=== PATIENT | female | born 1950 | race Caucasian/White ===

== ENCOUNTER → 2016-11-19 | Outpatient (CLI) | payer OTHER ==
[~2016-11-19] MED LIST: CIPR-255 PO; CYCL10TA6 PO; GABA-113 PO; GADAVIST IV PRN
--- NOTE | 2016-11-19 11:19 | DIAGNOSTIC IMAGING REPORT ---
Brain MRI WITH AND WITHOUT CONTRAST HISTORY: WORSENING MEMORY LOSS, POST CONCUSSION SYNDROME TECHNIQUE: Multiplanar multisequence MRI of the brain was performed both before and after the intravenous administration of contrast. COMPARISON STUDY: None. FINDINGS: There is no mass, hematoma, midline shift, or acute infarct. The paranasal sinuses are clear. The mastoid air cells are clear. The ventricles and sulci are within normal limits. A few scattered foci of T2 hyperintensity seen within the periventricular and subcortical white matter are nonspecific but suggestive of mild microvascular ischemic changes. The major vascular flow voids at the skull base are well-maintained. IMPRESSION: No acute intracranial abnormality. A few scattered foci of T2 hyperintensity seen within the periventricular and subcortical white matter are nonspecific but favor microvascular ischemic change. Electronically signed by: Sha Martinez M.D. 11/19/2016 11:18 AM Dictated Date/Time: 11/19/2016 11:10 AM
== END | disposition home or self-care (01) ==
LOC: C.OPENMRI 09:45
PROVIDERS: ATTEND Psychiatry & Neurology Neurology
DX: R41.3 Other amnesia (principal); F07.81 Postconcussional syndrome

== ENCOUNTER 2020-11-14 11:53 | Inpatient (IN) ==
[~2020-11-14 11:53] MED LIST changes: -CIPR-255 PO; -CYCL10TA6 PO; +ETOMIDATE 2 MG/ML 20 ML VIAL IV ONE; -GABA-113 PO; -GADAVIST IV PRN; +MIDAZOLAM HCL 5 MG/ML VIAL IV ONE; +fentaNYL citrate 100 MCG/2 ML VIAL IV ONE
[2020-11-14] MEDS ORDERED: dexAMETHasone**PF** 10 MG/ML VIAL IV ONE (12:24)
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
[2020-11-14 13:09] LABS: Basophils # (auto) 0.01 K/uL (0-0.2); Basophils % (auto) 0.1 %; Hemoglobin 13.7 g/dL (12.0-16.0); Immature Granulocytes # (auto) 0.03 K/uL (0.00-0.02); Immature Granulocytes % (auto) 0.3 %; Lymphocytes # (auto) 0.64 K/uL (1.2-3.4); Lymphocytes % (auto) 6.6 %; Mean Corpuscular Hgb Conc 35.1 g/dL (32-36); Mean Corpuscular Volume 88.2 fL (80-100); Mean Platelet Volume 10.3 fL (7.4-10.4); Monocytes # (auto) 0.26 K/uL (0.11-0.59); Monocytes % (auto) 2.7 %; Neutrophils # (auto) 8.69 K/uL (1.4-6.5); Neutrophils % (auto) 90.3 %; Platelet Count 264 K/uL (130-400); RDW Coefficient of Variation 13.1 % (11.5-14.5); RDW Standard Deviation 42.7 fL (36.4-46.3); Red Blood Count 4.42 M/uL (4.2-5.4); White Blood Count 9.63 K/uL (4.8-10.8)
[2020-11-14 13:20] LABS: Partial Thromboplastin Time 27.5 Seconds (21.0-31.0)
--- NOTE | 2020-11-14 13:20 | XRay Report ---
XR chest 1V portable HISTORY: Atypical Chest Pain COMPARISON: Chest 07/18/2018. FINDINGS: No pneumothorax. No pleural fusions. The cardiac silhouette is borderline enlarged. Retroca rdiac density favors a small to moderate hiatus hernia. Bilateral peripheral mid to lower lung zone a irspace opacities are new from the prior study. This could be due to overlapping soft tissue but favo rs viral pneumonitis. IMPRESSION: There are new bilateral peripheral mid to lower lung zone airspace opacities. This could be due to ov erlapping soft tissues but favors a viral pneumonitis. Follow-up chest x-ray recommended to ensure re solution. ACT 112: Negative or not required by law. Electronically signed by: Sha Martinez M.D. 11/14/2020 1:19 PM
[2020-11-14 13:40] LABS: Alanine Aminotransferase 92 U/L (12-78); Albumin Level 2.7 gm/dl (3.4-5.0); Aspartate Aminotransferase 151 U/L (15-37); BUN Creatinine Ratio 13.7 (10-20); Blood Urea Nitrogen 7 mg/dl (7-18); Calcium 8.8 mg/dl (8.5-10.1); Carbon Dioxide 23 mmol/L (21-32); Chloride 94 mmol/L (98-107); Creatinine Clr Calc Pharmacy 90.5 ml/min; Est GFR (African American) 113.1 ml/min; Est GFR (Non-African American) 97.6 ml/min; Glucose 101 mg/dl (70-99); Lipase 146 U/L (73-393); Potassium 3.8 mmol/L (3.5-5.1); Sodium 129 mmol/L (136-145)
[2020-11-14 13:45] LABS: Albumin Globulin Ratio 0.6 (0.9-2); Alkaline Phosphatase 85 U/L (45-117); Bilirubin,Total 0.7 mg/dl (0.2-1); Globulin 4.7 gm/dl (2.5-4.0); Total Protein 7.4 gm/dl (6.4-8.2); Troponin I < 0.015 ng/ml (0-0.045)
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
[2020-11-14] MEDS ORDERED: ALUMINUM/MAGNESIUM SUSP 30 ML UDC PO PRN (14:52)
[2020-11-14] MEDS ORDERED: IBUPROFEN 200 MG TAB PO PRN (14:52)
[2020-11-14] MEDS ORDERED: POLYETHYLENE (MIRALAX) 17 GM PACK PO PRN (14:52)
[2020-11-14] MEDS ORDERED: ONDANSETRON INJ 2 MG/ML 2 ML VIAL IV PRN (14:52)
[2020-11-14] MEDS ORDERED: MAGNESIUM HYDROXIDE SUSP 30 ML UDC PO PRN (14:52)
[2020-11-14] MEDS: ALBUTEROL HFA 8 GM INHALER INH SCH ×2 (15:49→19:45)
[2020-11-14] MEDS ORDERED: ETOMIDATE 2 MG/ML 20 ML VIAL IV ONE (15:54)
[2020-11-14] MEDS ORDERED: SUCCINYLCHOLINE CHLORIDE 20 MG/ML 10 ML VIAL IV ONE (15:54)
[2020-11-14] MEDS ORDERED: MIDAZOLAM HCL 5 MG/ML VIAL IV ONE (15:54)
[2020-11-14] MEDS ORDERED: OPTIRAY 350 500ml IV ONE (16:02)
--- NOTE | 2020-11-14 16:29 | CT Scan Report ---
CT ANGIOGRAM OF THE CHEST CLINICAL HISTORY: Dyspnea. Covid. COMPARISON STUDY: Chest x-ray dated 11/14/2020. TECHNIQUE: Following the IV administration of 115 cc of Optiray 350, CT angiogram of the chest was pe rformed from the upper abdomen to the thoracic inlet utilizing the pulmonary embolus protocol. Images are reviewed in the axial, sagittal, and coronal planes. 3-D MIPS images are created and assessed. I V contrast was administered without complication. A dose lowering technique was utilized adhering to the principles of ALARA. CT DOSE: 401.65 mGycm FINDINGS: Thyroid: Imaged portions of the thyroid gland are normal in size and attenuation. Thoracic aorta: There is mild atherosclerotic calcification of the thoracic aorta, which is normal in caliber and demonstrates standard 3-vessel arch anatomy. No dissection is seen. Pulmonary vasculature: The pulmonary trunk is normal in caliber. There are no filling defects identif ied in main, lobar, or segmental pulmonary branches to suggest pulmonary embolus. Heart: The heart is normal in size and without pericardial effusion. Lungs and pleural spaces: Extensive multifocal groundglass consolidation is seen throughout both lung s. No pleural effusion is identified. The trachea and central airways are clear. Mediastinum: Prominent prevascular nodes measure up to 9 mm in short axis. Tammie: Clear. Axillae: There is no axillary lymphadenopathy. Upper abdomen: There is a moderate hiatal hernia. The liver appears steatotic. Skeletal structures: The skeletal structures are osteopenic. Mild degenerative change is noted in the shoulders and thoracic spine. No lytic or blastic lesion is seen. IMPRESSION: 1. There is no evidence of pulmonary embolus in the main, lobar, or segmental pulmonary arteries. 2. Multifocal groundglass consolidation is seen throughout both lungs and consistent with the reporte d history of a viral pneumonia. Radiographic follow-up to resolution is recommended. 3. Moderate hiatal hernia. 4. Hepatic steatosis. ACT 112: Negative or not required by law. Electronically signed by: Vu Chin M.D. 11/14/2020 4:28 PM
--- NOTE | 2020-11-14 17:55 | Electrocardiogram Report ---
Test Reason : Blood Pressure : / mmHG Vent. Rate : 109 BPM Atrial Rate : 109 BPM P-R Int : 156 ms QRS Dur : 084 ms QT Int : 346 ms P-R-T Axes : 037 -16 049 degrees QTc Int : 465 ms Sinus tachycardia Otherwise normal ECG When compared with ECG of 18-JUL-2018 12:05, Vent. rate has increased BY 42 BPM Confirmed by Brendan Israel ([id number]) on 11/14/2020 5:54:59 PM Referred By: REFERRED SELF Confirmed By:Alejandro Israel
[2020-11-14] MEDS: ENOXAPARIN INJ 40 MG/0.4 ML SYR SQ SCH (21:34)
[2020-11-14 23:06] LABS: Appearance Urine Clear (Clear); Bacteria Urine Automated Negative (Negative); Bilirubin Urine Negative (Negative); Blood Urine Trace (Negative); Cast Urine Automated 0 /lpf (0-5); Color Urine Yellow; Epithelial Cell Urine Auto >30 /lpf (0-5); Glucose Urine UA Negative (Negative); Ketones Urine 1+ (Negative); Leukocyte Esterase Urine Negative (Negative); Nitrite Urine Negative (Negative); Protein Urine 1+ (Negative); RBC Urine Automated 0-4 /hpf (0-4); Specific Gravity Urine > 1.045 (1.000-1.030); Urobilinogen Urine Negative (Negative); pH Urine 6.5 (4.5-7.5)
[2020-11-15] MEDS ORDERED: dexAMETHasone 6 MG in SYRINGE 0 ML IV SCH ×2 (01:05→09:00)
[2020-11-15] MEDS ORDERED: ALBUTEROL HFA 8 GM INHALER INH ONE (01:05)
[2020-11-15] MEDS ORDERED: MAGNESIUM SULFATE / D5W 1 GM/100 ML BAG IV ONE (01:06)
[2020-11-15] MEDS ORDERED: POTASSIUM CHLORIDE CRTAB 20 MEQ TABCR PO STA (01:07)
[2020-11-15] MEDS ORDERED: DOXYCYCLINE HYCLATE 100 MG in DEXTROSE 5% 100 ML IV STA (01:42)
--- NOTE | 2020-11-15 01:43 | Communication Note ---
Date of Service: November 15, 2020 Made aware by RN of increasing O2 requirement. O2 sats 80s at 8 L. Patient not in distress but anxious as per RN. Chest x-ray as per my interpretation bilateral airspace opacities AP Worsening hypoxemic respiratory failure secondary to severe COVID-19 pneumonia Secondary bacterial infection given junky yellow sputum as per admission H&P Supplemental O2 Check ABG Doxycycline for secondary bacterial infection Continue TRACIE Mathews RTC Pulmonary consult if without improvement in a.m. Will relay to AM provider.
[2020-11-15 01:44] LABS: Magnesium 2.2 mg/dl (1.8-2.4)
[2020-11-15 01:48] LABS: Allen Test POS (Pos); Base Excess ABG 1.2 mEq/L (-9-1.8); HCO3 ABG 25 mmol/L (19-24); Oxygen Saturation ABG 93.1 % (90-95); PCO2 ABG 35 mmHg (35-46); PO2 ABG 60 mmHg (80-95); pH ABG 7.46 (7.35-7.45)
[2020-11-15 06:39] LABS: Basophils # (auto) 0.01 K/uL (0-0.2); Basophils % (auto) 0.1 %; Hematocrit (blood only) 40.6 % (37-47); Hemoglobin 13.8 g/dL (12.0-16.0); Immature Granulocytes # (auto) 0.04 K/uL (0.00-0.02); Immature Granulocytes % (auto) 0.5 %; Lymphocytes # (auto) 0.73 K/uL (1.2-3.4); Lymphocytes % (auto) 9.3 %; Mean Corpuscular Hemoglobin 30.7 pg (25-34); Mean Corpuscular Volume 90.2 fL (80-100); Mean Platelet Volume 10.1 fL (7.4-10.4); Monocytes # (auto) 0.31 K/uL (0.11-0.59); Neutrophils # (auto) 6.73 K/uL (1.4-6.5); Neutrophils % (auto) 86.1 %; Platelet Count 335 K/uL (130-400); RDW Coefficient of Variation 13.4 % (11.5-14.5); RDW Standard Deviation 44.4 fL (36.4-46.3); White Blood Count 7.82 K/uL (4.8-10.8)
--- NOTE | 2020-11-15 07:09 | XRay Report ---
XR chest 1V portable CLINICAL HISTORY: low o2 COMPARISON STUDY: Chest radiograph and chest CT November 14, 2020. FINDINGS: Lung volumes are normal. There is no pneumothorax or pleural effusion. Bilateral airspace o pacities persist although have improved since chest radiograph and chest CT of November 14, 2020. Cardiom ediastinal silhouette is stable. A hiatal hernia is again noted. IMPRESSION: Persistent, but improved, bilateral airspace opacities consistent with an infectious pro cess. ACT 112: Negative or not required by law. Electronically signed by: Gokul Olson M.D. 11/15/2020 7:08 AM
[2020-11-15] MEDS: ALBUTEROL HFA 8 GM INHALER INH SCH ×4 (07:19→20:12)
[2020-11-15 07:31] LABS: Albumin Globulin Ratio 0.5 (0.9-2); Albumin Level 2.5 gm/dl (3.4-5.0); BUN Creatinine Ratio 20.5 (10-20); Bilirubin,Total 0.6 mg/dl (0.2-1); Calcium 9.3 mg/dl (8.5-10.1); Creatinine Clr Calc Pharmacy 57.2 ml/min; Est GFR (African American) 81.6 ml/min; Est GFR (Non-African American) 70.4 ml/min; Globulin 4.8 gm/dl (2.5-4.0); Magnesium 2.8 mg/dl (1.8-2.4); Potassium 4.5 mmol/L (3.5-5.1); Total Protein 7.3 gm/dl (6.4-8.2)
[2020-11-15] MEDS: ENOXAPARIN INJ 40 MG/0.4 ML SYR SQ SCH ×2 (08:36→20:49)
[2020-11-15] MEDS ORDERED: FUROSEMIDE 40 MG in SYRINGE 0 ML IV ONE (11:12)
[2020-11-15] MEDS ORDERED: FUROSEMIDE 40 MG/4 ML VIAL IV ONE (11:12)
--- NOTE | 2020-11-15 12:04 | Hospitalist Progress Note ---
Date of Service November 15, 2020 Assessment & Plan (1) Pneumonia due to COVID-19 virus: Currently patient is on the high flow nasal cannula. Reports shortness of breath is improved. Remains afebrile. Hemodynamically doing okay. CRP of 14. Pro Den of only 0.13. CTA chest is negative for any pulmonary embolism. Continue with Decadron. Continue with doxycycline 100 mg twice daily. Does not meet criteria for remdesivir since his symptoms started roughly around 10/30 test was +16/7. alternate tylenol/ibuprofen for fever, limit tylenol to 2g albuterol MDI QID, incentive spirometry, flutter valve lovenox 40mg SQ q12h Given worsening oxygen requirement, consulted pulmonary medicine. (2) Hyponatremia: Sodium 129 on admission, this morning at 132. Likely secondary to p.o. intake. Renal function is normal. Will continue to monitor daily BMP. (3) Fatty liver: Elevated Transaminases -improved ast 151, alt 92. AST is down to 97 and ALT 275. previous LFT in [facility] had been normal she has been taking APAP for fever reduction last US of liver 09/2019 diffuse increased heterogeneous liver and fatty filtration. (4) DVT prophylaxis: Lovenox SQ Q12h Dipso: PCU FULL CODE PCP: Dr. An Christian Admission and Anticipated Discharge Date Admission Date: November 14, 2020 Subjective Currently patient is sitting on the recliner. She is on high flow nasal cannula, reports that shortness of breath is improved. Does have nonproductive cough. Denies any fever chills or diaphoresis. Denies any chest pain. Appetite has been okay. Review of Systems Review of Systems: All systems reviewed & are unremarkable except as noted in HPI & below Physical Exam Physical Exam: General: A&Ox3 HENT: NCAT, MMM, EOMI Eyes: PERRLA Neck: Supple, normal range of motion CVS: normal rate and rhythm Resp: b/l crackles apprecaited Abdomen: Soft, ND/NT Extremities: No c/c/e Neuro: face symmetric,no focal deficit Skin: warm and dry, no rashes/lesions/errythema MSK: normal ROM, no joint swelling/erythema Results & Data Results & Data ([facility]) Vital Signs (Past 12 Hours) Vital Signs Temp Pulse Pulse Pulse Resp BP Pulse Ox 11/15/20 11:23 36.9 C 98 H 23 103/61 91 11/15/20 10:32 93 H 21 93 11/15/20 08:28 36.9 C 89 24 119/73 91 11/15/20 07:57 68 11/15/20 07:20 75 20 98 11/15/20 03:59 37.0 C 68 18 117/67 96 11/15/20 01:44 74 20 92 11/15/20 01:28 84 11/15/20 01:14 93 11/15/20 01:00 87 L 11/15/20 00:11 93
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
[2020-11-15 14:45] LABS: C Reactive Protein 11.8 mg/dl (0-0.29); Ferritin 1701.2 ng/ml (8-388)
[2020-11-15] MEDS ORDERED: dexAMETHasone 20 MG in SYRINGE 0 ML IV SCH (15:00)
[2020-11-15] MEDS ORDERED: dexAMETHasone 20 MG in DEXTROSE 5% 25 ML IV ONE (15:00)
[2020-11-15 17:50] LABS: NT Pro B Type Natriuretic Pept 164 pg/ml (0-900); Troponin I < 0.015 ng/ml (0-0.045)
--- NOTE | 2020-11-15 20:34 | Ultrasound Report ---
US venous doppler LE LT CLINICAL HISTORY: edema LEFT LOWER EXTREMITY PAIN COMPARISON STUDY: No previous studies for comparison. FINDINGS: Real-time and color flow Doppler imaging were performed. Flow was seen within the femoral, popliteal and calf veins with no intraluminal thrombus demonstrated. The saphenous vein is patent. IMPRESSION: No evidence of left lower extremity DVT. ACT 112: Negative or not required by law. Electronically signed by: Lenard Bolaños M.D. 11/15/2020 8:33 PM
[2020-11-15] MEDS: FAMOTIDINE 20 MG in SYRINGE 3 ML IV SCH (20:50)
[2020-11-15] MEDS ORDERED: DOXYCYCLINE HYCLATE 100 MG CAP PO SCH (21:00)
[2020-11-15] MEDS ORDERED: FAMOTIDINE 20 MG TAB PO SCH (21:00)
[2020-11-16 05:04] LABS: Hematocrit (blood only) 39.8 % (37-47); Hemoglobin 13.3 g/dL (12.0-16.0); Mean Corpuscular Hemoglobin 30.4 pg (25-34); Mean Corpuscular Hgb Conc 33.4 g/dL (32-36); Mean Corpuscular Volume 90.9 fL (80-100); Platelet Count 460 K/uL (130-400); RDW Coefficient of Variation 13.4 % (11.5-14.5); RDW Standard Deviation 44.5 fL (36.4-46.3); Red Blood Count 4.38 M/uL (4.2-5.4); White Blood Count 16.08 K/uL (4.8-10.8)
[2020-11-16 05:22] LABS: Calcium 9.1 mg/dl (8.5-10.1); Creatinine Clr Calc Pharmacy 54.6 ml/min; Est GFR (African American) 77.2 ml/min; Est GFR (Non-African American) 66.6 ml/min; Magnesium 2.7 mg/dl (1.8-2.4); Phosphorus 3.7 mg/dl (2.5-4.9); Potassium 4.2 mmol/L (3.5-5.1)
[2020-11-16 05:28] LABS: Basophils # (auto) 0.03 K/uL (0-0.2); Basophils % (auto) 0.2 %; Immature Granulocytes # (auto) 0.07 K/uL (0.00-0.02); Immature Granulocytes % (auto) 0.4 %; Lymphocytes # (auto) 1.17 K/uL (1.2-3.4); Lymphocytes % (auto) 7.3 %; Monocytes # (auto) 0.66 K/uL (0.11-0.59); Monocytes % (auto) 4.1 %; Neutrophils # (auto) 14.15 K/uL (1.4-6.5); RBC Morphology Unremarkable
[2020-11-16] MEDS: ALBUTEROL HFA 8 GM INHALER INH SCH ×4 (07:59→20:10)
--- NOTE | 2020-11-16 08:57 | XRay Report ---
XR chest 1V portable CLINICAL HISTORY: resp failure COMPARISON STUDY: November 15, 2020 FINDINGS: No pneumothorax. No pleural effusion. Interval prominence of reticular opacities within bilateral mid to lower lungs, most worsening on the left when compared to recent prior study. Cardiomediastinal silhouette is within normal limits in size. No significant pulmonary vascular congestion.. Osseous structures: unremarkable IMPRESSION: 1. Interval prominence of reticular opacities within bilateral mid to lower lung regions, mostly on the left which might represent pulmonary edema or infectious/inflammatory etiology. ACT 112: Negative or not required by law. The above report was generated using voice recognition software. It may contain grammatical, syntax o r spelling errors. Electronically signed by: Nadia Kirk DO 11/16/2020 8:55 AM
[2020-11-16] MEDS: ENOXAPARIN INJ 40 MG/0.4 ML SYR SQ SCH ×2 (09:47→21:06)
[2020-11-16] MEDS: FAMOTIDINE 20 MG in SYRINGE 3 ML IV SCH ×2 (09:48→21:07)
[2020-11-16] MEDS ORDERED: PHARMACY GLYCEMIC MGMT CONSULT PRN (10:34)
[2020-11-16] MEDS ORDERED: DEXTROSE 50% 50 ML SYRINGE IV PRN (10:45)
[2020-11-16] MEDS ORDERED: CARBOHYDRATES FOR HYPOGLYCEMIA PO PRN (10:45)
[2020-11-16] MEDS ORDERED: GLUCAGON FOR INJ 1 MG VIAL IM PRN (10:45)
[2020-11-16] MEDS ORDERED: INSULIN HUMAN NPH SC ONE (10:45)
[2020-11-16] MEDS ORDERED: GLUCOSE 40% GEL 15 GM TUBE PO PRN (10:45)
[2020-11-16] MEDS ORDERED: INSULIN ASPART 100 UNITS/ML 3 ML PEN SC ONE (10:45)
[2020-11-16] MEDS ORDERED: GLUCOSE 10 TABS/TUBE PO PRN (10:45)
--- NOTE | 2020-11-16 10:45 | Hospitalist Progress Note ---
Date of Service November 16, 2020 Assessment & Plan (1) Pneumonia due to COVID-19 virus: Currently patient is on the high flow nasal cannula. Reports shortness of breath is improved. CRP of 14. Pro Den of only 0.13. CTA chest is negative for any pulmonary embolism. Continue with Decadron 20 mg daily. Continue with doxycycline 100 mg twice daily. Does not meet criteria for remdesivir since his symptoms started roughly around 10/30 test was +16/7. alternate tylenol/ibuprofen for fever, limit tylenol to 2g albuterol MDI QID, incentive spirometry, flutter valve. lovenox 40mg SQ q12h Appreciate pulmonary medicine input. (2) Hyponatremia: Sodium 129 on admission, this morning at 131. Likely secondary to p.o. intake. Renal function is normal. Will continue to monitor daily BMP. (3) Fatty liver: Elevated Transaminases -improved ast 151, alt 92. AST is down to 97 and ALT 275 she has been taking APAP for fever reduction last US of liver 09/2019 diffuse increased heterogeneous liver and fatty filtrati on. (4) DVT prophylaxis: Lovenox SQ Q12h Dipso: PCU FULL CODE PCP: Dr. An Christian Admission and Anticipated Discharge Date Admission Date: November 14, 2020 Subjective Patient remains on high flow nasal cannula. Reports her shortness of breath is better today, does have intermittent productive cough. Remains afebrile. Denies any chest pain, palpitations, abdominal pain, diarrhea or dysuria. Reports appetite is better. Review of Systems Review of Systems: All systems reviewed & are unremarkable except as noted in HPI & below Physical Exam Physical Exam: General: A&Ox3 HENT: NCAT, MMM, EOMI Eyes: PERRLA Neck: Supple, normal range of motion CVS: normal rate and rhythm Resp: b/l crackles apprecaited Abdomen: Soft, ND/NT Extremities: No c/c/e Neuro: face symmetric,no focal deficit Skin: warm and dry, no rashes/lesions/errythema MSK: normal ROM, no joint swelling/erythema Results & Data Results & Data ([facility]) Vital Signs (Past 12 Hours) Vital Signs Temp Pulse Pulse Resp BP Pulse Ox 11/16/20 08:15 93 H 20 97 11/16/20 08:14 93 H 20 98 11/16/20 08:00 87 14 95 11/16/20 07:45 88 18 89 L 11/16/20 07:30 73 29 H 93 11/16/20 07:21 84 19 112/55 L 97 11/16/20 07:15 74 27 H 94 11/16/20 07:00 83 20 93 11/16/20 06:30 88 19 90 11/16/20 06:22 82 23 103/60 91 11/16/20 06:00 73 25 H 94 11/16/20 05:30 77 26 H 93 11/16/20 05:21 76 31 H 106/57 L 93 11/16/20 05:00 74 25 H 93 11/16/20 04:30 86 31 H 94 11/16/20 04:21 90 16 115/79 97 11/16/20 04:00 36.9 C 73 28 H 93 11/16/20 03:30 73 28 H 94 11/16/20 03:21 86 22 116/66 95 11/16/20 03:00 77 27 H 94 11/16/20 02:30 75 32 H 95 11/16/20 02:21 87 20 112/61 92 11/16/20 02:00 88 12 96 11/16/20 01:30 87 22 95 11/16/20 01:21 88 25 H 96/54 L 93 11/16/20 01:00 80 27 H 96 11/16/20 00:30 76 25 H 94 11/16/20 00:21 78 24 108/53 L 95 11/16/20 00:00 82 22 95 11/15/20 23:45 88 20 94 11/15/20 23:44 36.8 C 81 11/15/20 23:30 92 H 18 90 11/15/20 23:21 96 H 16 112/64 87 L 11/15/20 23:00 101 H 20 94
--- NOTE | 2020-11-16 11:47 | Pharmacy Report ---
Pharmacy Glycemic Short Note 2 - Date of Service November 16, 2020 - Glycemic Short BSG Results (Last 24 hours): 11/15/20 11/16/20 23:34 04:44 Glucose 152 H POC Glucose 169 H OUTPATIENT ANTIDIABETIC REGIMEN: * N/A * a1C = ? ASSESSMENT: * 70 yo female admitted to ICU for resp failure secondary to COVID19 viral pneumonia * DEXA-ARDS IV dexamethasone initiated yesterday, BSGs have been trending higher. Last 2 fasting BSGs > 140 and there are plans to advance diet today * Will initiate Novolog regimen using weight and "severe" stress. Will also give a low dose of NPH this AM to help offset the climb in BSGs following meals today. Given uncertainty with PO intake, and lack of A1c result, will keep NPH dose low for now. PLAN FOR INPATIENT GLYCEMIC CONTROL: * check A1c * Basal insulin * NPH 10 units SQ with each dose of Dexamethasone IV * Bolus insulin * NovoLog per scale ACHS or Q6hrs while NPO * Goal Range: Low 110 mg/dL - High 140 mg/dL * Correction Factor: 25 mg/dL/unit * Nutritional / Prandial insulin per carb ratio of 1 unit per 8 grams CHO consumed PLAN FOR DISCHARGE: * to be determined (awaiting A1c results)
[2020-11-16] MEDS: dexAMETHasone 20 MG in DEXTROSE 5% 25 ML IV SCH (11:49)
--- NOTE | 2020-11-16 11:49 | Pulmonology Progress Note ---
Date of Service November 16, 2020 Assessment & Plan (1) Pneumonia due to COVID-19 virus: 70-year-old female with a past medical history of hyperlipidemia and fatty liver disease who presented to the hospital due to COVID-19 illness and acute hypoxemic respiratory failure. Acute hypoxemic respiratory failure: She was started on the DEXA ARDS protocol of 20 mg Decadron for 5 days followed by 10 mg for 5 days. This was initiated on 11/15/2020. CRP is downtrending. We will repeat CRP level tomorrow. Hypoxia is mildly improved from yesterday. Encouraged self proning and getting out of the bed to a chair. I do not suspect bacterial infection at this time. Hypoxia largely secondary to COVID-19 pneumonia. Continue to wean oxygen to maintain saturations of 92 to 94%. Incentive spirometer and flutter valve have been ordered. We will hold off on tocilizumab therapy as we have increased her Decadron dose to 20 mg daily. As noted previously, her CRP is trending downward. Lactic acidosis: Likely secondary to underlying tissue hypoxemia and increased work of breathing. This is improved. We will advance the patient's diet today as tolerated. Continue to monitor glucose closely. Appreciate ICU pharmacist input and management of glucose. Continue famotidine twice daily for stress ulcer prophylaxis. Continue Lovenox for DVT prophylaxis. Remain in the ICU today. (2) Acute hypoxemic respiratory failure: (3) Lactic acidosis: Admission and Anticipated Discharge Date Admission Date: November 14, 2020 Subjective Patient seen and examined this morning. She feels overall slightly better than she did yesterday. She denies any chest pain. She still has shortness of breath with moving around in bed. Appetite has been very poor. She denies any abdominal pain. No fevers overnight. Voiding well. Review of Systems Review of Systems: All systems reviewed & are unremarkable except as noted in HPI & below Physical Exam Constitutional: + lethargic Eyes: PERRL, conjunctivae normal, anicteric sclerae ENMT: external ear and nose normal, oropharynx normal Respiratory: + tachypneic Auscultation: + crackles Cardiovascular: RRR, no murmur, no edema Gastrointestinal (Abdomen): normal bowel sounds, soft, nontender, no hepatosplenomegaly Neurologic: PERRL, EOMI, accommodation nl, no face palsy, no dysarthria Psychiatric: A+Ox3, euthymic affect Results & Data Results & Data ([facility]) Vital Signs (Past 12 Hours) Vital Signs Temp Pulse Pulse Resp BP Pulse Ox 11/16/20 11:28 91 H 20 95 11/16/20 11:24 90 20 95 11/16/20 08:15 93 H 20 97 11/16/20 08:14 93 H 20 98 11/16/20 08:00 87 14 95 11/16/20 07:45 88 18 89 L 11/16/20 07:30 73 29 H 93 11/16/20 07:21 84 19 112/55 L 97 11/16/20 07:15 74 27 H 94 11/16/20 07:00 83 20 93 11/16/20 06:30 88 19 90 11/16/20 06:22 82 23 103/60 91 11/16/20 06:00 73 25 H 94 11/16/20 05:30 77 26 H 93 11/16/20 05:21 76 31 H 106/57 L 93 11/16/20 05:00 74 25 H 93 11/16/20 04:30 86 31 H 94 11/16/20 04:21 90 16 115/79 97 11/16/20 04:00 98.4 F 73 28 H 93 11/16/20 03:30 73 28 H 94 11/16/20 03:21 86 22 116/66 95 11/16/20 03:00 77 27 H 94 11/16/20 02:30 75 32 H 95 11/16/20 02:21 87 20 112/61 92 11/16/20 02:00 88 12 96 11/16/20 01:30 87 22 95 11/16/20 01:21 88 25 H 96/54 L 93 11/16/20 01:00 80 27 H 96 11/16/20 00:30 76 25 H 94 11/16/20 00:21 78 24 108/53 L 95 11/16/20 00:00 82 22 95 11/15/20 23:45 88 20 94 11/15/20 23:44 98.2 F 81 vital signs, labs and imaging personally reviewed PG Care Time/CCT Total # of Minutes Spent Total Time Spent with Patient: Total time spent is greater than 50% in coordination of care (as documented) at patient's floor/unit and/or counseling patient: Coding Level of Care Code 40017 Subseq Hosp Care Lvl 3 Diagnoses Pneumonia due to COVID-19 virus U07.1; J12.82 Acute hypoxemic respiratory failure J96.01 Lactic acidosis E87.2
[2020-11-16] MEDS: INSULIN ASPART 100 UNITS/ML 3 ML PEN SC SCH ×3 (11:54→21:07)
[2020-11-16 12:01] LABS: Estimated Average Glucose 123 mg/dl; Hemoglobin A1C 5.9 % (4.5-5.6)
--- NOTE | 2020-11-16 16:51 | Electrocardiogram Report ---
Test Reason : Blood Pressure : / mmHG Vent. Rate : 094 BPM Atrial Rate : 094 BPM P-R Int : 158 ms QRS Dur : 084 ms QT Int : 372 ms P-R-T Axes : 044 -10 059 degrees QTc Int : 465 ms Normal sinus rhythm Confirmed by Brendan Israel ([id number]) on 11/16/2020 4:51:01 PM Referred By: REFERRED SELF Confirmed By:Alejandro Israel
[2020-11-17 05:33] LABS: C Reactive Protein 1.9 mg/dl (0-0.29); Calcium 8.4 mg/dl (8.5-10.1); Creatinine Clr Calc Pharmacy 74.7 ml/min; Est GFR (African American) 106.3 ml/min; Est GFR (Non-African American) 91.7 ml/min; Magnesium 2.7 mg/dl (1.8-2.4); Phosphorus 3.5 mg/dl (2.5-4.9); Potassium 4.3 mmol/L (3.5-5.1)
[2020-11-17 06:48] LABS: Hematocrit (blood only) 38.4 % (37-47); Hemoglobin 13.1 g/dL (12.0-16.0); Mean Corpuscular Hemoglobin 30.5 pg (25-34); Mean Corpuscular Volume 89.5 fL (80-100); Mean Platelet Volume 9.6 fL (7.4-10.4); Platelet Count 521 K/uL (130-400); RDW Coefficient of Variation 13.2 % (11.5-14.5); RDW Standard Deviation 43.4 fL (36.4-46.3); Red Blood Count 4.29 M/uL (4.2-5.4); White Blood Count 13.99 K/uL (4.8-10.8)
[2020-11-17 06:51] LABS: Mean Corpuscular Hgb Conc 34.1 g/dL (32-36)
[2020-11-17 07:10] LABS: Basophils # (auto) 0.02 K/uL (0-0.2); Basophils % (auto) 0.1 %; Immature Granulocytes # (auto) 0.12 K/uL (0.00-0.02); Immature Granulocytes % (auto) 0.9 %; Lymphocytes # (auto) 1.61 K/uL (1.2-3.4); Lymphocytes % (auto) 11.5 %; Monocytes # (auto) 1.06 K/uL (0.11-0.59); Monocytes % (auto) 7.6 %; Neutrophils # (auto) 11.18 K/uL (1.4-6.5); Neutrophils % (auto) 79.9 %
[2020-11-17] MEDS: ALBUTEROL HFA 8 GM INHALER INH SCH ×4 (07:30→19:26)
[2020-11-17] MEDS: ENOXAPARIN INJ 40 MG/0.4 ML SYR SQ SCH ×2 (07:39→20:55)
[2020-11-17] MEDS: FAMOTIDINE 20 MG in SYRINGE 3 ML IV SCH ×2 (07:42→20:55)
[2020-11-17] MEDS: dexAMETHasone 20 MG in DEXTROSE 5% 25 ML IV SCH (07:43)
[2020-11-17] MEDS: INSULIN ASPART 100 UNITS/ML 3 ML PEN SC SCH ×4 (08:07→20:56)
[2020-11-17] MEDS ORDERED: INSULIN HUMAN NPH SC SCH (09:00)
[2020-11-17] MEDS ORDERED: FUROSEMIDE 40 MG in SYRINGE 0 ML IV ONE (09:30)
--- NOTE | 2020-11-17 10:12 | Pulmonology Progress Note ---
Date of Service November 17, 2020 Assessment & Plan (1) Pneumonia due to COVID-19 virus: 70-year-old female with a past medical history of hyperlipidemia and fatty liver disease who presented to the hospital due to COVID-19 illness and acute hypoxemic respiratory failure. Acute hypoxemic respiratory failure: She was started on the DEXA ARDS protocol of 20 mg Decadron for 5 days followed by 10 mg for 5 days. This was initiated on 11/15/2020. Encouraged self proning and getting out of the bed to a chair. I do not suspect bacterial infection at this time. Hypoxia largely secondary to COVID-19 pneumonia. Continue to wean oxygen to maintain saturations of 92 to 94%. Incentive spirometer and flutter valve have been ordered. We will hold off on tocilizumab therapy as we have increased her Decadron dose to 20 mg daily. We will give 20 mg of IV Lasix today to try and keep her on the milk drier side. Lactic acidosis: Likely secondary to underlying tissue hypoxemia and increased work of breathing. Resolved. Tolerating diet. Continue to monitor glucose closely. Appreciate ICU pharmacist input and management of glucose. Continue famotidine twice daily for stress ulcer prophylaxis. Continue Lovenox for DVT prophylaxis. Remain in the ICU today. (2) Acute hypoxemic respiratory failure: (3) Lactic acidosis: Admission and Anticipated Discharge Date Admission Date: November 14, 2020 Subjective Patient seen and examined this morning. She is alert and oriented. She denies any chest pain. She is tolerating diet well. No fevers overnight. Still requiring large amounts of supplemental oxygen. Currently on 70% FiO2 and 40 L. She denies any shortness of breath while resting in bed. Review of Systems Review of Systems: All systems reviewed & are unremarkable except as noted in HPI & below Physical Exam Constitutional: well developed, well nourished and + ill appearing Eyes: PERRL, conjunctivae normal, anicteric sclerae ENMT: external ear and nose normal, oropharynx normal Respiratory: normal respiratory effort Auscultation: + diminished lung sounds Cardiovascular: RRR, no murmur, no edema Gastrointestinal (Abdomen): normal bowel sounds, soft, nontender, no hepatosplenomegaly Neurologic: PERRL, EOMI, accommodation nl, no face palsy, no dysarthria Psychiatric: A+Ox3, euthymic affect Results & Data Results & Data ([facility]) Vital Signs (Past 12 Hours) Vital Signs Temp Pulse Pulse Resp BP Pulse Ox 11/17/20 07:28 72 20 91 11/17/20 06:30 73 28 H 95 11/17/20 06:21 80 26 H 123/67 96 11/17/20 06:00 74 27 H 95 11/17/20 05:30 70 25 H 95 11/17/20 05:21 74 24 144/73 H 97 11/17/20 05:00 70 29 H 93 11/17/20 04:30 74 26 H 92 11/17/20 04:21 72 20 122/64 93 11/17/20 04:00 97.9 F 82 20 96 11/17/20 03:55 86 18 94 11/17/20 03:30 82 20 94 11/17/20 03:21 79 21 136/78 93 11/17/20 03:00 82 17 98 11/17/20 02:30 85 21 94 11/17/20 02:21 73 27 H 108/61 91 11/17/20 02:00 73 31 H 95 11/17/20 01:30 90 18 93 11/17/20 01:21 92 H 13 143/83 H 91 11/17/20 01:00 92 H 13 91 11/17/20 00:30 99 H 21 87 L 11/17/20 00:21 93 H 20 134/88 91 11/17/20 00:00 99 H 25 H 90 11/16/20 23:36 96 H 11/16/20 23:30 93 H 19 89 L 11/16/20 23:21 98 H 20 123/78 86 L 11/16/20 23:00 93 H 18 93 11/16/20 22:52 97 H 18 89 L 11/16/20 22:30 95 H 24 95 11/16/20 22:22 90 19 94 11/16/20 22:21 96 H 25 H 133/75 94 vital signs, labs and imaging reviewed PG Care Time/CCT Total # of Minutes Spent Total Time Spent with Patient: Total time spent is greater than 50% in coordination of care (as documented) at patient's floor/unit and/or counseling patient: Coding Level of Care Code 73366 Subseq Hosp Care Lvl 3 Diagnoses Pneumonia due to COVID-19 virus U07.1; J12.82 Acute hypoxemic respiratory failure J96.01 Lactic acidosis E87.2
--- NOTE | 2020-11-17 11:11 | Hospitalist Progress Note ---
Date of Service November 17, 2020 Assessment & Plan (1) Pneumonia due to COVID-19 virus: Currently patient is on the high flow nasal cannula. She reports she is feeling better today. Redness of breath/cough is improved. CRP of 14. Pro Den of only 0.13 on admission. CTA chest is negative for any pulmonary embolism. Continue with Decadron 20 mg daily. Continue with doxycycline 100 mg twice daily. Does not meet criteria for remdesivir since his symptoms started roughly around 10/30 test was +16/7. alternate tylenol/ibuprofen for fever, limit tylenol to 2g albuterol MDI QID, incentive spirometry, flutter valve. lovenox 40mg SQ q12h Patient to be remain in ICU today. Did receive IV Lasix 20 mg dose today. Ortega catheter in place, to be removed later today. Her sister is admitted here as well, both visited [place] together. (2) Hyponatremia: Sodium 129 on admission, this morning at 130. Likely secondary to p.o. intake. Renal function is normal. Will continue to monitor daily BMP. (3) Fatty liver: Elevated Transaminases -improved ast 151, alt 92. AST is down to 97 and ALT 275 she has been taking APAP for fever reduction last US of liver 09/2019 diffuse increased heterogeneous liver and fatty fi ltration. (4) DVT prophylaxis: Lovenox SQ Q12h Dipso: PCU FULL CODE PCP: Dr. An Christian Admission and Anticipated Discharge Date Admission Date: November 14, 2020 Subjective Reports feeling better today. Remains on high flow nasal cannula. Reports s hortness of breath is improved as well as the cough. Requesting to have the Ortega catheter removed. Hemodynamically doing fine. Review of Systems Review of Systems: All systems reviewed & are unremarkable except as noted in HPI & below Physical Exam Physical Exam: General: A&Ox3 HENT: NCAT, MMM, EOMI Eyes: PERRLA Neck: Supple, normal range of motion CVS: normal rate and rhythm Resp: b/l crackles apprecaited Abdomen: Soft, ND/NT Extremities: No c/c/e Neuro: face symmetric,no focal deficit Skin: warm and dry, no rashes/lesions/errythema MSK: normal ROM, no joint swelling/erythema Ortega catheter in place. Results & Data Results & Data ([facility]) Vital Signs (Past 12 Hours) Vital Signs Temp Pulse Pulse Resp BP Pulse Ox 11/17/20 07:28 72 20 91 11/17/20 06:30 73 28 H 95 11/17/20 06:21 80 26 H 123/67 96 11/17/20 06:00 74 27 H 95 11/17/20 05:30 70 25 H 95 11/17/20 05:21 74 24 144/73 H 97 11/17/20 05:00 70 29 H 93 11/17/20 04:30 74 26 H 92 11/17/20 04:21 72 20 122/64 93 11/17/20 04:00 36.6 C 82 20 96 11/17/20 03:55 86 18 94 11/17/20 03:30 82 20 94 11/17/20 03:21 79 21 136/78 93 11/17/20 03:00 82 17 98 11/17/20 02:30 85 21 94 11/17/20 02:21 73 27 H 108/61 91 11/17/20 02:00 73 31 H 95 11/17/20 01:30 90 18 93 11/17/20 01:21 92 H 13 143/83 H 91 11/17/20 01:00 92 H 13 91 11/17/20 00:30 99 H 21 87 L 11/17/20 00:21 93 H 20 134/88 91 11/17/20 00:00 99 H 25 H 90 11/16/20 23:36 96 H 11/16/20 23:30 93 H 19 89 L 11/16/20 23:21 98 H 20 123/78 86 L
--- NOTE | 2020-11-17 12:32 | Pharmacy Report ---
Pharmacy Glycemic Short Note 2 - Date of Service November 17, 2020 - Glycemic Short BSG Results (Last 24 hours): 11/16/20 11/16/20 11/17/20 17:07 20:26 04:56 Glucose 123 H POC Glucose 152 H 189 H 11/17/20 11/17/20 07:47 10:59 Glucose POC Glucose 109 H 95 OUTPATIENT ANTIDIABETIC REGIMEN: * N/A * a1C = 5.9% on 11/16/20 indicating "pre-diabetes" ASSESSMENT: 11/17 * Pt has received 15 units of insulin over the past 24hrs * 10 units of NPH for steroid induced hyperglycemia secondary to dexamethasone 20mg IV daily * 5 units of bolus with NovoLog * BSGs [phone] mg/dl * BSGs slightly below goal range for inpatient targets. Will decrease NPH and loosen CF/CR to maintain BSGs 110-140 11/16 * 70 yo female admitted to ICU for resp failure secondary to COVID19 viral pneumonia * DEXA-ARDS IV dexamethasone initiated yesterday, BSGs have been trending higher. Last 2 fasting BSGs > 140 and there are plans to advance diet today * Will initiate Novolog regimen using weight and "severe" stress. Will also give a low dose of NPH this AM to help offset the climb in BSGs following meals today. Given uncertainty with PO intake, and lack of A1c result, will keep NPH dose low for now. PLAN FOR INPATIENT GLYCEMIC CONTROL: * Basal insulin * decrease NPH 8 units SQ with each dose of Dexamethasone IV * Bolus insulin: loosen parameters * NovoLog per scale ACHS or Q6hrs while NPO * Goal Range: Low 110 mg/dL - High 140 mg/dL * Correction Factor: 30 mg/dL/unit * Nutritional / Prandial insulin per carb ratio of 1 unit per 9 grams CHO consumed PLAN FOR DISCHARGE: * HbA1c of 5.7-6.4% indicates "pre-diabetes" --> ADA recommendation is to institute diabetes and atherosclerosis prevention * Support Patient Self-Management * Healthy Lifestyle (diet, exercise, and smoking cessation) * Disease self-management (SMBG) * Prevention of complications (BP, Lipid goals, Immunizations) * Consider outpatient Diabetes Self-Management Education & Support
[2020-11-18 05:05] LABS: Basophils # (auto) 0.02 K/uL (0-0.2); Basophils % (auto) 0.1 %; Hematocrit (blood only) 39.1 % (37-47); Hemoglobin 13.3 g/dL (12.0-16.0); Immature Granulocytes # (auto) 0.22 K/uL (0.00-0.02); Immature Granulocytes % (auto) 1.5 %; Lymphocytes # (auto) 1.73 K/uL (1.2-3.4); Lymphocytes % (auto) 12.1 %; Mean Corpuscular Hemoglobin 29.9 pg (25-34); Mean Corpuscular Volume 87.9 fL (80-100); Mean Platelet Volume 9.8 fL (7.4-10.4); Monocytes # (auto) 1.32 K/uL (0.11-0.59); Monocytes % (auto) 9.2 %; Neutrophils # (auto) 11.02 K/uL (1.4-6.5); Neutrophils % (auto) 77.1 %; Platelet Count 570 K/uL (130-400); RDW Coefficient of Variation 12.9 % (11.5-14.5); RDW Standard Deviation 41.6 fL (36.4-46.3); Red Blood Count 4.45 M/uL (4.2-5.4); White Blood Count 14.31 K/uL (4.8-10.8)
[2020-11-18 05:28] LABS: BUN Creatinine Ratio 24.7 (10-20); Calcium 8.6 mg/dl (8.5-10.1); Creatinine Clr Calc Pharmacy 63.7 ml/min; Est GFR (African American) 94.9 ml/min; Est GFR (Non-African American) 81.9 ml/min; Magnesium 2.8 mg/dl (1.8-2.4); Potassium 3.8 mmol/L (3.5-5.1)
[2020-11-18 05:36] LABS: Phosphorus 2.9 mg/dl (2.5-4.9)
[2020-11-18] MEDS: POTASSIUM CHLORIDE / WTR 10 MEQ/100 ML PLCT IV SCH ×2 (06:21→13:09)
[2020-11-18] MEDS: ALBUTEROL HFA 8 GM INHALER INH SCH ×4 (07:41→20:37)
[2020-11-18] MEDS: FAMOTIDINE 20 MG in SYRINGE 3 ML IV SCH ×2 (08:23→20:39)
[2020-11-18] MEDS: ENOXAPARIN INJ 40 MG/0.4 ML SYR SQ SCH ×2 (08:23→20:39)
[2020-11-18] MEDS: INSULIN ASPART 100 UNITS/ML 3 ML PEN SC SCH ×4 (08:24→20:40)
[2020-11-18] MEDS: dexAMETHasone 20 MG in DEXTROSE 5% 25 ML IV SCH (08:24)
[2020-11-18] MEDS ORDERED: INSULIN HUMAN NPH SC SCH (09:00)
--- NOTE | 2020-11-18 09:52 | XRay Report ---
XR chest 1V portable HISTORY: Respiratory failure. COMPARISON: Chest 11/16/2020. FINDINGS: Patchy groundglass densities within the right upper lobe and lung bases have slightly progr essed. The heart is normal in size. No pneumothorax. No pleural effusions. No evidence for pulmonary edema. IMPRESSION: Slight progression of the patchy bilateral airspace opacities consistent with a viral pneumonia. ACT 112: Negative or not required by law. Electronically signed by: Sha Martinez M.D. 11/18/2020 9:51 AM
[2020-11-18] MEDS ORDERED: ACETAMINOPHEN 325 MG TAB PO STA (11:53)
--- NOTE | 2020-11-18 11:55 | Critical Care Progress Note ---
Date of Service November 18, 2020 Assessment & Plan (1) Pneumonia due to COVID-19 virus: 70-year-old female with a past medical history of hyperlipidemia and fatty liver disease who presented to the hospital due to COVID-19 illness and acute hypoxemic respiratory failure. Acute hypoxemic respiratory failure: She was started on the DEXA ARDS protocol of 20 mg Decadron for 5 days followed by 10 mg for 5 days. This was initiated on 11/15/2020. Encouraged self proning and getting out of the bed to a chair. I do not suspect bacterial infection at this time. Hypoxia largely secondary to COVID-19 pneumonia. Continue to wean oxygen to maintain saturations of 92 to 94%. Incentive spirometer and flutter valve have been ordered. Chest x-ray today with evidence of worsening infiltrates likely viral pneumonia. We will hold off on tocilizumab therapy as we have increased her Decadron dose to 20 mg daily. Continue Pepcid while on high-dose steroid therapy. CRP levels have downtrended to 1.9 mg/dL on 11/17/2020. She is -3 L since hospital admission. No further diuretics today. Neck pain: Likely from coughing. Tessalon Perles ordered. Tylenol given. Warm compress as needed. Chest x-ray not suggestive of pneumothorax or pneumomediastinum. Lactic acidosis: Likely secondary to underlying tissue hypoxemia and increased work of breathing. Resolved. Tolerating diet. Continue to monitor glucose closely. Appreciate ICU pharmacist input and management of glucose. Continue famotidine twice daily for stress ulcer prophylaxis. Continue Lovenox for DVT prophylaxis. Remain in the ICU today. (2) Acute hypoxemic respiratory failure: (3) Lactic acidosis: Admission and Anticipated Discharge Date Admission Date: November 14, 2020 Subjective Patient seen and examined this morning. She was complaining of pain in her neck due to coughing. She continues to be short of breath at rest. She is requiring 80% FiO2 and 40 L of oxygen to maintain saturations in the low 90s. She denies any chest pain at present. No fevers or chills. No night sweats. Review of Systems Review of Systems: All systems reviewed & are unremarkable except as noted in HPI & below Physical Exam Constitutional: well developed, well nourished and + ill appearing Eyes: PERRL, conjunctivae normal, anicteric sclerae ENMT: external ear and nose normal, oropharynx normal Neck: No crepitus appreciated over the neck region Respiratory: normal respiratory effort Auscultation: + diminished lung sounds Cardiovascular: RRR, no murmur, no edema Gastrointestinal (Abdomen): normal bowel sounds, soft, nontender, no hepatosplenomegaly Neurologic: PERRL, EOMI, accommodation nl, no face palsy, no dysarthria Psychiatric: A+Ox3, euthymic affect Results & Data Results & Data ([facility]) Vital Signs (Past 12 Hours) Vital Signs Temp Pulse Pulse Resp BP Pulse Ox 11/18/20 11:00 90 20 92 11/18/20 07:40 88 20 93 11/18/20 06:30 89 17 92 11/18/20 06:21 83 12 141/73 H 89 L 11/18/20 06:00 84 16 91 11/18/20 05:30 88 18 88 L 11/18/20 05:21 90 14 134/75 86 L 11/18/20 05:00 72 25 H 89 L 11/18/20 04:30 74 23 91 11/18/20 04:21 88 13 144/81 H 88 L 11/18/20 04:20 86 18 92 11/18/20 04:15 97.9 F 11/18/20 04:00 88 19 91 11/18/20 03:30 93 H 15 89 L 11/18/20 03:21 92 H 17 126/74 91 11/18/20 03:00 91 H 24 92 11/18/20 02:30 88 24 91 11/18/20 02:21 90 20 147/85 H 90 11/18/20 02:00 82 17 89 L 11/18/20 01:30 86 18 87 L 11/18/20 01:20 88 21 150/90 H 87 L 11/18/20 01:00 104 H 27 H 94 11/18/20 00:30 82 25 H 92 11/18/20 00:21 78 13 131/66 94 11/18/20 00:04 90 11/18/20 00:00 98.2 F 74 24 96 Vital signs, labs and imaging reviewed Coding Level of Care Code 95913 Subseq Hosp Care Lvl 3 Diagnoses Pneumonia due to COVID-19 virus U07.1; J12.82 Acute hypoxemic respiratory failure J96.01 Lactic acidosis E87.2
--- NOTE | 2020-11-18 14:20 | Hospitalist Progress Note ---
Date of Service November 18, 2020 Assessment & Plan (1) Pneumonia due to COVID-19 virus: Acute respiratory failure with hypoxia COVID-19 pneumonia- multifocal -CTA:There is no evidence of pulmonary embolus in the main, lobar, or segmental pulmonary arteries. Multifocal groundglass consolidation is seen throughout both lungs and consistent with the reported history of a viral pneumonia. Radiographic follow-up to resolution is recommended. Moderate hiatal hernia. Hepatic steatosis. -Continue IV Solu-Medrol, bronchodilators Encourage self proning Continue supplemental oxygen Appreciate mortarman input Diuretics as needed Antitussives On Lovenox for DVT prophylaxis Prediabetes HbA1c 5.9 Continue insulin therapy as needed for hyperglycemia Monitor BGs . (2) Hyponatremia: Sodium levels:131 Monitor BMP (3) Fatty liver: Elevated Transaminases last US of liver 09/2019 diffuse increased heterogeneous liver and fatty filtration. Avoid hepatotoxic agents as able next (4) DVT prophylaxis: Lovenox SQ Code Status FULL CODE Admission and Anticipated Discharge Date Admission Date: November 14, 2020 Subjective Patient is seen and examined at bedside States having shortness of breath associated with cough Also states having some right-sided chest discomfort secondary to cough Currently on high flow oxygen Denies nausea, vomiting, dizziness, abdominal pain, diarrhea Offers no other complaints Review of Systems Review of Systems: All systems reviewed & are unremarkable except as noted in HPI & below Physical Exam Physical Exam: Physical Exam: Vitals signs as noted above General Appearance:Moderately built and nourished, no apparent distress Head: normocephalic, Atraumatic Eyes: normal inspection, EOMI Neck: supple, Trachea midline Respiratory/Chest: Decreased breath sounds, scattered basal crackles, No accessory muscle use Cardiovascular: S1, S2, No murmur Abdomen/GI:Soft, Non tender, Bowel sounds present Extremities/Musculoskeletal:normal inspection, no edema Neurologic/Psych:AAOX3, grossly no focal neurological deficits Skin: normal color, warm Results & Data Results & Data ([facility]) Vital Signs (Past 12 Hours) Vital Signs Temp Pulse Pulse Resp BP Pulse Ox 11/18/20 13:52 92 H 20 92 11/18/20 11:00 90 20 92 11/18/20 07:40 88 20 93 11/18/20 06:30 89 17 92 11/18/20 06:21 83 12 141/73 H 89 L 11/18/20 06:00 84 16 91 06/20/21 05:30 88 18 88 L 11/18/20 05:21 90 14 134/75 86 L 11/18/20 05:00 72 25 H 89 L 11/18/20 04:30 74 23 91 11/18/20 04:21 88 13 144/81 H 88 L 11/18/20 04:20 86 18 92 11/18/20 04:15 36.6 C 11/18/20 04:00 88 19 91 11/18/20 03:30 93 H 15 89 L 11/18/20 03:21 92 H 17 126/74 91 11/18/20 03:00 91 H 24 92 11/18/20 02:30 88 24 91 11/18/20 02:21 90 20 147/85 H 90 Laboratory Results Short CBC 11/18/20 Range/Units 04:19 WBC 14.31 H (4.8-10.8) K/uL Hgb 13.3 (12.0-16.0) g/dL Hct 39.1 (37-47) % Plt Count 570 H (130-400) K/uL BMP 11/18/20 04:19 Sodium 131 L Potassium 3.8 Chloride 93 L Carbon Dioxide 29 BUN 19 H Creatinine 0.75 Glucose 121 H Calcium 8.6
[2020-11-18] MEDS: BENZONATATE 100 MG CAPSULE PO SCH ×2 (14:38→20:39)
--- NOTE | 2020-11-19 00:22 | Critical Care Progress Note ---
Date of Service November 19, 2020 Assessment & Plan (1) Pneumonia due to COVID-19 virus: 70-year-old female with a past medical history of hyperlipidemia and fatty liver disease who presented to the hospital due to COVID-19 illness and acute hypoxemic respiratory failure. Acute hypoxemic respiratory failure: She was started on the DEXA ARDS protocol of 20 mg Decadron for 5 days followed by 10 mg for 5 days. This was initiated on 11/15/2020. Encouraged self proning and getting out of the bed to a chair. Hypoxia largely secondary to COVID-19 pneumonia. Continue to wean oxygen to maintain saturations of 92 to 94%. Incentive spirometer and flutter valve have been ordered. Chest x-ray today with evidence of pneumomediastinum. Continue Pepcid while on high-dose steroid therapy. Neck pain: Likely from pneumomediastinum. Tessalon Perles ordered. Tylenol given. Warm compress as needed.. Lactic acidosis: Likely secondary to underlying tissue hypoxemia and increased work of breathing. Resolved. Tolerating diet. Continue to monitor glucose closely. Appreciate ICU pharmacist input and management of glucose. Continue famotidine twice daily for stress ulcer prophylaxis. Continue Lovenox for DVT prophylaxis. Remain in the ICU, patient's status is tenuous I am concerned that she is still going to continue to decompensate. (2) Acute hypoxemic respiratory failure: (3) Lactic acidosis: Admission and Anticipated Discharge Date Admission Date: November 14, 2020 Supervising Physician Co-Signing Physician Notes I have personally spent 45 minutes of critical care time in the direct management of this patient. This is a life/limb threatening event. This includes time spent evaluating patient, direct bedside care, chart review, placing orders, interpretation of diagnostic studies, discussion with consultants, patient, and/or family members regarding treatment decisions, as well as other required patient management activities. This time is exclusive of all separately billable procedures, and teaching time and separate from and in addition to any other critical care service time. Subjective Shortness of breath with coughing and any sort of physical activity. On 100% Vapotherm, discussed projections and need for intubation should she worsen she does not desire comfort measures. Would also be agreeable with tracheostomy if no improvement in 2 weeks while on ventilator. Review of Systems Review of Systems: As per the HPI Physical Exam Physical Exam: General: Alert. nontoxic. Skin: Warm, dry, Head: Atraumatic Ears, nose, mouth and throat: airway patent Cardiovascular: Normal peripheral perfusion Respiratory: no respiratory distress Gastrointestinal: Non distended Musculoskeletal: No deformity Results & Data Results & Data ([facility]) Vital Signs (Past 12 Hours) Vital Signs Temp Pulse Pulse Resp BP BP Pulse Ox 11/18/20 23:54 94 H 18 92 11/18/20 21:13 95 H 21 128/73 94 11/18/20 21:07 93 H 17 131/67 92 11/18/20 21:03 102 H 18 137/67 89 L 11/18/20 21:00 98 H 14 88 L 11/18/20 20:58 101 H 18 151/101 H 87 L 11/18/20 20:52 102 H 19 116/78 85 L 11/18/20 20:47 103 H 21 121/97 85 L 11/18/20 20:40 101 H 18 89 L 11/18/20 20:32 97 H 17 139/74 87 L 11/18/20 20:30 99 H 14 86 L 11/18/20 20:27 97 H 21 143/81 H 90 11/18/20 20:22 89 15 149/86 H 88 L 11/18/20 20:18 92 H 20 148/90 H 90 11/18/20 20:12 95 H 18 134/82 90 11/18/20 20:07 90 19 136/81 89 L 11/18/20 20:02 92 H 19 148/91 H 91 11/18/20 20:00 36.8 C 91 H 16 89 L 11/18/20 19:57 91 H 14 155/92 H 89 L 11/18/20 19:52 93 H 14 147/90 H 88 L 11/18/20 19:48 90 15 132/75 83 L 11/18/20 19:42 93 H 22 145/85 H 89 L 11/18/20 19:37 90 15 137/85 87 L 11/18/20 19:32 90 16 148/86 H 86 L 11/18/20 19:30 90 14 87 L 11/18/20 19:27 90 17 149/78 H 85 L 11/18/20 19:23 90 17 152/79 H 85 L 11/18/20 19:17 92 H 16 125/81 89 L 11/18/20 19:12 73 28 H 142/80 H 89 L 11/18/20 19:07 79 23 141/87 H 87 L 11/18/20 19:02 89 16 143/93 H 86 L 11/18/20 19:00 96 H 15 81 L 11/18/20 18:57 93 H 14 153/86 H 86 L 11/18/20 18:52 94 H 22 137/87 86 L 11/18/20 18:47 95 H 19 134/94 88 L 11/18/20 18:45 88 19 86 L 11/18/20 18:00 37 C 88 22 140/76 93 11/18/20 17:00 88 12 126/64 91 11/18/20 16:00 37 C 98 H 16 138/77 81 L 11/18/20 15:00 90 17 89 L 11/18/20 14:00 88 14 135/70 93 11/18/20 13:52 92 H 20 92 11/18/20 13:00 92 H 17 94 Pulse Ox 11/18/20 23:54 11/18/20 21:13 11/18/20 21:07 11/18/20 21:03 11/18/20 21:00 11/18/20 20:58 11/18/20 20:52 11/18/20 20:47 11/18/20 20:40 11/18/20 20:32 11/18/20 20:30 11/18/20 20:27 11/18/20 20:22 11/18/20 20:18 11/18/20 20:12 11/18/20 20:07 11/18/20 20:02 11/18/20 20:00 11/18/20 19:57 11/18/20 19:52 11/18/20 19:48 11/18/20 19:42 11/18/20 19:37 11/18/20 19:32 11/18/20 19:30 11/18/20 19:27 11/18/20 19:23 11/18/20 19:17 11/18/20 19:12 11/18/20 19:07 11/18/20 19:02 11/18/20 19:00 11/18/20 18:57 11/18/20 18:52 11/18/20 18:47 11/18/20 18:45 11/18/20 18:00 11/18/20 17:00 11/18/20 16:00 94 11/18/20 15:00 11/18/20 14:00 11/18/20 13:52 11/18/20 13:00 Laboratory Results 11/19/20 11/19/20 11/19/20 Range/Units 08:46 04:22 04:22 WBC 16.28 H (4.8-10.8) K/uL RBC 4.69 (4.2-5.4) M/uL Hgb 14.3 (12.0-16.0) g/dL Hct 41.1 (37-47) % MCV 87.6 (80-100) fL MCH 30.5 (25-34) pg MCHC 34.8 (32-36) g/dL RDW Std Deviation 41.2 (36.4-46.3) fL RDW Coeff of Claudia 12.9 (11.5-14.5) % Plt Count 590 H (130-400) K/uL MPV 9.4 (7.4-10.4) fL Immature Gran % (Auto) 2.1 % Neut % (Auto) 80.4 % Lymph % (Auto) 11.7 % Mercer % (Auto) 5.7 % Eos % (Auto) 0.0 % Baso % (Auto) 0.1 % Neut # (Auto) 13.10 H (1.4-6.5) K/uL Lymph # (Auto) 1.90 (1.2-3.4) K/uL Mercer # (Auto) 0.92 H (0.11-0.59) K/uL Eos # (Auto) 0.00 (0-0.5) K/uL Baso # (Auto) 0.01 (0-0.2) K/uL Immature Gran # (Auto) 0.35 H (0.00-0.02) K/uL Sodium 131 L (136-145) mmol/L Potassium 4.2 (3.5-5.1) mmol/L Chloride 94 L (98-107) mmol/L Carbon Dioxide 32 (21-32) mmol/L Anion Gap 5.0 (3-11) BUN 16 (7-18) mg/dl Creatinine 0.63 (0.6-1.2) mg/dl Est Cr Clr Drug Dosing 76.5 ml/min Est GFR ( Amer) 106.8 ml/min Est GFR (Non-Af Amer) 92.2 ml/min BUN/Creatinine Ratio 25.3 H (10-20) Glucose 82 (70-99) mg/dl POC Glucose 84 (70-99) mg/dl Calcium 8.7 (8.5-10.1) mg/dl 11/18/20 11/18/20 11/18/20 Range/Units 20:18 17:03 12:23 WBC (4.8-10.8) K/uL RBC (4.2-5.4) M/uL Hgb (12.0-16.0) g/dL Hct (37-47) % MCV (80-100) fL MCH (25-34) pg MCHC (32-36) g/dL RDW Std Deviation (36.4-46.3) fL RDW Coeff of Claudia (11.5-14.5) % Plt Count (130-400) K/uL MPV (7.4-10.4) fL Immature Gran % (Auto) % Neut % (Auto) % Lymph % (Auto) % Mercer % (Auto) % Eos % (Auto) % Baso % (Auto) % Neut # (Auto) (1.4-6.5) K/uL Lymph # (Auto) (1.2-3.4) K/uL Mercer # (Auto) (0.11-0.59) K/uL Eos # (Auto) (0-0.5) K/uL Baso # (Auto) (0-0.2) K/uL Immature Gran # (Auto) (0.00-0.02) K/uL Sodium (136-145) mmol/L Potassium (3.5-5.1) mmol/L Chloride (98-107) mmol/L Carbon Dioxide (21-32) mmol/L Anion Gap (3-11) BUN (7-18) mg/dl Creatinine (0.6-1.2) mg/dl Est Cr Clr Drug Dosing ml/min Est GFR ( Amer) ml/min Est GFR (Non-Af Amer) ml/min BUN/Creatinine Ratio (10-20) Glucose (70-99) mg/dl POC Glucose 124 H 114 H 102 H (70-99) mg/dl Calcium (8.5-10.1) mg/dl Coding Level of Care Code Critical Care 1st 30-74 mins Diagnoses Pneumonia due to COVID-19 virus U07.1; J12.82 Acute hypoxemic respiratory failure J96.01 Lactic acidosis E87.2
[2020-11-19 04:49] LABS: Basophils # (auto) 0.01 K/uL (0-0.2); Basophils % (auto) 0.1 %; Hematocrit (blood only) 41.1 % (37-47); Hemoglobin 14.3 g/dL (12.0-16.0); Immature Granulocytes # (auto) 0.35 K/uL (0.00-0.02); Immature Granulocytes % (auto) 2.1 %; Lymphocytes % (auto) 11.7 %; Mean Corpuscular Hemoglobin 30.5 pg (25-34); Mean Corpuscular Hgb Conc 34.8 g/dL (32-36); Mean Corpuscular Volume 87.6 fL (80-100); Mean Platelet Volume 9.4 fL (7.4-10.4); Monocytes # (auto) 0.92 K/uL (0.11-0.59); Monocytes % (auto) 5.7 %; Neutrophils % (auto) 80.4 %; Platelet Count 590 K/uL (130-400); RDW Coefficient of Variation 12.9 % (11.5-14.5); RDW Standard Deviation 41.2 fL (36.4-46.3); Red Blood Count 4.69 M/uL (4.2-5.4); White Blood Count 16.28 K/uL (4.8-10.8)
[2020-11-19 05:06] LABS: BUN Creatinine Ratio 25.3 (10-20); Calcium 8.7 mg/dl (8.5-10.1); Creatinine Clr Calc Pharmacy 76.5 ml/min; Est GFR (African American) 106.8 ml/min; Est GFR (Non-African American) 92.2 ml/min; Potassium 4.2 mmol/L (3.5-5.1)
[2020-11-19] MEDS: ALBUTEROL HFA 8 GM INHALER INH SCH (08:17)
[2020-11-19] MEDS: ENOXAPARIN INJ 40 MG/0.4 ML SYR SQ SCH ×2 (08:36→20:55)
[2020-11-19] MEDS: BENZONATATE 100 MG CAPSULE PO SCH ×3 (08:36→20:53)
--- NOTE | 2020-11-19 08:51 | XRay Report ---
XR chest 1V portable CLINICAL HISTORY: Respiratory failure COMPARISON STUDY: 11/18/2020 FINDINGS: The cardiac and mediastinal contours remain stable. There is progressive pneumomediastinum with subcutaneous emphysema identified within the neck. There is slight progression in the bilateral pulmonary airspace opacities consistent with a multifocal pneumonia there are no large pleural effusi ons. There is an equivocal trace left apical pneumothorax.[ IMPRESSION: 1. Slight progression in the bilateral pulmonary airspace opacities 2. Significant progression in the pneumomediastinum and subcutaneous emphysema 3. Equivocal trace left apical pneumothorax ACT 112: Negative or not required by law. Electronically signed by: Lenard Bolaños M.D. 11/19/2020 8:49 AM
[2020-11-19] MEDS: FAMOTIDINE 20 MG in SYRINGE 3 ML IV SCH ×2 (08:59→20:55)
[2020-11-19] MEDS: dexAMETHasone 20 MG in DEXTROSE 5% 25 ML IV SCH (08:59)
[2020-11-19] MEDS ORDERED: INSULIN HUMAN NPH SC SCH ×2 (09:00)
[2020-11-19] MEDS: INSULIN ASPART 100 UNITS/ML 3 ML PEN SC SCH ×4 (09:00→20:54)
[2020-11-19] MEDS ORDERED: ALBUTEROL HFA 8 GM INHALER INH PRN (10:16)
[2020-11-19] MEDS: cefTRIAXone SODIUM 2,000 MG in DEXTROSE 5% 50 ML IV SCH (11:43)
--- NOTE | 2020-11-19 12:58 | Pharmacy Report ---
Pharmacy Glycemic Short Note 2 - Date of Service November 19, 2020 - Glycemic Short BSG Results (Last 24 hours): 11/18/20 11/18/20 11/19/20 17:03 20:18 04:22 Glucose 82 POC Glucose 114 H 124 H 11/19/20 11/19/20 08:46 11:50 Glucose POC Glucose 84 107 H OUTPATIENT ANTIDIABETIC REGIMEN: * N/A * a1C = 5.9% on 11/16/20 indicating "pre-diabetes" ASSESSMENT: 11/19 * BSG's have ranged 82-124 mg/dL over the last 24 hours. Lowest BSG was AM fasting this AM * Will decrease NPH x1 this AM - will only give a small dose * Steroids tapering starting tomorrow. Patient may not require NPH at that time - will hold off on ordering for now * No change to Novolog needed at this time. May require loosening tomorrow with steroid decrease 11/17 * Pt has received 15 units of insulin over the past 24hrs * 10 units of NPH for steroid induced hyperglycemia secondary to dexamethasone 20mg IV daily * 5 units of bolus with NovoLog * BSGs [phone] mg/dl * BSGs slightly below goal range for inpatient targets. Will decrease NPH and loosen CF/CR to maintain BSGs 110-140 11/16 * 70 yo female admitted to ICU for resp failure secondary to COVID19 viral pneumonia * DEXA-ARDS IV dexamethasone initiated yesterday, BSGs have been trending higher. Last 2 fasting BSGs > 140 and there are plans to advance diet today * Will initiate Novolog regimen using weight and "severe" stress. Will also give a low dose of NPH this AM to help offset the climb in BSGs following meals today. Given uncertainty with PO intake, and lack of A1c result, will keep NPH dose low for now. PLAN FOR INPATIENT GLYCEMIC CONTROL: * Basal insulin * decrease NPH 4 units SQ with dose of Dexamethasone IV x1 this AM * Bolus insulin * NovoLog per scale ACHS or Q6hrs while NPO * Goal Range: Low 110 mg/dL - High 140 mg/dL * Correction Factor: 30 mg/dL/unit * Nutritional / Prandial insulin per carb ratio of 1 unit per 9 grams CHO consumed PLAN FOR DISCHARGE: * HbA1c of 5.7-6.4% indicates "pre-diabetes" --> ADA recommendation is to institute diabetes and atherosclerosis prevention * Support Patient Self-Management * Healthy Lifestyle (diet, exercise, and smoking cessation) * Disease self-management (SMBG) * Prevention of complications (BP, Lipid goals, Immunizations) * Consider outpatient Diabetes Self-Management Education & Support
--- NOTE | 2020-11-19 14:38 | Hospitalist Progress Note ---
Date of Service November 19, 2020 Assessment & Plan (1) Pneumonia due to COVID-19 virus: Acute respiratory failure with hypoxia COVID-19 pneumonia- multifocal Pneumomediastinum -CTA:There is no evidence of pulmonary embolus in the main, lobar, or segmental pulmonary arteries. Multifocal groundglass consolidation is seen throughout both lungs and consistent with the reported history of a viral pneumonia. Radiographic follow-up to resolution is recommended. Moderate hiatal hernia. Hepatic steatosis. 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 Started on Rocephin empirically Currently on high flow oxygen--100 %FiO2 States feeling claustrophobic to BiPAP use Low threshold to Intubate Prediabetes HbA1c 5.9 Continue insulin therapy as needed for hyperglycemia Monitor BGs . (2) Hyponatremia: Sodium levels:131 Monitor BMP (3) Fatty liver: Elevated Transaminases last US of liver 09/2019 diffuse increased heterogeneous liver and fatty filtration. Avoid hepatotoxic agents as able next (4) DVT prophylaxis: Lovenox SQ Code Status FULL CODE Admission and Anticipated Discharge Date Admission Date: November 14, 2020 Subjective Patient is seen and examined at bedside States being less cough and dyspneic today Continues to be on High Flow oxygen CXR today showed slight progression of bilateral opacities, and pneumomediastinum and subcutaneous emphysema Denies neck pain today Also denies chest pain, dizziness, nausea, abd pain Offers no other complaints Review of Systems Review of Systems: All systems reviewed & are unremarkable except as noted in HPI & below Physical Exam Physical Exam: Physical Exam: Vitals signs as noted above General Appearance:Moderately built and nourished, no apparent distress Head: normocephalic, Atraumatic Eyes: normal inspection, EOMI Neck: supple, Trachea midline Respiratory/Chest: Decreased breath sounds, B/L crackles Cardiovascular: S1, S2, No murmur Abdomen/GI:Soft, Non tender, Bowel sounds present Extremities/Musculoskeletal:normal inspection, no edema Neurologic/Psych:AAOX3, grossly no focal neurological deficits Skin: normal color, warm Results & Data Results & Data ([facility]) Vital Signs (Past 12 Hours) Vital Signs Temp Pulse Pulse Resp BP Pulse Ox 11/19/20 12:18 98 H 18 123/75 93 11/19/20 12:00 37 C 104 H 16 87 L 11/19/20 11:52 99 H 30 H 93 11/19/20 11:19 112 H 21 149/83 H 94 11/19/20 11:00 106 H 19 88 L 11/19/20 10:18 101 H 18 127/77 91 11/19/20 10:00 108 H 18 88 L 11/19/20 09:18 105 H 25 H 131/81 91 11/19/20 09:00 103 H 30 H 90 11/19/20 08:30 113 H 20 88 L 11/19/20 08:17 111 H 110 H 19 128/70 90 11/19/20 08:00 37 C 99 H 17 90 11/19/20 07:30 87 20 92 11/19/20 07:18 102 H 18 114/64 90 11/19/20 07:00 93 H 17 91 11/19/20 06:30 92 H 17 91 11/19/20 06:17 97 H 23 116/66 88 L 11/19/20 06:00 83 25 H 92 11/19/20 05:30 104 H 19 90 11/19/20 05:18 107 H 21 107/49 L 89 L 11/19/20 05:00 101 H 19 93 11/19/20 04:30 99 H 19 95 11/19/20 04:18 98 H 17 142/80 H 95 11/19/20 04:00 36.5 C 99 H 17 94 11/19/20 03:30 99 H 15 95 11/19/20 03:18 101 H 17 158/93 H 95 11/19/20 03:00 101 H 18 94 11/19/20 02:51 96 H 18 91 Laboratory Results Short CBC 11/19/20 Range/Units 04:22 WBC 16.28 H (4.8-10.8) K/uL Hgb 14.3 (12.0-16.0) g/dL Hct 41.1 (37-47) % Plt Count 590 H (130-400) K/uL BMP 11/19/20 04:22 Sodium 131 L Potassium 4.2 Chloride 94 L Carbon Dioxide 32 BUN 16 Creatinine 0.63 Glucose 82 Calcium 8.7
[2020-11-20] MEDS ORDERED: LORazepam 2 MG/4 ML VIAL ONE (04:07)
[2020-11-20] MEDS ORDERED: LORazepam 1 MG/2 ML VIAL IV STA (04:57)
[2020-11-20 05:17] LABS: Basophils # (auto) 0.01 K/uL (0-0.2); Basophils % (auto) 0.1 %; Eosinophils # (auto) 0.02 K/uL (0-0.5); Eosinophils % (auto) 0.1 %; Hematocrit (blood only) 40.3 % (37-47); Hemoglobin 13.7 g/dL (12.0-16.0); Immature Granulocytes # (auto) 0.28 K/uL (0.00-0.02); Immature Granulocytes % (auto) 1.7 %; Lymphocytes # (auto) 1.38 K/uL (1.2-3.4); Lymphocytes % (auto) 8.5 %; Mean Corpuscular Hemoglobin 30.3 pg (25-34); Mean Corpuscular Volume 89.2 fL (80-100); Mean Platelet Volume 9.7 fL (7.4-10.4); Monocytes # (auto) 0.58 K/uL (0.11-0.59); Monocytes % (auto) 3.6 %; Neutrophils # (auto) 13.93 K/uL (1.4-6.5); Platelet Count 616 K/uL (130-400); RDW Coefficient of Variation 12.9 % (11.5-14.5); RDW Standard Deviation 41.9 fL (36.4-46.3); Red Blood Count 4.52 M/uL (4.2-5.4)
[2020-11-20] MEDS ORDERED: RAPID SEQUENCE INDUCTION BAG ONE (05:44)
[2020-11-20 05:46] LABS: BUN Creatinine Ratio 26.8 (10-20); Creatinine Clr Calc Pharmacy 83.2 ml/min; Est GFR (African American) 109.8 ml/min; Est GFR (Non-African American) 94.7 ml/min; Magnesium 2.5 mg/dl (1.8-2.4); Potassium 4.1 mmol/L (3.5-5.1)
[2020-11-20] MEDS ORDERED: PROPOFOL IV EMULSION 10 MG/ML 100 ML VIAL IV ONE (06:09)
[2020-11-20] MEDS ORDERED: ROCURONIUM BROMIDE 10 MG/ML 5 ML VIAL IV ONE (06:31)
--- NOTE | 2020-11-20 06:43 | Emergency Department Note ---
ED Visit Note INTUBATION NOTE Endotracheal Intubation Indication respiratory failure. The patient was on BiPAP initially then 100% oxygen via BVM prior to the procedure. Suction, airway equipment, RSI drugs, respiratory equipment, and appropriate personnel were prepared prior to the initiation of the procedure. A time out was taken. Induction was performed with etomidate and succinylcholine. After observing the clinical benefit of the medications, the airway was easily visualized utilizing a glide scope. A 7.5 size ETT tube was placed atraumatically using standard technique. The cuff inflated without signs of malfunction. There were bilateral breath sounds, positive colormetric change, no gastric sounds, a good capnography waveform, and post procedure pulse oximetry was 95%. Post intubation sedation was administered by ICU staff. .
[2020-11-20] MEDS: propofoL 1,000 MG/100 ML VIAL IV SCH ×2 (07:15→17:58)
--- NOTE | 2020-11-20 07:23 | XRay Report ---
XR chest 1V portable CLINICAL HISTORY: Respiratory failure COMPARISON STUDY: 11/19/2020 FINDINGS: There is an endotracheal tube positioned 6 mm above the gabino. The cardiac and mediastinal contours remain stable. There is evidence for pneumomediastinum. There is subcutaneous air present w ithin the neck. A trace left apical pneumothorax cannot be excluded. There are bilateral pulmonary ai rspace opacities. There is mild blunting of the right lateral costophrenic angle.[ IMPRESSION: 1. Interval placement of an endotracheal tube 6 mm above the gabino 2. Bilateral pulmonary airspace opacities right greater than left 3. Pneumomediastinum and subcutaneous emphysema 4. Equivocal trace left apical pneumothorax ACT 112: Negative or not required by law. Electronically signed by: Lenard Bolaños M.D. 11/20/2020 7:22 AM
--- NOTE | 2020-11-20 07:45 | Procedure Note ---
Procedure Note Date of Service November 20, 2020 Note ARTERIAL LINE PROCEDURE NOTE: Procedure: Arterial Line Placement Attending: Dr. Thierry Sheridan Provider: KATHY Ellis Indication: Continuous hemodynamic monitoring, frequent ABGs Anesthesia: None Line placed emergently following intubation for severe ARDS and worsening hypoxia in the setting of COVID-19 pneumonia A time-out was completed verifying correct patient, procedure, site, positioning, and implant(s) or special equipment if applicable. Allens test was performed to ensure adequate perfusion. Patients left wrist was prepped and draped in the usual sterile fashion. Ultrasound guidance was used to aid needle placement. A 20g Arrow arterial line was introduced into the left radial artery. Catheter was threaded, and the needle was removed with appropriate blood return. Good waveform was observed. The patient tolerated the procedure well. Confirmation of placement with ultrasound. Blood Loss: Minimal Complications: None Procedural Ultrasound Guidance: Procedure Date: 11/20/2020 Indication: Arterial line insertion Attending: Dr. Thierry Sheridan Provider: KATHY Ellis Artery Identified: YES Line confirmed in Artery with ultrasound: Yes Complications: NONE Patient tolerated procedure: WELL Coding CPT Codes Tubes, Drains, and Vasc Access - Tubes, Drains, and Vasc Access: [id number] Place Catheter In Artery ([id number]) Tubes, Drains, and Vasc Access - Tubes, Drains, and Vasc Access: [id number] Ultrasound Guidance For Vascular ([id number]) [facility] [place] Procedure Codes (Charges) Tubes, Drains, and Vasc Access Procedure 1: Tubes, Drains, and Vasc Access: [id number] Place Catheter In Artery Procedure 2: Tubes, Drains, and Vasc Access: [id number] Ultrasound Guidance For Vascular
--- NOTE | 2020-11-20 07:45 | Procedure Note ---
Procedure Note Date of Service November 20, 2020 Note INTERNAL JUGULAR CENTRAL LINE PROCEDURE NOTE: Procedure: Internal Jugular Central Line Placement Attending: Dr. Thierry Sheridan Provider: KATHY Ellis Indication: Central Drug Administration, Poor Venous Access Anesthesia: None Line placed emergently following intubation for severe ARDS with worsening hypoxia in the setting of COVID-19 pneumonia A time-out was completed verifying correct patient, procedure, site, positioning, and implants(s) or special equipment if applicable. Patients left neck was cleansed and draped in the typical sterile fashion using Chloraprep. The Internal Jugular Vein and Carotid Artery were identified using ultrasound. The Internal Jugular vein was cannulated under direct ultrasound guidance using an introducer needle on a syringe. Good venous blood return was maintained prior to removal of syringe from introducer needle. Using Seldinger Technique, a guide wire was advanced through the introducer needle without resistance. The introducer needle was removed and ultrasound images were obtained of the guide wire within the Internal Jugular Vein and saved to the patients medical record. A small incision was made in penetrating fashion at the guide wire insertion site utilizing an 11 blade scalpel. The dilator was advanced to the vessel without resistance. The dilator was exchanged for the triple lumen catheter which was advanced into the vessel without resistance. The guide wire was removed intact from the catheter without issue. Claves were placed on each catheter tip with confirmation of good blood flow from each lumen. Each port was easily flushed with sterile saline. The catheter was placed at 18 cm and sutured in place. BioPatch was applied to the catheter and a sterile Tegaderm dressing was applied over the catheter with careful attention to sterility. Patient tolerated procedure well. No immediate complications were met. Post procedure x-ray was completed, placement was appropriate and no pneumothorax was noted. Images obtained are saved for permanent record Procedural Ultrasound Guidance: Procedure Date: 11/21/2020 Indication: Central venous catheter insertion Attending: Dr. Thierry Sheridan Provider: KATHY Ellis Artery AND Vein visualized: Yes Compressible Vein: Yes Guidewire or Short Catheter seen in vein prior to dilation: Yes Line confirmed in Vein with ultrasound: Yes Images obtained are saved for permanent record. Coding CPT Codes Tubes, Drains, and Vasc Access - Tubes, Drains, and Vasc Access: [id number] Place catheter in vein superior or inferior vena cava ([id number]) Tubes, Drains, and Vasc Access - Tubes, Drains, and Vasc Access: [id number] Ultrasound Guidance For Vascular ([id number]) [facility] Procedure Codes (Charges) Tubes, Drains, and Vasc Access Procedure 3: Tubes, Drains, and Vasc Access: [id number] Place catheter in vein superior or inferior vena cava Procedure 4: Tubes, Drains, and Vasc Access: [id number] Ultrasound Guidance For Vascular
[2020-11-20] MEDS ORDERED: STAT IV Infusion **Titration per Protocol STA (07:49)
[2020-11-20] MEDS ORDERED: CISATRACURIUM BESYLATE IV SOLN 2 MG/ML 10 ML VIAL IV STA (07:49)
[2020-11-20] MEDS: CISATRACURIUM BESYLATE 40 MG in 0.9 % SODIUM CHLORIDE 80 ML IV SCH ×4 (08:15→19:26)
--- NOTE | 2020-11-20 08:24 | XRay Report ---
XR chest 1V portable CLINICAL HISTORY: Central line insertion COMPARISON STUDY: 11/20/2020 FINDINGS: The cardiac and mediastinal contours remain stable. There is a persistent pneumomediastinum with subcutaneous gas. There are bilateral pulmonary airspace opacities right greater than left. The endotracheal tube is 27 mm above the gabino. There is an enteric tube which passes into the stomach. There is been interval placement of a left internal jugular central venous catheter. The tip project s over the superior cava. No definite pneumothorax is visualized.[ IMPRESSION: 1. Endotracheal tube 27 mm above the gabino 2. Enteric tube positioned within the stomach 3. Left internal jugular central venous catheter with its tip projected over the superior vena cava. No definite pneumothorax 4. Pneumomediastinum and subcutaneous gas within the neck 5. Bilateral pulmonary airspace opacities right greater than left ACT 112: Negative or not required by law. Electronically signed by: Lenard Bolaños M.D. 11/20/2020 8:23 AM
[2020-11-20 08:42] LABS: iSTAT Art Bld Gas pCO2 Correct 45 mmHg (35-46); iSTAT Art Bld Gas pH Corrected 7.414 (7.35-7.45); iSTAT Arterial Blood Gas HCO3 29 meg/L (19-24); iSTAT Arterial Blood Gas pCO2 45 mmHg (35-46); iSTAT Arterial Blood Gas pH 7.42 (7.35-7.45); iSTAT Arterial Blood Gas pO2 70 mmHg (80-95); iSTAT Arterial Blood Gas pO2 C 71; iSTAT Carbon Dioxide 30 mmol/L (24-31); iSTAT FiO2 100 %; iSTAT Hematocrit 40 % (37-47); iSTAT Hemoglobin 13.6 g/dl (12.0-16.0); iSTAT Potassium 3.9 mmol/L (3.3-5.0); iSTAT Site Art Line; iSTAT Sodium 129 mmol/L (135-144)
[2020-11-20] MEDS ORDERED: INSULIN HUMAN NPH SC SCH (09:00)
[2020-11-20] MEDS: fentaNYL DRIP 1,250 MCG/250 ML BAG IV SCH ×2 (09:16→23:07)
--- NOTE | 2020-11-20 09:43 | Critical Care Progress Note ---
Date of Service November 20, 2020 Assessment & Plan (1) Pneumonia due to COVID-19 virus: Reason Critically Ill: Acute hypoxic respiratory failure secondary to COVID-19 pneumonia PLAN: Neuro: Sedation analgesia neuromuscular blockade -Cis atracurium x24 to 48 hours -Bis monitoring fentanyl and propofol Resp: Acute hypoxic respiratory failure COVID-19 pneumonia -DEXA arts protocol initiated on 11/15/2020 -Timeline out of remdesivir indication -Outside window for Tocilizumab -High FiO2 low PEEP secondary to known pneumomediastinum -Pronation therapy Pneumomediastinum CV: Occasional premature ventricular contractions Fluids/Renal: Hyponatremia: Mild -500 mL bolus normal saline ID: Ceftriaxone broadening to cefepime for 10 days duration total therapy -Suspect viral etiology in origin: COVID-19 COVID-19 pneumonia -Supportive care GI/Nutrition: Start trickle tube feeds Heme: Leukocytosis: Not otherwise specified on steroids Thrombocytosis: Likely reactionary DVT prophylaxis: Lovenox 40 twice daily Endocrine: ICU hyperglycemia protocol Vascular access: Left internal jugular CVC, left radial arterial line Code Status: Full code (2) Acute hypoxemic respiratory failure: (3) Lactic acidosis: Admission and Anticipated Discharge Date Admission Date: November 14, 2020 Supervising Physician Co-Signing Physician Notes I have personally spent 65 minutes of critical care time in the direct management of this patient. This is a life/limb threatening event. This includes time spent evaluating patient, direct bedside care, chart review, placing orders, interpretation of diagnostic studies, discussion with consultants, patient, and/or family members regarding treatment decisions, as well as other required patient management activities. This time is exclusive of all separately billable procedures, and teaching time and separate from and in addition to any other critical care service time. Subjective Overnight had increasing hypoxia and increased work of breathing requiring intubation for acute hypoxic respiratory failure in the setting of COVID-19 pneumonia Review of Systems Review of Systems: Unobtainable due to endotracheal tube Physical Exam Physical Exam: General: 3 TP. Skin: Warm, dry, Head: Atraumatic Ears, nose, mouth and throat: airway secured by endotracheal tube Cardiovascular: Normal peripheral perfusion Respiratory: Ventilator settings reviewed Gastrointestinal: Non distended Musculoskeletal: No deformity Results & Data Results & Data ([facility]) Vital Signs (Past 12 Hours) Vital Signs Temp Pulse Pulse Resp BP Pulse Ox 11/20/20 08:47 98 H 16 98 11/20/20 07:05 107 H 159/94 H 87 L 11/20/20 07:00 100 H 86 L 11/20/20 06:49 93 H 126/75 92 11/20/20 06:41 96 H 107/73 92 11/20/20 06:38 93 H 75/56 L 93 11/20/20 06:35 97 H 78/54 L 93 11/20/20 06:32 90 17 94 11/20/20 06:30 95 H 99 11/20/20 06:25 82 152/94 H 99 11/20/20 06:20 90 194/107 H 94 11/20/20 06:00 93 H 36 H 96 11/20/20 05:31 78 36 H 90 11/20/20 05:29 85 27 H 103/61 89 L 11/20/20 05:28 79 25 H 78/47 L 88 L 11/20/20 05:26 87 22 90 11/20/20 05:00 81 49 H 86 L 11/20/20 04:37 75 23 108/72 94 11/20/20 04:30 77 24 86 L 11/20/20 04:28 81 24 99/65 L 88 L 11/20/20 04:00 36.9 C 103 H 28 H 87 L 11/20/20 03:31 88 20 87 L 11/20/20 03:29 90 19 122/67 87 L 11/20/20 03:00 87 17 91 11/20/20 02:30 91 H 27 H 88 L 11/20/20 02:00 87 16 89 L 11/20/20 01:30 83 18 91 11/20/20 01:00 91 H 19 89 L 11/20/20 00:36 66 11/20/20 00:30 88 19 93 11/20/20 00:04 66 11/20/20 00:01 82 24 89 L 11/20/20 00:00 83 18 88 L 11/19/20 23:58 36.6 C 11/19/20 23:30 66 23 88 L 11/19/20 23:00 67 23 90 11/19/20 22:30 70 26 H 92 11/19/20 22:00 85 21 92 Laboratory Results 11/20/20 11/20/20 11/20/20 Range/Units 08:29 04:44 04:44 WBC 16.20 H (4.8-10.8) K/uL RBC 4.52 (4.2-5.4) M/uL Hgb 13.7 (12.0-16.0) g/dL POC Hgb 13.6 (12.0-16.0) g/dl Hct 40.3 (37-47) % POC Hct 40 (37-47) % MCV 89.2 (80-100) fL MCH 30.3 (25-34) pg MCHC 34.0 (32-36) g/dL RDW Std Deviation 41.9 (36.4-46.3) fL RDW Coeff of Claudia 12.9 (11.5-14.5) % Plt Count 616 H (130-400) K/uL MPV 9.7 (7.4-10.4) fL Immature Gran % (Auto) 1.7 % Neut % (Auto) 86.0 % Lymph % (Auto) 8.5 % Hunt % (Auto) 3.6 % Eos % (Auto) 0.1 % Baso % (Auto) 0.1 % Neut # (Auto) 13.93 H (1.4-6.5) K/uL Lymph # (Auto) 1.38 (1.2-3.4) K/uL Hunt # (Auto) 0.58 (0.11-0.59) K/uL Eos # (Auto) 0.02 (0-0.5) K/uL Baso # (Auto) 0.01 (0-0.2) K/uL Immature Gran # (Auto) 0.28 H (0.00-0.02) K/uL Sample Site Art Line POC pH 7.42 (7.35-7.45) POC pCO2 45 (35-46) mmHg POC pO2 70 L (80-95) mmHg POC HCO3 29 H (19-24) emeli/L POC Total CO2 30 (24-31) mmol/L POC Base Excess 4.0 H (-9-1.8) emeli/L ABG pH (Temp Correct) 7.414 (7.35-7.45) ABG pCO2 (Temp Corrct 45 (35-46) mmHg POC ABG pO2 at Pt Temp 71 POC ABG O2 Sat 94.0 (90-95) % Maco Test NA O2 Delivery Device Ventilator POC O2 Rate 16 POC FiO2 100 % Tidal Volume 400 PEEP 10 POC Sodium 129 L (135-144) mmol/L Sodium 129 L (136-145) mmol/L POC Potassium 3.9 (3.3-5.0) mmol/L Potassium 4.1 (3.5-5.1) mmol/L Chloride 94 L (98-107) mmol/L Carbon Dioxide 28 (21-32) mmol/L Anion Gap 7.0 (3-11) BUN 15 (7-18) mg/dl Creatinine 0.58 L (0.6-1.2) mg/dl Est Cr Clr Drug Dosing 83.2 ml/min Est GFR ( Amer) 109.8 ml/min Est GFR (Non-Af Amer) 94.7 ml/min BUN/Creatinine Ratio 26.8 H (10-20) Glucose 80 (70-99) mg/dl POC Glucose (70-99) mg/dl Calcium 8.0 L (8.5-10.1) mg/dl Magnesium 2.5 H (1.8-2.4) mg/dl 11/19/20 11/19/20 11/19/20 Range/Units 20:49 15:58 11:50 WBC (4.8-10.8) K/uL RBC (4.2-5.4) M/uL Hgb (12.0-16.0) g/dL POC Hgb (12.0-16.0) g/dl Hct (37-47) % POC Hct (37-47) % MCV (80-100) fL MCH (25-34) pg MCHC (32-36) g/dL RDW Std Deviation (36.4-46.3) fL RDW Coeff of Claudia (11.5-14.5) % Plt Count (130-400) K/uL MPV (7.4-10.4) fL Immature Gran % (Auto) % Neut % (Auto) % Lymph % (Auto) % Hunt % (Auto) % Eos % (Auto) % Baso % (Auto) % Neut # (Auto) (1.4-6.5) K/uL Lymph # (Auto) (1.2-3.4) K/uL Hunt # (Auto) (0.11-0.59) K/uL Eos # (Auto) (0-0.5) K/uL Baso # (Auto) (0-0.2) K/uL Immature Gran # (Auto) (0.00-0.02) K/uL Sample Site POC pH (7.35-7.45) POC pCO2 (35-46) mmHg POC pO2 (80-95) mmHg POC HCO3 (19-24) emeli/L POC Total CO2 (24-31) mmol/L POC Base Excess (-9-1.8) emeli/L ABG pH (Temp Correct) (7.35-7.45) ABG pCO2 (Temp Corrct (35-46) mmHg POC ABG pO2 at Pt Temp POC ABG O2 Sat (90-95) % Maco Test O2 Delivery Device POC O2 Rate POC FiO2 % Tidal Volume PEEP POC Sodium (135-144) mmol/L Sodium (136-145) mmol/L POC Potassium (3.3-5.0) mmol/L Potassium (3.5-5.1) mmol/L Chloride (98-107) mmol/L Carbon Dioxide (21-32) mmol/L Anion Gap (3-11) BUN (7-18) mg/dl Creatinine (0.6-1.2) mg/dl Est Cr Clr Drug Dosing ml/min Est GFR ( Amer) ml/min Est GFR (Non-Af Amer) ml/min BUN/Creatinine Ratio (10-20) Glucose (70-99) mg/dl POC Glucose 131 H 142 H 107 H (70-99) mg/dl Calcium (8.5-10.1) mg/dl Magnesium (1.8-2.4) mg/dl Coding Level of Care Code Critical Care 1st 30-74 mins Diagnoses Pneumonia due to COVID-19 virus U07.1; J12.82 Acute hypoxemic respiratory failure J96.01 Lactic acidosis E87.2
--- NOTE | 2020-11-20 09:56 | XRay Report ---
XR KUB/Abdomen 1 view CLINICAL HISTORY: NGT placement COMPARISON STUDY: No previous studies for comparison. FINDINGS: Multiple nondilated gas and stool-filled loops of bowel are seen throughout the abdomen. Gastric tube tip and fenestrated side-port are seen within mid abdomen, below level of hemidiaphragm. IMPRESSION: 1. Tip in fenestrated side-port of gastric tube is seen below level of hemidiaphragm. ACT 112: Negative or not required by law. The above report was generated using voice recognition software. It may contain grammatical, syntax o r spelling errors. Electronically signed by: Nadia Kirk DO 11/20/2020 9:55 AM
[2020-11-20] MEDS: INSULIN ASPART 100 UNITS/ML 3 ML PEN SC SCH ×4 (10:04→19:47)
[2020-11-20] MEDS ORDERED: CEFEPIME CONSULT ACTIVE PRN (10:14)
[2020-11-20] MEDS ORDERED: SODIUM CHLORIDE 0.9% 500 ML IV ONE (10:15)
--- NOTE | 2020-11-20 10:34 | Pharmacy Report ---
Pharmacy Glycemic Short Note 2 - Date of Service November 20, 2020 - Glycemic Short BSG Results (Last 24 hours): 11/19/20 11/19/20 11/19/20 11:50 15:58 20:49 Glucose POC Glucose 107 H 142 H 131 H 11/20/20 04:44 Glucose 80 POC Glucose OUTPATIENT ANTIDIABETIC REGIMEN: * N/A * a1C = 5.9% on 11/16/20 indicating "pre-diabetes" ASSESSMENT: 11/20 * BSG's ranged 82-142 mg/dL yesterday * As of this AM, patient is now intubated and plan is to change to tubefeeds per ICU rounds. Dexamethasone dose also decreasing today per ARDS protocol * Will discontinue NPH for now as BSG's have been lower and dexamethasone dose is decreasing * Will change Novolog to q4h 2nd change in stressors and also 2nd initiation of tubefeeds * As BSG trended down from this AM to this afternoon (despite no insulin administered since NPH 4 units yesterday AM), will eliminate CHO ratio and only provide correction for BSG >140 mg/dL, but maintain tight correction factor 11/19 * BSG's have ranged 82-124 mg/dL over the last 24 hours. Lowest BSG was AM fasting this AM * Will decrease NPH x1 this AM - will only give a small dose * Steroids tapering starting tomorrow. Patient may not require NPH at that time - will hold off on ordering for now * No change to Novolog needed at this time. May require loosening tomorrow with steroid decrease 11/17 * Pt has received 15 units of insulin over the past 24hrs * 10 units of NPH for steroid induced hyperglycemia secondary to dexamethasone 20mg IV daily * 5 units of bolus with NovoLog * BSGs [phone] mg/dl * BSGs slightly below goal range for inpatient targets. Will decrease NPH and loosen CF/CR to maintain BSGs 110-140 11/16 * 70 yo female admitted to ICU for resp failure secondary to COVID19 viral pneumonia * DEXA-ARDS IV dexamethasone initiated yesterday, BSGs have been trending higher. Last 2 fasting BSGs > 140 and there are plans to advance diet today * Will initiate Novolog regimen using weight and "severe" stress. Will also give a low dose of NPH this AM to help offset the climb in BSGs following meals today. Given uncertainty with PO intake, and lack of A1c result, will keep NPH dose low for now. PLAN FOR INPATIENT GLYCEMIC CONTROL: * Basal insulin * Discontine NPH * Bolus insulin * NovoLog per scale q4h * Goal Range: Low 110 mg/dL - High 140 mg/dL * Correction Factor: 30 mg/dL/unit * Nutritional / Prandial insulin per carb ratio of 1 unit per 9 grams CHO consumed PLAN FOR DISCHARGE: * HbA1c of 5.7-6.4% indicates "pre-diabetes" --> ADA recommendation is to institute diabetes and atherosclerosis prevention * Support Patient Self-Management * Healthy Lifestyle (diet, exercise, and smoking cessation) * Disease self-management (SMBG) * Prevention of complications (BP, Lipid goals, Immunizations) * Consider outpatient Diabetes Self-Management Education & Support
[2020-11-20] MEDS: BENZONATATE 100 MG CAPSULE PO SCH ×3 (11:08→19:21)
[2020-11-20] MEDS: dexAMETHasone 10 MG in SYRINGE 0 ML IV SCH (11:08)
[2020-11-20] MEDS: FAMOTIDINE 20 MG in SYRINGE 3 ML IV SCH ×2 (11:09→19:49)
[2020-11-20] MEDS: TUBE FEEDING WATER FLUSH OG SCH ×4 (11:09→23:59)
[2020-11-20] MEDS: CEFEPIME 2,000 MG in SYRINGE 0 ML IV SCH ×2 (11:09→17:57)
[2020-11-20] MEDS: ENOXAPARIN INJ 40 MG/0.4 ML SYR SQ SCH ×2 (11:09→19:48)
[2020-11-20] MEDS: cefTRIAXone SODIUM 2,000 MG in DEXTROSE 5% 50 ML IV SCH (11:50)
[2020-11-20] MEDS: PEPTAMEN INTENSE VHP 1.0 CAL 1,000 ML BAG OG SCH (12:12)
--- NOTE | 2020-11-20 14:48 | Hospitalist Progress Note ---
Date of Service November 20, 2020 Assessment & Plan (1) Pneumonia due to COVID-19 virus: Acute respiratory failure with hypoxia COVID-19 pneumonia- multifocal Pneumomediastinum -CTA:There is no evidence of pulmonary embolus in the main, lobar, or segmental pulmonary arteries. Multifocal groundglass consolidation is seen throughout both lungs and consistent with the reported history of a viral pneumonia. Radiographic follow-up to resolution is recommended. Moderate hiatal hernia. Hepatic steatosis. -Continue IV Solu-Medrol, bronchodilators Intubated on 11/20/20 Continue supplemental oxygen Appreciate auto locator input Diuretics as needed On Lovenox for DVT prophylaxis Pneumomediastinum, subcutaneous gas within the neck noted on today's chest x- ray. Continue Rocephin>> transition to cefepime High FiO2, low PEEP given pneumomediastinum Trickle feeds Continue proning Neuromuscular blockade administered On Propofol, fentanyl for sedation Prediabetes HbA1c 5.9 Continue insulin therapy as needed for hyperglycemia Monitor BGs . (2) Hyponatremia: Sodium levels:131>129 Monitor BMP Received gentle IV fluids (3) Fatty liver: Elevated Transaminases last US of liver 09/2019 diffuse increased heterogeneous liver and fatty filtration. Avoid hepatotoxic agents as able next (4) DVT prophylaxis: Lovenox SQ Code Status FULL CODE Admission and Anticipated Discharge Date Admission Date: November 14, 2020 Subjective Patient is seen and examined at bedside Intubated this AM Neuromuscular blockade given Sedated with fentanyl, propofol Trickle feeds On 60%FiO2, Low PEEP Afebrile Leukocytosis likely due to steroids Chest x-ray today showed pneumomediastinum and subcutaneous gas within the neck, bilateral airspace opacities right greater than left Review of Systems Review of Systems: Unobtainable due to endotracheal tube Physical Exam Physical Exam: Physical Exam: Vitals signs as noted above General Appearance:Moderately built and nourished, +Proned Head: normocephalic, Atraumatic Eyes: normal inspection, EOMI Neck: supple, Trachea midline Respiratory/Chest: Decreased breath sounds, B/L crackles L > R Cardiovascular: S1, S2, No murmur Abdomen/GI:Soft, Non tender, Bowel sounds present Extremities/Musculoskeletal:normal inspection, no edema Neurologic/Psych:Sedated and Intubated, Could not perform exam Skin: normal color, warm Results & Data Results & Data ([facility]) Vital Signs (Past 12 Hours) Vital Signs Temp Pulse Resp BP Pulse Ox 11/20/20 11:30 20 11/20/20 10:15 20 11/20/20 08:47 98 H 16 98 11/20/20 08:00 16 96 11/20/20 07:05 107 H 159/94 H 87 L 11/20/20 07:00 100 H 86 L 11/20/20 06:49 93 H 126/75 92 11/20/20 06:41 96 H 107/73 92 11/20/20 06:38 93 H 75/56 L 93 11/20/20 06:35 97 H 78/54 L 93 11/20/20 06:32 90 17 94 11/20/20 06:30 95 H 99 11/20/20 06:25 82 152/94 H 99 11/20/20 06:20 90 194/107 H 94 11/20/20 06:00 93 H 36 H 96 11/20/20 05:31 78 36 H 90 11/20/20 05:29 85 27 H 103/61 89 L 11/20/20 05:28 79 25 H 78/47 L 88 L 11/20/20 05:26 87 22 90 11/20/20 05:00 81 49 H 86 L 11/20/20 04:37 75 23 108/72 94 11/20/20 04:30 77 24 86 L 11/20/20 04:28 81 24 99/65 L 88 L 11/20/20 04:00 36.9 C 103 H 28 H 87 L 11/20/20 03:31 88 20 87 L 11/20/20 03:29 90 19 122/67 87 L 11/20/20 03:00 87 17 91 Laboratory Results Short CBC 11/20/20 Range/Units 04:44 WBC 16.20 H (4.8-10.8) K/uL Hgb 13.7 (12.0-16.0) g/dL Hct 40.3 (37-47) % Plt Count 616 H (130-400) K/uL BMP 11/20/20 04:44 Sodium 129 L Potassium 4.1 Chloride 94 L Carbon Dioxide 28 BUN 15 Creatinine 0.58 L Glucose 80 Calcium 8.0 L
[2020-11-21] MEDS: INSULIN ASPART 100 UNITS/ML 3 ML PEN SC SCH ×3 (00:01→09:57)
[2020-11-21] MEDS: CISATRACURIUM BESYLATE 40 MG in 0.9 % SODIUM CHLORIDE 80 ML IV SCH ×5 (01:12→23:00)
[2020-11-21] MEDS: CEFEPIME 2,000 MG in SYRINGE 0 ML IV SCH (01:51)
[2020-11-21] MEDS: TUBE FEEDING WATER FLUSH OG SCH ×5 (04:23→20:20)
[2020-11-21 04:34] LABS: iSTAT Art Bld Gas pCO2 Correct 51 mmHg (35-46); iSTAT Art Bld Gas pH Corrected 7.342 (7.35-7.45); iSTAT Arterial Blood Gas HCO3 28 meg/L (19-24); iSTAT Arterial Blood Gas pCO2 51 mmHg (35-46); iSTAT Arterial Blood Gas pH 7.34 (7.35-7.45); iSTAT Arterial Blood Gas pO2 66 mmHg (80-95); iSTAT Arterial Blood Gas pO2 C 66; iSTAT Carbon Dioxide 29 mmol/L (24-31); iSTAT FiO2 60 %; iSTAT Hematocrit 35 % (37-47); iSTAT Hemoglobin 11.9 g/dl (12.0-16.0); iSTAT Potassium 4.5 mmol/L (3.3-5.0); iSTAT Site L Radial; iSTAT Sodium 131 mmol/L (135-144)
[2020-11-21 05:36] LABS: Basophils # (auto) 0.01 K/uL (0-0.2); Basophils % (auto) 0.1 %; Eosinophils # (auto) 0.07 K/uL (0-0.5); Eosinophils % (auto) 0.5 %; Hematocrit (blood only) 36.1 % (37-47); Immature Granulocytes # (auto) 0.36 K/uL (0.00-0.02); Immature Granulocytes % (auto) 2.5 %; Lymphocytes # (auto) 0.94 K/uL (1.2-3.4); Lymphocytes % (auto) 6.4 %; Mean Corpuscular Hemoglobin 29.7 pg (25-34); Mean Corpuscular Hgb Conc 33.2 g/dL (32-36); Mean Corpuscular Volume 89.4 fL (80-100); Mean Platelet Volume 9.6 fL (7.4-10.4); Monocytes # (auto) 0.59 K/uL (0.11-0.59); Neutrophils # (auto) 12.68 K/uL (1.4-6.5); Neutrophils % (auto) 86.5 %; Platelet Count 535 K/uL (130-400); RDW Coefficient of Variation 12.9 % (11.5-14.5); Red Blood Count 4.04 M/uL (4.2-5.4); White Blood Count 14.65 K/uL (4.8-10.8)
[2020-11-21 06:05] LABS: BUN Creatinine Ratio 40.5 (10-20); Creatinine Clr Calc Pharmacy 92.8 ml/min; Est GFR (African American) 114.5 ml/min; Est GFR (Non-African American) 98.8 ml/min; Magnesium 2.5 mg/dl (1.8-2.4); Potassium 4.6 mmol/L (3.5-5.1)
--- NOTE | 2020-11-21 08:19 | Critical Care Progress Note ---
Date of Service November 21, 2020 Assessment & Plan (1) Pneumonia due to COVID-19 virus: Reason Critically Ill: Acute hypoxic respiratory failure secondary to COVID-19 pneumonia PLAN: Neuro: Sedation analgesia neuromuscular blockade -Cis atracurium for 48 hours, then discontinue -Bis monitoring fentanyl and propofol Resp: Acute hypoxic respiratory failure COVID-19 pneumonia -DEXA arts protocol initiated on 11/15/2020 -Intubation day #2 -Timeline out of remdesivir indication -Outside window for Tocilizumab -High FiO2 low PEEP secondary to known pneumomediastinum: Currently 50% FiO2 10 PEEP -Pronation therapy Pneumomediastinum CV: Occasional premature ventricular contractions Fluids/Renal: Hyponatremia: Mildly improved ID: Discontinue antibiotics pro-Den normal -Suspect viral etiology in origin: COVID-19 COVID-19 pneumonia -Supportive care GI/Nutrition: Trickle tube feeds -Bowel regimen Heme: Leukocytosis: Not otherwise specified on steroids Thrombocytosis: Likely reactionary DVT prophylaxis: Lovenox 40 twice daily Endocrine: ICU hyperglycemia protocol Vascular access: Left internal jugular CVC, left radial arterial line Code Status: Full code (2) Acute hypoxemic respiratory failure: (3) Lactic acidosis: Admission and Anticipated Discharge Date Admission Date: November 14, 2020 Supervising Physician Co-Signing Physician Notes I have personally spent 55 minutes of critical care time in the direct management of this patient. This is a life/limb threatening event. This includes time spent evaluating patient, direct bedside care, chart review, placing orders, interpretation of diagnostic studies, discussion with consultants, patient, and/or family members regarding treatment decisions, as well as other required patient management activities. This time is exclusive of all separately billable procedures, and teaching time and separate from and in addition to any other critical care service time. Subjective No overnight events, patient was returned from supine position Review of Systems Review of Systems: Unobtainable due to endotracheal tube Physical Exam Physical Exam: General: 3 TP. Skin: Warm, dry, Head: Atraumatic Ears, nose, mouth and throat: airway secured by endotracheal tube Cardiovascular: Normal peripheral perfusion Respiratory: Ventilator settings reviewed Gastrointestinal: Non distended Musculoskeletal: No deformity Results & Data Results & Data ([facility]) Vital Signs (Past 12 Hours) Vital Signs Temp Pulse Pulse Resp BP Pulse Ox 11/21/20 07:56 66 22 92 11/21/20 06:00 37.1 C 64 92 11/21/20 05:56 37.1 C 66 103/51 L 92 11/21/20 05:30 37.1 C 63 91 11/21/20 05:00 37.1 C 66 90 11/21/20 04:56 37.1 C 66 97/50 L 90 11/21/20 04:30 37.1 C 66 91 11/21/20 04:00 37.0 C 67 92 11/21/20 03:56 37.0 C 68 115/61 92 11/21/20 03:30 37.0 C 65 92 11/21/20 03:00 37.0 C 65 90 11/21/20 02:56 36.9 C 66 98/51 L 90 11/21/20 02:30 36.9 C 67 20 90 11/21/20 02:00 37.0 C 66 91 11/21/20 01:56 37.0 C 65 105/51 L 90 11/21/20 01:39 36.9 C 70 112/51 L 88 L 11/21/20 01:30 36.9 C 75 90 11/21/20 01:07 36.9 C 68 107/63 95 11/21/20 01:00 37.0 C 67 94 11/21/20 00:56 37.0 C 66 116/67 94 11/21/20 00:46 69 11/21/20 00:41 37.0 C 67 121/68 93 11/21/20 00:31 37.0 C 68 121/64 93 11/21/20 00:30 37.0 C 70 94 11/21/20 00:11 37.0 C 71 124/77 95 11/21/20 00:00 37.0 C 71 94 11/20/20 23:57 37.0 C 75 161/76 H 95 11/20/20 23:30 37.1 C 66 94 11/20/20 23:00 37.1 C 69 93 11/20/20 22:56 37.1 C 70 111/65 93 11/20/20 22:30 37.1 C 69 20 94 11/20/20 22:04 37.1 C 72 120/65 92 11/20/20 22:00 37.2 C 73 92 11/20/20 21:57 37.2 C 84 186/83 H 94 11/20/20 21:30 37.2 C 67 95 11/20/20 21:00 37.2 C 68 94 11/20/20 20:30 37.3 C 68 94 11/20/20 20:22 37.3 C 69 116/67 94 Laboratory Results 11/21/20 11/21/20 11/21/20 Range/Units 07:41 05:00 05:00 WBC 14.65 H (4.8-10.8) K/uL RBC 4.04 L (4.2-5.4) M/uL Hgb 12.0 (12.0-16.0) g/dL POC Hgb (12.0-16.0) g/dl Hct 36.1 L (37-47) % POC Hct (37-47) % MCV 89.4 (80-100) fL MCH 29.7 (25-34) pg MCHC 33.2 (32-36) g/dL RDW Std Deviation 42.0 (36.4-46.3) fL RDW Coeff of Claudia 12.9 (11.5-14.5) % Plt Count 535 H (130-400) K/uL MPV 9.6 (7.4-10.4) fL Immature Gran % (Auto) 2.5 % Neut % (Auto) 86.5 % Lymph % (Auto) 6.4 % Taney % (Auto) 4.0 % Eos % (Auto) 0.5 % Baso % (Auto) 0.1 % Neut # (Auto) 12.68 H (1.4-6.5) K/uL Lymph # (Auto) 0.94 L (1.2-3.4) K/uL Taney # (Auto) 0.59 (0.11-0.59) K/uL Eos # (Auto) 0.07 (0-0.5) K/uL Baso # (Auto) 0.01 (0-0.2) K/uL Immature Gran # (Auto) 0.36 H (0.00-0.02) K/uL Sample Site POC pH (7.35-7.45) POC pCO2 (35-46) mmHg POC pO2 (80-95) mmHg POC HCO3 (19-24) emeli/L POC Total CO2 (24-31) mmol/L POC Base Excess (-9-1.8) emeli/L ABG pH (Temp Correct) (7.35-7.45) ABG pCO2 (Temp Corrct (35-46) mmHg POC ABG pO2 at Pt Temp POC ABG O2 Sat (90-95) % Maco Test O2 Delivery Device POC O2 Rate POC FiO2 % Tidal Volume PEEP POC Sodium (135-144) mmol/L Sodium (136-145) mmol/L POC Potassium (3.3-5.0) mmol/L Potassium (3.5-5.1) mmol/L Chloride (98-107) mmol/L Carbon Dioxide (21-32) mmol/L Anion Gap (3-11) BUN (7-18) mg/dl Creatinine (0.6-1.2) mg/dl Est Cr Clr Drug Dosing ml/min Est GFR ( Amer) ml/min Est GFR (Non-Af Amer) ml/min BUN/Creatinine Ratio (10-20) Glucose (70-99) mg/dl POC Glucose 101 H (70-99) mg/dl Calcium (8.5-10.1) mg/dl Magnesium (1.8-2.4) mg/dl Procalcitonin < 0.05 (0-0.5) ng/ml 11/21/20 11/21/20 11/21/20 Range/Units 05:00 04:03 03:59 WBC (4.8-10.8) K/uL RBC (4.2-5.4) M/uL Hgb (12.0-16.0) g/dL POC Hgb 11.9 L (12.0-16.0) g/dl Hct (37-47) % POC Hct 35 L (37-47) % MCV (80-100) fL MCH (25-34) pg MCHC (32-36) g/dL RDW Std Deviation (36.4-46.3) fL RDW Coeff of Claudia (11.5-14.5) % Plt Count (130-400) K/uL MPV (7.4-10.4) fL Immature Gran % (Auto) % Neut % (Auto) % Lymph % (Auto) % Taney % (Auto) % Eos % (Auto) % Baso % (Auto) % Neut # (Auto) (1.4-6.5) K/uL Lymph # (Auto) (1.2-3.4) K/uL Taney # (Auto) (0.11-0.59) K/uL Eos # (Auto) (0-0.5) K/uL Baso # (Auto) (0-0.2) K/uL Immature Gran # (Auto) (0.00-0.02) K/uL Sample Site L Radial POC pH 7.34 L (7.35-7.45) POC pCO2 51 H (35-46) mmHg POC pO2 66 L (80-95) mmHg POC HCO3 28 H (19-24) emeli/L POC Total CO2 29 (24-31) mmol/L POC Base Excess 2.0 H (-9-1.8) emeli/L ABG pH (Temp Correct) 7.342 L (7.35-7.45) ABG pCO2 (Temp Corrct 51 H (35-46) mmHg POC ABG pO2 at Pt Temp 66 POC ABG O2 Sat 91.0 (90-95) % Maco Test NA O2 Delivery Device Ventilator POC O2 Rate 20 POC FiO2 60 % Tidal Volume 325 PEEP 10 POC Sodium 131 L (135-144) mmol/L Sodium 130 L (136-145) mmol/L POC Potassium 4.5 (3.3-5.0) mmol/L Potassium 4.6 (3.5-5.1) mmol/L Chloride 99 (98-107) mmol/L Carbon Dioxide 28 (21-32) mmol/L Anion Gap 3.0 (3-11) BUN 21 H (7-18) mg/dl Creatinine 0.51 L (0.6-1.2) mg/dl Est Cr Clr Drug Dosing 92.8 ml/min Est GFR ( Amer) 114.5 ml/min Est GFR (Non-Af Amer) 98.8 ml/min BUN/Creatinine Ratio 40.5 H (10-20) Glucose 106 H (70-99) mg/dl POC Glucose 109 H (70-99) mg/dl Calcium 8.0 L (8.5-10.1) mg/dl Magnesium 2.5 H (1.8-2.4) mg/dl Procalcitonin (0-0.5) ng/ml 11/20/20 11/20/20 11/20/20 Range/Units 23:52 19:32 15:51 WBC (4.8-10.8) K/uL RBC (4.2-5.4) M/uL Hgb (12.0-16.0) g/dL POC Hgb (12.0-16.0) g/dl Hct (37-47) % POC Hct (37-47) % MCV (80-100) fL MCH (25-34) pg MCHC (32-36) g/dL RDW Std Deviation (36.4-46.3) fL RDW Coeff of Claudia (11.5-14.5) % Plt Count (130-400) K/uL MPV (7.4-10.4) fL Immature Gran % (Auto) % Neut % (Auto) % Lymph % (Auto) % Taney % (Auto) % Eos % (Auto) % Baso % (Auto) % Neut # (Auto) (1.4-6.5) K/uL Lymph # (Auto) (1.2-3.4) K/uL Taney # (Auto) (0.11-0.59) K/uL Eos # (Auto) (0-0.5) K/uL Baso # (Auto) (0-0.2) K/uL Immature Gran # (Auto) (0.00-0.02) K/uL Sample Site POC pH (7.35-7.45) POC pCO2 (35-46) mmHg POC pO2 (80-95) mmHg POC HCO3 (19-24) emeli/L POC Total CO2 (24-31) mmol/L POC Base Excess (-9-1.8) emeli/L ABG pH (Temp Correct) (7.35-7.45) ABG pCO2 (Temp Corrct (35-46) mmHg POC ABG pO2 at Pt Temp POC ABG O2 Sat (90-95) % Maco Test O2 Delivery Device POC O2 Rate POC FiO2 % Tidal Volume PEEP POC Sodium (135-144) mmol/L Sodium (136-145) mmol/L POC Potassium (3.3-5.0) mmol/L Potassium (3.5-5.1) mmol/L Chloride (98-107) mmol/L Carbon Dioxide (21-32) mmol/L Anion Gap (3-11) BUN (7-18) mg/dl Creatinine (0.6-1.2) mg/dl Est Cr Clr Drug Dosing ml/min Est GFR ( Amer) ml/min Est GFR (Non-Af Amer) ml/min BUN/Creatinine Ratio (10-20) Glucose (70-99) mg/dl POC Glucose 122 H 154 H 134 H (70-99) mg/dl Calcium (8.5-10.1) mg/dl Magnesium (1.8-2.4) mg/dl Procalcitonin (0-0.5) ng/ml 11/20/20 11/20/20 Range/Units 12:14 08:29 WBC (4.8-10.8) K/uL RBC (4.2-5.4) M/uL Hgb (12.0-16.0) g/dL POC Hgb 13.6 (12.0-16.0) g/dl Hct (37-47) % POC Hct 40 (37-47) % MCV (80-100) fL MCH (25-34) pg MCHC (32-36) g/dL RDW Std Deviation (36.4-46.3) fL RDW Coeff of Claudia (11.5-14.5) % Plt Count (130-400) K/uL MPV (7.4-10.4) fL Immature Gran % (Auto) % Neut % (Auto) % Lymph % (Auto) % Taney % (Auto) % Eos % (Auto) % Baso % (Auto) % Neut # (Auto) (1.4-6.5) K/uL Lymph # (Auto) (1.2-3.4) K/uL Taney # (Auto) (0.11-0.59) K/uL Eos # (Auto) (0-0.5) K/uL Baso # (Auto) (0-0.2) K/uL Immature Gran # (Auto) (0.00-0.02) K/uL Sample Site Art Line POC pH 7.42 (7.35-7.45) POC pCO2 45 (35-46) mmHg POC pO2 70 L (80-95) mmHg POC HCO3 29 H (19-24) emeli/L POC Total CO2 30 (24-31) mmol/L POC Base Excess 4.0 H (-9-1.8) emeli/L ABG pH (Temp Correct) 7.414 (7.35-7.45) ABG pCO2 (Temp Corrct 45 (35-46) mmHg POC ABG pO2 at Pt Temp 71 POC ABG O2 Sat 94.0 (90-95) % Maco Test NA O2 Delivery Device Ventilator POC O2 Rate 16 POC FiO2 100 % Tidal Volume 400 PEEP 10 POC Sodium 129 L (135-144) mmol/L Sodium (136-145) mmol/L POC Potassium 3.9 (3.3-5.0) mmol/L Potassium (3.5-5.1) mmol/L Chloride (98-107) mmol/L Carbon Dioxide (21-32) mmol/L Anion Gap (3-11) BUN (7-18) mg/dl Creatinine (0.6-1.2) mg/dl Est Cr Clr Drug Dosing ml/min Est GFR ( Amer) ml/min Est GFR (Non-Af Amer) ml/min BUN/Creatinine Ratio (10-20) Glucose (70-99) mg/dl POC Glucose 76 (70-99) mg/dl Calcium (8.5-10.1) mg/dl Magnesium (1.8-2.4) mg/dl Procalcitonin (0-0.5) ng/ml Coding Level of Care Code Critical Care 1st 30-74 mins Diagnoses Pneumonia due to COVID-19 virus U07.1; J12.82 Acute hypoxemic respiratory failure J96.01 Lactic acidosis E87.2
[2020-11-21] MEDS ORDERED: SENNA 8.6 MG TAB PO SCH (09:00)
--- NOTE | 2020-11-21 09:16 | Hospitalist Progress Note ---
Date of Service November 21, 2020 Assessment & Plan (1) Pneumonia due to COVID-19 virus: Acute respiratory failure with hypoxia COVID-19 pneumonia- multifocal Pneumomediastinum -CTA:There is no evidence of pulmonary embolus in the main, lobar, or segmental pulmonary arteries. Multifocal groundglass consolidation is seen throughout both lungs and consistent with the reported history of a viral pneumonia. Radiographic follow-up to resolution is recommended. Moderate hiatal hernia. Hepatic steatosis. Intubated on 11/20/20 Appreciate head of global strategic partnerships input Diuretics as needed On Lovenox for DVT prophylaxis Pneumomediastinum, subcutaneous gas within the neck noted on today's chest x- ray. Continue Rocephin>> transition to cefepime High FiO2, low PEEP given pneumomediastinum Continue proning Neuromuscular blockade administered On Propofol, fentanyl for sedation Prediabetes HbA1c 5.9 Continue insulin therapy as needed for hyperglycemia Monitor BGs . (2) Hyponatremia: Sodium levels:131>129 Monitor BMP (3) Fatty liver: Elevated Transaminases last US of liver 09/2019 diffuse increased heterogeneous liver and fatty filtration. Avoid hepatotoxic agents as able (4) DVT prophylaxis: Lovenox SQ Code Status FULL CODE Disposition : remains critically ill mechanically ventilated in ICU Admission and Anticipated Discharge Date Admission Date: November 14, 2020 Subjective acute hypoxemic resp failure due to COVID 19 pneumonia remains intubated , on prone ventilation Review of Systems Review of Systems: Unobtainable due to endotracheal tube Physical Exam Constitutional: WD/WN, vitals as above + mechanically ventilated ENMT: ET tube present Respiratory: Auscultation: + crackles, + rales and + wheezes Gastrointestinal (Abdomen): Percussion/Palpation: abdomen soft Neurologic: + obtunded sedated on vent Results & Data Results & Data ([facility]) Vital Signs (Past 12 Hours) Vital Signs Temp Pulse Pulse Resp BP Pulse Ox 11/21/20 08:36 66 22 94 11/21/20 07:56 66 22 92 11/21/20 06:00 37.1 C 64 92 11/21/20 05:56 37.1 C 66 103/51 L 92 11/21/20 05:30 37.1 C 63 91 11/21/20 05:00 37.1 C 66 90 11/21/20 04:56 37.1 C 66 97/50 L 90 11/21/20 04:30 37.1 C 66 91 11/21/20 04:00 37.0 C 67 92 11/21/20 03:56 37.0 C 68 115/61 92 11/21/20 03:30 37.0 C 65 92 11/21/20 03:00 37.0 C 65 90 11/21/20 02:56 36.9 C 66 98/51 L 90 11/21/20 02:30 36.9 C 67 20 90 11/21/20 02:00 37.0 C 66 91 11/21/20 01:56 37.0 C 65 105/51 L 90 11/21/20 01:39 36.9 C 70 112/51 L 88 L 11/21/20 01:30 36.9 C 75 90 11/21/20 01:07 36.9 C 68 107/63 95 11/21/20 01:00 37.0 C 67 94 11/21/20 00:56 37.0 C 66 116/67 94 11/21/20 00:46 69 11/21/20 00:41 37.0 C 67 121/68 93 11/21/20 00:31 37.0 C 68 121/64 93 11/21/20 00:30 37.0 C 70 94 11/21/20 00:11 37.0 C 71 124/77 95 11/21/20 00:00 37.0 C 71 94 11/20/20 23:57 37.0 C 75 161/76 H 95 11/20/20 23:30 37.1 C 66 94 11/20/20 23:00 37.1 C 69 93 11/20/20 22:56 37.1 C 70 111/65 93 11/20/20 22:30 37.1 C 69 20 94 11/20/20 22:04 37.1 C 72 120/65 92 11/20/20 22:00 37.2 C 73 92 11/20/20 21:57 37.2 C 84 186/83 H 94 11/20/20 21:30 37.2 C 67 95
--- NOTE | 2020-11-21 09:39 | XRay Report ---
XR chest 1V portable CLINICAL HISTORY: Respiratory failure, pneumothorax, pneumonia COMPARISON STUDY: 11/20/2020 FINDINGS: The cardiac and mediastinal contours remain stable. There is an endotracheal tube 26 mm abo ve the gabino. There is an enteric tube within the stomach. There is a left internal jugular central venous catheter unchanged in position. There is persistent pneumomediastinum and subcutaneous emphyse ma. There are persistent bilateral pulmonary airspace opacities right greater than left. No pneumotho rax is visualized.[ IMPRESSION: 1. Satisfactory positioning of the lines and tubes 2. Pneumomediastinum and subcutaneous emphysema 3. Persistent bilateral pulmonary airspace opacities ACT 112: Negative or not required by law. Electronically signed by: Lenard Bolaños M.D. 11/21/2020 9:38 AM
[2020-11-21] MEDS: fentaNYL DRIP 1,250 MCG/250 ML BAG IV SCH ×2 (09:56→18:20)
[2020-11-21] MEDS: propofoL 1,000 MG/100 ML VIAL IV SCH ×3 (09:56→23:01)
[2020-11-21] MEDS: SENNOSIDES 8.8 MG/5 ML UDC PO SCH (09:57)
[2020-11-21] MEDS: ENOXAPARIN INJ 40 MG/0.4 ML SYR SQ SCH ×2 (09:57→21:18)
[2020-11-21] MEDS: dexAMETHasone 10 MG in SYRINGE 0 ML IV SCH (09:58)
[2020-11-21] MEDS: FAMOTIDINE 20 MG in SYRINGE 3 ML IV SCH ×2 (10:33→21:19)
--- NOTE | 2020-11-21 10:34 | Pharmacy Report ---
Pharmacy Glycemic Short Note 2 - Date of Service November 21, 2020 - Glycemic Short BSG Results (Last 24 hours): 11/20/20 11/20/20 11/20/20 12:14 15:51 19:32 Glucose POC Glucose 76 134 H 154 H 11/20/20 11/21/20 11/21/20 23:52 04:03 05:00 Glucose 106 H POC Glucose 122 H 109 H 11/21/20 07:41 Glucose POC Glucose 101 H OUTPATIENT ANTIDIABETIC REGIMEN: * N/A * a1C = 5.9% on 11/16/20 indicating "pre-diabetes" ASSESSMENT: 11/21 * BSG's have been well controlled without basal insulin and with only one unit of Novolog administered yesterday, even with initiation of Peptamen VHP trickle feeds while on higher dose steroids * OK to extend checks from q4h to q6h, but will then change from Novolog to regular insulin to provide coverage for the full 6 hour interval, in the event that Peptamen VHP rates increase above trickle feeds 11/20 * BSG's ranged 82-142 mg/dL yesterday * As of this AM, patient is now intubated and plan is to change to tubefeeds per ICU rounds. Dexamethasone dose also decreasing today per [facility] protocol * Will discontinue NPH for now as BSG's have been lower and dexamethasone dose is decreasing * Will change Novolog to q4h 2nd change in stressors and also 2nd initiation of tubefeeds * As BSG trended down from this AM to this afternoon (despite no insulin administered since NPH 4 units yesterday AM), will eliminate CHO ratio and only provide correction for BSG >140 mg/dL, but maintain tight correction factor 11/19 * BSG's have ranged 82-124 mg/dL over the last 24 hours. Lowest BSG was AM fasting this AM * Will decrease NPH x1 this AM - will only give a small dose * Steroids tapering starting tomorrow. Patient may not require NPH at that time - will hold off on ordering for now * No change to Novolog needed at this time. May require loosening tomorrow with steroid decrease PLAN FOR INPATIENT GLYCEMIC CONTROL: * Basal insulin * Continue to hold * Bolus insulin * Regular insulin SC q6h * Goal Range: Low 120 mg/dL - High 150 mg/dL * Correction Factor: 30 mg/dL/unit * Nutritional / Prandial insulin per carb ratio of 1 unit per 11 grams CHO consumed PLAN FOR DISCHARGE: * HbA1c of 5.7-6.4% indicates "pre-diabetes" --> ADA recommendation is to institute diabetes and atherosclerosis prevention * Support Patient Self-Management * Healthy Lifestyle (diet, exercise, and smoking cessation) * Disease self-management (SMBG) * Prevention of complications (BP, Lipid goals, Immunizations) * Consider outpatient Diabetes Self-Management Education & Support
[2020-11-21] MEDS: BENZONATATE 100 MG CAPSULE PO SCH (10:39)
[2020-11-21] MEDS ORDERED: METOPROLOL TARTRATE 1 MG/ML VIAL IV ONE (10:58)
[2020-11-21] MEDS: INSULIN HUMAN REGULAR SC SCH ×3 (13:22→23:57)
[2020-11-21] MEDS: METOCLOPRAMIDE HCL 10 MG/10 ML UDC PO SCH ×2 (18:20→23:55)
[2020-11-21] MEDS ORDERED: MIDAZOLAM HCL 5 MG/ML VIAL IV STA (21:06)
[2020-11-21] MEDS ORDERED: MIDAZOLAM HCL 5 MG/ML 1 ML VIAL IV STA (21:10)
[2020-11-21] MEDS ORDERED: STAT IV Infusion **Titration per Protocol STA (21:11)
[2020-11-21] MEDS ORDERED: MIDAZOLAM HCL 1 MG/ML 2ML VIAL IV STA (21:12)
[2020-11-21] MEDS: NOREPINEPHRINE/D5W 8 MG/508 ML BAG IV SCH (21:16)
[2020-11-22] MEDS: TUBE FEEDING WATER FLUSH OG SCH ×7 (00:45→23:24)
[2020-11-22] MEDS: fentaNYL DRIP 1,250 MCG/250 ML BAG IV SCH ×4 (02:24→23:16)
[2020-11-22] MEDS ORDERED: MIDAZOLAM HCL 1 MG/ML 2ML VIAL ONE (02:48)
[2020-11-22] MEDS ORDERED: MIDAZOLAM HCL 1 MG/ML 2ML VIAL IV STA (02:48)
[2020-11-22 04:34] LABS: iSTAT Art Bld Gas pCO2 Correct 51 mmHg (35-46); iSTAT Art Bld Gas pH Corrected 7.325 (7.35-7.45); iSTAT Arterial Blood Gas HCO3 27 meg/L (19-24); iSTAT Arterial Blood Gas pCO2 52 mmHg (35-46); iSTAT Arterial Blood Gas pH 7.32 (7.35-7.45); iSTAT Arterial Blood Gas pO2 77 mmHg (80-95); iSTAT Arterial Blood Gas pO2 C 76; iSTAT Carbon Dioxide 28 mmol/L (24-31); iSTAT FiO2 60 %; iSTAT Hematocrit 39 % (37-47); iSTAT Hemoglobin 13.3 g/dl (12.0-16.0); iSTAT Potassium 4.2 mmol/L (3.3-5.0); iSTAT Site Art Line; iSTAT Sodium 130 mmol/L (135-144)
[2020-11-22] MEDS: CISATRACURIUM BESYLATE 40 MG in 0.9 % SODIUM CHLORIDE 80 ML IV SCH ×8 (04:51→23:20)
[2020-11-22] MEDS: PEPTAMEN INTENSE VHP 1.0 CAL 1,000 ML BAG OG SCH (05:45)
[2020-11-22] MEDS: propofoL 1,000 MG/100 ML VIAL IV SCH ×4 (05:47→23:17)
[2020-11-22] MEDS: METOCLOPRAMIDE HCL 10 MG/10 ML UDC PO SCH ×4 (05:48→23:23)
[2020-11-22 05:51] LABS: BUN Creatinine Ratio 41.1 (10-20); Calcium 8.3 mg/dl (8.5-10.1); Creatinine Clr Calc Pharmacy 87.6 ml/min; Est GFR (African American) 113.8 ml/min; Est GFR (Non-African American) 98.2 ml/min; Magnesium 2.3 mg/dl (1.8-2.4); Potassium 4.3 mmol/L (3.5-5.1)
[2020-11-22 05:52] LABS: Phosphorus 2.4 mg/dl (2.5-4.9)
[2020-11-22] MEDS: INSULIN HUMAN REGULAR SC SCH ×4 (06:07→23:26)
[2020-11-22 06:49] LABS: Hematocrit (blood only) 37.1 % (37-47); Hemoglobin 12.6 g/dL (12.0-16.0); Mean Corpuscular Hemoglobin 30.4 pg (25-34); Mean Corpuscular Volume 89.6 fL (80-100); Mean Platelet Volume 9.5 fL (7.4-10.4); Platelet Count 614 K/uL (130-400); RDW Standard Deviation 42.4 fL (36.4-46.3); Red Blood Count 4.14 M/uL (4.2-5.4); White Blood Count 22.56 K/uL (4.8-10.8)
[2020-11-22 07:00] LABS: Basophils # (auto) 0.03 K/uL (0-0.2); Basophils % (auto) 0.1 %; Eosinophils # (auto) 0.01 K/uL (0-0.5); Immature Granulocytes # (auto) 0.96 K/uL (0.00-0.02); Immature Granulocytes % (auto) 4.3 %; Lymphocytes # (auto) 1.12 K/uL (1.2-3.4); Monocytes # (auto) 1.18 K/uL (0.11-0.59); Monocytes % (auto) 5.2 %; Neutrophils # (auto) 19.26 K/uL (1.4-6.5); Neutrophils % (auto) 85.4 %
--- NOTE | 2020-11-22 07:07 | Critical Care Progress Note ---
Date of Service November 22, 2020 Assessment & Plan (1) Pneumonia due to COVID-19 virus: Reason Critically Ill: Acute hypoxic respiratory failure secondary to COVID-19 pneumonia PLAN: Neuro: Sedation analgesia neuromuscular blockade -Cis atracurium for additional 24 hours as ventilator settings worsened and continue to prone -Bis monitoring fentanyl and propofol -Check triglyceride level in a.m. Resp: Acute hypoxic respiratory failure COVID-19 pneumonia -DEXA arts protocol initiated on 11/15/2020 -Intubation day #3 -Timeline out of remdesivir indication -Outside window for Tocilizumab -High FiO2 low PEEP secondary to known pneumomediastinum: Currently 60% FiO2 8 PEEP Acute respiratory distress syndrome -P to F: 128 -Pronation therapy Pneumomediastinum CV: Occasional premature ventricular contractions Fluids/Renal: Hyponatremia: Mildly improved ID: Discontinue antibiotics pro-Den normal -Suspect viral etiology in origin: COVID-19 COVID-19 pneumonia -Supportive care GI/Nutrition: Trickle tube feeds -Bowel regimen Heme: Leukocytosis: Not otherwise specified on steroids Thrombocytosis: Likely reactionary DVT prophylaxis: Lovenox 40 twice daily Endocrine: ICU hyperglycemia protocol Vascular access: Left internal jugular CVC, left radial arterial line Code Status: Full code (2) Acute hypoxemic respiratory failure: (3) Lactic acidosis: Admission and Anticipated Discharge Date Admission Date: November 14, 2020 Supervising Physician Co-Signing Physician Notes Patient was discussed in multidisciplinary rounds I have personally spent 45 minutes of critical care time in the direct management of this patient. This is a life/limb threatening event. This includes time spent evaluating patient, direct bedside care, chart review, placing orders, interpretation of diagnostic studies, discussion with consultants, patient, and/or family members regarding treatment decisions, as well as other required patient management activities. This time is exclusive of all separately billable procedures, and teaching time and separate from and in addition to any other critical care service time. Subjective No overnight events, patient was returned from supine position Review of Systems Review of Systems: Unobtainable due to endotracheal tube Physical Exam Physical Exam: General: 3 TP. Skin: Warm, dry, Head: Atraumatic Ears, nose, mouth and throat: airway secured by endotracheal tube Cardiovascular: Normal peripheral perfusion Respiratory: Ventilator settings reviewed Gastrointestinal: Non distended Musculoskeletal: No deformity Results & Data Results & Data ([facility]) Vital Signs (Past 12 Hours) Vital Signs Temp Pulse Resp BP Pulse Ox 11/22/20 05:23 37.2 C 82 138/54 L 89 L 11/22/20 04:31 36.9 C 83 108/47 L 92 11/22/20 04:08 36.8 C 84 186/82 H 96 11/22/20 03:38 37.0 C 62 122/46 L 93 11/22/20 03:05 67 22 91 11/22/20 03:03 37.1 C 72 95/46 L 92 11/22/20 02:45 37.1 C 129 H 179/88 H 88 L 11/22/20 02:01 37.2 C 127 H 158/64 H 87 L 11/22/20 01:31 37.3 C 74 110/60 94 11/22/20 01:01 37.2 C 73 114/63 94 11/22/20 00:31 37.2 C 72 115/63 95 11/22/20 00:06 37.1 C 73 114/66 95 11/21/20 23:36 37.1 C 72 113/65 95 11/21/20 23:22 74 11/21/20 23:06 37.2 C 74 111/64 93 11/21/20 23:01 37.2 C 74 112/63 93 11/21/20 22:46 37.2 C 73 111/61 92 11/21/20 22:31 37.3 C 74 108/58 L 91 11/21/20 22:27 74 22 90 11/21/20 22:26 37.3 C 75 109/58 L 90 11/21/20 22:16 37.3 C 75 104/56 L 90 11/21/20 22:06 37.4 C 75 106/58 L 89 L 11/21/20 22:01 37.4 C 75 106/57 L 89 L 11/21/20 21:46 37.5 C 80 102/58 L 88 L 11/21/20 21:27 37.4 C 86 100/61 88 L 11/21/20 21:05 37.4 C 152 H 225/139 H 93 11/21/20 20:57 37.3 C 101 H 149/78 H 89 L 11/21/20 20:38 37.3 C 131 H 233/146 H 93 11/21/20 20:12 37.1 C 87 112/66 90 11/21/20 19:56 37.1 C 106 H 144/76 H 93 11/21/20 19:30 37.0 C 75 94 Laboratory Results 11/22/20 11/22/20 11/22/20 Range/Units 05:52 04:58 04:58 WBC 22.56 H (4.8-10.8) K/uL RBC 4.14 L (4.2-5.4) M/uL Hgb 12.6 (12.0-16.0) g/dL POC Hgb (12.0-16.0) g/dl Hct 37.1 (37-47) % POC Hct (37-47) % MCV 89.6 (80-100) fL MCH 30.4 (25-34) pg MCHC 34.0 (32-36) g/dL RDW Std Deviation 42.4 (36.4-46.3) fL RDW Coeff of Claudia 13.0 (11.5-14.5) % Plt Count 614 H (130-400) K/uL MPV 9.5 (7.4-10.4) fL Immature Gran % (Auto) 4.3 % Neut % (Auto) 85.4 % Lymph % (Auto) 5.0 % Isabela % (Auto) 5.2 % Eos % (Auto) 0.0 % Baso % (Auto) 0.1 % Neut # (Auto) 19.26 H (1.4-6.5) K/uL Lymph # (Auto) 1.12 L (1.2-3.4) K/uL Isabela # (Auto) 1.18 H (0.11-0.59) K/uL Eos # (Auto) 0.01 (0-0.5) K/uL Baso # (Auto) 0.03 (0-0.2) K/uL Immature Gran # (Auto) 0.96 H (0.00-0.02) K/uL Sample Site POC pH (7.35-7.45) POC pCO2 (35-46) mmHg POC pO2 (80-95) mmHg POC HCO3 (19-24) emeli/L POC Total CO2 (24-31) mmol/L POC Base Excess (-9-1.8) emeli/L ABG pH (Temp Correct) (7.35-7.45) ABG pCO2 (Temp Corrct (35-46) mmHg POC ABG pO2 at Pt Temp POC ABG O2 Sat (90-95) % Maco Test O2 Delivery Device POC O2 Rate POC FiO2 % Tidal Volume PEEP POC Sodium (135-144) mmol/L Sodium 132 L (136-145) mmol/L POC Potassium (3.3-5.0) mmol/L Potassium 4.3 (3.5-5.1) mmol/L Chloride 100 (98-107) mmol/L Carbon Dioxide 29 (21-32) mmol/L Anion Gap 3.0 (3-11) BUN 21 H (7-18) mg/dl Creatinine 0.52 L (0.6-1.2) mg/dl Est Cr Clr Drug Dosing 87.6 ml/min Est GFR ( Amer) 113.8 ml/min Est GFR (Non-Af Amer) 98.2 ml/min BUN/Creatinine Ratio 41.1 H (10-20) Glucose 163 H (70-99) mg/dl POC Glucose 177 H (70-99) mg/dl Calcium 8.3 L (8.5-10.1) mg/dl Phosphorus 2.4 L (2.5-4.9) mg/dl Magnesium 2.3 (1.8-2.4) mg/dl 11/22/20 11/21/20 11/21/20 Range/Units 04:21 23:51 18:24 WBC (4.8-10.8) K/uL RBC (4.2-5.4) M/uL Hgb (12.0-16.0) g/dL POC Hgb 13.3 (12.0-16.0) g/dl Hct (37-47) % POC Hct 39 (37-47) % MCV (80-100) fL MCH (25-34) pg MCHC (32-36) g/dL RDW Std Deviation (36.4-46.3) fL RDW Coeff of Claudia (11.5-14.5) % Plt Count (130-400) K/uL MPV (7.4-10.4) fL Immature Gran % (Auto) % Neut % (Auto) % Lymph % (Auto) % Isabela % (Auto) % Eos % (Auto) % Baso % (Auto) % Neut # (Auto) (1.4-6.5) K/uL Lymph # (Auto) (1.2-3.4) K/uL Isabela # (Auto) (0.11-0.59) K/uL Eos # (Auto) (0-0.5) K/uL Baso # (Auto) (0-0.2) K/uL Immature Gran # (Auto) (0.00-0.02) K/uL Sample Site Art Line POC pH 7.32 L (7.35-7.45) POC pCO2 52 H (35-46) mmHg POC pO2 77 L (80-95) mmHg POC HCO3 27 H (19-24) emeli/L POC Total CO2 28 (24-31) mmol/L POC Base Excess 1.0 (-9-1.8) emeli/L ABG pH (Temp Correct) 7.325 L (7.35-7.45) ABG pCO2 (Temp Corrct 51 H (35-46) mmHg POC ABG pO2 at Pt Temp 76 POC ABG O2 Sat 94.0 (90-95) % Maco Test NA O2 Delivery Device Ventilator POC O2 Rate 22 POC FiO2 60 % Tidal Volume 325 PEEP 8 POC Sodium 130 L (135-144) mmol/L Sodium (136-145) mmol/L POC Potassium 4.2 (3.3-5.0) mmol/L Potassium (3.5-5.1) mmol/L Chloride (98-107) mmol/L Carbon Dioxide (21-32) mmol/L Anion Gap (3-11) BUN (7-18) mg/dl Creatinine (0.6-1.2) mg/dl Est Cr Clr Drug Dosing ml/min Est GFR ( Amer) ml/min Est GFR (Non-Af Amer) ml/min BUN/Creatinine Ratio (10-20) Glucose (70-99) mg/dl POC Glucose 166 H 137 H (70-99) mg/dl Calcium (8.5-10.1) mg/dl Phosphorus (2.5-4.9) mg/dl Magnesium (1.8-2.4) mg/dl 11/21/20 11/21/20 11/21/20 Range/Units 16:05 11:43 07:41 WBC (4.8-10.8) K/uL RBC (4.2-5.4) M/uL Hgb (12.0-16.0) g/dL POC Hgb (12.0-16.0) g/dl Hct (37-47) % POC Hct (37-47) % MCV (80-100) fL MCH (25-34) pg MCHC (32-36) g/dL RDW Std Deviation (36.4-46.3) fL RDW Coeff of Claudia (11.5-14.5) % Plt Count (130-400) K/uL MPV (7.4-10.4) fL Immature Gran % (Auto) % Neut % (Auto) % Lymph % (Auto) % Isabela % (Auto) % Eos % (Auto) % Baso % (Auto) % Neut # (Auto) (1.4-6.5) K/uL Lymph # (Auto) (1.2-3.4) K/uL Isabela # (Auto) (0.11-0.59) K/uL Eos # (Auto) (0-0.5) K/uL Baso # (Auto) (0-0.2) K/uL Immature Gran # (Auto) (0.00-0.02) K/uL Sample Site POC pH (7.35-7.45) POC pCO2 (35-46) mmHg POC pO2 (80-95) mmHg POC HCO3 (19-24) emeli/L POC Total CO2 (24-31) mmol/L POC Base Excess (-9-1.8) emeli/L ABG pH (Temp Correct) (7.35-7.45) ABG pCO2 (Temp Corrct (35-46) mmHg POC ABG pO2 at Pt Temp POC ABG O2 Sat (90-95) % Maco Test O2 Delivery Device POC O2 Rate POC FiO2 % Tidal Volume PEEP POC Sodium (135-144) mmol/L Sodium (136-145) mmol/L POC Potassium (3.3-5.0) mmol/L Potassium (3.5-5.1) mmol/L Chloride (98-107) mmol/L Carbon Dioxide (21-32) mmol/L Anion Gap (3-11) BUN (7-18) mg/dl Creatinine (0.6-1.2) mg/dl Est Cr Clr Drug Dosing ml/min Est GFR ( Amer) ml/min Est GFR (Non-Af Amer) ml/min BUN/Creatinine Ratio (10-20) Glucose (70-99) mg/dl POC Glucose 153 H 106 H 101 H (70-99) mg/dl Calcium (8.5-10.1) mg/dl Phosphorus (2.5-4.9) mg/dl Magnesium (1.8-2.4) mg/dl Coding Level of Care Code Critical Care 1st 30-74 mins Diagnoses Pneumonia due to COVID-19 virus U07.1; J12.82 Acute hypoxemic respiratory failure J96.01 Lactic acidosis E87.2
[2020-11-22] MEDS ORDERED: INSULIN GLARGINE SOLOSTAR 100 UNITS/ML 3 ML PEN SC ONE (07:30)
[2020-11-22] MEDS ORDERED: INSULIN HUMAN REGULAR SC ONE (07:30)
[2020-11-22] MEDS ORDERED: CISATRACURIUM - STOP ORDER ONE (08:15)
[2020-11-22] MEDS: FAMOTIDINE 20 MG in SYRINGE 3 ML IV SCH ×2 (09:01→20:57)
[2020-11-22] MEDS: dexAMETHasone 10 MG in SYRINGE 0 ML IV SCH (09:01)
[2020-11-22] MEDS: ENOXAPARIN INJ 40 MG/0.4 ML SYR SQ SCH ×2 (09:01→20:56)
[2020-11-22] MEDS: MULTI VIT W/MINERALS LIQUID 15 ML UDP NG SCH (09:02)
[2020-11-22] MEDS: SENNOSIDES 8.8 MG/5 ML UDC PO SCH (09:02)
[2020-11-22] MEDS: PROPOFOL BOLUS FROM BAG IV PRN ×2 (09:10→20:09)
[2020-11-22] MEDS ORDERED: SODIUM PHOSPHATE 15 MMOL in SODIUM CHLORIDE 0.9% 250 ML IV ONE (10:00)
--- NOTE | 2020-11-22 10:44 | XRay Report ---
SINGLE VIEW CHEST CLINICAL HISTORY: Respiratory failure. Pneumothorax. Pneumonia. Covid. FINDINGS: An AP, portable, upright chest radiograph is compared to study dated 11/21/2020 and correlat ed with chest CT dated 11/14/2020. An endotracheal tube, an enteric tube, and a left internal jugular central venous catheter are unchanged in position. The cardiomediastinal silhouette is unremarkable n oting atherosclerotic calcification of the thoracic aorta. Multifocal airspace consolidation is again seen throughout both lungs. This is unchanged to slightly progressed as compared to yesterday. No la rge pleural effusion is identified. The skeletal structures are osteopenic. The bony thorax is grossl y intact. Extensive subcutaneous emphysema in the lower neck and along the left chest wall is similar to previous. Pneumomediastinum is again noted. No definite pneumothorax is seen. IMPRESSION: 1. Stable lines and tubes. 2. Pneumomediastinum is again noted with extensive subcutaneous emphysema. 3. No definite pneumothorax is seen. 4. Multifocal airspace consolidation is unchanged to minimally increased from yesterday. ACT 112: Negative or not required by law. Electronically signed by: Vu Chin M.D. 11/22/2020 10:42 AM
[2020-11-22] MEDS: ARTIFICIAL TEARS OP OINT 3.5 GM TUBE OP SCH ×4 (11:25→23:23)
--- NOTE | 2020-11-22 12:30 | Pharmacy Report ---
Pharmacy Glycemic Short Note 2 - Date of Service November 22, 2020 - Glycemic Short BSG Results (Last 24 hours): 11/21/20 11/21/20 11/21/20 16:05 18:24 23:51 Glucose POC Glucose 153 H 137 H 166 H 11/22/20 11/22/20 11/22/20 04:58 05:52 11:31 Glucose 163 H POC Glucose 177 H 190 H OUTPATIENT ANTIDIABETIC REGIMEN: * N/A * a1C = 5.9% on 11/16/20 indicating "pre-diabetes" ASSESSMENT: 11/22 * Dexamethasone 10 mg IV day 3 of * BSG's trending up gradually with tubefeed rate trending up * Will tighten regular insulin parameters. Patient may require a change back to Novolog q4h if BSG's are persistently >180 mg/dL * Will add low-dose Lantus 11/21 * BSG's have been well controlled without basal insulin and with only one unit of Novolog administered yesterday, even with initiation of Peptamen VHP trickle feeds while on higher dose steroids * OK to extend checks from q4h to q6h, but will then change from Novolog to regular insulin to provide coverage for the full 6 hour interval, in the event that Peptamen VHP rates increase above trickle feeds 11/20 * BSG's ranged 82-142 mg/dL yesterday * As of this AM, patient is now intubated and plan is to change to tubefeeds per ICU rounds. Dexamethasone dose also decreasing today per ARDS protocol * Will discontinue NPH for now as BSG's have been lower and dexamethasone dose is decreasing * Will change Novolog to q4h 2nd change in stressors and also 2nd initiation of tubefeeds * As BSG trended down from this AM to this afternoon (despite no insulin administered since NPH 4 units yesterday AM), will eliminate CHO ratio and only provide correction for BSG >140 mg/dL, but maintain tight correction factor PLAN FOR INPATIENT GLYCEMIC CONTROL: * Basal insulin * Lantus 6 units SC x1 * Bolus insulin * Regular insulin SC q6h * Goal Range: Low 110 mg/dL - High 140 mg/dL * Correction Factor: 25 mg/dL/unit * Nutritional / Prandial insulin per carb ratio of 1 unit per 9 grams CHO consumed PLAN FOR DISCHARGE: * HbA1c of 5.7-6.4% indicates "pre-diabetes" --> ADA recommendation is to institute diabetes and atherosclerosis prevention * Support Patient Self-Management * Healthy Lifestyle (diet, exercise, and smoking cessation) * Disease self-management (SMBG) * Prevention of complications (BP, Lipid goals, Immunizations) * Consider outpatient Diabetes Self-Management Education & Support
--- NOTE | 2020-11-22 15:12 | Hospitalist Progress Note ---
Date of Service November 22, 2020 Assessment & Plan (1) Pneumonia due to COVID-19 virus: Acute respiratory failure with hypoxia COVID-19 pneumonia- multifocal Pneumomediastinum -CTA:There is no evidence of pulmonary embolus in the main, lobar, or segmental pulmonary arteries. Multifocal groundglass consolidation is seen throughout both lungs and consistent with the reported history of a viral pneumonia. Radiographic follow-up to resolution is recommended. Moderate hiatal hernia. Hepatic steatosis. Intubated on 11/20/20/ out of the time line for Remdesivir and Tocilizumab Appreciate consumer electronic retail specialist input High FiO2 low PEEP secondary to known pneumomediastinum: Currently 60% FiO2 8 PEEP Diuretics as needed On Lovenox for DVT prophylaxis Continue proning Neuromuscular blockade while intubated On Propofol, fentanyl for sedation (2) Hyponatremia: Monitor BMP (3) Fatty liver: Elevated Transaminases last US of liver 09/2019 diffuse increased heterogeneous liver and fatty filtration. Avoid hepatotoxic agents as able (4) DVT prophylaxis: Lovenox SQ Code Status FULL CODE Disposition : remains critically ill mechanically ventilated in ICU Admission and Anticipated Discharge Date Admission Date: November 14, 2020 Subjective acute hypoxemic resp failure due to COVID 19 pneumonia pt remains intubated ,sedated on vent Physical Exam Constitutional: WD/WN, vitals as above + mechanically ventilated Respiratory: Auscultation: + crackles, + rales and + wheezes Gastrointestinal (Abdomen): Percussion/Palpation: abdomen soft Neurologic: + obtunded Results & Data Results & Data ([facility]) Vital Signs (Past 12 Hours) Vital Signs Temp Pulse Resp BP Pulse Ox 11/22/20 12:00 63 93 11/22/20 11:30 64 94 11/22/20 11:23 62 114/73 95 11/22/20 11:10 62 62 H 97 11/22/20 11:00 63 97 11/22/20 10:30 65 97 11/22/20 10:23 68 123/74 97 11/22/20 10:00 37.8 C H 71 95 11/22/20 09:30 37.8 C H 80 92 11/22/20 09:23 37.8 C H 84 131/66 94 11/22/20 09:00 37.6 C H 131 H 81 L 11/22/20 08:38 37.6 C H 88 98/53 L 87 L 11/22/20 08:30 37.5 C 145 H 91 11/22/20 08:23 37.4 C 137 H 209/121 H 94 11/22/20 08:00 37.2 C 152 H 97 11/22/20 07:50 37.2 C 91 H 111/59 L 93 11/22/20 07:47 99 H 23 94 11/22/20 07:30 37.1 C 149 H 98 11/22/20 07:23 37.1 C 85 200/105 H 95 11/22/20 07:00 37.1 C 62 94 11/22/20 06:30 37.3 C 61 97 11/22/20 06:23 37.4 C 62 121/67 97 11/22/20 06:00 37.4 C 67 91 11/22/20 05:23 37.2 C 82 138/54 L 89 L 11/22/20 04:31 36.9 C 83 108/47 L 92 11/22/20 04:08 36.8 C 84 186/82 H 96 11/22/20 03:38 37.0 C 62 122/46 L 93
[2020-11-22] MEDS: MIDAZOLAM HCL 1 MG/ML 2ML VIAL IV PRN (20:25)
[2020-11-23] MEDS: CISATRACURIUM BESYLATE 40 MG in 0.9 % SODIUM CHLORIDE 80 ML IV SCH ×3 (03:20→09:46)
[2020-11-23] MEDS: propofoL 1,000 MG/100 ML VIAL IV SCH ×4 (04:50→09:47)
[2020-11-23] MEDS: TUBE FEEDING WATER FLUSH OG SCH ×6 (04:55→23:34)
[2020-11-23] MEDS: ARTIFICIAL TEARS OP OINT 3.5 GM TUBE OP SCH ×2 (04:55→07:21)
[2020-11-23] MEDS: PROPOFOL BOLUS FROM BAG IV PRN (04:58)
[2020-11-23 05:02] LABS: Hematocrit (blood only) 34.2 % (37-47); Hemoglobin 11.4 g/dL (12.0-16.0); Mean Corpuscular Hgb Conc 33.3 g/dL (32-36); Mean Platelet Volume 9.7 fL (7.4-10.4); Nucleated RBC # (auto) 0.02 K/uL (0-0); Nucleated RBC % (auto) 0.1 %; Platelet Count 564 K/uL (130-400); RDW Coefficient of Variation 13.4 % (11.5-14.5); RDW Standard Deviation 44.2 fL (36.4-46.3); White Blood Count 19.36 K/uL (4.8-10.8)
[2020-11-23 05:13] LABS: iSTAT Arterial Blood Gas HCO3 27 meg/L (19-24); iSTAT Arterial Blood Gas pCO2 42 mmHg (35-46); iSTAT Arterial Blood Gas pH 7.42 (7.35-7.45); iSTAT Arterial Blood Gas pO2 66 mmHg (80-95); iSTAT Carbon Dioxide 28 mmol/L (24-31); iSTAT FiO2 50 %; iSTAT Site Art Line
[2020-11-23] MEDS: PEPTAMEN INTENSE VHP 1.0 CAL 1,000 ML BAG OG SCH (05:18)
[2020-11-23] MEDS: METOCLOPRAMIDE HCL 10 MG/10 ML UDC PO SCH ×2 (05:18→11:27)
[2020-11-23 05:22] LABS: BUN Creatinine Ratio 44.3 (10-20); Calcium 8.3 mg/dl (8.5-10.1); Creatinine Clr Calc Pharmacy 108.4 ml/min; Est GFR (African American) 122.1 ml/min; Est GFR (Non-African American) 105.3 ml/min; Magnesium 2.3 mg/dl (1.8-2.4); Phosphorus 1.9 mg/dl (2.5-4.9); Potassium 3.9 mmol/L (3.5-5.1)
[2020-11-23] MEDS: INSULIN HUMAN REGULAR SC SCH ×4 (05:28→23:17)
[2020-11-23] MEDS: MIDAZOLAM HCL 1 MG/ML 2ML VIAL IV PRN (05:30)
[2020-11-23 05:55] LABS: Basophils # (auto) 0.02 K/uL (0-0.2); Basophils % (auto) 0.1 %; Eosinophils # (auto) 0.02 K/uL (0-0.5); Eosinophils % (auto) 0.1 %; Immature Granulocytes # (auto) 1.12 K/uL (0.00-0.02); Immature Granulocytes % (auto) 5.8 %; Lymphocytes # (auto) 1.37 K/uL (1.2-3.4); Lymphocytes % (auto) 7.1 %; Monocytes % (auto) 6.7 %; Neutrophils # (auto) 15.53 K/uL (1.4-6.5); Neutrophils % (auto) 80.2 %
[2020-11-23] MEDS: fentaNYL DRIP 1,250 MCG/250 ML BAG IV SCH ×3 (06:23→23:04)
[2020-11-23] MEDS ORDERED: POTASSIUM PHOS 3 MMOL/1 ML INFUSION IV STA (06:37)
[2020-11-23] MEDS ORDERED: POTASSIUM PHOSPHATE 15 MMOL in SODIUM CHLORIDE 0.9% 250 ML IV STA (06:43)
[2020-11-23] MEDS: FAMOTIDINE 20 MG in SYRINGE 3 ML IV SCH ×2 (07:23→20:35)
[2020-11-23] MEDS: SENNOSIDES 8.8 MG/5 ML UDC PO SCH ×2 (07:24→20:35)
[2020-11-23] MEDS: ENOXAPARIN INJ 40 MG/0.4 ML SYR SQ SCH ×2 (07:24→20:34)
[2020-11-23] MEDS: MULTI VIT W/MINERALS LIQUID 15 ML UDP NG SCH (07:24)
[2020-11-23] MEDS: dexAMETHasone 10 MG in SYRINGE 0 ML IV SCH (07:24)
[2020-11-23] MEDS ORDERED: STAT IV Infusion **Titration per Protocol STA (07:49)
[2020-11-23] MEDS ORDERED: LACTULOSE SYRUP 30 GM/45 ML UDP PO STA (07:52)
--- NOTE | 2020-11-23 07:54 | Critical Care Progress Note ---
Date of Service November 23, 2020 Assessment & Plan (1) Pneumonia due to COVID-19 virus: Reason Critically Ill: Acute hypoxic respiratory failure secondary to COVID-19 pneumonia PLAN: Neuro: Sedation analgesia neuromuscular blockade -Cis atracurium completed 72 hours -Bis monitoring fentanyl and propofol -Check triglyceride: 381 -Transition to Versed from propofol secondary to medication induced hypertriglyceridemia Resp: Acute hypoxic respiratory failure COVID-19 pneumonia -DEXA arts protocol initiated on 11/15/2020 -Intubation day #4 -Timeline out of remdesivir indication -Outside window for Tocilizumab -High FiO2 low PEEP secondary to known pneumomediastinum: Currently 40% FiO2 8 PEEP Acute respiratory distress syndrome -P to F: 132 Pneumomediastinum CV: Occasional premature ventricular contractions Fluids/Renal: Hyponatremia: resolved ID: Discontinue antibiotics pro-Den normal -Suspect viral etiology in origin: COVID-19 COVID-19 pneumonia -Supportive care GI/Nutrition: Trickle tube feeds -Bowel regimen -Lactulose 30 mL today Heme: Leukocytosis: Not otherwise specified on steroids Thrombocytosis: Likely reactionary DVT prophylaxis: Lovenox 40 twice daily Endocrine: ICU hyperglycemia protocol Vascular access: Left internal jugular CVC, left radial arterial line Code Status: Full code I updated the patient's son, Arya Cooper [phone], yesterday via telephone (2) Acute hypoxemic respiratory failure: (3) Lactic acidosis: Admission and Anticipated Discharge Date Admission Date: November 14, 2020 Supervising Physician Co-Signing Physician Notes Patient was discussed in multidisciplinary rounds I have personally spent 45 minutes of critical care time in the direct management of this patient. This is a life/limb threatening event. This includes time spent evaluating patient, direct bedside care, chart review, placing orders, interpretation of diagnostic studies, discussion with consultants, patient, and/or family members regarding treatment decisions, as well as other required patient management activities. This time is exclusive of all separately billable procedures, and teaching time and separate from and in addition to any other critical care service time. Subjective No overnight events Review of Systems Review of Systems: Unobtainable due to endotracheal tube Physical Exam Physical Exam: General: 3 TP. Skin: Warm, dry, Head: Atraumatic Ears, nose, mouth and throat: airway secured by endotracheal tube Cardiovascular: Normal peripheral perfusion Respiratory: Ventilator settings reviewed Gastrointestinal: Non distended Musculoskeletal: No deformity Results & Data Results & Data ([facility]) Vital Signs (Past 12 Hours) Vital Signs Temp Pulse Resp BP Pulse Ox 11/23/20 06:39 36.9 C 59 L 108/59 L 92 11/23/20 06:09 36.8 C 56 L 116/62 92 11/23/20 06:00 36.8 C 55 L 94 11/23/20 05:39 36.8 C 60 118/59 L 93 11/23/20 05:09 36.9 C 59 L 145/84 H 95 11/23/20 04:59 64 22 95 11/23/20 04:39 37.0 C 56 L 123/65 94 11/23/20 04:09 37.0 C 56 L 112/65 94 11/23/20 03:39 37.1 C 59 L 126/67 94 11/23/20 03:09 37.1 C 60 114/67 93 11/23/20 02:39 37.1 C 60 113/65 92 11/23/20 02:24 61 22 93 11/23/20 02:09 37.2 C 62 113/64 93 11/23/20 02:00 37.2 C 58 L 93 11/23/20 01:34 37.2 C 62 116/63 93 11/23/20 01:09 37.2 C 62 112/59 L 93 11/23/20 01:04 37.3 C 64 111/63 93 11/23/20 00:19 37.2 C 59 L 117/65 94 11/23/20 00:14 37.2 C 63 123/65 94 11/22/20 23:29 37.2 C 61 120/72 94 11/22/20 23:05 59 L 11/22/20 23:04 37.2 C 60 110/64 93 11/22/20 22:59 37.2 C 60 105/64 93 11/22/20 22:29 37.2 C 61 110/62 93 11/22/20 22:21 61 22 92 11/22/20 21:59 37.1 C 61 110/61 93 11/22/20 21:29 37.1 C 60 106/59 L 91 11/22/20 21:19 37.0 C 60 107/59 L 91 11/22/20 20:59 37.0 C 68 103/57 L 88 L 11/22/20 20:44 37.0 C 65 105/61 92 11/22/20 20:39 37.0 C 68 110/65 91 11/22/20 20:33 37.0 C 73 107/53 L 90 11/22/20 20:32 37.0 C 75 105/54 L 90 11/22/20 20:31 37.0 C 75 111/57 L 91 11/22/20 20:30 37.0 C 79 137/63 92 11/22/20 20:29 37.0 C 89 166/70 H 93 11/22/20 20:23 37.0 C 142 H 218/127 H 97 11/22/20 20:19 37.0 C 82 178/79 H 94 Laboratory Results 11/23/20 11/23/20 11/23/20 Range/Units 05:23 04:57 04:35 WBC (4.8-10.8) K/uL RBC (4.2-5.4) M/uL Hgb (12.0-16.0) g/dL Hct (37-47) % MCV (80-100) fL MCH (25-34) pg MCHC (32-36) g/dL RDW Std Deviation (36.4-46.3) fL RDW Coeff of Claudia (11.5-14.5) % Plt Count (130-400) K/uL MPV (7.4-10.4) fL Immature Gran % (Auto) % Neut % (Auto) % Lymph % (Auto) % Fisher % (Auto) % Eos % (Auto) % Baso % (Auto) % Neut # (Auto) (1.4-6.5) K/uL Lymph # (Auto) (1.2-3.4) K/uL Fisher # (Auto) (0.11-0.59) K/uL Eos # (Auto) (0-0.5) K/uL Baso # (Auto) (0-0.2) K/uL Immature Gran # (Auto) (0.00-0.02) K/uL Absolute Nucleated RBC (0-0) K/uL Nucleated RBC % (auto) % Sample Site Art Line POC pH 7.42 (7.35-7.45) POC pCO2 42 (35-46) mmHg POC pO2 66 L (80-95) mmHg POC HCO3 27 H (19-24) emeli/L POC Total CO2 28 (24-31) mmol/L POC Base Excess 3.0 H (-9-1.8) emeli/L POC ABG O2 Sat 93.0 (90-95) % Maco Test NA O2 Delivery Device Ventilator POC O2 Rate 22 Minute Ventilation 7.2 POC FiO2 50 % Tidal Volume 325 PEEP 8 Sodium 137 (136-145) mmol/L Potassium 3.9 (3.5-5.1) mmol/L Chloride 106 (98-107) mmol/L Carbon Dioxide 29 (21-32) mmol/L Anion Gap 2.0 L (3-11) BUN 19 H (7-18) mg/dl Creatinine 0.42 L (0.6-1.2) mg/dl Est Cr Clr Drug Dosing 108.4 ml/min Est GFR ( Amer) 122.1 ml/min Est GFR (Non-Af Amer) 105.3 ml/min BUN/Creatinine Ratio 44.3 H (10-20) Glucose 145 H (70-99) mg/dl POC Glucose 142 H (70-99) mg/dl Calcium 8.3 L (8.5-10.1) mg/dl Phosphorus 1.9 L (2.5-4.9) mg/dl Magnesium 2.3 (1.8-2.4) mg/dl Triglycerides 381 H (0-150) mg/dl 11/23/20 11/22/20 11/22/20 Range/Units 04:35 23:20 17:24 WBC 19.36 H (4.8-10.8) K/uL RBC 3.80 L (4.2-5.4) M/uL Hgb 11.4 L (12.0-16.0) g/dL Hct 34.2 L (37-47) % MCV 90.0 (80-100) fL MCH 30.0 (25-34) pg MCHC 33.3 (32-36) g/dL RDW Std Deviation 44.2 (36.4-46.3) fL RDW Coeff of Claudia 13.4 (11.5-14.5) % Plt Count 564 H (130-400) K/uL MPV 9.7 (7.4-10.4) fL Immature Gran % (Auto) 5.8 % Neut % (Auto) 80.2 % Lymph % (Auto) 7.1 % Fisher % (Auto) 6.7 % Eos % (Auto) 0.1 % Baso % (Auto) 0.1 % Neut # (Auto) 15.53 H (1.4-6.5) K/uL Lymph # (Auto) 1.37 (1.2-3.4) K/uL Fisher # (Auto) 1.30 H (0.11-0.59) K/uL Eos # (Auto) 0.02 (0-0.5) K/uL Baso # (Auto) 0.02 (0-0.2) K/uL Immature Gran # (Auto) 1.12 H (0.00-0.02) K/uL Absolute Nucleated RBC 0.02 H (0-0) K/uL Nucleated RBC % (auto) 0.1 % Sample Site POC pH (7.35-7.45) POC pCO2 (35-46) mmHg POC pO2 (80-95) mmHg POC HCO3 (19-24) emeli/L POC Total CO2 (24-31) mmol/L POC Base Excess (-9-1.8) emeli/L POC ABG O2 Sat (90-95) % Maco Test O2 Delivery Device POC O2 Rate Minute Ventilation POC FiO2 % Tidal Volume PEEP Sodium (136-145) mmol/L Potassium (3.5-5.1) mmol/L Chloride (98-107) mmol/L Carbon Dioxide (21-32) mmol/L Anion Gap (3-11) BUN (7-18) mg/dl Creatinine (0.6-1.2) mg/dl Est Cr Clr Drug Dosing ml/min Est GFR ( Amer) ml/min Est GFR (Non-Af Amer) ml/min BUN/Creatinine Ratio (10-20) Glucose (70-99) mg/dl POC Glucose 150 H 213 H (70-99) mg/dl Calcium (8.5-10.1) mg/dl Phosphorus (2.5-4.9) mg/dl Magnesium (1.8-2.4) mg/dl Triglycerides (0-150) mg/dl 11/22/20 Range/Units 11:31 WBC (4.8-10.8) K/uL RBC (4.2-5.4) M/uL Hgb (12.0-16.0) g/dL Hct (37-47) % MCV (80-100) fL MCH (25-34) pg MCHC (32-36) g/dL RDW Std Deviation (36.4-46.3) fL RDW Coeff of Claudia (11.5-14.5) % Plt Count (130-400) K/uL MPV (7.4-10.4) fL Immature Gran % (Auto) % Neut % (Auto) % Lymph % (Auto) % Fisher % (Auto) % Eos % (Auto) % Baso % (Auto) % Neut # (Auto) (1.4-6.5) K/uL Lymph # (Auto) (1.2-3.4) K/uL Fisher # (Auto) (0.11-0.59) K/uL Eos # (Auto) (0-0.5) K/uL Baso # (Auto) (0-0.2) K/uL Immature Gran # (Auto) (0.00-0.02) K/uL Absolute Nucleated RBC (0-0) K/uL Nucleated RBC % (auto) % Sample Site POC pH (7.35-7.45) POC pCO2 (35-46) mmHg POC pO2 (80-95) mmHg POC HCO3 (19-24) emeli/L POC Total CO2 (24-31) mmol/L POC Base Excess (-9-1.8) emeli/L POC ABG O2 Sat (90-95) % Maco Test O2 Delivery Device POC O2 Rate Minute Ventilation POC FiO2 % Tidal Volume PEEP Sodium (136-145) mmol/L Potassium (3.5-5.1) mmol/L Chloride (98-107) mmol/L Carbon Dioxide (21-32) mmol/L Anion Gap (3-11) BUN (7-18) mg/dl Creatinine (0.6-1.2) mg/dl Est Cr Clr Drug Dosing ml/min Est GFR ( Amer) ml/min Est GFR (Non-Af Amer) ml/min BUN/Creatinine Ratio (10-20) Glucose (70-99) mg/dl POC Glucose 190 H (70-99) mg/dl Calcium (8.5-10.1) mg/dl Phosphorus (2.5-4.9) mg/dl Magnesium (1.8-2.4) mg/dl Triglycerides (0-150) mg/dl Coding Level of Care Code Critical Care 1st 30-74 mins Diagnoses Pneumonia due to COVID-19 virus U07.1; J12.82 Acute hypoxemic respiratory failure J96.01 Lactic acidosis E87.2
[2020-11-23] MEDS ORDERED: MIDAZOLAM HCL 1 MG/ML 2ML VIAL IV STA (08:00)
--- NOTE | 2020-11-23 08:12 | XRay Report ---
XR chest 1V portable HISTORY: 70 years-old Female resp failure, pneumothorax, pneumonia acute respiratory failure COMPARISON: Chest radiograph 11/22/2020 TECHNIQUE: FINDINGS: Endotracheal tube overlies the midline, 2.9 cm superior to the gabino. Enteric tube distal tip overli es the right midabdomen in the expected location of the mid gastric body. Left IJ [id number] ter distal tip terminates in the spectrum location of the mid SVC. Increased amount of extensive subc utaneous emphysema of the supraclavicular distributions and neck. Decreased subcutaneous emphysema of the lateral left chest wall. Pneumomediastinum redemonstrated. No definite pneumothorax identified. Mild right hemidiaphragmatic elevation. Extensive bilateral airspace opacities have not significant c hanged. The bones appear grossly intact. IMPRESSION: 1. Lines and tubes as above. 2. Pneumomediastinum with subcutaneous emphysema redemonstrated, progressed within the supraclavicula r distributions and neck. 3. No pneumothorax identified. 4. Extensive bilateral airspace opacities redemonstrated. ACT 112: Negative or not required by law. The above report was generated using voice recognition software. It may contain grammatical, syntax o r spelling errors. Electronically signed by: Joe Herndon M.D. 11/23/2020 8:10 AM
[2020-11-23] MEDS: MIDAZOLAM HCL 125 MG/250 ML BAG IV SCH (08:38)
[2020-11-23] MEDS: MIDAZOLAM BOLUS FROM BAG IV PRN ×4 (09:04→15:04)
[2020-11-23] MEDS ORDERED: [UNRECOGNIZED DRUG - REMARK] ONE (09:30)
[2020-11-23] MEDS ORDERED: POTASSIUM PHOSPHATE 15 MMOL in SODIUM CHLORIDE 0.9% 250 ML IV ONE (10:00)
[2020-11-23] MEDS: INSULIN GLARGINE SOLOSTAR 100 UNITS/ML 3 ML PEN SC SCH ×2 (10:15→17:33)
--- NOTE | 2020-11-23 11:40 | Pharmacy Report ---
Pharmacy Glycemic Short Note 2 - Date of Service November 23, 2020 - Glycemic Short BSG Results (Last 24 hours): 11/22/20 11/22/20 11/23/20 17:24 23:20 04:35 Glucose 145 H POC Glucose 213 H 150 H 11/23/20 05:23 Glucose POC Glucose 142 H OUTPATIENT ANTIDIABETIC REGIMEN: * N/A * a1C = 5.9% on 11/16/20 indicating "pre-diabetes" ASSESSMENT: 11/23 * Dexamethasone 10 mg IV day 4 of * BSG's responded nicely to initiation of Lantus and tightening of Novolog parameters * Peptamen VHP continues to titrate up, but CHO coverage will scale accordingly * No change to Novolog * Will continue very low dose Lantus, but split BID and hold for BSG <140 mg/dL 11/22 * Dexamethasone 10 mg IV day 3 of * BSG's trending up gradually with tubefeed rate trending up * Will tighten regular insulin parameters. Patient may require a change back to Novolog q4h if BSG's are persistently >180 mg/dL * Will add low-dose Lantus 11/21 * BSG's have been well controlled without basal insulin and with only one unit of Novolog administered yesterday, even with initiation of Peptamen VHP trickle feeds while on higher dose steroids * OK to extend checks from q4h to q6h, but will then change from Novolog to regular insulin to provide coverage for the full 6 hour interval, in the event that Peptamen VHP rates increase above trickle feeds 11/20 * BSG's ranged 82-142 mg/dL yesterday * As of this AM, patient is now intubated and plan is to change to tubefeeds per ICU rounds. Dexamethasone dose also decreasing today per ARDS protocol * Will discontinue NPH for now as BSG's have been lower and dexamethasone dose is decreasing * Will change Novolog to q4h 2nd change in stressors and also 2nd initiation of tubefeeds * As BSG trended down from this AM to this afternoon (despite no insulin administered since NPH 4 units yesterday AM), will eliminate CHO ratio and only provide correction for BSG >140 mg/dL, but maintain tight correction factor PLAN FOR INPATIENT GLYCEMIC CONTROL: * Basal insulin * Lantus 3 units SC BID (hold if BSG < 140 mg/dL) * Bolus insulin * Regular insulin SC q6h * Goal Range: Low 110 mg/dL - High 140 mg/dL * Correction Factor: 25 mg/dL/unit * Nutritional / Prandial insulin per carb ratio of 1 unit per 9 grams CHO consumed PLAN FOR DISCHARGE: * HbA1c of 5.7-6.4% indicates "pre-diabetes" --> ADA recommendation is to institute diabetes and atherosclerosis prevention * Support Patient Self-Management * Healthy Lifestyle (diet, exercise, and smoking cessation) * Disease self-management (SMBG) * Prevention of complications (BP, Lipid goals, Immunizations) * Consider outpatient Diabetes Self-Management Education & Support
[2020-11-23] MEDS ORDERED: ARTIFICIAL TEARS OP OINT 3.5 GM TUBE OP PRN (12:00)
--- NOTE | 2020-11-23 14:37 | Hospitalist Progress Note ---
Date of Service November 23, 2020 Assessment & Plan (1) Pneumonia due to COVID-19 virus: Acute respiratory failure with hypoxia COVID-19 pneumonia- multifocal Pneumomediastinum -CTA:There is no evidence of pulmonary embolus in the main, lobar, or segmental pulmonary arteries. Multifocal groundglass consolidation is seen throughout both lungs and consistent with the reported history of a viral pneumonia. Radiographic follow-up to resolution is recommended. Moderate hiatal hernia. Hepatic steatosis. Intubated on 11/20/20/ out of the time line for Remdesivir and Tocilizumab Appreciate final block press operator input High FiO2 low PEEP secondary to known pneumomediastinum: Remains intubated, with ongoing respiratory failure, Diuretics as needed On Lovenox for DVT prophylaxis Continue proning Neuromuscular blockade while intubated On Propofol, fentanyl for sedation (2) Hyponatremia: Monitor BMP (3) Fatty liver: Elevated Transaminases last US of liver 09/2019 diffuse increased heterogeneous liver and fatty filtration. Avoid hepatotoxic agents as able (4) DVT prophylaxis: Lovenox SQ Code Status FULL CODE Disposition : remains critically ill mechanically ventilated in ICU Admission and Anticipated Discharge Date Admission Date: November 14, 2020 Subjective No overnight events Remains intubated, sedated, Review of Systems Review of Systems: Unobtainable due to endotracheal tube Physical Exam Constitutional: WD/WN, vitals as above + mechanically ventilated Respiratory: Auscultation: + crackles, + rales and + wheezes Gastrointestinal (Abdomen): Percussion/Palpation: abdomen soft Neurologic: + obtunded Results & Data Results & Data ([facility]) Vital Signs (Past 12 Hours) Vital Signs Temp Pulse Resp BP Pulse Ox 11/23/20 12:41 37.5 C 70 128/73 90 11/23/20 12:30 37.5 C 70 91 11/23/20 12:11 37.4 C 71 149/77 H 90 11/23/20 12:00 37.4 C 79 89 L 11/23/20 11:50 113 H 24 90 11/23/20 11:41 37.4 C 74 140/76 89 L 11/23/20 11:30 37.4 C 65 91 11/23/20 11:11 37.3 C 60 113/67 93 11/23/20 11:00 37.3 C 64 91 11/23/20 10:41 37.3 C 63 117/67 90 11/23/20 10:30 37.2 C 61 90 11/23/20 10:11 37.1 C 67 114/59 L 89 L 11/23/20 10:00 37.1 C 69 89 L 11/23/20 09:41 36.9 C 76 123/72 87 L 11/23/20 09:30 36.9 C 135 H 93 11/23/20 09:11 37.0 C 102 H 179/114 H 92 11/23/20 09:00 37.0 C 72 91 11/23/20 08:41 37.1 C 60 118/60 90 11/23/20 08:30 37.1 C 63 90 11/23/20 08:11 37.0 C 63 111/61 90 11/23/20 08:00 36.9 C 71 91 11/23/20 07:41 36.9 C 79 158/78 H 94 11/23/20 07:39 36.9 C 103 H 170/107 H 93 11/23/20 07:38 37.0 C 94 H 165/93 H 94 11/23/20 07:35 90 22 95 11/23/20 07:30 37.0 C 75 93 11/23/20 07:09 36.9 C 56 L 120/62 93 11/23/20 07:00 36.9 C 57 L 94 11/23/20 06:39 36.9 C 59 L 108/59 L 92 11/23/20 06:09 36.8 C 56 L 116/62 92 11/23/20 06:00 36.8 C 55 L 94 11/23/20 05:39 36.8 C 60 118/59 L 93 11/23/20 05:09 36.9 C 59 L 145/84 H 95 11/23/20 04:59 64 22 95 11/23/20 04:39 37.0 C 56 L 123/65 94 11/23/20 04:09 37.0 C 56 L 112/65 94 11/23/20 03:39 37.1 C 59 L 126/67 94 11/23/20 03:09 37.1 C 60 114/67 93 11/23/20 02:39 37.1 C 60 113/65 92
[2020-11-24] MEDS: MIDAZOLAM HCL 125 MG/250 ML BAG IV SCH ×2 (01:22→13:43)
[2020-11-24] MEDS: PEPTAMEN INTENSE VHP 1.0 CAL 1,000 ML BAG OG SCH ×2 (01:24→21:21)
[2020-11-24] MEDS: TUBE FEEDING WATER FLUSH OG SCH ×5 (03:36→21:22)
[2020-11-24 04:57] LABS: Basophils # (auto) 0.02 K/uL (0-0.2); Basophils % (auto) 0.1 %; Eosinophils # (auto) 0.06 K/uL (0-0.5); Eosinophils % (auto) 0.3 %; Hematocrit (blood only) 33.8 % (37-47); Immature Granulocytes # (auto) 0.79 K/uL (0.00-0.02); Immature Granulocytes % (auto) 4.2 %; Lymphocytes # (auto) 2.13 K/uL (1.2-3.4); Lymphocytes % (auto) 11.2 %; Mean Corpuscular Hemoglobin 30.5 pg (25-34); Mean Corpuscular Hgb Conc 32.5 g/dL (32-36); Mean Corpuscular Volume 93.6 fL (80-100); Mean Platelet Volume 9.5 fL (7.4-10.4); Monocytes # (auto) 1.03 K/uL (0.11-0.59); Monocytes % (auto) 5.4 %; Neutrophils # (auto) 14.91 K/uL (1.4-6.5); Neutrophils % (auto) 78.8 %; Platelet Count 475 K/uL (130-400); RDW Coefficient of Variation 13.7 % (11.5-14.5); RDW Standard Deviation 46.6 fL (36.4-46.3); Red Blood Count 3.61 M/uL (4.2-5.4); White Blood Count 18.94 K/uL (4.8-10.8)
[2020-11-24 05:13] LABS: BUN Creatinine Ratio 58.1 (10-20); Calcium 8.6 mg/dl (8.5-10.1); Creatinine Clr Calc Pharmacy 137.8 ml/min; Est GFR (African American) 129.6 ml/min; Est GFR (Non-African American) 111.8 ml/min; Magnesium 2.3 mg/dl (1.8-2.4); Potassium 3.8 mmol/L (3.5-5.1)
[2020-11-24 05:19] LABS: Phosphorus 2.5 mg/dl (2.5-4.9)
[2020-11-24 05:33] LABS: iSTAT Art Bld Gas pCO2 Correct 51 mmHg (35-46); iSTAT Arterial Blood Gas HCO3 33 meg/L (19-24); iSTAT Arterial Blood Gas pCO2 50 mmHg (35-46); iSTAT Arterial Blood Gas pH 7.43 (7.35-7.45); iSTAT Arterial Blood Gas pO2 50 mmHg (80-95); iSTAT Arterial Blood Gas pO2 C 53; iSTAT Carbon Dioxide 34 mmol/L (24-31); iSTAT FiO2 50 %; iSTAT Hematocrit 33 % (37-47); iSTAT Hemoglobin 11.2 g/dl (12.0-16.0); iSTAT Potassium 3.7 mmol/L (3.3-5.0); iSTAT Site Art Line; iSTAT Sodium 137 mmol/L (135-144)
[2020-11-24] MEDS: fentaNYL DRIP 1,250 MCG/250 ML BAG IV SCH ×4 (05:49→22:15)
[2020-11-24] MEDS: INSULIN GLARGINE SOLOSTAR 100 UNITS/ML 3 ML PEN SC SCH ×2 (05:52→18:24)
[2020-11-24] MEDS: INSULIN HUMAN REGULAR SC SCH ×3 (05:54→18:29)
--- NOTE | 2020-11-24 07:20 | XRay Report ---
XR chest 1V portable CLINICAL HISTORY: Respiratory failure COMPARISON STUDY: 11/23/2020 FINDINGS: There is an endotracheal tube 9 mm above the gabino. There is a left internal jugular centr al venous catheter unchanged in position. There is an enteric tube which passes into the stomach. The re is persistent extensive subcutaneous emphysema. There is persistent pneumomediastinum. There are p ersistent bilateral pulmonary airspace opacities with a peripheral distribution. No large pleural eff usions are visualized.[ IMPRESSION: 1. Endotracheal tube 19 mm above the gabino 2. Persistent pneumomediastinum and subcutaneous emphysema 3. Persistent bilateral pulmonary airspace opacities with a peripheral distribution ACT 112: Negative or not required by law. Electronically signed by: Lenard Bolaños M.D. 11/24/2020 7:19 AM
--- NOTE | 2020-11-24 07:35 | Critical Care Progress Note ---
Date of Service November 24, 2020 Assessment & Plan (1) Pneumonia due to COVID-19 virus: Reason Critically Ill: Acute hypoxic respiratory failure secondary to COVID-19 pneumonia PLAN: Neuro: Sedation analgesia neuromuscular blockade -Cis atracurium completed 72 hours -Bis monitoring fentanyl and propofol -Check triglyceride: 381 -Transition to Versed from propofol secondary to medication induced hypertriglyceridemia Resp: Acute hypoxic respiratory failure COVID-19 pneumonia -DEXA arts protocol initiated on 11/15/2020 -Intubation day #5 -Timeline out of remdesivir indication -Outside window for Tocilizumab -High FiO2 low PEEP secondary to known pneumomediastinum: Currently 60% FiO2 10 PEEP -Pronation therapy today Acute respiratory distress syndrome -P to F: 83 Pneumomediastinum CV: Occasional premature ventricular contractions Fluids/Renal: Hyponatremia: resolved Positive fluid balance -20 mg Lasix x1 -Potassium acetate supplementation ID: Discontinue antibiotics pro-Den normal -Suspect viral etiology in origin: COVID-19 COVID-19 pneumonia -Supportive care GI/Nutrition: Tube feeds: Progressing to goal -Bowel regimen: Senna BID -Methylnaltrexone Heme: Leukocytosis: Not otherwise specified on steroids Thrombocytosis: Likely reactionary: Improving DVT prophylaxis: Lovenox 40 twice daily Endocrine: ICU hyperglycemia protocol Vascular access: Left internal jugular CVC, left radial arterial line Code Status: Full code I updated the patient's son, Arya Cooper [phone], yesterday via telephone (2) Acute hypoxemic respiratory failure: (3) Lactic acidosis: Admission and Anticipated Discharge Date Admission Date: November 14, 2020 Supervising Physician Co-Signing Physician Notes Patient was discussed with bedside nurse I have personally spent 45 minutes of critical care time in the direct management of this patient. This is a life/limb threatening event. This includes time spent evaluating patient, direct bedside care, chart review, placing orders, interpretation of diagnostic studies, discussion with consultants, patient, and/or family members regarding treatment decisions, as well as other required patient management activities. This time is exclusive of all separately billable procedures, and teaching time and separate from and in addition to any other critical care service time. Subjective No overnight events Remains intubated, sedated, Review of Systems Review of Systems: Unobtainable due to endotracheal tube Physical Exam Physical Exam: General: 3T. Skin: Warm, dry, Head: Atraumatic Ears, nose, mouth and throat: airway secured by endotracheal tube Cardiovascular: Normal peripheral perfusion Respiratory: Ventilator settings reviewed Gastrointestinal: Non distended Musculoskeletal: No deformity Results & Data Results & Data ([facility]) Vital Signs (Past 12 Hours) Vital Signs Temp Pulse Resp BP Pulse Ox 11/24/20 07:00 37.7 C H 72 22 109/53 L 90 11/24/20 06:30 37.7 C H 68 22 90 11/24/20 06:00 37.6 C H 63 22 124/61 91 11/24/20 05:30 37.6 C H 66 22 92 11/24/20 05:09 67 22 91 11/24/20 05:00 37.6 C H 72 22 117/60 92 11/24/20 04:30 37.6 C H 65 22 92 11/24/20 04:00 37.6 C H 60 22 111/56 L 90 11/24/20 03:30 37.6 C H 63 22 91 11/24/20 03:00 37.5 C 63 22 105/54 L 92 11/24/20 02:30 37.4 C 69 22 91 11/24/20 02:10 60 22 90 11/24/20 02:00 37.5 C 61 22 103/50 L 91 11/24/20 01:30 37.4 C 55 L 22 90 11/24/20 01:00 37.4 C 61 22 108/55 L 90 11/24/20 00:30 37.4 C 60 22 90 11/24/20 00:00 37.3 C 63 22 112/50 L 92 11/23/20 23:30 37.3 C 63 22 91 11/23/20 23:00 37.3 C 58 L 22 117/65 91 11/23/20 22:30 37.2 C 62 22 91 11/23/20 22:15 57 L 22 90 11/23/20 22:00 37.2 C 55 L 22 116/63 91 11/23/20 21:30 37.3 C 58 L 22 92 11/23/20 21:00 37.3 C 60 22 124/66 91 11/23/20 20:30 37.1 C 76 22 147/80 H 90 11/23/20 20:00 37.1 C 76 22 184/97 H 93 06/25/21 19:30 37.1 C 58 L 22 90 Laboratory Results 11/24/20 11/24/20 11/24/20 Range/Units 05:25 05:18 04:49 WBC 18.94 H (4.8-10.8) K/uL RBC 3.61 L (4.2-5.4) M/uL Hgb 11.0 L (12.0-16.0) g/dL POC Hgb 11.2 L (12.0-16.0) g/dl Hct 33.8 L (37-47) % POC Hct 33 L (37-47) % MCV 93.6 (80-100) fL MCH 30.5 (25-34) pg MCHC 32.5 (32-36) g/dL RDW Std Deviation 46.6 H (36.4-46.3) fL RDW Coeff of Claudia 13.7 (11.5-14.5) % Plt Count 475 H (130-400) K/uL MPV 9.5 (7.4-10.4) fL Immature Gran % (Auto) 4.2 % Neut % (Auto) 78.8 % Lymph % (Auto) 11.2 % [place] % (Auto) 5.4 % Eos % (Auto) 0.3 % Baso % (Auto) 0.1 % Neut # (Auto) 14.91 H (1.4-6.5) K/uL Lymph # (Auto) 2.13 (1.2-3.4) K/uL [place] # (Auto) 1.03 H (0.11-0.59) K/uL Eos # (Auto) 0.06 (0-0.5) K/uL Baso # (Auto) 0.02 (0-0.2) K/uL Immature Gran # (Auto) 0.79 H (0.00-0.02) K/uL Sample Site Art Line POC pH 7.43 (7.35-7.45) POC pCO2 50 H (35-46) mmHg POC pO2 50 L (80-95) mmHg POC HCO3 33 H (19-24) emeli/L POC Total CO2 34 H (24-31) mmol/L POC Base Excess 9.0 H (-9-1.8) emeli/L ABG pH (Temp Correct) 7.420 (7.35-7.45) ABG pCO2 (Temp Corrct 51 H (35-46) mmHg POC ABG pO2 at Pt Temp 53 POC ABG O2 Sat 86.0 L (90-95) % Maco Test NA O2 Delivery Device Ventilator POC O2 Rate 22 Minute Ventilation 7.1 POC FiO2 50 % Tidal Volume 325 PEEP 8 POC Sodium 137 (135-144) mmol/L Sodium (136-145) mmol/L POC Potassium 3.7 (3.3-5.0) mmol/L Potassium (3.5-5.1) mmol/L Chloride (98-107) mmol/L Carbon Dioxide (21-32) mmol/L Anion Gap (3-11) BUN (7-18) mg/dl Creatinine (0.6-1.2) mg/dl Est Cr Clr Drug Dosing ml/min Est GFR ( Amer) ml/min Est GFR (Non-Af Amer) ml/min BUN/Creatinine Ratio (10-20) Glucose (70-99) mg/dl POC Glucose (other) 105 H (70-99) mg/dl Calcium (8.5-10.1) mg/dl Phosphorus (2.5-4.9) mg/dl Magnesium (1.8-2.4) mg/dl 11/24/20 11/23/20 11/23/20 Range/Units 04:49 23:15 17:27 WBC (4.8-10.8) K/uL RBC (4.2-5.4) M/uL Hgb (12.0-16.0) g/dL POC Hgb (12.0-16.0) g/dl Hct (37-47) % POC Hct (37-47) % MCV (80-100) fL MCH (25-34) pg MCHC (32-36) g/dL RDW Std Deviation (36.4-46.3) fL RDW Coeff of Claudia (11.5-14.5) % Plt Count (130-400) K/uL MPV (7.4-10.4) fL Immature Gran % (Auto) % Neut % (Auto) % Lymph % (Auto) % [place] % (Auto) % Eos % (Auto) % Baso % (Auto) % Neut # (Auto) (1.4-6.5) K/uL Lymph # (Auto) (1.2-3.4) K/uL [place] # (Auto) (0.11-0.59) K/uL Eos # (Auto) (0-0.5) K/uL Baso # (Auto) (0-0.2) K/uL Immature Gran # (Auto) (0.00-0.02) K/uL Sample Site POC pH (7.35-7.45) POC pCO2 (35-46) mmHg POC pO2 (80-95) mmHg POC HCO3 (19-24) emeli/L POC Total CO2 (24-31) mmol/L POC Base Excess (-9-1.8) emeli/L ABG pH (Temp Correct) (7.35-7.45) ABG pCO2 (Temp Corrct (35-46) mmHg POC ABG pO2 at Pt Temp POC ABG O2 Sat (90-95) % Maco Test O2 Delivery Device POC O2 Rate Minute Ventilation POC FiO2 % Tidal Volume PEEP POC Sodium (135-144) mmol/L Sodium 137 (136-145) mmol/L POC Potassium (3.3-5.0) mmol/L Potassium 3.8 (3.5-5.1) mmol/L Chloride 103 (98-107) mmol/L Carbon Dioxide 32 (21-32) mmol/L Anion Gap 2.0 L (3-11) BUN 20 H (7-18) mg/dl Creatinine 0.35 L (0.6-1.2) mg/dl Est Cr Clr Drug Dosing 137.8 ml/min Est GFR ( Amer) 129.6 ml/min Est GFR (Non-Af Amer) 111.8 ml/min BUN/Creatinine Ratio 58.1 H (10-20) Glucose 110 H (70-99) mg/dl POC Glucose (other) 126 H 172 H (70-99) mg/dl Calcium 8.6 (8.5-10.1) mg/dl Phosphorus 2.5 (2.5-4.9) mg/dl Magnesium 2.3 (1.8-2.4) mg/dl 11/23/20 Range/Units 11:33 WBC (4.8-10.8) K/uL RBC (4.2-5.4) M/uL Hgb (12.0-16.0) g/dL POC Hgb (12.0-16.0) g/dl Hct (37-47) % POC Hct (37-47) % MCV (80-100) fL MCH (25-34) pg MCHC (32-36) g/dL RDW Std Deviation (36.4-46.3) fL RDW Coeff of Claudia (11.5-14.5) % Plt Count (130-400) K/uL MPV (7.4-10.4) fL Immature Gran % (Auto) % Neut % (Auto) % Lymph % (Auto) % [place] % (Auto) % Eos % (Auto) % Baso % (Auto) % Neut # (Auto) (1.4-6.5) K/uL Lymph # (Auto) (1.2-3.4) K/uL [place] # (Auto) (0.11-0.59) K/uL Eos # (Auto) (0-0.5) K/uL Baso # (Auto) (0-0.2) K/uL Immature Gran # (Auto) (0.00-0.02) K/uL Sample Site POC pH (7.35-7.45) POC pCO2 (35-46) mmHg POC pO2 (80-95) mmHg POC HCO3 (19-24) emeli/L POC Total CO2 (24-31) mmol/L POC Base Excess (-9-1.8) emeli/L ABG pH (Temp Correct) (7.35-7.45) ABG pCO2 (Temp Corrct (35-46) mmHg POC ABG pO2 at Pt Temp POC ABG O2 Sat (90-95) % Maco Test O2 Delivery Device POC O2 Rate Minute Ventilation POC FiO2 % Tidal Volume PEEP POC Sodium (135-144) mmol/L Sodium (136-145) mmol/L POC Potassium (3.3-5.0) mmol/L Potassium (3.5-5.1) mmol/L Chloride (98-107) mmol/L Carbon Dioxide (21-32) mmol/L Anion Gap (3-11) BUN (7-18) mg/dl Creatinine (0.6-1.2) mg/dl Est Cr Clr Drug Dosing ml/min Est GFR ( Amer) ml/min Est GFR (Non-Af Amer) ml/min BUN/Creatinine Ratio (10-20) Glucose (70-99) mg/dl POC Glucose (other) 184 H (70-99) mg/dl Calcium (8.5-10.1) mg/dl Phosphorus (2.5-4.9) mg/dl Magnesium (1.8-2.4) mg/dl Coding Level of Care Code Critical Care 1st 30-74 mins Diagnoses Pneumonia due to COVID-19 virus U07.1; J12.82 Acute hypoxemic respiratory failure J96.01 Lactic acidosis E87.2
[2020-11-24] MEDS ORDERED: FUROSEMIDE 20 MG in SYRINGE 0 ML IV ONE (08:00)
[2020-11-24] MEDS: POTASSIUM ACETATE/NSS 20 MEQ/110 ML BAG IV SCH ×2 (08:13→10:21)
[2020-11-24] MEDS: METHYLNALTREXONE BROMIDE 12 MG/0.6 ML VIAL SQ SCH (08:13)
[2020-11-24] MEDS: SENNOSIDES 8.8 MG/5 ML UDC PO SCH ×2 (08:14→21:00)
[2020-11-24] MEDS: ENOXAPARIN INJ 40 MG/0.4 ML SYR SQ SCH ×2 (08:14→21:00)
[2020-11-24] MEDS: MULTI VIT W/MINERALS LIQUID 15 ML UDP NG SCH (08:14)
[2020-11-24] MEDS: FAMOTIDINE 20 MG in SYRINGE 3 ML IV SCH ×2 (08:16→21:03)
[2020-11-24] MEDS: dexAMETHasone 10 MG in SYRINGE 0 ML IV SCH (08:16)
[2020-11-24] MEDS: MIDAZOLAM BOLUS FROM BAG IV PRN ×2 (09:27→11:09)
[2020-11-24] MEDS: NOREPINEPHRINE/D5W 8 MG/508 ML BAG IV SCH ×2 (10:12→10:13)
[2020-11-24] MEDS ORDERED: STAT IV Infusion **Titration per Protocol STA (12:19)
[2020-11-24] MEDS ORDERED: CISATRACURIUM BESYLATE 40 MG in 0.9 % SODIUM CHLORIDE 80 ML IV SCH (12:30)
[2020-11-24] MEDS ORDERED: ARTIFICIAL TEARS OP OINT 3.5 GM TUBE OP SCH (12:30)
--- NOTE | 2020-11-24 12:31 | Hospitalist Progress Note ---
Date of Service November 24, 2020 Assessment & Plan (1) Pneumonia due to COVID-19 virus: Acute respiratory failure with hypoxia COVID-19 pneumonia- multifocal Pneumomediastinum -CTA:There is no evidence of pulmonary embolus in the main, lobar, or segmental pulmonary arteries. Multifocal groundglass consolidation is seen throughout both lungs and consistent with the reported history of a viral pneumonia. Radiographic follow-up to resolution is recommended. Moderate hiatal hernia. Hepatic steatosis. Intubated on 11/20/20/ out of the time line for Remdesivir and Tocilizumab Appreciate cream dipper input on iV steroids High FiO2 low PEEP secondary to known pneumomediastinum: daily chest xray shows unchanged bilateral pulmonary infiltrate Fever/temp spike : possible due to COVID 19 pneumonia ordered to check blood culture /Urine C&S Pro césar /Lactic acid to check inflammatory response , if Pro césar elevated may need antibiotic -will d/w Meat Dresser ordered for serial ferritin and CRP -acute inflammatory markers so assess disease progression prognosis remains guarded Diuretics as needed On Lovenox for DVT prophylaxis Continue proning Neuromuscular blockade while intubated On Propofol, fentanyl for sedation (2) Hyponatremia: resolved (3) Fatty liver: last US of liver 09/2019 diffuse increased heterogeneous liver and fatty filtration. Avoid hepatotoxic agents as able (4) DVT prophylaxis: Lovenox SQ Code Status FULL CODE Disposition : remains critically ill mechanically ventilated in ICU Admission and Anticipated Discharge Date Admission Date: November 14, 2020 Subjective temperature spike noted Tmax 37.7 remains intubated /sedated , prone ventilation utilized Review of Systems Review of Systems: Unobtainable due to endotracheal tube Physical Exam Constitutional: WD/WN, vitals as above + mechanically ventilated Respiratory: Auscultation: + crackles, + rales and + wheezes Gastrointestinal (Abdomen): Percussion/Palpation: abdomen soft Neurologic: + obtunded Results & Data Results & Data ([facility]) Vital Signs (Past 12 Hours) Vital Signs Temp Pulse Resp BP Pulse Ox 11/24/20 11:09 80 23 90 11/24/20 09:26 22 11/24/20 08:00 73 11/24/20 07:58 71 23 88 L 11/24/20 07:00 37.7 C H 72 22 109/53 L 90 11/24/20 06:30 37.7 C H 68 22 90 11/24/20 06:00 37.6 C H 63 22 124/61 91 11/24/20 05:30 37.6 C H 66 22 92 11/24/20 05:09 67 22 91 11/24/20 05:00 37.6 C H 72 22 117/60 92 11/24/20 04:30 37.6 C H 65 22 92 11/24/20 04:00 37.6 C H 60 22 111/56 L 90 11/24/20 03:30 37.6 C H 63 22 91 11/24/20 03:00 37.5 C 63 22 105/54 L 92 11/24/20 02:30 37.4 C 69 22 91 11/24/20 02:10 60 22 90 11/24/20 02:00 37.5 C 61 22 103/50 L 91 11/24/20 01:30 37.4 C 55 L 22 90 11/24/20 01:00 37.4 C 61 22 108/55 L 90
[2020-11-24 12:51] LABS: iSTAT Art Bld Gas pCO2 Correct 53 mmHg (35-46); iSTAT Art Bld Gas pH Corrected 7.459 (7.35-7.45); iSTAT Arterial Blood Gas HCO3 38 meg/L (19-24); iSTAT Arterial Blood Gas pCO2 52 mmHg (35-46); iSTAT Arterial Blood Gas pH 7.47 (7.35-7.45); iSTAT Arterial Blood Gas pO2 93 mmHg (80-95); iSTAT Arterial Blood Gas pO2 C 97; iSTAT Carbon Dioxide 39 mmol/L (24-31); iSTAT FiO2 80 %; iSTAT Hematocrit 34 % (37-47); iSTAT Hemoglobin 11.6 g/dl (12.0-16.0); iSTAT Site Art Line; iSTAT Sodium 134 mmol/L (135-144)
[2020-11-24 13:20] LABS: C Reactive Protein 2.14 mg/dl (0-0.29); Ferritin 500.3 ng/ml (8-388)
--- NOTE | 2020-11-24 14:02 | Pharmacy Report ---
Pharmacy Glycemic Short Note 2 - Date of Service November 24, 2020 - Glycemic Short BSG Results (Last 24 hours): 11/23/20 11/23/20 11/24/20 17:27 23:15 04:49 Glucose 110 H POC Glucose (other) 172 H 126 H 11/24/20 11/24/20 05:25 11:54 Glucose POC Glucose (other) 105 H 143 H OUTPATIENT ANTIDIABETIC REGIMEN: * N/A * a1C = 5.9% on 11/16/20 indicating "pre-diabetes" ASSESSMENT: 11/24 * Patient received total of 23 units of insulin yesterday, of which 6 units were basal insulin * Fasting BSG 105 mg/dL - continues on tube feeds at goal (60 ml/hr), using regular insulin for coverage. Continue with Lantus BID scale per BSG value for now * Continue same CF/CR. 11/23 * Dexamethasone 10 mg IV day 4 of * BSG's responded nicely to initiation of Lantus and tightening of Novolog parameters * Peptamen VHP continues to titrate up, but CHO coverage will scale accordingly * No change to Novolog * Will continue very low dose Lantus, but split BID and hold for BSG <140 mg/dL 11/22 * Dexamethasone 10 mg IV day 3 of * BSG's trending up gradually with tubefeed rate trending up * Will tighten regular insulin parameters. Patient may require a change back to Novolog q4h if BSG's are persistently >180 mg/dL * Will add low-dose Lantus 11/21 * BSG's have been well controlled without basal insulin and with only one unit of Novolog administered yesterday, even with initiation of Peptamen VHP trickle feeds while on higher dose steroids * OK to extend checks from q4h to q6h, but will then change from Novolog to regular insulin to provide coverage for the full 6 hour interval, in the event that Peptamen VHP rates increase above trickle feeds 11/20 * BSG's ranged 82-142 mg/dL yesterday * As of this AM, patient is now intubated and plan is to change to tubefeeds per ICU rounds. Dexamethasone dose also decreasing today per ARDS protocol * Will discontinue NPH for now as BSG's have been lower and dexamethasone dose is decreasing * Will change Novolog to q4h 2nd change in stressors and also 2nd initiation of tubefeeds * As BSG trended down from this AM to this afternoon (despite no insulin administered since NPH 4 units yesterday AM), will eliminate CHO ratio and only provide correction for BSG >140 mg/dL, but maintain tight correction factor PLAN FOR INPATIENT GLYCEMIC CONTROL: * Basal insulin * Lantus 0-5 units HS * Bolus insulin * Regular insulin SC q6h * Goal Range: Low 110 mg/dL - High 140 mg/dL * Correction Factor: 25 mg/dL/unit * Nutritional / Prandial insulin per carb ratio of 1 unit per 9 grams CHO consumed PLAN FOR DISCHARGE: * HbA1c of 5.7-6.4% indicates "pre-diabetes" --> ADA recommendation is to institute diabetes and atherosclerosis prevention * Support Patient Self-Management * Healthy Lifestyle (diet, exercise, and smoking cessation) * Disease self-management (SMBG) * Prevention of complications (BP, Lipid goals, Immunizations) * Consider outpatient Diabetes Self-Management Education & Support
[2020-11-24] MEDS: THIAMINE HCL 100 MG TAB PO SCH (14:30)
[2020-11-25] MEDS: TUBE FEEDING WATER FLUSH OG SCH ×6 (00:06→20:00)
[2020-11-25] MEDS: INSULIN HUMAN REGULAR SC SCH ×4 (00:09→17:41)
--- NOTE | 2020-11-25 00:40 | Critical Care Progress Note ---
Date of Service November 25, 2020 Assessment & Plan (1) Pneumonia due to COVID-19 virus: Reason Critically Ill: Acute hypoxic respiratory failure secondary to COVID-19 pneumonia PLAN: Neuro: Sedation analgesia neuromuscular blockade -Cis atracurium completed 72 hours -Bis monitoring fentanyl and propofol -Check triglyceride: 381 -Transition to Versed from propofol secondary to medication induced hypertriglyceridemia Resp: Acute hypoxic respiratory failure COVID-19 pneumonia -DEXA arts protocol initiated on 11/15/2020 -Intubation day #6 -Timeline out of remdesivir indication -Outside window for Tocilizumab -High FiO2 low PEEP secondary to known pneumomediastinum: Currently 50% FiO2 8 PEEP -Pronation therapy Acute respiratory distress syndrome -P to F: 106 presentation Covid pneumonia finished 72 hours of paralytic on high FiO2 low PEEP secondary to pneumomediastinum presentation Pneumomediastinum CV: Occasional premature ventricular contractions Fluids/Renal: Hyponatremia: resolved Maintain negative fluid balance ID: Discontinue antibiotics pro-Den normal -Suspect viral etiology in origin: COVID-19 COVID-19 pneumonia -Supportive care GI/Nutrition: Tube feeds: Progressing to goal -Bowel regimen: Senna BID -Methylnaltrexone Heme: Leukocytosis: Not otherwise specified on steroids Thrombocytosis: Likely reactionary: Improving DVT prophylaxis: Lovenox 40 twice daily Endocrine: ICU hyperglycemia protocol Vascular access: Left internal jugular CVC, left radial arterial line Code Status: Full code Patient's sonArya [phone] (2) Acute hypoxemic respiratory failure: (3) Lactic acidosis: Admission and Anticipated Discharge Date Admission Date: November 14, 2020 Supervising Physician Co-Signing Physician Notes Patient was discussed with bedside nurse I have personally spent 45 minutes of critical care time in the direct management of this patient. This is a life/limb threatening event. This includes time spent evaluating patient, direct bedside care, chart review, placing orders, interpretation of diagnostic studies, discussion with consultants, patient, and/or family members regarding treatment decisions, as well as other required patient management activities. This time is exclusive of all separately billable procedures, and teaching time and separate from and in addition to any other critical care service time. Subjective No overnight events return to supine position Review of Systems Review of Systems: Unobtainable due to endotracheal tube Physical Exam Physical Exam: General: 3T. Skin: Warm, dry, Head: Atraumatic Ears, nose, mouth and throat: airway secured by endotracheal tube Cardiovascular: Normal peripheral perfusion Respiratory: Ventilator settings reviewed Gastrointestinal: Non distended Musculoskeletal: No deformity Results & Data Results & Data ([facility]) Vital Signs (Past 12 Hours) Vital Signs Temp Pulse Resp BP Pulse Ox Pulse Ox 11/24/20 19:25 58 L 22 94 11/24/20 19:11 36.6 C 57 L 112/60 95 11/24/20 19:00 36.6 C 57 L 94 11/24/20 18:30 36.6 C 57 L 93 11/24/20 18:11 36.6 C 60 101/56 L 93 11/24/20 18:00 36.7 C 59 L 93 11/24/20 17:30 36.7 C 60 93 11/24/20 17:11 36.8 C 59 L 102/57 L 93 11/24/20 17:00 36.8 C 60 93 11/24/20 16:30 36.9 C 59 L 93 11/24/20 16:11 36.9 C 60 103/54 L 94 11/24/20 16:00 36.9 C 63 93 93 11/24/20 15:30 37.1 C 60 94 11/24/20 15:24 63 11/24/20 15:11 37.1 C 67 106/56 L 93 11/24/20 15:01 74 22 94 11/24/20 15:00 37.1 C 67 93 11/24/20 14:30 37.2 C 64 96 11/24/20 14:11 37.2 C 63 111/59 L 96 11/24/20 14:00 37.2 C 63 97 11/24/20 13:30 37.3 C 66 95 11/24/20 13:11 37.3 C 66 106/56 L 95 11/24/20 13:00 37.4 C 68 100 Laboratory Results 11/25/20 11/25/20 11/25/20 Range/Units 08:18 07:19 06:31 WBC (4.8-10.8) K/uL RBC (4.2-5.4) M/uL Hgb (12.0-16.0) g/dL POC Hgb 10.5 L (12.0-16.0) g/dl Hct (37-47) % POC Hct 31 L (37-47) % MCV (80-100) fL MCH (25-34) pg MCHC (32-36) g/dL RDW Std Deviation (36.4-46.3) fL RDW Coeff of Claudia (11.5-14.5) % Plt Count (130-400) K/uL MPV (7.4-10.4) fL Immature Gran % (Auto) % Neut % (Auto) % Lymph % (Auto) % [place] % (Auto) % Eos % (Auto) % Baso % (Auto) % Neut # (Auto) (1.4-6.5) K/uL Lymph # (Auto) (1.2-3.4) K/uL [place] # (Auto) (0.11-0.59) K/uL Eos # (Auto) (0-0.5) K/uL Baso # (Auto) (0-0.2) K/uL Immature Gran # (Auto) (0.00-0.02) K/uL Sample Site Art Line Art Line POC pH 7.56 H* 7.59 H* (7.35-7.45) POC pCO2 39 35 (35-46) mmHg POC pO2 53 L 47 L (80-95) mmHg POC HCO3 35 H 34 H (19-24) emeli/L POC Total CO2 36 H 35 H (24-31) mmol/L POC Base Excess 12.0 H 12.0 H (-9-1.8) emeli/L ABG pH (Temp Correct) 7.551 H* (7.35-7.45) ABG pCO2 (Temp Corrct 40 (35-46) mmHg POC ABG pO2 at Pt Temp 54 POC ABG O2 Sat 91.0 89.0 L (90-95) % Maco Test NA NA O2 Delivery Device Ventilator Ventilator POC O2 Rate 18 22 POC FiO2 50 45 % Tidal Volume 325 325 PEEP 8 8 POC Sodium 135 (135-144) mmol/L Sodium (136-145) mmol/L POC Potassium 4.0 (3.3-5.0) mmol/L Potassium (3.5-5.1) mmol/L Chloride (98-107) mmol/L Carbon Dioxide (21-32) mmol/L Anion Gap (3-11) BUN (7-18) mg/dl Creatinine (0.6-1.2) mg/dl Est Cr Clr Drug Dosing ml/min Est GFR ( Amer) ml/min Est GFR (Non-Af Amer) ml/min BUN/Creatinine Ratio (10-20) Glucose (70-99) mg/dl POC Glucose (other) 110 H (70-99) mg/dl Lactate (0.4-2.0) mmol/L Calcium (8.5-10.1) mg/dl Phosphorus (2.5-4.9) mg/dl Magnesium (1.8-2.4) mg/dl Ferritin (8-388) ng/ml Total Bilirubin (0.2-1) mg/dl AST (15-37) U/L ALT (12-78) U/L Alkaline Phosphatase (45-117) U/L C-Reactive Protein (0-0.29) mg/dl Total Protein (6.4-8.2) gm/dl Albumin (3.4-5.0) gm/dl Globulin (2.5-4.0) gm/dl Albumin/Globulin Ratio (0.9-2) Procalcitonin (0-0.5) ng/ml 11/25/20 11/25/20 11/25/20 Range/Units 04:20 04:20 00:08 WBC 16.20 H (4.8-10.8) K/uL RBC 3.66 L (4.2-5.4) M/uL Hgb 11.0 L (12.0-16.0) g/dL POC Hgb (12.0-16.0) g/dl Hct 33.4 L (37-47) % POC Hct (37-47) % MCV 91.3 (80-100) fL MCH 30.1 (25-34) pg MCHC 32.9 (32-36) g/dL RDW Std Deviation 45.2 (36.4-46.3) fL RDW Coeff of Claudia 13.8 (11.5-14.5) % Plt Count 435 H (130-400) K/uL MPV 9.8 (7.4-10.4) fL Immature Gran % (Auto) 3.0 % Neut % (Auto) 83.0 % Lymph % (Auto) 8.1 % [place] % (Auto) 5.7 % Eos % (Auto) 0.1 % Baso % (Auto) 0.1 % Neut # (Auto) 13.43 H (1.4-6.5) K/uL Lymph # (Auto) 1.32 (1.2-3.4) K/uL [place] # (Auto) 0.93 H (0.11-0.59) K/uL Eos # (Auto) 0.01 (0-0.5) K/uL Baso # (Auto) 0.02 (0-0.2) K/uL Immature Gran # (Auto) 0.49 H (0.00-0.02) K/uL Sample Site POC pH (7.35-7.45) POC pCO2 (35-46) mmHg POC pO2 (80-95) mmHg POC HCO3 (19-24) emeli/L POC Total CO2 (24-31) mmol/L POC Base Excess (-9-1.8) emeli/L ABG pH (Temp Correct) (7.35-7.45) ABG pCO2 (Temp Corrct (35-46) mmHg POC ABG pO2 at Pt Temp POC ABG O2 Sat (90-95) % Maco Test O2 Delivery Device POC O2 Rate POC FiO2 % Tidal Volume PEEP POC Sodium (135-144) mmol/L Sodium 136 (136-145) mmol/L POC Potassium (3.3-5.0) mmol/L Potassium 4.1 (3.5-5.1) mmol/L Chloride 100 (98-107) mmol/L Carbon Dioxide 34 H (21-32) mmol/L Anion Gap 2.0 L (3-11) BUN 24 H (7-18) mg/dl Creatinine 0.37 L (0.6-1.2) mg/dl Est Cr Clr Drug Dosing 130.7 ml/min Est GFR ( Amer) 127.3 ml/min Est GFR (Non-Af Amer) 109.8 ml/min BUN/Creatinine Ratio 65.7 H (10-20) Glucose 111 H (70-99) mg/dl POC Glucose (other) 145 H (70-99) mg/dl Lactate (0.4-2.0) mmol/L Calcium 8.8 (8.5-10.1) mg/dl Phosphorus 3.5 D (2.5-4.9) mg/dl Magnesium 2.3 (1.8-2.4) mg/dl Ferritin 411.5 H (8-388) ng/ml Total Bilirubin 0.4 (0.2-1) mg/dl AST 15 (15-37) U/L ALT 29 (12-78) U/L Alkaline Phosphatase 57 (45-117) U/L C-Reactive Protein 4.34 H (0-0.29) mg/dl Total Protein 5.5 L (6.4-8.2) gm/dl Albumin 1.9 L (3.4-5.0) gm/dl Globulin 3.6 (2.5-4.0) gm/dl Albumin/Globulin Ratio 0.5 L (0.9-2) Procalcitonin (0-0.5) ng/ml 11/24/20 11/24/20 11/24/20 Range/Units 18:23 12:50 12:50 WBC (4.8-10.8) K/uL RBC (4.2-5.4) M/uL Hgb (12.0-16.0) g/dL POC Hgb (12.0-16.0) g/dl Hct (37-47) % POC Hct (37-47) % MCV (80-100) fL MCH (25-34) pg MCHC (32-36) g/dL RDW Std Deviation (36.4-46.3) fL RDW Coeff of Claudia (11.5-14.5) % Plt Count (130-400) K/uL MPV (7.4-10.4) fL Immature Gran % (Auto) % Neut % (Auto) % Lymph % (Auto) % [place] % (Auto) % Eos % (Auto) % Baso % (Auto) % Neut # (Auto) (1.4-6.5) K/uL Lymph # (Auto) (1.2-3.4) K/uL [place] # (Auto) (0.11-0.59) K/uL Eos # (Auto) (0-0.5) K/uL Baso # (Auto) (0-0.2) K/uL Immature Gran # (Auto) (0.00-0.02) K/uL Sample Site POC pH (7.35-7.45) POC pCO2 (35-46) mmHg POC pO2 (80-95) mmHg POC HCO3 (19-24) emeli/L POC Total CO2 (24-31) mmol/L POC Base Excess (-9-1.8) emeli/L ABG pH (Temp Correct) (7.35-7.45) ABG pCO2 (Temp Corrct (35-46) mmHg POC ABG pO2 at Pt Temp POC ABG O2 Sat (90-95) % Maco Test O2 Delivery Device POC O2 Rate POC FiO2 % Tidal Volume PEEP POC Sodium (135-144) mmol/L Sodium (136-145) mmol/L POC Potassium (3.3-5.0) mmol/L Potassium (3.5-5.1) mmol/L Chloride (98-107) mmol/L Carbon Dioxide (21-32) mmol/L Anion Gap (3-11) BUN (7-18) mg/dl Creatinine (0.6-1.2) mg/dl Est Cr Clr Drug Dosing ml/min Est GFR ( Amer) ml/min Est GFR (Non-Af Amer) ml/min BUN/Creatinine Ratio (10-20) Glucose (70-99) mg/dl POC Glucose (other) 160 H (70-99) mg/dl Lactate 2.6 H* (0.4-2.0) mmol/L Calcium (8.5-10.1) mg/dl Phosphorus (2.5-4.9) mg/dl Magnesium (1.8-2.4) mg/dl Ferritin 500.3 H (8-388) ng/ml Total Bilirubin (0.2-1) mg/dl AST (15-37) U/L ALT (12-78) U/L Alkaline Phosphatase (45-117) U/L C-Reactive Protein 2.14 H (0-0.29) mg/dl Total Protein (6.4-8.2) gm/dl Albumin (3.4-5.0) gm/dl Globulin (2.5-4.0) gm/dl Albumin/Globulin Ratio (0.9-2) Procalcitonin (0-0.5) ng/ml 11/24/20 11/24/20 11/24/20 Range/Units 12:50 12:20 11:54 WBC (4.8-10.8) K/uL RBC (4.2-5.4) M/uL Hgb (12.0-16.0) g/dL POC Hgb 11.6 L (12.0-16.0) g/dl Hct (37-47) % POC Hct 34 L (37-47) % MCV (80-100) fL MCH (25-34) pg MCHC (32-36) g/dL RDW Std Deviation (36.4-46.3) fL RDW Coeff of Claudia (11.5-14.5) % Plt Count (130-400) K/uL MPV (7.4-10.4) fL Immature Gran % (Auto) % Neut % (Auto) % Lymph % (Auto) % [place] % (Auto) % Eos % (Auto) % Baso % (Auto) % Neut # (Auto) (1.4-6.5) K/uL Lymph # (Auto) (1.2-3.4) K/uL [place] # (Auto) (0.11-0.59) K/uL Eos # (Auto) (0-0.5) K/uL Baso # (Auto) (0-0.2) K/uL Immature Gran # (Auto) (0.00-0.02) K/uL Sample Site Art Line POC pH 7.47 H (7.35-7.45) POC pCO2 52 H (35-46) mmHg POC pO2 93 (80-95) mmHg POC HCO3 38 H (19-24) emeli/L POC Total CO2 39 H (24-31) mmol/L POC Base Excess 14.0 H (-9-1.8) emeli/L ABG pH (Temp Correct) 7.459 H (7.35-7.45) ABG pCO2 (Temp Corrct 53 H (35-46) mmHg POC ABG pO2 at Pt Temp 97 POC ABG O2 Sat 98.0 H (90-95) % Maco Test NA O2 Delivery Device Ventilator POC O2 Rate 22 POC FiO2 80 % Tidal Volume 325 PEEP 10 POC Sodium 134 L (135-144) mmol/L Sodium (136-145) mmol/L POC Potassium 5.0 (3.3-5.0) mmol/L Potassium (3.5-5.1) mmol/L Chloride (98-107) mmol/L Carbon Dioxide (21-32) mmol/L Anion Gap (3-11) BUN (7-18) mg/dl Creatinine (0.6-1.2) mg/dl Est Cr Clr Drug Dosing ml/min Est GFR ( Amer) ml/min Est GFR (Non-Af Amer) ml/min BUN/Creatinine Ratio (10-20) Glucose (70-99) mg/dl POC Glucose (other) 143 H (70-99) mg/dl Lactate (0.4-2.0) mmol/L Calcium (8.5-10.1) mg/dl Phosphorus (2.5-4.9) mg/dl Magnesium (1.8-2.4) mg/dl Ferritin (8-388) ng/ml Total Bilirubin (0.2-1) mg/dl AST (15-37) U/L ALT (12-78) U/L Alkaline Phosphatase (45-117) U/L C-Reactive Protein (0-0.29) mg/dl Total Protein (6.4-8.2) gm/dl Albumin (3.4-5.0) gm/dl Globulin (2.5-4.0) gm/dl Albumin/Globulin Ratio (0.9-2) Procalcitonin < 0.05 (0-0.5) ng/ml Coding Level of Care Code Critical Care 1st 30-74 mins Diagnoses Pneumonia due to COVID-19 virus U07.1; J12.82 Acute hypoxemic respiratory failure J96.01 Lactic acidosis E87.2
[2020-11-25] MEDS: MIDAZOLAM HCL 125 MG/250 ML BAG IV SCH ×3 (04:29→20:02)
[2020-11-25 04:49] LABS: Basophils # (auto) 0.02 K/uL (0-0.2); Basophils % (auto) 0.1 %; Eosinophils # (auto) 0.01 K/uL (0-0.5); Eosinophils % (auto) 0.1 %; Hematocrit (blood only) 33.4 % (37-47); Immature Granulocytes # (auto) 0.49 K/uL (0.00-0.02); Lymphocytes # (auto) 1.32 K/uL (1.2-3.4); Lymphocytes % (auto) 8.1 %; Mean Corpuscular Hemoglobin 30.1 pg (25-34); Mean Corpuscular Hgb Conc 32.9 g/dL (32-36); Mean Corpuscular Volume 91.3 fL (80-100); Mean Platelet Volume 9.8 fL (7.4-10.4); Monocytes # (auto) 0.93 K/uL (0.11-0.59); Monocytes % (auto) 5.7 %; Neutrophils # (auto) 13.43 K/uL (1.4-6.5); Platelet Count 435 K/uL (130-400); RDW Coefficient of Variation 13.8 % (11.5-14.5); RDW Standard Deviation 45.2 fL (36.4-46.3); Red Blood Count 3.66 M/uL (4.2-5.4)
[2020-11-25 05:06] LABS: Albumin Level 1.9 gm/dl (3.4-5.0); BUN Creatinine Ratio 65.7 (10-20); Calcium 8.8 mg/dl (8.5-10.1); Creatinine Clr Calc Pharmacy 130.7 ml/min; Est GFR (African American) 127.3 ml/min; Est GFR (Non-African American) 109.8 ml/min; Magnesium 2.3 mg/dl (1.8-2.4); Potassium 4.1 mmol/L (3.5-5.1)
[2020-11-25 05:15] LABS: Albumin Globulin Ratio 0.5 (0.9-2); Bilirubin,Total 0.4 mg/dl (0.2-1); C Reactive Protein 4.34 mg/dl (0-0.29); Ferritin 411.5 ng/ml (8-388); Globulin 3.6 gm/dl (2.5-4.0); Phosphorus 3.5 mg/dl (2.5-4.9); Total Protein 5.5 gm/dl (6.4-8.2)
[2020-11-25] MEDS: fentaNYL DRIP 1,250 MCG/250 ML BAG IV SCH ×3 (06:21→22:19)
--- NOTE | 2020-11-25 07:04 | Ultrasound Report ---
ULTRASOUND BILATERAL LOWER EXTREMITY VENOUS CLINICAL HISTORY: Fever. Covid. COMPARISON STUDY: Left lower extremity venous ultrasound dated 11/15/2020. TECHNIQUE: Real-time, grayscale, and color Doppler sonography of the deep veins of the right and left lower extremity was performed from the inguinal crease to the calf. Compression and augmentation wer e utilized. FINDINGS: There is no sonographic evidence of deep venous thrombosis identified in the right or left lower extremity. The common femoral, superficial femoral, and popliteal veins are patent and normally compressible bilaterally. The greater saphenous vein and the profunda femoris vein at the junction w ith the common femoral vein are clear in both legs. The visualized calf veins are patent bilaterally. IMPRESSION: There is no sonographic evidence of deep venous thrombosis identified in the right or lef t lower extremity. ACT 112: Negative or not required by law. Electronically signed by: Vu Chin M.D. 11/25/2020 7:02 AM
[2020-11-25 07:43] LABS: iSTAT Arterial Blood Gas HCO3 34 meg/L (19-24); iSTAT Arterial Blood Gas pCO2 35 mmHg (35-46); iSTAT Arterial Blood Gas pH 7.59 (7.35-7.45); iSTAT Arterial Blood Gas pO2 47 mmHg (80-95); iSTAT Carbon Dioxide 35 mmol/L (24-31); iSTAT FiO2 45 %; iSTAT Site Art Line
[2020-11-25] MEDS: SENNOSIDES 8.8 MG/5 ML UDC PO SCH ×2 (08:10→19:56)
[2020-11-25] MEDS: MULTI VIT W/MINERALS LIQUID 15 ML UDP NG SCH (08:10)
[2020-11-25] MEDS: ENOXAPARIN INJ 40 MG/0.4 ML SYR SQ SCH ×2 (08:10→19:56)
[2020-11-25] MEDS: FAMOTIDINE 20 MG in SYRINGE 3 ML IV SCH ×2 (08:11→19:58)
[2020-11-25] MEDS: THIAMINE HCL 100 MG TAB PO SCH (08:11)
[2020-11-25 08:32] LABS: iSTAT Art Bld Gas pCO2 Correct 40 mmHg (35-46); iSTAT Art Bld Gas pH Corrected 7.551 (7.35-7.45); iSTAT Arterial Blood Gas HCO3 35 meg/L (19-24); iSTAT Arterial Blood Gas pCO2 39 mmHg (35-46); iSTAT Arterial Blood Gas pH 7.56 (7.35-7.45); iSTAT Arterial Blood Gas pO2 53 mmHg (80-95); iSTAT Arterial Blood Gas pO2 C 54; iSTAT Carbon Dioxide 36 mmol/L (24-31); iSTAT FiO2 50 %; iSTAT Hematocrit 31 % (37-47); iSTAT Hemoglobin 10.5 g/dl (12.0-16.0); iSTAT Site Art Line; iSTAT Sodium 135 mmol/L (135-144)
[2020-11-25] MEDS: NOREPINEPHRINE/D5W 8 MG/508 ML BAG IV SCH (12:27)
--- NOTE | 2020-11-25 14:01 | Pharmacy Report ---
Pharmacy Glycemic Short Note 2 - Date of Service November 25, 2020 - Glycemic Short BSG Results (Last 24 hours): 11/24/20 11/25/20 11/25/20 18:23 00:08 04:20 Glucose 111 H POC Glucose (other) 160 H 145 H 11/25/20 06:31 Glucose POC Glucose (other) 110 H OUTPATIENT ANTIDIABETIC REGIMEN: * N/A * a1C = 5.9% on 11/16/20 indicating "pre-diabetes" ASSESSMENT: 11/25 * Patient received total of 17 units of insulin yesterday * BSG this AM 110 mg/dL - will hold basal insulin as steroids now stopped * Plan to loosen CF/CR later today as I anticipate BSGs to trend down with steroids stopping 11/24 * Patient received total of 23 units of insulin yesterday, of which 6 units were basal insulin * Fasting BSG 105 mg/dL - continues on tube feeds at goal (60 ml/hr), using regular insulin for coverage. Continue with Lantus BID scale per BSG value for now * Continue same CF/CR. 11/23 * Dexamethasone 10 mg IV day 4 of * BSG's responded nicely to initiation of Lantus and tightening of Novolog parameters * Peptamen VHP continues to titrate up, but CHO coverage will scale accordingly * No change to Novolog * Will continue very low dose Lantus, but split BID and hold for BSG <140 mg/dL 11/22 * Dexamethasone 10 mg IV day 3 of * BSG's trending up gradually with tubefeed rate trending up * Will tighten regular insulin parameters. Patient may require a change back to Novolog q4h if BSG's are persistently >180 mg/dL * Will add low-dose Lantus 11/21 * BSG's have been well controlled without basal insulin and with only one unit of Novolog administered yesterday, even with initiation of Peptamen VHP trickle feeds while on higher dose steroids * OK to extend checks from q4h to q6h, but will then change from Novolog to regular insulin to provide coverage for the full 6 hour interval, in the event that Peptamen VHP rates increase above trickle feeds 11/20 * BSG's ranged 82-142 mg/dL yesterday * As of this AM, patient is now intubated and plan is to change to tubefeeds per ICU rounds. Dexamethasone dose also decreasing today per ARDS protocol * Will discontinue NPH for now as BSG's have been lower and dexamethasone dose is decreasing * Will change Novolog to q4h 2nd change in stressors and also 2nd initiation of tubefeeds * As BSG trended down from this AM to this afternoon (despite no insulin administered since NPH 4 units yesterday AM), will eliminate CHO ratio and only provide correction for BSG >140 mg/dL, but maintain tight correction factor PLAN FOR INPATIENT GLYCEMIC CONTROL: * Basal insulin * hold * Bolus insulin * Regular insulin SC q6h * Goal Range: Low 110 mg/dL - High 140 mg/dL * Correction Factor: 35 mg/dL/unit * Nutritional / Prandial insulin per carb ratio of 1 unit per 15 grams CHO consumed PLAN FOR DISCHARGE: * HbA1c of 5.7-6.4% indicates "pre-diabetes" --> ADA recommendation is to institute diabetes and atherosclerosis prevention * Support Patient Self-Management * Healthy Lifestyle (diet, exercise, and smoking cessation) * Disease self-management (SMBG) * Prevention of complications (BP, Lipid goals, Immunizations) * Consider outpatient Diabetes Self-Management Education & Support
[2020-11-25] MEDS: PEPTAMEN INTENSE VHP 1.0 CAL 1,000 ML BAG OG SCH (15:58)
[2020-11-25] MEDS: MIDAZOLAM BOLUS FROM BAG IV PRN (16:15)
--- NOTE | 2020-11-25 16:28 | Hospitalist Progress Note ---
Date of Service November 25, 2020 Assessment & Plan (1) Pneumonia due to COVID-19 virus: Acute respiratory failure with hypoxia COVID-19 pneumonia- multifocal Pneumomediastinum -CTA:There is no evidence of pulmonary embolus in the main, lobar, or segmental pulmonary arteries. Multifocal groundglass consolidation is seen throughout both lungs and consistent with the reported history of a viral pneumonia. Radiographic follow-up to resolution is recommended. Moderate hiatal hernia. Hepatic steatosis. Intubated on 11/20/20/ out of the time line for Remdesivir and Tocilizumab Appreciate manager performance improvement input on iV steroids High FiO2 low PEEP secondary to known pneumomediastinum: daily chest xray shows unchanged bilateral pulmonary infiltrate Fever/temp spike : possible due to COVID 19 pneumonia lower ext doppler negative for DVT Pro césar -wnl /no indication for ABx elevated Lactic acid level -due to hypoxia , d/w ICU team ,started on Thiamine for better clearance of lactate ferritin and CRP -remains elevated/ acute inflammatory markers due to active COVID 19 infection prognosis remains guarded Diuretics as needed On Lovenox for DVT prophylaxis Continue proning on versed gtt and fentanyl for sedation (2) Hyponatremia: resolved (3) Fatty liver: last US of liver 09/2019 diffuse increased heterogeneous liver and fatty filtration. Avoid hepatotoxic agents as able (4) DVT prophylaxis: Lovenox SQ Code Status FULL CODE Disposition : remains critically ill mechanically ventilated in ICU Admission and Anticipated Discharge Date Admission Date: November 14, 2020 Subjective has been afebrile since yesterday remains intubated /sedated , Physical Exam Constitutional: WD/WN, vitals as above + mechanically ventilated Respiratory: Auscultation: + crackles, + rales and + wheezes Gastrointestinal (Abdomen): Percussion/Palpation: abdomen soft Neurologic: + obtunded Results & Data Results & Data ([facility]) Vital Signs (Past 12 Hours) Vital Signs Temp Pulse Resp BP Pulse Ox 11/25/20 15:32 66 15 94 11/25/20 11:05 65 15 92 11/25/20 11:00 37.3 C 69 91 11/25/20 10:30 37.3 C 62 93 11/25/20 10:11 37.3 C 59 L 110/53 L 91 11/25/20 10:00 37.3 C 57 L 92 11/25/20 09:30 37.3 C 56 L 94 11/25/20 09:11 37.4 C 62 117/56 L 95 11/25/20 09:00 37.4 C 60 96 11/25/20 08:30 37.4 C 59 L 97 11/25/20 08:23 14 11/25/20 08:11 37.4 C 62 97/53 L 93 11/25/20 08:00 37.4 C 66 92 11/25/20 07:58 59 L 11/25/20 07:30 37.4 C 66 95 11/25/20 07:19 66 19 93 11/25/20 07:11 37.3 C 61 101/50 L 91 11/25/20 07:00 37.3 C 58 L 91 11/25/20 06:30 37.3 C 55 L 95 11/25/20 06:11 37.3 C 61 100/51 L 94 11/25/20 06:00 37.3 C 59 L 94 11/25/20 05:30 37.2 C 61 94 11/25/20 05:11 37.3 C 55 L 100/52 L 91 11/25/20 05:00 37.3 C 58 L 90 11/25/20 04:30 37.2 C 62 90
[2020-11-25] MEDS: ACETAMINOPHEN 325 MG TAB PO PRN (18:48)
[2020-11-26] MEDS: ACETAMINOPHEN 325 MG TAB PO PRN ×2 (00:13→06:19)
[2020-11-26] MEDS: INSULIN HUMAN REGULAR SC SCH ×4 (00:34→17:42)
[2020-11-26] MEDS: TUBE FEEDING WATER FLUSH OG SCH ×6 (00:36→19:11)
[2020-11-26 04:11] LABS: iSTAT Arterial Blood Gas HCO3 33 meg/L (19-24); iSTAT Arterial Blood Gas pCO2 49 mmHg (35-46); iSTAT Arterial Blood Gas pH 7.45 (7.35-7.45); iSTAT Arterial Blood Gas pO2 63 mmHg (80-95); iSTAT Carbon Dioxide 35 mmol/L (24-31); iSTAT Site Art Line
[2020-11-26] MEDS: fentaNYL DRIP 1,250 MCG/250 ML BAG IV SCH ×6 (05:24→15:04)
[2020-11-26 05:59] LABS: Basophils # (auto) 0.01 K/uL (0-0.2); Basophils % (auto) 0.1 %; Eosinophils # (auto) 0.11 K/uL (0-0.5); Eosinophils % (auto) 0.6 %; Hematocrit (blood only) 30.7 % (37-47); Hemoglobin 9.9 g/dL (12.0-16.0); Immature Granulocytes # (auto) 0.26 K/uL (0.00-0.02); Immature Granulocytes % (auto) 1.5 %; Lymphocytes % (auto) 11.1 %; Mean Corpuscular Hemoglobin 30.3 pg (25-34); Mean Corpuscular Hgb Conc 32.2 g/dL (32-36); Mean Corpuscular Volume 93.9 fL (80-100); Mean Platelet Volume 9.7 fL (7.4-10.4); Monocytes # (auto) 0.93 K/uL (0.11-0.59); Monocytes % (auto) 5.4 %; Neutrophils # (auto) 13.88 K/uL (1.4-6.5); Neutrophils % (auto) 81.3 %; Platelet Count 373 K/uL (130-400); RDW Coefficient of Variation 14.5 % (11.5-14.5); RDW Standard Deviation 48.5 fL (36.4-46.3); Red Blood Count 3.27 M/uL (4.2-5.4); White Blood Count 17.09 K/uL (4.8-10.8)
[2020-11-26 06:46] LABS: Albumin Globulin Ratio 0.5 (0.9-2); Albumin Level 1.6 gm/dl (3.4-5.0); BUN Creatinine Ratio 84.1 (10-20); Bilirubin,Total 0.8 mg/dl (0.2-1); Calcium 7.5 mg/dl (8.5-10.1); Creatinine Clr Calc Pharmacy 169.8 ml/min; Est GFR (African American) 139.5 ml/min; Est GFR (Non-African American) 120.3 ml/min; Globulin 3.1 gm/dl (2.5-4.0); Magnesium 1.9 mg/dl (1.8-2.4); Potassium 3.5 mmol/L (3.5-5.1); Total Protein 4.7 gm/dl (6.4-8.2)
[2020-11-26 06:47] LABS: C Reactive Protein 8.92 mg/dl (0-0.29); Ferritin 411.2 ng/ml (8-388); Phosphorus 3.8 mg/dl (2.5-4.9)
[2020-11-26] MEDS: SENNOSIDES 8.8 MG/5 ML UDC PO SCH ×2 (07:47→19:11)
[2020-11-26] MEDS: FAMOTIDINE 20 MG in SYRINGE 3 ML IV SCH ×2 (07:47→19:11)
[2020-11-26] MEDS: ENOXAPARIN INJ 40 MG/0.4 ML SYR SQ SCH ×2 (07:47→19:11)
[2020-11-26] MEDS: MULTI VIT W/MINERALS LIQUID 15 ML UDP NG SCH (07:48)
[2020-11-26] MEDS: THIAMINE HCL 100 MG TAB PO SCH (07:48)
[2020-11-26] MEDS: METHYLNALTREXONE BROMIDE 12 MG/0.6 ML VIAL SQ SCH (07:48)
--- NOTE | 2020-11-26 08:57 | Critical Care Progress Note ---
Date of Service November 26, 2020 Assessment & Plan (1) Acute hypoxemic respiratory failure: Impression: 70-year-old female presented to the hospital 11/15/2020 with Covid pneumonia. Was transferred to the ICU shortly thereafter. She was intubated 11/20/2020. Her course has been complicated by pneumomediastinum and subcutaneous emphysema. 24-hour events: Recommendations: Neuro: Currently sedated on fentanyl and Versed. Continue attempts at daily sedation breaks. Resp: Acute hypoxic respiratory failure secondary to Covid pneumonia. Completed full dose of steroids including late-phase ARDS dexamethasone. She is completed trials of proning and neuromuscular blockade. She continues to have significant oxygen requirement. Follow-up chest x-ray today is pending. Vent day #7. If unable to make progress over the next several days, may consider tracheostomy. Still with subcutaneous emphysema on exam. Await follow-up chest x-ray. Current vent settings demonstrate plateau pressure in the mid 20s CV: Hypotension likely related to sedation on norepinephrine. Wean as tolerated. Check random cortisol as the patient is at risk for relative adrenal insufficiency Fluids/Renal: Continue judicious diuretics. Blood gas shows metabolic alkalosis improved from yesterday. May consider diamox. ID: Patient has been off antibiotics since the . Her white count has been climbing and she is persistently febrile. Urine cultures and blood cultures from 11/24 were negative. Recheck procalcitonin and respiratory cultures and place the patient empirically on meropenem. Antibiotics will be adjusted based on clinical response and culture data. GI/Nutrition: Tolerating tube feeds with residuals around 200. Continue methylnaltrexone and senna. Add lactulose. May need PEG tube if unable to wean. Heme: Mild anemia. Continue to trend. No evidence of acute blood loss. No indication for transfusion currently. Continue DVT prophylaxis. Endocrine: ICU hyperglycemia protocol Vascular access: Left internal jugular CVC, left radial arterial line Code Status: Full code Total of 45 minutes in critical care time was spent evaluation management stabilization this patient including discussion with off going pulp machine operator, bedside ICU nurse, and multidisciplinary rounds. Family will be updated when available. (2) Pneumonia due to COVID-19 virus: (3) Pneumomediastinum: Admission and Anticipated Discharge Date Admission Date: November 14, 2020 Subjective intubated and sedated. Review of Systems Review of Systems: Unobtainable due to endotracheal tube Results & Data Results & Data ([facility]) Vital Signs (Past 12 Hours) Vital Signs Temp Pulse Resp BP Pulse Ox 11/26/20 08:38 90 11/26/20 08:26 37.8 C H 77 95/53 L 87 L 11/26/20 08:11 37.8 C H 75 116/59 L 87 L 11/26/20 08:00 37.9 C H 72 90 11/26/20 07:30 38.2 C H 74 89 L 11/26/20 07:25 14 11/26/20 07:11 38.2 C H 82 91/52 L 90 11/26/20 07:00 38.3 C H 78 90 11/26/20 06:30 38.3 C H 86 16 107/59 L 90 11/26/20 06:00 38.2 C H 87 15 90 11/26/20 05:30 38.2 C H 83 16 101/50 L 90 11/26/20 05:00 38.1 C H 83 14 91 11/26/20 04:30 38.1 C H 82 14 91 11/26/20 04:00 38.0 C H 81 16 108/50 L 91 11/26/20 03:45 79 16 91 11/26/20 03:30 38.0 C H 80 13 89 L 11/26/20 03:00 38.0 C H 80 14 102/54 L 92 11/26/20 02:30 38.1 C H 77 15 92 11/26/20 02:00 38.1 C H 78 14 89 L 11/26/20 01:30 38.1 C H 78 14 90 11/26/20 01:00 38.1 C H 77 15 89 L 11/26/20 00:30 38.0 C H 86 15 11/26/20 00:00 37.9 C H 79 16 103/59 L 91 11/25/20 23:52 78 11/25/20 23:30 37.9 C H 79 16 93 11/25/20 23:00 37.8 C H 77 15 110/55 L 94 11/25/20 22:50 77 17 94 11/25/20 22:30 37.8 C H 78 15 100/60 94 11/25/20 22:00 37.7 C H 75 14 93 11/25/20 21:30 37.7 C H 75 13 122/58 L 93 11/25/20 21:00 37.7 C H 81 13 92 Critical Care Results & Data Vital Signs (Past 12 Hours) Vital Signs Temp Pulse Resp BP Pulse Ox 11/26/20 08:38 90 11/26/20 08:26 37.8 C H 77 95/53 L 87 L 11/26/20 08:11 37.8 C H 75 116/59 L 87 L 11/26/20 08:00 37.9 C H 72 90 11/26/20 07:30 38.2 C H 74 89 L 11/26/20 07:25 14 11/26/20 07:11 38.2 C H 82 91/52 L 90 11/26/20 07:00 38.3 C H 78 90 11/26/20 06:30 38.3 C H 86 16 107/59 L 90 11/26/20 06:00 38.2 C H 87 15 90 11/26/20 05:30 38.2 C H 83 16 101/50 L 90 11/26/20 05:00 38.1 C H 83 14 91 11/26/20 04:30 38.1 C H 82 14 91 11/26/20 04:00 38.0 C H 81 16 108/50 L 91 11/26/20 03:45 79 16 91 11/26/20 03:30 38.0 C H 80 13 89 L 11/26/20 03:00 38.0 C H 80 14 102/54 L 92 11/26/20 02:30 38.1 C H 77 15 92 11/26/20 02:00 38.1 C H 78 14 89 L 11/26/20 01:30 38.1 C H 78 14 90 11/26/20 01:00 38.1 C H 77 15 89 L 11/26/20 00:30 38.0 C H 86 15 11/26/20 00:00 37.9 C H 79 16 103/59 L 91 11/25/20 23:52 78 11/25/20 23:30 37.9 C H 79 16 93 11/25/20 23:00 37.8 C H 77 15 110/55 L 94 11/25/20 22:50 77 17 94 11/25/20 22:30 37.8 C H 78 15 100/60 94 11/25/20 22:00 37.7 C H 75 14 93 11/25/20 21:30 37.7 C H 75 13 122/58 L 93 11/25/20 21:00 37.7 C H 81 13 92 Lab & Micro Results (Past 24 Hours) RBC 3.27 M/uL (4.2-5.4) L 11/26/20 WBC 17.09 K/uL (4.8-10.8) H 11/26/20 Hgb 9.9 g/dL (12.0-16.0) L 11/26/20 Hct 30.7 % (37-47) L 11/26/20 MCV 93.9 fL (80-100) 11/26/20 MCH 30.3 pg (25-34) 11/26/20 MCHC 32.2 g/dL (32-36) 11/26/20 RDW Standard Deviation 48.5 fL (36.4-46.3) H 11/26/20 RDW Coefficient of Variation 14.5 % (11.5-14.5) 11/26/20 Plt Count 373 K/uL (130-400) 11/26/20 MPV 9.7 fL (7.4-10.4) 11/26/20 Neutrophils (%) (Auto) 81.3 % 11/26/20 Lymphocytes (%) (Auto) 11.1 % 11/26/20 Monocytes # (Auto) 0.93 K/uL (0.11-0.59) H 11/26/20 Eosinophils # (Auto) 0.11 K/uL (0-0.5) 11/26/20 Immature Granulocyte % (Auto) 1.5 % 11/26/20 Neutrophils # (Auto) 13.88 K/uL (1.4-6.5) H 11/26/20 Lymphocytes # (Auto) 1.90 K/uL (1.2-3.4) 11/26/20 Monocytes # (Auto) 0.93 K/uL (0.11-0.59) H 11/26/20 Eosinophils # (Auto) 0.11 K/uL (0-0.5) 11/26/20 Basophils # (Auto) 0.01 K/uL (0-0.2) 11/26/20 Immature Granulocyte # (Auto) 0.26 K/uL (0.00-0.02) H 11/26/20 Na 137 mmol/L (136-145) 11/26/20 K 3.5 mmol/L (3.5-5.1) 11/26/20 Cl 105 mmol/L (98-107) 11/26/20 CO2 29 mmol/L (21-32) 11/26/20 Anion Gap 3.0 (3-11) 11/26/20 BUN 24 mg/dl (7-18) H 11/26/20 Creatinine 0.28 mg/dl (0.6-1.2) L 11/26/20 Estimated GFR ( Amer) 139.5 ml/min 11/26/20 Estimated GFR (Non-Af Amer) 120.3 ml/min 11/26/20 BUN/Creatinine Ratio 84.1 (10-20) H 11/26/20 Glu 98 mg/dl (70-99) 11/26/20 Ca 7.5 mg/dl (8.5-10.1) L 11/26/20 Phosphorus Level 3.8 mg/dl (2.5-4.9) 11/26/20 Total Bilirubin 0.8 mg/dl (0.2-1) 11/26/20 AST 22 U/L (15-37) 11/26/20 ALT 31 U/L (12-78) 11/26/20 Alkaline Phosphatase 54 U/L (45-117) 11/26/20 TP 4.7 gm/dl (6.4-8.2) L 11/26/20 Albumin 1.6 gm/dl (3.4-5.0) L 11/26/20 Globulin 3.1 gm/dl (2.5-4.0) 11/26/20 Albumin/Globulin Ratio 0.5 (0.9-2) L 11/26/20 Mg 1.9 mg/dl (1.8-2.4) 11/26/20 05:30 11/26/20 Calcium Level 7.5 mg/dl (8.5-10.1) L 11/26/20 05:30 11/26/20 Maco Test NA 11/26/20 03:58 11/26/20 Microbiology 11/24/20 13:50 Urine Culture - Final Urine,Indwelling Cath No growth - less than 1,000 colonies/mL. 11/24/20 13:04 Aerobic Blood Culture - Preliminary Blood No growth in Aerobic bottle after 24 hours. Anaerobic Blood Culture - Preliminary No growth in Anaerobic bottle after 24 hours. 11/24/20 12:40 Aerobic Blood Culture - Preliminary Blood No growth in Aerobic bottle after 24 hours. Anaerobic Blood Culture - Preliminary No growth in Anaerobic bottle after 24 hours. I & O Totals 24 Hours 11/25/20 11/26/20 11/27/20 06:59 06:59 06:59 Intake Total 3139.267 / 3139.267 3266.004 / 3266.004 257.129 / 257.129 Output Total 4655 / 4655 1765 / 1765 160 / 160 Balance -1515.733 / -2509.252 1459.004 / 1501.004 97.129 / 97.129 Cumulative 11/14/20 11:53 thru 11/26/20 08:46 Intake Total 17464.607 Output Total 04038 Balance 52.607 RT Ventilator Mngmt (Last Documented) Ventilator Ordered Settings Ventilator Support Mode Assist Control 11/26/20 08:00 Respiratory Rate 14 11/26/20 07:25 Ventilator Tidal Volume 325 11/26/20 08:00 Setting Minute Ventilation 4.4 11/26/20 07:25 Positive End Expiratory 8 11/26/20 08:00 Pressure Fraction of Inspired Oxygen 65 11/26/20 08:38 Peak Inspiratory Flow 35 11/22/20 15:47 Machine Comment Rate dropped again following ABG 11/25/20 08:23 results Ventilator - PT Measurements Respiratory Rate 14 Exhaled Tidal Volume 302 Minute Ventilation 4.4 Peak Inspiratory Airway 25 Pressure Mean Airway Pressure 10 Plateau Pressure 21.2 Respiratory Cycle Inspiratory: 1:4 Expiratory Ratio Inspiratory Phase Time 0.75 End-Tidal CO2 42 Static Lung Compliance 22.88 Dynamic Lung Compliance 17.76 Normal Static Lung Compliance 45.00 Patient Measurements Comment spo2 87% on previous settings, FIO2 increased to 65% for current SPO2 90% Coding Level of Care Code Critical Care 1st 30-74 mins Diagnoses Acute hypoxemic respiratory failure J96.01 Pneumonia due to COVID-19 virus U07.1; J12.82 Pneumomediastinum J98.2 Time Spent (min) 45
[2020-11-26] MEDS ORDERED: MEROPENEM CONSULT ACITVE PRN (09:17)
[2020-11-26] MEDS: LACTULOSE SYRUP 20 GM/30 ML UDC PO SCH (10:28)
[2020-11-26] MEDS: MEROPENEM 500 MG in SYRINGE 0 ML IV SCH ×3 (10:29→21:58)
--- NOTE | 2020-11-26 10:31 | XRay Report ---
XR chest 1V portable CLINICAL HISTORY: Respiratory failure COMPARISON STUDY: 11/24/2020 FINDINGS: There is an endotracheal tube 14 mm above the gabino. There is a left internal jugular cent ral venous catheter. There is an enteric tube positioned within the stomach. There are persistent dottie ateral pulmonary airspace opacities with a peripheral distribution. There is decreasing subcutaneous emphysema. There is no definite residual pneumomediastinum. There is no pneumothorax.[ IMPRESSION: 1. Persistent bilateral pulmonary airspace opacities 2. Endotracheal tube 40 mm above the gabino 2. Decreasing subcutaneous emphysema. No definite residual pneumomediastinum ACT 112: Negative or not required by law. Electronically signed by: Lenard Bolaños M.D. 11/26/2020 10:29 AM
[2020-11-26] MEDS: PEPTAMEN INTENSE VHP 1.0 CAL 1,000 ML BAG OG SCH (11:38)
[2020-11-26] MEDS: FLUDROCORTISONE ACETATE 0.1 MG TAB PO SCH (11:46)
[2020-11-26] MEDS: HYDROCORTISONE SOD 50 MG in SYRINGE 0 ML IV SCH ×2 (11:47→17:42)
[2020-11-26] MEDS: MIDAZOLAM HCL 125 MG/250 ML BAG IV SCH ×3 (13:58→15:04)
[2020-11-26] MEDS: NOREPINEPHRINE/D5W 8 MG/508 ML BAG IV SCH (15:05)
--- NOTE | 2020-11-26 16:40 | Hospitalist Progress Note ---
Date of Service November 26, 2020 Assessment & Plan (1) Pneumonia due to COVID-19 virus: Acute respiratory failure with hypoxia COVID-19 pneumonia- multifocal Pneumomediastinum -CTA:There is no evidence of pulmonary embolus in the main, lobar, or segmental pulmonary arteries. Multifocal groundglass consolidation is seen throughout both lungs and consistent with the reported history of a viral pneumonia. Radiographic follow-up to resolution is recommended. Moderate hiatal hernia. Hepatic steatosis. 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 on iV steroids May need tracheostomy if fails spontaneous breathing trial, and required long- term intubation High FiO2 low PEEP secondary to known pneumomediastinum: daily chest xray shows unchanged bilateral pulmonary infiltrate Fever/temp spike : Resolved has been afebrile since possible due to COVID 19 pneumonia lower ext doppler negative for DVT Pro césar -wnl /no indication for ABx elevated Lactic acid level -due to hypoxia , d/w ICU team ,started on Thiamine for better clearance of lactate ferritin and CRP -remains elevated/ acute inflammatory markers due to active COVID 19 infection prognosis remains guarded Diuretics as needed On Lovenox for DVT prophylaxis Continue proning on versed gtt and fentanyl for sedation CODE STATUS: Full code (2) Hyponatremia: resolved (3) Fatty liver: last US of liver 09/2019 diffuse increased heterogeneous liver and fatty filtration. Avoid hepatotoxic agents as able (4) DVT prophylaxis: Lovenox SQ Code Status FULL CODE Disposition : remains critically ill mechanically ventilated in ICU Long-term prognosis remains guarded Admission and Anticipated Discharge Date Admission Date: November 14, 2020 Subjective intubated and sedated. No improvement of clinical status, Patient will need require long-term intubation Review of Systems Review of Systems: Unobtainable due to endotracheal tube Physical Exam Constitutional: WD/WN, vitals as above + mechanically ventilated Respiratory: Auscultation: + crackles, + rales and + wheezes Gastrointestinal (Abdomen): Percussion/Palpation: abdomen soft Neurologic: + obtunded Results & Data Results & Data ([facility]) Vital Signs (Past 12 Hours) Vital Signs Temp Pulse Resp BP Pulse Ox Pulse Ox 11/26/20 16:11 37.9 C H 98 H 118/63 92 11/26/20 16:00 37.9 C H 93 H 93 94 11/26/20 15:30 37.9 C H 90 93 11/26/20 15:23 21 11/26/20 15:11 37.9 C H 110 H 135/77 96 11/26/20 15:00 37.9 C H 90 94 11/26/20 14:30 37.9 C H 85 95 11/26/20 14:11 37.8 C H 109 H 146/88 H 95 11/26/20 14:00 37.9 C H 81 92 11/26/20 13:30 37.9 C H 83 91 11/26/20 13:11 38.0 C H 85 105/55 L 90 11/26/20 13:00 38.0 C H 86 91 11/26/20 12:30 37.9 C H 84 92 11/26/20 12:11 37.9 C H 88 114/56 L 93 11/26/20 12:00 37.9 C H 89 93 11/26/20 11:30 37.8 C H 92 H 90 11/26/20 11:22 88 18 91 11/26/20 11:11 37.8 C H 91 H 120/55 L 92 11/26/20 11:00 37.7 C H 92 H 92 11/26/20 10:30 37.7 C H 88 93 11/26/20 10:11 37.6 C H 85 112/57 L 90 11/26/20 10:00 37.6 C H 76 93 11/26/20 09:30 37.6 C H 74 90 11/26/20 09:11 37.6 C H 75 119/51 L 91 11/26/20 09:00 37.7 C H 74 92 11/26/20 08:38 90 11/26/20 08:30 37.8 C H 77 87 L 11/26/20 08:26 37.8 C H 77 95/53 L 87 L 11/26/20 08:11 37.8 C H 75 116/59 L 87 L 11/26/20 08:00 37.9 C H 72 90 11/26/20 07:30 38.2 C H 74 89 L 11/26/20 07:25 14 11/26/20 07:11 38.2 C H 82 91/52 L 90 11/26/20 07:00 38.3 C H 78 90 11/26/20 06:30 38.3 C H 86 16 107/59 L 90 11/26/20 06:00 38.2 C H 87 15 90 11/26/20 05:30 38.2 C H 83 16 101/50 L 90 11/26/20 05:00 38.1 C H 83 14 91
[2020-11-26] MEDS: MIDAZOLAM BOLUS FROM BAG IV PRN (18:33)
[2020-11-27] MEDS: HYDROCORTISONE SOD 50 MG in SYRINGE 0 ML IV SCH ×5 (00:05→23:41)
[2020-11-27] MEDS: TUBE FEEDING WATER FLUSH OG SCH ×7 (00:05→23:23)
[2020-11-27] MEDS: INSULIN HUMAN REGULAR SC SCH ×4 (00:13→18:36)
[2020-11-27] MEDS: fentaNYL DRIP 1,250 MCG/250 ML BAG IV SCH ×3 (02:10→13:29)
[2020-11-27 05:33] LABS: iSTAT Art Bld Gas pCO2 Correct 51 mmHg (35-46); iSTAT Art Bld Gas pH Corrected 7.435 (7.35-7.45); iSTAT Arterial Blood Gas HCO3 34 meg/L (19-24); iSTAT Arterial Blood Gas pCO2 51 mmHg (35-46); iSTAT Arterial Blood Gas pH 7.44 (7.35-7.45); iSTAT Arterial Blood Gas pO2 68 mmHg (80-95); iSTAT Arterial Blood Gas pO2 C 69; iSTAT Carbon Dioxide 36 mmol/L (24-31); iSTAT FiO2 50 %; iSTAT Hematocrit 28 % (37-47); iSTAT Hemoglobin 9.5 g/dl (12.0-16.0); iSTAT Site Art Line; iSTAT Sodium 135 mmol/L (135-144)
[2020-11-27 05:34] LABS: Basophils # (auto) 0.02 K/uL (0-0.2); Basophils % (auto) 0.1 %; Eosinophils # (auto) 0.02 K/uL (0-0.5); Eosinophils % (auto) 0.1 %; Hematocrit (blood only) 31.5 % (37-47); Hemoglobin 10.1 g/dL (12.0-16.0); Immature Granulocytes # (auto) 0.17 K/uL (0.00-0.02); Immature Granulocytes % (auto) 0.9 %; Lymphocytes # (auto) 0.98 K/uL (1.2-3.4); Lymphocytes % (auto) 5.4 %; Mean Corpuscular Hemoglobin 30.1 pg (25-34); Mean Corpuscular Hgb Conc 32.1 g/dL (32-36); Mean Corpuscular Volume 93.8 fL (80-100); Mean Platelet Volume 9.6 fL (7.4-10.4); Monocytes # (auto) 0.58 K/uL (0.11-0.59); Monocytes % (auto) 3.2 %; Neutrophils # (auto) 16.26 K/uL (1.4-6.5); Neutrophils % (auto) 90.3 %; Platelet Count 350 K/uL (130-400); RDW Coefficient of Variation 14.3 % (11.5-14.5); Red Blood Count 3.36 M/uL (4.2-5.4); White Blood Count 18.03 K/uL (4.8-10.8)
[2020-11-27] MEDS: MEROPENEM 500 MG in SYRINGE 0 ML IV SCH ×4 (05:35→21:43)
[2020-11-27 06:02] LABS: Albumin Level 1.6 gm/dl (3.4-5.0); BUN Creatinine Ratio 62.5 (10-20); Calcium 8.8 mg/dl (8.5-10.1); Creatinine Clr Calc Pharmacy 125.1 ml/min; Est GFR (African American) 126.2 ml/min; Est GFR (Non-African American) 108.8 ml/min; Magnesium 2.5 mg/dl (1.8-2.4); Potassium 4.1 mmol/L (3.5-5.1)
[2020-11-27 06:05] LABS: Albumin Globulin Ratio 0.4 (0.9-2); Bilirubin,Total 0.4 mg/dl (0.2-1); Globulin 3.9 gm/dl (2.5-4.0); Phosphorus 3.6 mg/dl (2.5-4.9); Total Protein 5.5 gm/dl (6.4-8.2)
[2020-11-27] MEDS: MIDAZOLAM BOLUS FROM BAG IV PRN (07:41)
--- NOTE | 2020-11-27 08:17 | XRay Report ---
XR chest 1V portable HISTORY: Respiratory failure. COMPARISON: 11/26/2020. FINDINGS: The endotracheal tube is unchanged in position and terminates 1.4 cm from the gabino. Nasog astric tube is located within the distal stomach. A left jugular central venous catheter terminates a t the proximal SVC. The heart remains mildly enlarged. Scattered peripheral bilateral airspace opacit ies remain unchanged. There is a trace right pleural effusion. No pneumothorax. Subcutaneous emphysem a at the upper chest has improved. IMPRESSION: 1. Satisfactory support line placement. The endotracheal tube terminates 14 mm from the gabino. 2. No change in the bilateral peripheral airspace opacities. ACT 112: Negative or not required by law. Electronically signed by: Sha Martinez M.D. 11/27/2020 8:16 AM
[2020-11-27] MEDS: ENOXAPARIN INJ 40 MG/0.4 ML SYR SQ SCH (08:54)
[2020-11-27] MEDS: LACTULOSE SYRUP 20 GM/30 ML UDC PO SCH ×2 (08:55→20:04)
[2020-11-27] MEDS: FAMOTIDINE 20 MG in SYRINGE 3 ML IV SCH (08:55)
[2020-11-27] MEDS: FLUDROCORTISONE ACETATE 0.1 MG TAB PO SCH (08:55)
[2020-11-27] MEDS: THIAMINE HCL 100 MG TAB PO SCH (08:56)
[2020-11-27] MEDS: SENNOSIDES 8.8 MG/5 ML UDC PO SCH ×2 (08:56→20:04)
[2020-11-27] MEDS: MULTI VIT W/MINERALS LIQUID 15 ML UDP NG SCH (08:56)
[2020-11-27] MEDS: INSULIN GLARGINE SOLOSTAR 100 UNITS/ML 3 ML PEN SC SCH (09:01)
[2020-11-27] MEDS ORDERED: VANCOMYCIN CONSULT ACTIVE PRN (10:44)
[2020-11-27] MEDS ORDERED: VANCOMYCIN HCL 1,750 MG in SODIUM CHLORIDE 0.9% 500 ML IV SCH (11:00)
[2020-11-27] MEDS: POLYETHYLENE (MIRALAX) 17 GM PACK PO SCH (11:25)
[2020-11-27] MEDS: MIDAZOLAM HCL 125 MG/250 ML BAG IV SCH ×2 (11:25→12:40)
--- NOTE | 2020-11-27 11:28 | Critical Care Progress Note ---
Date of Service November 27, 2020 Assessment & Plan (1) Acute hypoxemic respiratory failure: Impression: 70-year-old female presented to the hospital 11/15/2020 with Covid pneumonia. Was transferred to the ICU shortly thereafter. She was intubated 11/20/2020. Her course has been complicated by pneumomediastinum and subcutaneous emphysema. 24-hour events: Patient completed sedation break this morning. When sedation was lightened she became tachypneic and tachycardic. She was moving all 4 extremities. She was returned to sedation. Given her vent settings she is not yet appropriate for spontaneous breathing trial. Recommendations: Neuro: Currently sedated on fentanyl and Versed. Continue attempts at daily sedation breaks. We will place her on oral methadone and clonazepam to try and decrease her IV rates. Will try Precedex to see if we can decrease versed/fent. may benefit from Seroquel as well. continue restraints for now. Resp: Acute hypoxic respiratory failure secondary to Covid pneumonia. Completed full dose of steroids including late-phase ARDS dexamethasone. She is completed trials of proning and neuromuscular blockade. She continues to have significant oxygen requirement. Follow-up chest x-ray today is pending. Vent day #8. If unable to make progress over the next 24 to 48 hours, may consider tracheostomy. Still with subcutaneous emphysema on exam. Await follow-up chest x-ray. Current vent settings demonstrate plateau pressure in the mid 20s. Currently on PEEP of 10 with an FiO2 of 50% CV: Hypotension now resolved with treatment of relative adrenal insufficiency. Lasix dose today Fluids/Renal: Continue judicious diuretics. Blood gas shows persistent metabolic alkalosis. Lasix and diamox today. ID: Respiratory culture growing staph. Will start empiric vancomycin and await culture and sensitivities. Continue Carbapenem pending final culture results. GI/Nutrition: Tolerating tube feeds. Continue methylnaltrexone and senna. Increase lactulose. May need PEG tube if unable to wean chemical ventilator. Heme: Mild anemia. Continue to trend. No evidence of acute blood loss. No indication for transfusion currently. Continue DVT prophylaxis. Endocrine: ICU hyperglycemia protocol Vascular access: Left internal jugular CVC, left radial arterial line Code Status: Full code Prophylaxis: Decrease Lovenox to 40 mg once daily per ACCP guidelines. Change Pepcid to oral Total of 38 minutes in critical care time was spent evaluation management stabilization this patient including discussion with bedside ICU nurse, respiratory therapist, and multidisciplinary rounds. was updated by phone yesterday and again today. He is agreeable to trach and Peg if needed. (2) Pneumomediastinum: Admission and Anticipated Discharge Date Admission Date: November 14, 2020 Subjective Patient remains intubated and sedated Review of Systems Review of Systems: Unobtainable due to endotracheal tube Results & Data Results & Data ([facility]) Vital Signs (Past 12 Hours) Vital Signs Temp Pulse Resp BP Pulse Ox 11/27/20 11:13 20 11/27/20 07:41 112 H 16 89 L 11/27/20 07:30 37.5 C 94 H 89 L 11/27/20 07:11 37.5 C 101 H 128/74 87 L 11/27/20 07:00 37.4 C 83 87 L 11/27/20 06:30 37.4 C 98 H 88 L 11/27/20 06:11 37.3 C 80 125/66 89 L 11/27/20 06:00 37.3 C 85 92 11/27/20 05:30 37.2 C 90 92 11/27/20 05:11 37.2 C 61 97/57 L 93 11/27/20 05:08 63 17 93 11/27/20 05:00 37.3 C 68 92 11/27/20 04:30 37.4 C 68 92 11/27/20 04:11 37.4 C 68 98/47 L 92 11/27/20 04:00 37.4 C 71 91 11/27/20 03:30 37.5 C 78 90 11/27/20 03:11 37.5 C 93 H 122/62 88 L 11/27/20 03:00 37.5 C 78 91 11/27/20 02:30 37.4 C 82 14 93 11/27/20 02:05 76 15 91 11/27/20 02:00 37.4 C 71 15 100/53 L 88 L 11/27/20 01:30 37.5 C 74 12 90 11/27/20 01:00 37.5 C 77 13 100/53 L 88 L 11/27/20 00:30 37.5 C 83 18 92 11/27/20 00:00 37.6 C H 79 14 102/60 90 11/26/20 23:30 37.7 C H 82 90 Critical Care Results & Data Vital Signs (Past 12 Hours) Vital Signs Temp Pulse Resp BP Pulse Ox 11/27/20 11:13 20 11/27/20 07:41 112 H 16 89 L 11/27/20 07:30 37.5 C 94 H 89 L 11/27/20 07:11 37.5 C 101 H 128/74 87 L 11/27/20 07:00 37.4 C 83 87 L 11/27/20 06:30 37.4 C 98 H 88 L 11/27/20 06:11 37.3 C 80 125/66 89 L 11/27/20 06:00 37.3 C 85 92 11/27/20 05:30 37.2 C 90 92 11/27/20 05:11 37.2 C 61 97/57 L 93 11/27/20 05:08 63 17 93 11/27/20 05:00 37.3 C 68 92 11/27/20 04:30 37.4 C 68 92 11/27/20 04:11 37.4 C 68 98/47 L 92 11/27/20 04:00 37.4 C 71 91 11/27/20 03:30 37.5 C 78 90 11/27/20 03:11 37.5 C 93 H 122/62 88 L 11/27/20 03:00 37.5 C 78 91 11/27/20 02:30 37.4 C 82 14 93 11/27/20 02:05 76 15 91 11/27/20 02:00 37.4 C 71 15 100/53 L 88 L 11/27/20 01:30 37.5 C 74 12 90 11/27/20 01:00 37.5 C 77 13 100/53 L 88 L 11/27/20 00:30 37.5 C 83 18 92 11/27/20 00:00 37.6 C H 79 14 102/60 90 11/26/20 23:30 37.7 C H 82 90 Lab & Micro Results (Past 24 Hours) RBC 3.36 M/uL (4.2-5.4) L 11/27/20 WBC 18.03 K/uL (4.8-10.8) H 11/27/20 Hgb 10.1 g/dL (12.0-16.0) L 11/27/20 Hct 31.5 % (37-47) L 11/27/20 MCV 93.8 fL (80-100) 11/27/20 MCH 30.1 pg (25-34) 11/27/20 MCHC 32.1 g/dL (32-36) 11/27/20 RDW Standard Deviation 48.0 fL (36.4-46.3) H 11/27/20 RDW Coefficient of Variation 14.3 % (11.5-14.5) 11/27/20 Plt Count 350 K/uL (130-400) 11/27/20 MPV 9.6 fL (7.4-10.4) 11/27/20 Neutrophils (%) (Auto) 90.3 % 11/27/20 Lymphocytes (%) (Auto) 5.4 % 11/27/20 Monocytes # (Auto) 0.58 K/uL (0.11-0.59) 11/27/20 Eosinophils # (Auto) 0.02 K/uL (0-0.5) 11/27/20 Immature Granulocyte % (Auto) 0.9 % 11/27/20 Neutrophils # (Auto) 16.26 K/uL (1.4-6.5) H 11/27/20 Lymphocytes # (Auto) 0.98 K/uL (1.2-3.4) L 11/27/20 Monocytes # (Auto) 0.58 K/uL (0.11-0.59) 11/27/20 Eosinophils # (Auto) 0.02 K/uL (0-0.5) 11/27/20 Basophils # (Auto) 0.02 K/uL (0-0.2) 11/27/20 Immature Granulocyte # (Auto) 0.17 K/uL (0.00-0.02) H 11/27/20 Na 135 mmol/L (136-145) L 11/27/20 K 4.1 mmol/L (3.5-5.1) 11/27/20 Cl 100 mmol/L (98-107) 11/27/20 CO2 34 mmol/L (21-32) H 11/27/20 Anion Gap 1.0 (3-11) L 11/27/20 BUN 24 mg/dl (7-18) H 11/27/20 Creatinine 0.38 mg/dl (0.6-1.2) L 11/27/20 Estimated GFR ( Amer) 126.2 ml/min 11/27/20 Estimated GFR (Non-Af Amer) 108.8 ml/min 11/27/20 BUN/Creatinine Ratio 62.5 (10-20) H 11/27/20 Glu 152 mg/dl (70-99) H 11/27/20 Ca 8.8 mg/dl (8.5-10.1) 11/27/20 Phosphorus Level 3.6 mg/dl (2.5-4.9) 11/27/20 Total Bilirubin 0.4 mg/dl (0.2-1) 11/27/20 AST 15 U/L (15-37) 11/27/20 ALT 35 U/L (12-78) 11/27/20 Alkaline Phosphatase 66 U/L (45-117) 11/27/20 TP 5.5 gm/dl (6.4-8.2) L 11/27/20 Albumin 1.6 gm/dl (3.4-5.0) L 11/27/20 Globulin 3.9 gm/dl (2.5-4.0) 11/27/20 Albumin/Globulin Ratio 0.4 (0.9-2) L 11/27/20 Mg 2.5 mg/dl (1.8-2.4) H 11/27/20 05:12 11/27/20 Calcium Level 8.8 mg/dl (8.5-10.1) 11/27/20 05:12 11/27/20 Maco Test NA 11/27/20 05:15 11/27/20 Microbiology 11/26/20 11:15 Gram Stain - Final Sputum,Vent Suction Sputum Culture - Preliminary Staphylococcus species 11/24/20 13:04 Aerobic Blood Culture - Preliminary Blood No growth in Aerobic bottle after 48 hours. Anaerobic Blood Culture - Preliminary No growth in Anaerobic bottle after 48 hours. 11/24/20 12:40 Aerobic Blood Culture - Preliminary Blood No growth in Aerobic bottle after 48 hours. Anaerobic Blood Culture - Preliminary No growth in Anaerobic bottle after 48 hours. 11/24/20 13:50 Urine Culture - Final Urine,Indwelling Cath No growth - less than 1,000 colonies/mL. Diagnostic Findings (Past 24 Hours) Chest X-Ray 11/27/20 07:00 XR chest 1V portable HISTORY: Respiratory failure. COMPARISON: 11/26/2020. FINDINGS: The endotracheal tube is unchanged in position and terminates 1.4 cm from the gabino. Nasogastric tube is located within the distal stomach. A left jugular central venous catheter terminates at the proximal SVC. The heart remains mildly enlarged. Scattered peripheral bilateral airspace opacities remain unchanged. There is a trace right pleural effusion. No pneumothorax. Subcutaneous emphysema at the upper chest has improved. IMPRESSION: 1. Satisfactory support line placement. The endotracheal tube terminates 14 mm from the gabino. 2. No change in the bilateral peripheral airspace opacities. ACT 112: Negative or not required by law. Electronically signed by: Sha Martinez M.D. 11/27/2020 8:16 AM I & O Totals 24 Hours 11/26/20 11/27/20 11/28/20 06:59 06:59 06:59 Intake Total 3266.004 / 3266.004 3212.563 / 3212.563 0 / 0 Output Total 1765 / 1765 2200 / 2200 145 / 145 Balance 1501.004 / 2232.746 5994.563 / 1012.563 -145 / -145 Cumulative 11/14/20 11:53 thru 11/27/20 11:08 Intake Total 62313.041 Output Total 97424 Balance 823.041 RT Ventilator Mngmt (Last Documented) Ventilator Ordered Settings Ventilator Support Mode Assist Control 11/27/20 11:13 Respiratory Rate 20 11/27/20 11:13 Ventilator Tidal Volume 325 11/27/20 11:13 Setting Minute Ventilation 5.9 11/27/20 11:13 Positive End Expiratory 10 11/27/20 11:13 Pressure Fraction of Inspired Oxygen 50 11/27/20 11:13 Peak Inspiratory Flow 35 11/22/20 15:47 Machine Comment FIO2 increased to 60% - PEEP 11/27/20 08:00 increased to +10 - SPO2 85% Ventilator - PT Measurements Respiratory Rate 20 Exhaled Tidal Volume 312 Minute Ventilation 5.9 Peak Inspiratory Airway 11 Pressure Mean Airway Pressure 12 Plateau Pressure 33 Respiratory Cycle Inspiratory: 1:3.4 Expiratory Ratio Inspiratory Phase Time 0.75 End-Tidal CO2 41 Static Lung Compliance 13.57 Dynamic Lung Compliance 312.00 Normal Static Lung Compliance 50.00 Patient Measurements Comment PEEP increased to +10, spo2 87% Coding Level of Care Code Critical Care 1st 30-74 mins Diagnoses Acute hypoxemic respiratory failure J96.01 Pneumomediastinum J98.2 Time Spent (min) 38
[2020-11-27] MEDS ORDERED: STAT IV Infusion **Titration per Protocol STA ×2 (11:40→21:23)
[2020-11-27] MEDS ORDERED: acetaZOLAMIDE 250 MG TAB PO ONE (11:46)
--- NOTE | 2020-11-27 11:58 | Pharmacy Report ---
Pharmacy Glycemic Short Note 2 - Date of Service November 27, 2020 - Glycemic Short BSG Results (Last 24 hours): 11/26/20 11/26/20 11/27/20 11:46 17:35 00:08 Glucose POC Glucose 131 H 147 H POC Glucose (other) 127 H 11/27/20 11/27/20 11/27/20 05:12 05:20 09:00 Glucose 152 H POC Glucose 148 H 149 H POC Glucose (other) 11/27/20 11:22 Glucose POC Glucose 147 H POC Glucose (other) OUTPATIENT ANTIDIABETIC REGIMEN: * N/A * a1C = 5.9% on 11/16/20 indicating "pre-diabetes" ASSESSMENT: 11/27: * Patient received a total of 7 units insulin yesterday * BSGs remain within goal, but are trending up. Will add low dose basal insulin and conservatively tighten novolog. 11/25 * Patient received total of 17 units of insulin yesterday * BSG this AM 110 mg/dL - will hold basal insulin as steroids now stopped * Plan to loosen CF/CR later today as I anticipate BSGs to trend down with steroids stopping 11/24 * Patient received total of 23 units of insulin yesterday, of which 6 units were basal insulin * Fasting BSG 105 mg/dL - continues on tube feeds at goal (60 ml/hr), using regular insulin for coverage. Continue with Lantus BID scale per BSG value for now * Continue same CF/CR. 11/23 * Dexamethasone 10 mg IV day 4 of * BSG's responded nicely to initiation of Lantus and tightening of Novolog parameters * Peptamen VHP continues to titrate up, but CHO coverage will scale accordingly * No change to Novolog * Will continue very low dose Lantus, but split BID and hold for BSG <140 mg/dL 11/22 * Dexamethasone 10 mg IV day 3 of * BSG's trending up gradually with tubefeed rate trending up * Will tighten regular insulin parameters. Patient may require a change back to Novolog q4h if BSG's are persistently >180 mg/dL * Will add low-dose Lantus 11/21 * BSG's have been well controlled without basal insulin and with only one unit of Novolog administered yesterday, even with initiation of Peptamen VHP trickle feeds while on higher dose steroids * OK to extend checks from q4h to q6h, but will then change from Novolog to regular insulin to provide coverage for the full 6 hour interval, in the event that Peptamen VHP rates increase above trickle feeds 11/20 * BSG's ranged 82-142 mg/dL yesterday * As of this AM, patient is now intubated and plan is to change to tubefeeds per ICU rounds. Dexamethasone dose also decreasing today per ARDS protocol * Will discontinue NPH for now as BSG's have been lower and dexamethasone dose is decreasing * Will change Novolog to q4h 2nd change in stressors and also 2nd initiation of tubefeeds * As BSG trended down from this AM to this afternoon (despite no insulin administered since NPH 4 units yesterday AM), will eliminate CHO ratio and only provide correction for BSG >140 mg/dL, but maintain tight correction factor PLAN FOR INPATIENT GLYCEMIC CONTROL: * Basal insulin * 5 units lantus sq qam * Bolus insulin * Regular insulin SC q6h * Goal Range: Low 110 mg/dL - High 140 mg/dL * Correction Factor: 35 mg/dL/unit * Nutritional / Prandial insulin per carb ratio of 1 unit per 10 grams CHO consumed PLAN FOR DISCHARGE: * HbA1c of 5.7-6.4% indicates "pre-diabetes" --> ADA recommendation is to institute diabetes and atherosclerosis prevention * Support Patient Self-Management * Healthy Lifestyle (diet, exercise, and smoking cessation) * Disease self-management (SMBG) * Prevention of complications (BP, Lipid goals, Immunizations) * Consider outpatient Diabetes Self-Management Education & Support
[2020-11-27] MEDS ORDERED: FUROSEMIDE 40 MG in SYRINGE 0 ML IV ONE (12:00)
[2020-11-27] MEDS: clonazePAM 1 MG TAB PO SCH ×2 (12:16→20:07)
[2020-11-27] MEDS: METHADONE HCL 5 MG TAB PO SCH (12:16)
[2020-11-27] MEDS: DEXMEDETOMIDINE HCL 200 MCG in SODIUM CHLORIDE 0.9% 48 ML IV SCH ×3 (12:17→21:43)
--- NOTE | 2020-11-27 17:04 | Hospitalist Progress Note ---
Date of Service November 27, 2020 Assessment & Plan (1) Pneumonia due to COVID-19 virus: Acute respiratory failure with hypoxia COVID-19 pneumonia- multifocal Pneumomediastinum Left Pneumothorax -CTA:There is no evidence of pulmonary embolus in the main, lobar, or segmental pulmonary arteries. Multifocal groundglass consolidation is seen throughout both lungs and consistent with the reported history of a viral pneumonia. Radiographic follow-up to resolution is recommended. Moderate hiatal hernia. Hepatic steatosis. Subclavian vein placement complicated by development of left pneumothorax -Continue bronchodilators PRN Intubated on 11/20/20 Neuromuscular blockade discontinued Continue Vent Support Blood/Urine Cx: No growth Sputum Cx: Staph Appreciate head host/hostess input . (2) Hyponatremia: Sodium levels:131>129>135>140 Monitor BMP IV fluids as needed Hypokalemia Hypophosphatemia Replace electrolytes as needed (3) Fatty liver: Elevated Transaminases last US of liver 09/2019 diffuse increased heterogeneous liver and fatty filtration. Avoid hepatotoxic agents as able (4) DVT prophylaxis: Lovenox SQ Code Status FULL CODE Disposition Remains critically ill in ICU Admission and Anticipated Discharge Date Admission Date: November 14, 2020 Subjective Patient remains intubated, currently on sedation Physical Exam Constitutional: WD/WN, vitals as above + mechanically ventilated Respiratory: Auscultation: + crackles, + rales and + wheezes Gastrointestinal (Abdomen): Percussion/Palpation: abdomen soft Neurologic: + obtunded Results & Data Results & Data ([facility]) Vital Signs (Past 12 Hours) Vital Signs Temp Pulse Resp BP Pulse Ox Pulse Ox 11/27/20 16:00 92 11/27/20 15:25 20 11/27/20 11:13 20 11/27/20 08:00 86 11/27/20 07:41 112 H 16 89 L 11/27/20 07:30 37.5 C 94 H 89 L 11/27/20 07:11 37.5 C 101 H 128/74 87 L 11/27/20 07:00 37.4 C 83 87 L 11/27/20 06:30 37.4 C 98 H 88 L 11/27/20 06:11 37.3 C 80 125/66 89 L 11/27/20 06:00 37.3 C 85 92 11/27/20 05:30 37.2 C 90 92 11/27/20 05:11 37.2 C 61 97/57 L 93 11/27/20 05:08 63 17 93
[2020-11-27] MEDS: ICU ELECTROLYTE REPLACEMENT PROTOCOL SCH (18:05)
[2020-11-27] MEDS: PEPTAMEN INTENSE VHP 1.0 CAL 1,000 ML BAG OG SCH (18:37)
[2020-11-27] MEDS ORDERED: fentaNYL citrate 100 MCG/2 ML VIAL ONE (20:01)
[2020-11-27] MEDS ORDERED: VANCOMYCIN HCL 1,250 MG in SODIUM CHLORIDE 0.9% 250 ML IV SCH (23:00)
[2020-11-27] MEDS: NOREPINEPHRINE/D5W 8 MG/508 ML BAG IV SCH (23:12)
[2020-11-28] MEDS: INSULIN HUMAN REGULAR SC SCH ×4 (00:08→17:37)
[2020-11-28] MEDS: DEXMEDETOMIDINE HCL 400 MCG in 0.9 % SODIUM CHLORIDE 96 ML IV SCH ×6 (00:29→23:26)
[2020-11-28] MEDS: fentaNYL citrate 100 MCG/2 ML VIAL IV PRN ×5 (01:36→21:36)
[2020-11-28] MEDS: MEROPENEM 500 MG in SYRINGE 0 ML IV SCH (04:30)
[2020-11-28] MEDS: DEXMEDETOMIDINE HCL 200 MCG in SODIUM CHLORIDE 0.9% 48 ML IV SCH ×2 (05:03→05:07)
[2020-11-28] MEDS: TUBE FEEDING WATER FLUSH OG SCH ×5 (05:16→20:47)
[2020-11-28 05:27] LABS: Basophils # (auto) 0.01 K/uL (0-0.2); Basophils % (auto) 0.1 %; Eosinophils # (auto) 0.01 K/uL (0-0.5); Eosinophils % (auto) 0.1 %; Hematocrit (blood only) 33.7 % (37-47); Hemoglobin 10.8 g/dL (12.0-16.0); Immature Granulocytes # (auto) 0.11 K/uL (0.00-0.02); Immature Granulocytes % (auto) 0.7 %; Lymphocytes # (auto) 0.99 K/uL (1.2-3.4); Mean Corpuscular Hemoglobin 29.7 pg (25-34); Mean Corpuscular Volume 92.6 fL (80-100); Mean Platelet Volume 9.8 fL (7.4-10.4); Monocytes % (auto) 4.3 %; Neutrophils # (auto) 14.61 K/uL (1.4-6.5); Neutrophils % (auto) 88.8 %; Platelet Count 373 K/uL (130-400); RDW Coefficient of Variation 14.3 % (11.5-14.5); RDW Standard Deviation 46.8 fL (36.4-46.3); Red Blood Count 3.64 M/uL (4.2-5.4); White Blood Count 16.43 K/uL (4.8-10.8)
[2020-11-28] MEDS: HYDROCORTISONE SOD 50 MG in SYRINGE 0 ML IV SCH ×3 (05:40→17:36)
[2020-11-28 05:41] LABS: iSTAT Art Bld Gas pCO2 Correct 45 mmHg (35-46); iSTAT Art Bld Gas pH Corrected 7.462 (7.35-7.45); iSTAT Arterial Blood Gas HCO3 32 meg/L (19-24); iSTAT Arterial Blood Gas pCO2 46 mmHg (35-46); iSTAT Arterial Blood Gas pH 7.46 (7.35-7.45); iSTAT Arterial Blood Gas pO2 136 mmHg (80-95); iSTAT Arterial Blood Gas pO2 C 135; iSTAT Carbon Dioxide 34 mmol/L (24-31); iSTAT FiO2 80 %; iSTAT Hematocrit 32 % (37-47); iSTAT Hemoglobin 10.9 g/dl (12.0-16.0); iSTAT Potassium 2.8 mmol/L (3.3-5.0); iSTAT Site Art Line; iSTAT Sodium 142 mmol/L (135-144)
[2020-11-28 05:54] LABS: Albumin Globulin Ratio 0.4 (0.9-2); Albumin Level 1.8 gm/dl (3.4-5.0); BUN Creatinine Ratio 65.7 (10-20); Bilirubin,Total 0.4 mg/dl (0.2-1); Calcium 8.9 mg/dl (8.5-10.1); Creatinine Clr Calc Pharmacy 106.8 ml/min; Est GFR (African American) 119.3 ml/min; Globulin 4.4 gm/dl (2.5-4.0); Magnesium 2.8 mg/dl (1.8-2.4); Phosphorus 2.7 mg/dl (2.5-4.9); Potassium 2.9 mmol/L (3.5-5.1); Total Protein 6.2 gm/dl (6.4-8.2)
[2020-11-28] MEDS ORDERED: POTASSIUM CHLORIDE CRTAB 20 MEQ TABCR PO STA (05:57)
[2020-11-28] MEDS: POTASSIUM CHLORIDE / WTR 20 MEQ/100 ML PLCT IV SCH ×5 (06:36→20:12)
[2020-11-28] MEDS: ICU ELECTROLYTE REPLACEMENT PROTOCOL SCH ×2 (06:40→17:44)
--- NOTE | 2020-11-28 07:30 | XRay Report ---
XR chest 1V portable CLINICAL HISTORY: f/u COMPARISON STUDY: Chest radiograph November 27, 2020. FINDINGS: Tip of endotracheal tube is 9 mm above the gabino. Tip of nasogastric tube projects over th e pylorus. There is no pneumothorax or pleural effusion. Bilateral airspace opacities persist. Cardio mediastinal silhouette is stable. Left internal jugular central line remains in place. IMPRESSION: 1. Tip of endotracheal tube 9 mm above the gabino. 2. Persistent bilateral airspace opacities. 3. No pneumothorax. ACT 112: Negative or not required by law. Electronically signed by: Gokul Olson M.D. 11/28/2020 7:28 AM
[2020-11-28] MEDS ORDERED: POTASSIUM CHLORIDE / WTR 20 MEQ/100 ML PLCT IV SCH (07:45)
[2020-11-28] MEDS: POLYETHYLENE (MIRALAX) 17 GM PACK PO SCH (07:49)
[2020-11-28] MEDS: clonazePAM 1 MG TAB PO SCH ×2 (07:50→20:54)
[2020-11-28] MEDS: SENNOSIDES 8.8 MG/5 ML UDC PO SCH ×2 (07:50→20:56)
[2020-11-28] MEDS: FLUDROCORTISONE ACETATE 0.1 MG TAB PO SCH (07:50)
[2020-11-28] MEDS: THIAMINE HCL 100 MG TAB PO SCH (07:50)
[2020-11-28] MEDS: INSULIN GLARGINE SOLOSTAR 100 UNITS/ML 3 ML PEN SC SCH (07:51)
[2020-11-28] MEDS: MULTI VIT W/MINERALS LIQUID 15 ML UDP NG SCH (07:51)
[2020-11-28] MEDS: METHADONE HCL 5 MG TAB PO SCH (08:07)
[2020-11-28] MEDS: LACTULOSE SYRUP 20 GM/30 ML UDC PO SCH ×2 (08:11→20:55)
--- NOTE | 2020-11-28 08:14 | Critical Care Progress Note ---
Date of Service November 28, 2020 Assessment & Plan (1) Acute hypoxemic respiratory failure: Impression: 70-year-old female presented to the hospital 11/15/2020 with Covid pneumonia. Was transferred to the ICU shortly thereafter. She was intubated 11/20/2020. Her course has been complicated by pneumomediastinum and subcutaneous emphysema. 24-hour events: Versed and fentanyl drips discontinued. On fentanyl pushes. Precedex started. Transition to oral Klonopin and methadone. She is agitated and tachypneic this morning. He continues relatively high vent settings at an FiO2 of 60% and PEEP of 10. Recommendations: Neuro: Currently on oral methadone and clonazepam as well as pushes of fentanyl and Versed. Precedex titrating up. Resp: Acute hypoxic respiratory failure secondary to Covid pneumonia. Completed full dose of steroids including late-phase ARDS dexamethasone. She is completed trials of proning and neuromuscular blockade. She continues to have significant oxygen requirement. Vent day #9. Will consent the patient's spouse for bedside percutaneous dilatation of tracheostomy today or tomorrow. Hold Lovenox and tube feeding. CV: Hypotension now resolved with treatment of relative adrenal insufficiency. Back on pressors. She may have been over diuresed yesterday. We will give her some albumin support today. Fluids/Renal: Holding diuretics today given need for pressors. Blood gas shows persistent metabolic alkalosis. Will give additional Diamox for her metabolic alkalosis ID: Respiratory culture growing 2 species staph. Currently on vancomycin and ertapenem. Sensitivity on 1 species shows sensitivity to oxacillin and vancomycin but resistant to erythromycin and clindamycin. Transition to Rocephin and discontinue Vanco and ertapenem and follow clinically GI/Nutrition: High residuals this morning. Will hold tube feeds for 2 hours and then restart. May benefit from a prokinetic agent so we will start oral erythromycin. Continue methylnaltrexone and senna. Increase lactulose. May need PEG tube if unable to wean off the ventilator. Heme: Mild anemia. Continue to trend. No evidence of acute blood loss. No indication for transfusion currently. Continue DVT prophylaxis. Endocrine: ICU hyperglycemia protocol Vascular access: Left internal jugular CVC, left radial arterial line Code Status: Full code Prophylaxis: Lovenox to 40 mg once daily, hold for trach. Pepcid Total of 44 minutes in critical care time was spent evaluation management stabilization this patient including discussion with bedside ICU nurse, respiratory therapist, and multidisciplinary rounds. will be updated by phone today. He is agreeable to trach and Peg if needed. (2) Pneumomediastinum: Admission and Anticipated Discharge Date Admission Date: November 14, 2020 Subjective intubated and sedated Review of Systems Review of Systems: Unobtainable due to endotracheal tube Physical Exam Constitutional: + mechanically ventilated intubated and sedated Eyes: PERRL, conjunctivae normal, anicteric sclerae ENMT: external ear and nose normal, oropharynx normal Neck: trachea midline, no thyromegaly Respiratory: normal respiratory effort Auscultation: + rales, + rhonchi and + wheezes Cardiovascular: RRR, no murmur, no edema Gastrointestinal (Abdomen): normal bowel sounds, soft, nontender, no hepatosplenomegaly Musculoskeletal: Extremities: extremities normal to inspection Skin: no rashes, warm and dry Neurologic: sedated Lymphatic: no cervical lymphadenopathy Results & Data Results & Data ([facility]) Vital Signs (Past 12 Hours) Vital Signs Temp Pulse Resp BP Pulse Ox 11/28/20 07:02 78 27 H 95 11/28/20 05:22 56 L 22 98 11/28/20 05:00 36.9 C 68 135/79 98 11/28/20 04:30 37.0 C 55 L 22 98 11/28/20 04:00 37.0 C 69 25 H 106/64 98 11/28/20 03:30 37.0 C 72 25 H 98 11/28/20 03:00 37.1 C 76 29 H 125/73 96 11/28/20 02:30 37.1 C 56 L 21 97 11/28/20 02:00 37.0 C 57 L 22 119/69 97 11/28/20 01:39 86 37 H 87 L 11/28/20 01:30 37.0 C 82 90 11/28/20 01:11 37.1 C 59 L 102/63 94 11/28/20 01:00 37.1 C 65 94 11/28/20 00:30 37.1 C 62 22 96 11/28/20 00:00 37.2 C 64 22 109/68 98 11/27/20 23:30 37.5 C 81 24 98 11/27/20 23:00 37.6 C H 63 19 80/46 L 92 11/27/20 22:30 37.6 C H 63 24 129/81 96 11/27/20 22:26 65 26 H 95 11/27/20 22:00 37.6 C H 66 23 98 11/27/20 21:30 37.6 C H 67 24 84/49 L 96 11/27/20 21:11 37.6 C H 63 84/49 L 93 11/27/20 21:00 37.6 C H 64 23 92 11/27/20 20:30 37.5 C 98 H 43 H 90/54 L 83 L Critical Care Results & Data Vital Signs (Past 12 Hours) Vital Signs Temp Pulse Resp BP Pulse Ox 11/28/20 07:02 78 27 H 95 11/28/20 05:22 56 L 22 98 11/28/20 05:00 36.9 C 68 135/79 98 11/28/20 04:30 37.0 C 55 L 22 98 11/28/20 04:00 37.0 C 69 25 H 106/64 98 11/28/20 03:30 37.0 C 72 25 H 98 11/28/20 03:00 37.1 C 76 29 H 125/73 96 11/28/20 02:30 37.1 C 56 L 21 97 11/28/20 02:00 37.0 C 57 L 22 119/69 97 11/28/20 01:39 86 37 H 87 L 11/28/20 01:30 37.0 C 82 90 11/28/20 01:11 37.1 C 59 L 102/63 94 11/28/20 01:00 37.1 C 65 94 11/28/20 00:30 37.1 C 62 22 96 11/28/20 00:00 37.2 C 64 22 109/68 98 11/27/20 23:30 37.5 C 81 24 98 11/27/20 23:00 37.6 C H 63 19 80/46 L 92 11/27/20 22:30 37.6 C H 63 24 129/81 96 11/27/20 22:26 65 26 H 95 11/27/20 22:00 37.6 C H 66 23 98 11/27/20 21:30 37.6 C H 67 24 84/49 L 96 11/27/20 21:11 37.6 C H 63 84/49 L 93 11/27/20 21:00 37.6 C H 64 23 92 11/27/20 20:30 37.5 C 98 H 43 H 90/54 L 83 L Lab & Micro Results (Past 24 Hours) RBC 3.64 M/uL (4.2-5.4) L 11/28/20 WBC 16.43 K/uL (4.8-10.8) H 11/28/20 Hgb 10.8 g/dL (12.0-16.0) L 11/28/20 Hct 33.7 % (37-47) L 11/28/20 MCV 92.6 fL (80-100) 11/28/20 MCH 29.7 pg (25-34) 11/28/20 MCHC 32.0 g/dL (32-36) 11/28/20 RDW Standard Deviation 46.8 fL (36.4-46.3) H 11/28/20 RDW Coefficient of Variation 14.3 % (11.5-14.5) 11/28/20 Plt Count 373 K/uL (130-400) 11/28/20 MPV 9.8 fL (7.4-10.4) 11/28/20 Neutrophils (%) (Auto) 88.8 % 11/28/20 Lymphocytes (%) (Auto) 6.0 % 11/28/20 Monocytes # (Auto) 0.70 K/uL (0.11-0.59) H 11/28/20 Eosinophils # (Auto) 0.01 K/uL (0-0.5) 11/28/20 Immature Granulocyte % (Auto) 0.7 % 11/28/20 Neutrophils # (Auto) 14.61 K/uL (1.4-6.5) H 11/28/20 Lymphocytes # (Auto) 0.99 K/uL (1.2-3.4) L 11/28/20 Monocytes # (Auto) 0.70 K/uL (0.11-0.59) H 11/28/20 Eosinophils # (Auto) 0.01 K/uL (0-0.5) 11/28/20 Basophils # (Auto) 0.01 K/uL (0-0.2) 11/28/20 Immature Granulocyte # (Auto) 0.11 K/uL (0.00-0.02) H 11/28/20 Na 141 mmol/L (136-145) 11/28/20 K 2.9 mmol/L (3.5-5.1) L 11/28/20 Cl 106 mmol/L (98-107) 11/28/20 CO2 31 mmol/L (21-32) 11/28/20 Anion Gap 4.0 (3-11) 11/28/20 BUN 29 mg/dl (7-18) H 11/28/20 Creatinine 0.45 mg/dl (0.6-1.2) L 11/28/20 Estimated GFR ( Amer) 119.3 ml/min 11/28/20 Estimated GFR (Non-Af Amer) 103.0 ml/min 11/28/20 BUN/Creatinine Ratio 65.7 (10-20) H 11/28/20 Glu 139 mg/dl (70-99) H 11/28/20 Ca 8.9 mg/dl (8.5-10.1) 11/28/20 Phosphorus Level 2.7 mg/dl (2.5-4.9) 11/28/20 Total Bilirubin 0.4 mg/dl (0.2-1) 11/28/20 AST 11 U/L (15-37) L 11/28/20 ALT 31 U/L (12-78) 11/28/20 Alkaline Phosphatase 71 U/L (45-117) 11/28/20 TP 6.2 gm/dl (6.4-8.2) L 11/28/20 Albumin 1.8 gm/dl (3.4-5.0) L 11/28/20 Globulin 4.4 gm/dl (2.5-4.0) H 11/28/20 Albumin/Globulin Ratio 0.4 (0.9-2) L 11/28/20 Mg 2.8 mg/dl (1.8-2.4) H 11/28/20 04:59 11/28/20 Calcium Level 8.9 mg/dl (8.5-10.1) 11/28/20 04:59 11/28/20 Maco Test NA 11/28/20 05:28 11/28/20 Microbiology 11/26/20 11:15 Gram Stain - Final Sputum,Vent Suction Sputum Culture - Preliminary Staphylococcus aureus Staphylococcus species#2 Diagnostic Findings (Past 24 Hours) Chest X-Ray 11/27/20 07:00 XR chest 1V portable HISTORY: Respiratory failure. COMPARISON: 11/26/2020. FINDINGS: The endotracheal tube is unchanged in position and terminates 1.4 cm from the gabino. Nasogastric tube is located within the distal stomach. A left jugular central venous catheter terminates at the proximal SVC. The heart remains mildly enlarged. Scattered peripheral bilateral airspace opacities remain unchanged. There is a trace right pleural effusion. No pneumothorax. Subcutaneous emphysema at the upper chest has improved. IMPRESSION: 1. Satisfactory support line placement. The endotracheal tube terminates 14 mm from the gabino. 2. No change in the bilateral peripheral airspace opacities. ACT 112: Negative or not required by law. Electronically signed by: Sha Martinez M.D. 11/27/2020 8:16 AM Chest X-Ray 11/28/20 07:00 XR chest 1V portable CLINICAL HISTORY: f/u COMPARISON STUDY: Chest radiograph November 27, 2020. FINDINGS: Tip of endotracheal tube is 9 mm above the gabino. Tip of nasogastric tube projects over the pylorus. There is no pneumothorax or pleural effusion. Bilateral airspace opacities persist. Cardiomediastinal silhouette is stable. Left internal jugular central line remains in place. IMPRESSION: 1. Tip of endotracheal tube 9 mm above the gabino. 2. Persistent bilateral airspace opacities. 3. No pneumothorax. ACT 112: Negative or not required by law. Electronically signed by: Gokul Olson M.D. 11/28/2020 7:28 AM I & O Totals 24 Hours 11/27/20 11/28/20 11/29/20 06:59 06:59 06:59 Intake Total 3212.563 / 3212.563 3384.311 / 3384.311 61.667 / 61.667 Output Total 2200 / 2200 4245 / 4245 Balance 1012.563 / 1012.563 -860.689 / -860.689 61.667 / 61.667 Cumulative 11/14/20 11:53 thru 11/28/20 07:50 Intake Total 59478.019 Output Total 64801 Balance 169.019 RT Ventilator Mngmt (Last Documented) Ventilator Ordered Settings Ventilator Support Mode Assist Control 11/28/20 07:02 Respiratory Rate 27 11/28/20 07:02 Ventilator Tidal Volume 325 11/28/20 07:02 Setting Minute Ventilation 8.6 11/28/20 07:02 Positive End Expiratory 10 11/28/20 07:02 Pressure Fraction of Inspired Oxygen 60 11/28/20 07:02 Peak Inspiratory Flow 35 11/22/20 15:47 Machine Comment Set inspiratory time=0.75 seconds 11/28/20 05:22 Ventilator - PT Measurements Respiratory Rate 27 Exhaled Tidal Volume 330 Minute Ventilation 8.6 Peak Inspiratory Airway 16 Pressure Mean Airway Pressure 10 Plateau Pressure 12 Respiratory Cycle Inspiratory: 1:2.4 Expiratory Ratio Inspiratory Phase Time 0.75 End-Tidal CO2 28 Static Lung Compliance 165.00 Dynamic Lung Compliance 55.00 Normal Static Lung Compliance 49.00 Patient Measurements Comment PEEP weaned to 10, FiO2 to 70% post ABG per low PEEP/high FiO2 ARDSnet protocol. Coding Level of Care Code Critical Care 1st 30-74 mins Diagnoses Acute hypoxemic respiratory failure J96.01 Pneumomediastinum J98.2 Time Spent (min) 50
[2020-11-28] MEDS ORDERED: MIDAZOLAM HCL 1 MG/ML 2ML VIAL IV STA (08:15)
[2020-11-28] MEDS ORDERED: MIDAZOLAM HCL 1 MG/ML 2ML VIAL ONE (08:16)
[2020-11-28] MEDS: ALBUMIN 25% 12.5 GM/50 ML VIAL IV SCH ×4 (08:54→11:11)
[2020-11-28] MEDS ORDERED: FAMOTIDINE 20 MG TAB PO SCH (09:00)
[2020-11-28] MEDS ORDERED: ENOXAPARIN INJ 40 MG/0.4 ML SYR SQ SCH (09:00)
[2020-11-28] MEDS: cefTRIAXone SODIUM 1,000 MG in DEXTROSE 5% 50 ML IV SCH (09:02)
[2020-11-28] MEDS ORDERED: METHYLNALTREXONE BROMIDE 12 MG/0.6 ML VIAL SQ SCH (10:00)
[2020-11-28] MEDS: MIDAZOLAM HCL 1 MG/ML 2ML VIAL IV PRN ×4 (10:27→22:29)
[2020-11-28] MEDS ORDERED: RAPID SEQUENCE INDUCTION BAG ONE (11:33)
--- NOTE | 2020-11-28 12:01 | Procedure Note ---
Procedure Note Date of Service November 28, 2020 Procedure: 1. Emergent endotracheal intubation 2. Bronchoscopy to clear airways Provider: Dave Harvey MD Consent: Procedure was emergent. Patient unable to provide consent. Estimated blood loss: 3 mL Specimens: None Anesthesia: 50 mcg fentanyl, 2 mg Versed, and 40 mg of etomidate Notified by nursing staff that the patient self extubated. I presented immediately to the room to find the patient being ventilated by respiratory therapy using [id number] ventilation. Her oxygen saturations were in the mid 80% range but improving with effective BVM. Decision was made to proceed with urgent reintubation. The patient received 40 mg of IV etomidate. [id number] ventilation was conducted. A 7.5 endotracheal tube was loaded onto the stiff stylette. Video laryngoscopy was performed using a 4.5 glide scope. Cords were visualized and found to be edematous. Under direct visualization, the tube was passed through the vocal cords. There was significant vocal cord edema and swelling and the tube was snug. Once the tube was in place the balloon was inflated. The patient then vomited however this was after the airway was secured. The airway was suctioned and the patient attached to the ventilator. Tube misting bilateral breath sounds and end-tidal CO2 were detected. The tube was placed at 23 cm at the lip based on prior studies. I elected to proceed with bronchoscopy to verify tube placement and to exclude any particulate matter with the patient's episode of vomiting. The disposable bronchoscope was then attached to the video monitor and advanced through the existing endotracheal tube via the Bodai adapter. The tube was entering into the right mainstem and was withdrawn 4 cm to 25 at the teeth. At that position, it appeared to be about 2 cm above the gabino. There were bloody secretions noted exterior to the tube. No significant particulate matter was identified in the airway. There was significant granulation tissue noted just superior to the takeoff of the right mainstem bronchus with a small area of ulceration. This was not actively bleeding and no biopsies were taken. This was likely secondary to endotracheal tube trauma. The tube was positioned well above this area of mucosal irritation. The scope was then withdrawn with the patient being maintained on the ventilator. Oxygen saturations were stable throughout the procedure. The orogastric tube will be replaced and verified via radiographic studies. Plan to proceed with percutaneous dilatation of tracheostomy tomorrow. Coding CPT Codes Pulmonary/Thoracic - Pulmonary and Thoracic: 91254 Bronchoscopy, clear airways ([id number]) Resuscitation - Resuscitation: 30355 Endotracheal Intubation, emergency ([id number]) [facility] [place] Procedure Codes (Charges) Pulmonary/Thoracic Procedure 2: Pulmonary and Thoracic: 43232 Bronchoscopy, clear airways Resuscitation Resuscitation: 50880 Endotracheal Intubation, emergency
--- NOTE | 2020-11-28 12:26 | XRay Report ---
XR chest 1V portable CLINICAL HISTORY: Respiratory failure COMPARISON STUDY: 11/28/2020 FINDINGS: There is an endotracheal tube 3 cm above the gabino. There is a left internal jugular centr al venous catheter unchanged in position. There is an enteric tube which appears to terminate within the distal esophagus. There are persistent bilateral pulmonary airspace opacities with a peripheral d istribution. There is subcutaneous gas within the neck. Trace pneumomediastinum not excluded.[ IMPRESSION: 1. Endotracheal tube 3 cm above the gabino 2. Enteric tube with its tip in the distal esophagus 3. Persistent bilateral pulmonary airspace opacities ACT 112: Negative or not required by law. Electronically signed by: Lenard Bolaños M.D. 11/28/2020 12:25 PM
--- NOTE | 2020-11-28 12:27 | XRay Report ---
XR chest 1V portable CLINICAL HISTORY: Chest x-ray status post orogastric tube placement COMPARISON STUDY: Earlier in the day FINDINGS: r the endotracheal tube is 26 mm above the gabino. There is a left internal jugular central venous catheter unchanged in position. The enteric tube is been advanced and the tip now projects at the stomach. There are persistent bilateral pulmonary airspace opacities with a peripheral distribut ion. There are some is gas within the neck. Trace pneumomediastinum is suspected.[ IMPRESSION: 1. Interval advancement of the enteric tube which is now positioned within the stomach ACT 112: Negative or not required by law. Electronically signed by: Lenard Bolaños M.D. 11/28/2020 12:26 PM
[2020-11-28 16:37] LABS: Calcium 9.1 mg/dl (8.5-10.1); Creatinine Clr Calc Pharmacy 114.5 ml/min; Est GFR (African American) 122.1 ml/min; Est GFR (Non-African American) 105.3 ml/min; Potassium 3.5 mmol/L (3.5-5.1)
--- NOTE | 2020-11-28 18:05 | Hospitalist Progress Note ---
Date of Service November 28, 2020 Assessment & Plan (1) Pneumonia due to COVID-19 virus: Acute respiratory failure with hypoxia COVID-19 pneumonia- multifocal Pneumomediastinum -CTA:There is no evidence of pulmonary embolus in the main, lobar, or segmental pulmonary arteries. Multifocal groundglass consolidation is seen throughout both lungs and consistent with the reported history of a viral pneumonia. Radiographic follow-up to resolution is recommended. Moderate hiatal hernia. Hepatic steatosis. -Continue IV Solu-Medrol, bronchodilators Intubated on 11/20/20 Neuromuscular blockade discontinued Continue supplemental oxygen Blood/Urine Cx: No growth Sputum Cx: Staph Appreciate administration professional input Diuretics as needed Was on Lovenox for DVT prophylaxis Completed a full dose of steroids IV Vancomycin, Meropenem > transition to Ceftriaxone On tube feeds Off pressors On Precedex drip Plan for tracheostomy Prediabetes HbA1c 5.9 Continue insulin therapy as needed for hyperglycemia Monitor BGs . (2) Hyponatremia: Sodium levels:131>129>135>143 Monitor BMP on IV fluids (3) Fatty liver: Elevated Transaminases last US of liver 09/2019 diffuse increased heterogeneous liver and fatty filtrati on. Avoid hepatotoxic agents as able (4) DVT prophylaxis: Lovenox SQ--on Hold for Tracheostomy Code Status FULL CODE Admission and Anticipated Discharge Date Admission Date: November 14, 2020 Subjective Patient is seen and examined at bedside Remains sedated and intubated Off pressors Self extubated, got reintubated On Precedex drip Also on tube feeds Plan for tracheostomy tomorrow Review of Systems Review of Systems: Unobtainable due to endotracheal tube Physical Exam Physical Exam: Physical Exam: Vitals signs as noted above General Appearance:Moderately built and nourished, Sedated and Intubated Head: normocephalic, Atraumatic Eyes: normal inspection, EOMI Neck: supple, Trachea midline Respiratory/Chest: Decreased breath sounds, CTA Cardiovascular: S1, S2, No murmur Abdomen/GI:Soft, Non tender, Bowel sounds present Extremities/Musculoskeletal:normal inspection, no edema Neurologic/Psych:Sedated and Intubated, Could not perform exam Skin: normal color, warm Results & Data Results & Data ([facility]) Vital Signs (Past 12 Hours) Vital Signs Temp Pulse Resp BP Pulse Ox Pulse Ox 11/28/20 16:30 36.6 C 98 H 95 11/28/20 16:11 36.5 C 86 155/91 H 93 11/28/20 16:00 36.4 C L 95 H 93 93 11/28/20 15:30 36.3 C L 71 93 11/28/20 15:11 36.3 C L 103 H 160/96 H 96 11/28/20 15:00 36.4 C L 105 H 99 11/28/20 14:30 36.5 C 49 L 99 11/28/20 14:11 36.5 C 48 L 137/72 99 11/28/20 14:00 36.5 C 51 L 99 11/28/20 13:30 36.7 C 57 L 98 11/28/20 13:11 36.8 C 59 L 119/72 98 11/28/20 13:00 36.8 C 60 98 11/28/20 12:30 36.6 C 85 98 11/28/20 12:12 36.6 C 90 98 11/28/20 12:11 36.6 C 93 H 161/99 H 98 11/28/20 12:00 36.7 C 84 95 11/28/20 11:30 36.5 C 125 H 94 11/28/20 11:11 36.3 C L 109 H 172/104 H 96 11/28/20 11:10 114 H 36 H 97 11/28/20 11:00 36.2 C L 108 H 98 11/28/20 10:30 36.3 C L 110 H 99 11/28/20 10:11 36.3 C L 57 L 137/75 99 11/28/20 10:00 36.3 C L 53 L 99 11/28/20 09:30 36.4 C L 58 L 98 11/28/20 09:11 36.4 C L 55 L 113/72 97 11/28/20 09:00 36.3 C L 65 96 11/28/20 08:30 36.3 C L 88 90 11/28/20 08:11 36.3 C L 103 H 149/80 H 91 11/28/20 08:00 36.3 C L 112 H 87 L 11/28/20 07:30 36.4 C L 95 H 93 11/28/20 07:11 36.4 C L 85 147/78 H 95 11/28/20 07:02 78 27 H 95 11/28/20 07:00 36.5 C 81 96 11/28/20 06:30 36.6 C 87 99 11/28/20 06:11 36.6 C 52 L 111/61 97 11/28/20 06:00 36.7 C 54 L 97 Laboratory Results Short CBC 11/28/20 Range/Units 04:59 WBC 16.43 H (4.8-10.8) K/uL Hgb 10.8 L (12.0-16.0) g/dL Hct 33.7 L (37-47) % Plt Count 373 (130-400) K/uL BMP 11/28/20 11/28/20 04:59 16:07 Sodium 141 143 Potassium 2.9 L D 3.5 D Chloride 106 110 H Carbon Dioxide 31 29 BUN 29 H 29 H Creatinine 0.45 L 0.42 L Glucose 139 H 120 H Calcium 8.9 9.1 Liver Function 11/28/20 Range/Units 04:59 Total Bilirubin 0.4 (0.2-1) mg/dl AST 11 L (15-37) U/L ALT 31 (12-78) U/L Alkaline Phosphatase 71 (45-117) U/L Albumin 1.8 L (3.4-5.0) gm/dl
[2020-11-28] MEDS: FAMOTIDINE 20 MG TAB PO SCH (20:55)
[2020-11-28] MEDS ORDERED: METOCLOPRAMIDE HCL INJ 5 MG/ML 2 ML VIAL IV SCH (21:00)
[2020-11-28] MEDS ORDERED: STAT IV Infusion **Titration per Protocol STA (22:21)
[2020-11-28] MEDS ORDERED: MIDAZOLAM HCL 125 MG/250 ML BAG IV PRN (22:21)
[2020-11-28] MEDS: MIDAZOLAM BOLUS FROM BAG IV PRN (23:20)
[2020-11-29] MEDS: HYDROCORTISONE SOD 50 MG in SYRINGE 0 ML IV SCH ×4 (00:35→17:55)
[2020-11-29] MEDS: MIDAZOLAM BOLUS FROM BAG IV PRN ×5 (00:40→05:57)
[2020-11-29] MEDS: INSULIN HUMAN REGULAR SC SCH ×4 (01:26→17:53)
[2020-11-29 03:08] LABS: iSTAT Art Bld Gas pCO2 Correct 39 mmHg (35-46); iSTAT Art Bld Gas pH Corrected 7.443 (7.35-7.45); iSTAT Arterial Blood Gas HCO3 27 meg/L (19-24); iSTAT Arterial Blood Gas pCO2 38 mmHg (35-46); iSTAT Arterial Blood Gas pH 7.45 (7.35-7.45); iSTAT Arterial Blood Gas pO2 69 mmHg (80-95); iSTAT Arterial Blood Gas pO2 C 71; iSTAT Carbon Dioxide 28 mmol/L (24-31); iSTAT FiO2 50 %; iSTAT Hematocrit 33 % (37-47); iSTAT Hemoglobin 11.2 g/dl (12.0-16.0); iSTAT Potassium 3.4 mmol/L (3.3-5.0); iSTAT Site Art Line; iSTAT Sodium 140 mmol/L (135-144)
[2020-11-29] MEDS: TUBE FEEDING WATER FLUSH OG SCH ×6 (04:41→20:30)
[2020-11-29 05:30] LABS: Basophils # (auto) 0.02 K/uL (0-0.2); Basophils % (auto) 0.1 %; Eosinophils # (auto) 0.09 K/uL (0-0.5); Eosinophils % (auto) 0.5 %; Hemoglobin 11.3 g/dL (12.0-16.0); Immature Granulocytes # (auto) 0.08 K/uL (0.00-0.02); Immature Granulocytes % (auto) 0.4 %; Lymphocytes # (auto) 1.24 K/uL (1.2-3.4); Lymphocytes % (auto) 6.9 %; Mean Corpuscular Hemoglobin 30.5 pg (25-34); Mean Corpuscular Hgb Conc 32.3 g/dL (32-36); Mean Corpuscular Volume 94.6 fL (80-100); Mean Platelet Volume 9.7 fL (7.4-10.4); Monocytes # (auto) 0.71 K/uL (0.11-0.59); Neutrophils # (auto) 15.74 K/uL (1.4-6.5); Neutrophils % (auto) 88.1 %; Platelet Count 372 K/uL (130-400); RDW Coefficient of Variation 14.5 % (11.5-14.5); RDW Standard Deviation 48.6 fL (36.4-46.3); White Blood Count 17.88 K/uL (4.8-10.8)
[2020-11-29 05:51] LABS: Albumin Level 2.7 gm/dl (3.4-5.0); BUN Creatinine Ratio 75.6 (10-20); Calcium 9.1 mg/dl (8.5-10.1); Creatinine Clr Calc Pharmacy 143.9 ml/min; Est GFR (African American) 132.1 ml/min; Magnesium 2.5 mg/dl (1.8-2.4); Potassium 3.4 mmol/L (3.5-5.1)
[2020-11-29 06:01] LABS: Albumin Globulin Ratio 0.7 (0.9-2); Bilirubin,Total 0.6 mg/dl (0.2-1); Phosphorus 1.7 mg/dl (2.5-4.9); Total Protein 6.7 gm/dl (6.4-8.2)
[2020-11-29] MEDS ORDERED: POTASSIUM PHOS 3 MMOL/1 ML INFUSION IV STA (06:31)
[2020-11-29] MEDS ORDERED: POTASSIUM PHOSPHATE 21 MMOL in SODIUM CHLORIDE 0.9% 500 ML IV ONE (07:00)
[2020-11-29] MEDS: POTASSIUM CHLORIDE / WTR 20 MEQ/100 ML PLCT IV SCH ×2 (07:03→09:37)
--- NOTE | 2020-11-29 07:30 | XRay Report ---
XR chest 1V portable HISTORY: Pneumonia. Respiratory distress. Follow-up. COMPARISON: Chest 11/28/2020. FINDINGS: Endotracheal tube terminates 2.1 cm from the gabino. Nasogastric tube terminates below the diaphragm. The tip is not included on this study. Left jugular central venous catheter terminates in the proximal SVC. This is also unchanged in position. No pneumothorax. No pleural effusions. Multifoc al peripheral airspace opacities are stable to slightly improved. There is persistent pneumomediastin um. IMPRESSION: 1. Stable to slight improvement in the multifocal airspace opacities. 2. Satisfactory support line placement. 3. Stable pneumomediastinum. ACT 112: Negative or not required by law. Electronically signed by: Sha Martinez M.D. 11/29/2020 7:29 AM
[2020-11-29] MEDS: NOREPINEPHRINE/D5W 8 MG/508 ML BAG IV SCH (07:40)
[2020-11-29] MEDS: INSULIN GLARGINE SOLOSTAR 100 UNITS/ML 3 ML PEN SC SCH (07:43)
[2020-11-29] MEDS: ICU ELECTROLYTE REPLACEMENT PROTOCOL SCH ×2 (07:56→15:46)
[2020-11-29] MEDS: METHADONE HCL 5 MG TAB PO SCH (07:59)
[2020-11-29] MEDS: FAMOTIDINE 20 MG TAB PO SCH ×2 (08:00→20:42)
[2020-11-29] MEDS: THIAMINE HCL 100 MG TAB PO SCH (08:00)
[2020-11-29] MEDS: MULTI VIT W/MINERALS LIQUID 15 ML UDP NG SCH (08:00)
[2020-11-29] MEDS: clonazePAM 1 MG TAB PO SCH ×2 (08:00→20:41)
[2020-11-29] MEDS: FLUDROCORTISONE ACETATE 0.1 MG TAB PO SCH (08:00)
[2020-11-29] MEDS: cefTRIAXone SODIUM 1,000 MG in DEXTROSE 5% 50 ML IV SCH (08:00)
[2020-11-29] MEDS ORDERED: VECURONIUM BROMIDE 10 MG VIAL IV STA (08:31)
[2020-11-29] MEDS ORDERED: STAT IV Infusion **Titration per Protocol STA (08:31)
[2020-11-29] MEDS ORDERED: MIDAZOLAM HCL 5 MG/ML 1 ML VIAL IV STA (08:31)
[2020-11-29] MEDS ORDERED: fentaNYL citrate 100 MCG/2 ML VIAL IV STA (08:31)
--- NOTE | 2020-11-29 08:32 | Critical Care Progress Note ---
Date of Service November 29, 2020 Assessment & Plan (1) Acute hypoxemic respiratory failure: Impression: 70-year-old female presented to the hospital 11/15/2020 with Covid pneumonia. Was transferred to the ICU shortly thereafter. She was intubated 11/20/2020. Her course has been complicated by pneumomediastinum and subcutaneous emphysema. 24-hour events: Some issues with sedation overnight. Self extubated yesterday afternoon, reintubated and bronchoscopy performed. Still high vent settings. TF on hold for PDT today. Recommendations: Neuro: Currently on oral methadone and clonazepam as well as pushes of fentanyl and Versed. Precedex being titrated as well. Will initiate propofol for PDT today but then anticipate we should be able to wean off relatively quickly. Discontinue methadone. Try Seroquel at night. Resp: Acute hypoxic respiratory failure secondary to Covid pneumonia. Completed full dose of steroids including late-phase ARDS dexamethasone. She is completed trials of proning and neuromuscular blockade. She continues to have significant oxygen requirement. Vent day #10. Plans for PDT this afternoon. Lovenox on hold. Check coagulation panel. Currently on PEEP of 10 and FiO2 60%. Peak airway pressures in the mid 20s. There was granulation tissue identified at the site of the previous endotracheal tube on repeat bronchoscopy. This should likely resolve on but will be reexamined today during the tracheostomy. Subcutaneous emphysema appears significantly improved. Persistent bilateral diffuse pulmonary infiltrates. CV: Hypotension now resolved with treatment of relative adrenal insufficiency. Back off pressors. Volume status appears reasonable currently. Fluids/Renal: Holding diuretics today given need for pressors. Blood gas shows persistent metabolic alkalosis. Will give additional Diamox for her metabolic alkalosis for 3 doses ID: Respiratory culture growing 2 species staph. Sensitivity on 1 species shows sensitivity to oxacillin and vancomycin but resistant to erythromycin and clindamycin. Day #3 antibiotics, currently Rocephin. White count slightly elevated today but fever curve better. Chest x-ray unchanged. Persistent high oxygen requirements. Continue to follow. GI/Nutrition: Tube feeds on hold for PDT. Were successful in bowel movements overnight. Will back off on lactulose and naltrexone as well as senna and hold additional Reglan Heme: Mild anemia. Continue to trend. No evidence of acute blood loss. No indication for transfusion currently. Continue DVT prophylaxis. Endocrine: ICU hyperglycemia protocol Vascular access: Left internal jugular CVC, left radial arterial line Code Status: Full code Prophylaxis: Lovenox to 40 mg once daily, hold for trach. Pepcid twice daily Disposition: Case management working on referrals to LTAC Total of 50 minutes in critical care time was spent evaluation management stabilization this patient including discussion with bedside ICU nurse, respiratory therapist, and multidisciplinary rounds. will be updated at bedside when available (2) Pneumomediastinum: Admission and Anticipated Discharge Date Admission Date: November 14, 2020 Subjective intubated and sedated Review of Systems Review of Systems: Unobtainable due to endotracheal tube Physical Exam Constitutional: + mechanically ventilated Eyes: PERRL, conjunctivae normal, anicteric sclerae ENMT: external ear and nose normal, oropharynx normal Neck: trachea midline, no thyromegaly Respiratory: normal respiratory effort Auscultation: + rales, + rhonchi and + wheezes Cardiovascular: RRR, no murmur, no edema Gastrointestinal (Abdomen): normal bowel sounds, soft, nontender, no hepatosplenomegaly Musculoskeletal: Extremities: extremities normal to inspection Skin: no rashes, warm and dry Lymphatic: no cervical lymphadenopathy Results & Data Results & Data ([facility]) Vital Signs (Past 12 Hours) Vital Signs Temp Pulse Resp BP Pulse Ox 11/29/20 07:39 34 H 11/29/20 06:30 37.2 C 110 H 91 11/29/20 06:11 37.1 C 106 H 176/97 H 94 11/29/20 06:00 37.1 C 110 H 94 11/29/20 05:30 37.2 C 100 H 94 11/29/20 05:11 37.2 C 99 H 142/77 H 91 11/29/20 05:00 37.2 C 93 H 91 11/29/20 04:30 37.3 C 94 H 93 11/29/20 04:11 37.4 C 106 H 166/95 H 93 11/29/20 04:00 37.4 C 103 H 92 11/29/20 03:30 37.5 C 109 H 92 11/29/20 03:11 37.5 C 106 H 159/85 H 91 11/29/20 03:00 37.5 C 99 H 25 H 91 11/29/20 02:30 37.4 C 101 H 92 11/29/20 02:12 37.3 C 90 11/29/20 02:11 37.3 C 161/95 H 90 11/29/20 02:00 37.2 C 104 H 95 11/29/20 01:30 36.9 C 103 H 96 11/29/20 01:12 36.8 C 93 H 95 11/29/20 01:11 36.8 C 91 H 150/79 H 95 11/29/20 01:00 36.7 C 76 94 11/29/20 00:39 36.5 C 96 H 147/83 H 99 11/29/20 00:30 36.5 C 54 L 98 11/29/20 00:11 36.5 C 53 L 96/54 L 96 11/29/20 00:00 36.6 C 54 L 90 11/28/20 23:30 36.7 C 61 89 L 11/28/20 23:14 95 H 34 H 92 11/28/20 23:11 36.8 C 107 H 151/102 H 92 11/28/20 23:00 36.9 C 106 H 91 11/28/20 22:41 37.0 C 104 H 170/92 H 92 11/28/20 22:30 37.0 C 112 H 175/95 H 93 11/28/20 22:11 37.0 C 112 H 212/116 H 93 11/28/20 22:00 37.1 C 112 H 92 11/28/20 21:30 37.2 C 104 H 94 11/28/20 21:12 37.2 C 100 H 92 11/28/20 21:11 37.2 C 100 H 164/89 H 92 11/28/20 21:00 37.2 C 104 H 90 Critical Care Results & Data Vital Signs (Past 12 Hours) Vital Signs Temp Pulse Resp BP Pulse Ox 11/29/20 07:39 34 H 11/29/20 06:30 37.2 C 110 H 91 11/29/20 06:11 37.1 C 106 H 176/97 H 94 11/29/20 06:00 37.1 C 110 H 94 11/29/20 05:30 37.2 C 100 H 94 11/29/20 05:11 37.2 C 99 H 142/77 H 91 11/29/20 05:00 37.2 C 93 H 91 11/29/20 04:30 37.3 C 94 H 93 11/29/20 04:11 37.4 C 106 H 166/95 H 93 11/29/20 04:00 37.4 C 103 H 92 11/29/20 03:30 37.5 C 109 H 92 11/29/20 03:11 37.5 C 106 H 159/85 H 91 11/29/20 03:00 37.5 C 99 H 25 H 91 11/29/20 02:30 37.4 C 101 H 92 11/29/20 02:12 37.3 C 90 11/29/20 02:11 37.3 C 161/95 H 90 11/29/20 02:00 37.2 C 104 H 95 11/29/20 01:30 36.9 C 103 H 96 11/29/20 01:12 36.8 C 93 H 95 11/29/20 01:11 36.8 C 91 H 150/79 H 95 11/29/20 01:00 36.7 C 76 94 11/29/20 00:39 36.5 C 96 H 147/83 H 99 11/29/20 00:30 36.5 C 54 L 98 11/29/20 00:11 36.5 C 53 L 96/54 L 96 11/29/20 00:00 36.6 C 54 L 90 11/28/20 23:30 36.7 C 61 89 L 11/28/20 23:14 95 H 34 H 92 11/28/20 23:11 36.8 C 107 H 151/102 H 92 11/28/20 23:00 36.9 C 106 H 91 11/28/20 22:41 37.0 C 104 H 170/92 H 92 11/28/20 22:30 37.0 C 112 H 175/95 H 93 11/28/20 22:11 37.0 C 112 H 212/116 H 93 11/28/20 22:00 37.1 C 112 H 92 11/28/20 21:30 37.2 C 104 H 94 11/28/20 21:12 37.2 C 100 H 92 11/28/20 21:11 37.2 C 100 H 164/89 H 92 11/28/20 21:00 37.2 C 104 H 90 Lab & Micro Results (Past 24 Hours) RBC 3.70 M/uL (4.2-5.4) L 11/29/20 WBC 17.88 K/uL (4.8-10.8) H 11/29/20 Hgb 11.3 g/dL (12.0-16.0) L 11/29/20 Hct 35.0 % (37-47) L 11/29/20 MCV 94.6 fL (80-100) 11/29/20 MCH 30.5 pg (25-34) 11/29/20 MCHC 32.3 g/dL (32-36) 11/29/20 RDW Standard Deviation 48.6 fL (36.4-46.3) H 11/29/20 RDW Coefficient of Variation 14.5 % (11.5-14.5) 11/29/20 Plt Count 372 K/uL (130-400) 11/29/20 MPV 9.7 fL (7.4-10.4) 11/29/20 Neutrophils (%) (Auto) 88.1 % 11/29/20 Lymphocytes (%) (Auto) 6.9 % 11/29/20 Monocytes # (Auto) 0.71 K/uL (0.11-0.59) H 11/29/20 Eosinophils # (Auto) 0.09 K/uL (0-0.5) 11/29/20 Immature Granulocyte % (Auto) 0.4 % 11/29/20 Neutrophils # (Auto) 15.74 K/uL (1.4-6.5) H 11/29/20 Lymphocytes # (Auto) 1.24 K/uL (1.2-3.4) 11/29/20 Monocytes # (Auto) 0.71 K/uL (0.11-0.59) H 11/29/20 Eosinophils # (Auto) 0.09 K/uL (0-0.5) 11/29/20 Basophils # (Auto) 0.02 K/uL (0-0.2) 11/29/20 Immature Granulocyte # (Auto) 0.08 K/uL (0.00-0.02) H 11/29/20 Na 137 mmol/L (136-145) 11/29/20 K 3.4 mmol/L (3.5-5.1) L 11/29/20 Cl 105 mmol/L (98-107) 11/29/20 CO2 29 mmol/L (21-32) 11/29/20 Anion Gap 3.0 (3-11) 11/29/20 BUN 25 mg/dl (7-18) H 11/29/20 Creatinine 0.33 mg/dl (0.6-1.2) L 11/29/20 Estimated GFR ( Amer) 132.1 ml/min 11/29/20 Estimated GFR (Non-Af Amer) 114.0 ml/min 11/29/20 BUN/Creatinine Ratio 75.6 (10-20) H 11/29/20 Glu 141 mg/dl (70-99) H 11/29/20 Ca 9.1 mg/dl (8.5-10.1) 11/29/20 Phosphorus Level 1.7 mg/dl (2.5-4.9) L 11/29/20 Total Bilirubin 0.6 mg/dl (0.2-1) 11/29/20 AST 13 U/L (15-37) L 11/29/20 ALT 27 U/L (12-78) 11/29/20 Alkaline Phosphatase 70 U/L (45-117) 11/29/20 TP 6.7 gm/dl (6.4-8.2) 11/29/20 Albumin 2.7 gm/dl (3.4-5.0) L 11/29/20 Globulin 4.0 gm/dl (2.5-4.0) 11/29/20 Albumin/Globulin Ratio 0.7 (0.9-2) L 11/29/20 Mg 2.5 mg/dl (1.8-2.4) H 11/29/20 05:10 11/29/20 Calcium Level 9.1 mg/dl (8.5-10.1) 11/29/20 05:10 11/29/20 Maco Test NA 11/29/20 02:53 11/29/20 Microbiology 11/26/20 11:15 Gram Stain - Final Sputum,Vent Suction Sputum Culture - Final Staphylococcus aureus Staphylococcus aureus#2 Diagnostic Findings (Past 24 Hours) Chest X-Ray 11/28/20 12:02 XR chest 1V portable CLINICAL HISTORY: Respiratory failure COMPARISON STUDY: 11/28/2020 FINDINGS: There is an endotracheal tube 3 cm above the gabino. There is a left internal jugular central venous catheter unchanged in position. There is an enteric tube which appears to terminate within the distal esophagus. There are persistent bilateral pulmonary airspace opacities with a peripheral distribution. There is subcutaneous gas within the neck. Trace pneumomediastinum not excluded.[ IMPRESSION: 1. Endotracheal tube 3 cm above the gabino 2. Enteric tube with its tip in the distal esophagus 3. Persistent bilateral pulmonary airspace opacities ACT 112: Negative or not required by law. Electronically signed by: Lenard Bolaños M.D. 11/28/2020 12:25 PM Chest X-Ray 11/28/20 12:16 XR chest 1V portable CLINICAL HISTORY: Chest x-ray status post orogastric tube placement COMPARISON STUDY: Earlier in the day FINDINGS: r the endotracheal tube is 26 mm above the gabino. There is a left internal jugular central venous catheter unchanged in position. The enteric tube is been advanced and the tip now projects at the stomach. There are persistent bilateral pulmonary airspace opacities with a peripheral distribution. There are some is gas within the neck. Trace pneumomediastinum is suspected.[ IMPRESSION: 1. Interval advancement of the enteric tube which is now positioned within the stomach ACT 112: Negative or not required by law. Electronically signed by: Lenard Bolaños M.D. 11/28/2020 12:26 PM Chest X-Ray 11/29/20 07:00 XR chest 1V portable HISTORY: Pneumonia. Respiratory distress. Follow-up. COMPARISON: Chest 11/28/2020. FINDINGS: Endotracheal tube terminates 2.1 cm from the gabino. Nasogastric tube terminates below the diaphragm. The tip is not included on this study. Left jugular central venous catheter terminates in the proximal SVC. This is also unchanged in position. No pneumothorax. No pleural effusions. Multifocal peripheral airspace opacities are stable to slightly improved. There is persistent pneumomediastinum. IMPRESSION: 1. Stable to slight improvement in the multifocal airspace opacities. 2. Satisfactory support line placement. 3. Stable pneumomediastinum. ACT 112: Negative or not required by law. Electronically signed by: Sha Martinez M.D. 11/29/2020 7:29 AM I & O Totals 24 Hours 11/28/20 11/29/20 11/30/20 06:59 06:59 06:59 Intake Total 3384.311 / 3388.919 1428.184 / 2428.184 1037.418 / 1037.418 Output Total 4245 / 4245 3273 / 3273 Balance -860.689 / -856.081 -1844.816 / -525.462 7542.418 / 1037.418 Cumulative 11/14/20 11:53 thru 11/29/20 07:36 Intake Total 37107.954 Output Total 52857 Balance -700.046 RT Ventilator Mngmt (Last Documented) Ventilator Ordered Settings Ventilator Support Mode Assist Control 11/29/20 07:39 Respiratory Rate 34 11/29/20 07:39 Ventilator Tidal Volume 325 11/29/20 07:39 Setting Minute Ventilation 9.7 11/29/20 07:39 Positive End Expiratory 10 11/29/20 07:39 Pressure Fraction of Inspired Oxygen 50 11/29/20 07:39 Peak Inspiratory Flow 35 11/22/20 15:47 Machine Comment Set inspiratory time=0.75 seconds 11/28/20 05:22 Ventilator - PT Measurements Respiratory Rate 34 Exhaled Tidal Volume 402 Minute Ventilation 9.7 Peak Inspiratory Airway 24 Pressure Mean Airway Pressure 11 Plateau Pressure 18.9 Respiratory Cycle Inspiratory: 1:6.0 Expiratory Ratio Inspiratory Phase Time 0.75 End-Tidal CO2 31 Static Lung Compliance 45.17 Dynamic Lung Compliance 28.71 Normal Static Lung Compliance 47.00 Patient Measurements Comment PEEP weaned to 10, FiO2 to 70% post ABG per low PEEP/high FiO2 ARDSnet protocol. Coding Level of Care Code Critical Care 1st 30-74 mins Diagnoses Acute hypoxemic respiratory failure J96.01 Pneumomediastinum J98.2 Time Spent (min) 50
[2020-11-29] MEDS: propofoL 1,000 MG/100 ML VIAL IV SCH ×3 (08:41→20:41)
[2020-11-29] MEDS: DEXMEDETOMIDINE HCL 400 MCG in 0.9 % SODIUM CHLORIDE 96 ML IV SCH ×2 (08:41→08:59)
[2020-11-29 09:14] LABS: Prothrombin Time 10.1 Seconds (9.0-12.0)
[2020-11-29] MEDS: acetaZOLAMIDE 250 MG TAB PO SCH ×2 (09:37→20:41)
[2020-11-29] MEDS: SENNOSIDES 8.8 MG/5 ML UDC PO SCH (11:00)
[2020-11-29] MEDS: POLYETHYLENE (MIRALAX) 17 GM PACK PO SCH (11:00)
[2020-11-29] MEDS: LACTULOSE SYRUP 20 GM/30 ML UDC PO SCH (11:01)
--- NOTE | 2020-11-29 12:05 | Pharmacy Report ---
Pharmacy Glycemic Short Note 2 - Date of Service November 29, 2020 - Glycemic Short BSG Results (Last 24 hours): 11/28/20 11/28/20 11/28/20 12:35 16:07 17:28 Glucose 120 H POC Glucose 145 H 125 H 11/29/20 11/29/20 11/29/20 00:55 00:59 05:10 Glucose 141 H POC Glucose 158 H 136 H 11/29/20 11/29/20 07:39 11:40 Glucose POC Glucose 143 H 133 H OUTPATIENT ANTIDIABETIC REGIMEN: * N/A * a1C = 5.9% on 11/16/20 indicating "pre-diabetes" ASSESSMENT: 11/29: * Patient received a total of 14 units of insulin yesterday * Of note, patient self extubated yesterday and reintubated. TFs held during that time and held again today for procedure. Patient's BSGs remain well controlled and stable. Will continue current regimen. 11/27: * Patient received a total of 7 units insulin yesterday * BSGs remain within goal, but are trending up. Will add low dose basal insulin and conservatively tighten novolog. 11/25 * Patient received total of 17 units of insulin yesterday * BSG this AM 110 mg/dL - will hold basal insulin as steroids now stopped * Plan to loosen CF/CR later today as I anticipate BSGs to trend down with steroids stopping 11/24 * Patient received total of 23 units of insulin yesterday, of which 6 units were basal insulin * Fasting BSG 105 mg/dL - continues on tube feeds at goal (60 ml/hr), using regular insulin for coverage. Continue with Lantus BID scale per BSG value for now * Continue same CF/CR. 11/23 * Dexamethasone 10 mg IV day 4 of * BSG's responded nicely to initiation of Lantus and tightening of Novolog parameters * Peptamen VHP continues to titrate up, but CHO coverage will scale accordingly * No change to Novolog * Will continue very low dose Lantus, but split BID and hold for BSG <140 mg/dL 11/22 * Dexamethasone 10 mg IV day 3 of * BSG's trending up gradually with tubefeed rate trending up * Will tighten regular insulin parameters. Patient may require a change back to Novolog q4h if BSG's are persistently >180 mg/dL * Will add low-dose Lantus 11/21 * BSG's have been well controlled without basal insulin and with only one unit of Novolog administered yesterday, even with initiation of Peptamen VHP trickle feeds while on higher dose steroids * OK to extend checks from q4h to q6h, but will then change from Novolog to regular insulin to provide coverage for the full 6 hour interval, in the event that Peptamen VHP rates increase above trickle feeds 11/20 * BSG's ranged 82-142 mg/dL yesterday * As of this AM, patient is now intubated and plan is to change to tubefeeds per ICU rounds. Dexamethasone dose also decreasing today per ARDS protocol * Will discontinue NPH for now as BSG's have been lower and dexamethasone dose is decreasing * Will change Novolog to q4h 2nd change in stressors and also 2nd initiation of tubefeeds * As BSG trended down from this AM to this afternoon (despite no insulin administered since NPH 4 units yesterday AM), will eliminate CHO ratio and only provide correction for BSG >140 mg/dL, but maintain tight correction factor PLAN FOR INPATIENT GLYCEMIC CONTROL: * Basal insulin * 5 units lantus sq qam * Bolus insulin * Regular insulin SC q6h * Goal Range: Low 120 mg/dL - High 150 mg/dL * Correction Factor: 35 mg/dL/unit * Nutritional / Prandial insulin per carb ratio of 1 unit per 10 grams CHO consumed PLAN FOR DISCHARGE: * HbA1c of 5.7-6.4% indicates "pre-diabetes" --> ADA recommendation is to institute diabetes and atherosclerosis prevention * Support Patient Self-Management * Healthy Lifestyle (diet, exercise, and smoking cessation) * Disease self-management (SMBG) * Prevention of complications (BP, Lipid goals, Immunizations) * Consider outpatient Diabetes Self-Management Education & Support
[2020-11-29] MEDS: PROPOFOL BOLUS FROM BAG IV PRN ×3 (12:09→20:40)
[2020-11-29] MEDS ORDERED: VECURONIUM BROMIDE 10 MG VIAL IV SCH (13:00)
[2020-11-29] MEDS ORDERED: fentaNYL citrate 100 MCG/2 ML VIAL IV SCH (13:00)
[2020-11-29] MEDS ORDERED: MIDAZOLAM HCL 1 MG/ML 2ML VIAL IV SCH (13:00)
[2020-11-29] MEDS ORDERED: MIDAZOLAM HCL 5 MG/ML 1 ML VIAL IV SCH (13:00)
--- NOTE | 2020-11-29 13:56 | Procedure Note ---
Procedure Note Date of Service November 29, 2020 Procedure: Bedside percutaneous dilatation of tracheostomy with placement of a 6 oh Shiley cuffed nonfenestrated trach tube. Professor Of Chemistry Dr. Dave Harvey Anesthesia: 100 mcg fentanyl, propofol infusion, 5 mg IV Versed, 10 mg of vecuronium, and 10 mL 1% lidocaine with epinephrine locally. Estimated blood loss: 5 mL Indication: Persistent ARDS status post COVID-19 infection with inability to wean from mechanical ventilator and need for long-term airway. Procedure: The patient was in the ICU intubated on the mechanical ventilator. Risks and benefits of been discussed with the patient's prior and informed consent was obtained. This was verified prior to commencement of the procedure. The patient was placed on 100% FiO2 and a timeout was performed. Appropriate imaging studies and laboratory studies were reviewed prior to commencement of the procedure. Patient was placed in a supine position and a roll placed under the shoulders to allow for extension of the neck. Landmarks were easily palpable including thyroid and hyoid cartilages. The patient was sedated and paralyzed using vecuronium. The anterior neck down below the sternal notch was cleaned and prepped using chlorhexidine and sterile field was established. An area 1 cm inferior to the hyoid cartilage was palpable and limited ultrasound was performed over this area revealing no large vascular bridging structures. 10 mL of 1% lidocaine with epinephrine was instilled locally using a 24-gauge needle. Once local anesthesia had been achieved, a 1.5 cm horizontal incision was made approximately 1 cm inferior to the hyoid cartilage. Using the curved forceps, blunt dissection was carried down through the adipose tissue. Using a finger, I was able to palpate the hyoid cartilage and anterior tracheal rings. Blunt dissection was carried down and at that point time the critical care TIMBO advanced a flexible bronchoscope through the existing endotracheal tube. The cuff was deflated and the tube and bronchoscope were withdrawn to the level of the glottis. I could easily visualize external ballottement of the tracheal rings. Under direct bronchoscopic visualization, an 18-gauge needle with over the needle catheter was advanced in the 12 o'clock position through the first and second tracheal rings. The catheter was left in place and the needle withdrawn. A wire was passed through the catheter into the distal airways and the catheter was withdrawn. The wire was observed to be within the airways and extending down into the distal airways. A 14 Sudanese stiff dilator was passed over the wire to dilate the tract. At that point time the Blue Rhino dilator with the internal guiding catheter was then advanced over the wire and the tract dilated. The Rhino catheter was removed leaving the white guiding catheter in place. A previously tested 6 oh Shiley cuffed nonfenestrated tube had been loaded on a 26 Sudanese guiding catheter. The balloon had been previously tested. It was passed over the wire into the airway. The wire, guiding catheter, and loading dilator were all removed leaving the tracheostomy tube in place. The bronchoscope was then withdrawn from the endotracheal tube and advanced to the newly placed tracheostomy tube and verified to be within the airway. The bronch oscope was removed and the internal cannula was placed through the tracheostomy tube and the patient was attached to mechanical ventilator. The balloon was inflated. Tidal volumes were returned. Retention sutures were placed at the 12 and 6 o'clock position consisting of 2-0 Prolene. Trach ties were attached. The roles were removed from behind the patient's shoulders. Hemostasis was confirmed. At that point time, I took the bronchoscope and advanced it through the newly placed tracheostomy tube. The tube was verified to be in good position above the gabino. We did again note the presence of some granulation tissue in the 2 o'clock position just superior to the right mainstem takeoff. Minimal bloody secretions were noted which were aspirated free. The patient tolerated the procedure well without obvious complication. Post procedure chest x-ray has been ordered. Coding CPT Codes ENT - ENT: 20778 Incision of windpipe ([id number]) Pulmonary/Thoracic - Pulmonary and Thoracic: 86231 Bronchoscopy, reclear airway ([id number]) [facility] [place]arges) ENT ENT: 64376 Incision of windpipe Pulmonary/Thoracic Procedure 2: Pulmonary and Thoracic: 24505 Bronchoscopy, reclear airway
--- NOTE | 2020-11-29 14:41 | Procedure Note ---
Procedure Note Date of Service November 29, 2020 Note Procedure Name: Fiberoptic bronchoscopy for placement of percutaneous tracheostomy tube Procedure time out: side/site verified, patient ID confirmed, correct procedure Consent obtained: written (The risks, benefits, indications, potential complications, and alternatives were explained to the family and informed consent obtained by Dr. Harvey.) Time of procedure: 13:10 Performed by: physician doctor of dental surgery: Vu Keller PA-C Indications: diagnostic, therapeutic Contraindications: None Indication: Patient requiring percutaneous placement of tracheostomy tube. Fiberoptic bronchoscopy required for clearance of secretions prior to the procedure, visualization of cannulization, and verification of airways status post procedure. The bronchoscope was introduced into the endotracheal tube. There is some granuloma and an ulcer superior to the gabino. Photos were taken. The right and main left bronchus as well as the segmental branches of the right middle and right lower lobe and left upper, lingula and left lower lobes were examined with no blood or other mucous plugging present. The cuff of the endotracheal tube was deflated and the endotracheal tube was withdrawn to the inferior level of the vocal cords using video bronchoscopy. The cuff was lightly reinflated and the fiberoptic bronchoscope was advanced to the tip of the endotracheal tube. The needle entry site in the trachea midline was visualized as was the placement of the guidewire into the distal trachea. Photographs were taken to confirm placement of the guidewire. After placement of the tracheostomy tube, the bronchoscope was withdrawn from the endotracheal tube and introduced through the tracheostomy tube to confirm correct placement. The bronchoscope was then withdrawn to allow suturing of the tracheostomy tube into position. After confirmation of position and securement of the tracheostomy tube the endotracheal tube and orogastric tube were removed. The patient experienced no desaturation or complication during the procedure. The bronchoscope was then handed off to Dr. Harvey who did a visual examination through the tracheostomy tube. Dr. Harvey was present for the entire procedure as he was performing the surgical portion of the percutaneous tracheostomy Complications: none Patient tolerated procedure: well Post-procedure vital signs: reviewed and stable Comments: The patient received sedation and neuromuscular blockade for the procedure with airway intact with endotracheal tube. This was ordered, administered, and monitored by Dr. Harvey during my portion of the procedure. Coding
--- NOTE | 2020-11-29 15:05 | XRay Report ---
XR chest 1V portable HISTORY: S/P trach placement COMPARISON: Chest 11/29/2020. FINDINGS: Interval placement of a tracheostomy tube which appears in good position. Small amount of p neumomediastinum persists. Left jugular central venous catheter terminates in the SVC. A feeding tube terminates in the mid stomach. No pneumothorax. The heart remains mildly enlarged. Bilateral periphe ral airspace opacities persist consistent with a viral pneumonia. IMPRESSION: 1. Interval placement of a tracheostomy tube which appears in good position. 2. Feeding tube terminates in the mid stomach. 3. No change in the bilateral airspace opacities consistent with a viral pneumonia. 4. Small amount of pneumomediastinum persists. ACT 112: Negative or not required by law. Electronically signed by: Sha Martinez M.D. 11/29/2020 3:04 PM
--- NOTE | 2020-11-29 15:19 | Hospitalist Progress Note ---
Date of Service November 29, 2020 Assessment & Plan (1) Pneumonia due to COVID-19 virus: Acute respiratory failure with hypoxia COVID-19 pneumonia- multifocal Pneumomediastinum -CTA:There is no evidence of pulmonary embolus in the main, lobar, or segmental pulmonary arteries. Multifocal groundglass consolidation is seen throughout both lungs and consistent with the reported history of a viral pneumonia. Radiographic follow-up to resolution is recommended. Moderate hiatal hernia. Hepatic steatosis. -Continue bronchodilators PRN Intubated on 11/20/20 Neuromuscular blockade discontinued S/P Tracheostomy on 11/29/20 Continue Vent Support Blood/Urine Cx: No growth Sputum Cx: Staph Appreciate mannequin decorator input Diuretics as needed Was on Lovenox for DVT prophylaxis Completed a full dose of steroids IV Vancomycin, Meropenem > transition to Ceftriaxone On tube feeds Off pressors On Propofol for Sedation on IV Hydrocortisone for relative adrenal insufficiency Leukocytosis likely due to steroids PEEP of , FiO2:50% Persistent bilateral airspace opacities on chest x-ray Prediabetes HbA1c 5.9 Continue insulin therapy as needed for hyperglycemia Monitor BGs . (2) Hyponatremia: Sodium levels:131>129>135>142 Monitor BMP Received IV fluids (3) Fatty liver: Elevated Transaminases last US of liver 09/2019 diffuse increased heterogeneous liver and fatty filtration. Avoid hepatotoxic agents as able (4) DVT prophylaxis: Lovenox SQ--on Hold for Tracheostomy--Resume as able Code Status FULL CODE Admission and Anticipated Discharge Date Admission Date: November 14, 2020 Subjective Patient is seen and examined at bedside Remains sedated on Propofol Had Tracheostomy earlier today Review of Systems Review of Systems: Unobtainable due to endotracheal tube Physical Exam Physical Exam: Physical Exam: Vitals signs as noted above General Appearance:Moderately built and nourished, Sedated, On Vent Head: normocephalic, Atraumatic Eyes: normal inspection, EOMI Neck: supple, Trachea midline, +Tracheostomy Respiratory/Chest: Decreased breath sounds, CTA Cardiovascular: S1, S2, No murmur Abdomen/GI:Soft, Non tender, Bowel sounds present Extremities/Musculoskeletal:normal inspection, no edema Neurologic/Psych:Sedated and Intubated, Could not perform exam Skin: normal color, warm Results & Data Results & Data ([facility]) Vital Signs (Past 12 Hours) Vital Signs Temp Pulse Resp BP Pulse Ox 11/29/20 14:17 18 11/29/20 11:45 21 11/29/20 10:00 37.3 C 57 L 94 11/29/20 09:45 37.3 C 60 92 11/29/20 09:30 37.2 C 59 L 94 11/29/20 09:15 37.2 C 62 93 11/29/20 09:11 37.2 C 68 98/62 L 91 11/29/20 09:00 37.2 C 87 93 11/29/20 08:45 37.2 C 101 H 94 11/29/20 08:30 37.3 C 89 93 11/29/20 08:15 37.2 C 93 H 92 11/29/20 08:11 37.2 C 84 117/66 92 11/29/20 08:00 37.1 C 65 92 11/29/20 07:45 37.0 C 100 H 93 11/29/20 07:39 34 H 11/29/20 07:30 37.0 C 107 H 96 11/29/20 07:15 37.1 C 100 H 93 11/29/20 07:11 37.1 C 101 H 137/84 93 11/29/20 07:00 37.1 C 98 H 93 11/29/20 06:50 37.1 C 99 H 124/74 92 11/29/20 06:45 37.1 C 104 H 93 11/29/20 06:30 37.2 C 110 H 91 11/29/20 06:11 37.1 C 106 H 176/97 H 94 11/29/20 06:00 37.1 C 110 H 94 11/29/20 05:30 37.2 C 100 H 94 11/29/20 05:11 37.2 C 99 H 142/77 H 91 11/29/20 05:00 37.2 C 93 H 91 11/29/20 04:30 37.3 C 94 H 93 11/29/20 04:11 37.4 C 106 H 166/95 H 93 11/29/20 04:00 37.4 C 103 H 92 11/29/20 03:30 37.5 C 109 H 92 Laboratory Results Short CBC 11/29/20 Range/Units 05:10 WBC 17.88 H (4.8-10.8) K/uL Hgb 11.3 L (12.0-16.0) g/dL Hct 35.0 L (37-47) % Plt Count 372 (130-400) K/uL BMP 11/28/20 11/29/20 16:07 05:10 Sodium 143 137 Potassium 3.5 D 3.4 L Chloride 110 H 105 Carbon Dioxide 29 29 BUN 29 H 25 H Creatinine 0.42 L 0.33 L Glucose 120 H 141 H Calcium 9.1 9.1 Liver Function 11/29/20 Range/Units 05:10 Total Bilirubin 0.6 (0.2-1) mg/dl AST 13 L (15-37) U/L ALT 27 (12-78) U/L Alkaline Phosphatase 70 (45-117) U/L Albumin 2.7 L (3.4-5.0) gm/dl
[2020-11-29 15:31] LABS: BUN Creatinine Ratio 69.6 (10-20); Calcium 8.9 mg/dl (8.5-10.1); Creatinine Clr Calc Pharmacy 139.7 ml/min; Est GFR (African American) 130.9 ml/min; Est GFR (Non-African American) 112.9 ml/min; Potassium 4.1 mmol/L (3.5-5.1)
[2020-11-29] MEDS: fentaNYL citrate 100 MCG/2 ML VIAL IV PRN ×2 (16:01→20:14)
[2020-11-29] MEDS: PEPTAMEN INTENSE VHP 1.0 CAL 1,000 ML BAG OG SCH (16:02)
[2020-11-29] MEDS ORDERED: METOPROLOL TARTRATE 1 MG/ML VIAL IV ONE (20:40)
[2020-11-29] MEDS: ACETAMINOPHEN 325 MG TAB PO PRN (20:41)
[2020-11-29] MEDS: QUEtiapine FUMARATE 25 MG TABLET PO SCH (20:42)
[2020-11-29] MEDS ORDERED: METOPROLOL TARTRATE 1 MG/ML VIAL IV SCH (21:00)
[2020-11-29] MEDS ORDERED: HEPARIN SOD 5,000 UNIT/0.5 ML VIAL SQ STA (21:35)
[2020-11-30] MEDS: HYDROCORTISONE SOD 50 MG in SYRINGE 0 ML IV SCH ×5 (00:08→22:56)
[2020-11-30] MEDS: INSULIN HUMAN REGULAR SC SCH ×4 (00:24→18:07)
[2020-11-30] MEDS: PROPOFOL BOLUS FROM BAG IV PRN ×2 (02:10→03:49)
[2020-11-30] MEDS: propofoL 1,000 MG/100 ML VIAL IV SCH ×8 (02:58→18:34)
[2020-11-30] MEDS: TUBE FEEDING WATER FLUSH OG SCH ×6 (04:00→19:52)
[2020-11-30 04:31] LABS: iSTAT Art Bld Gas pCO2 Correct 38 mmHg (35-46); iSTAT Art Bld Gas pH Corrected 7.467 (7.35-7.45); iSTAT Arterial Blood Gas HCO3 28 meg/L (19-24); iSTAT Arterial Blood Gas pCO2 37 mmHg (35-46); iSTAT Arterial Blood Gas pH 7.48 (7.35-7.45); iSTAT Arterial Blood Gas pO2 67 mmHg (80-95); iSTAT Arterial Blood Gas pO2 C 69; iSTAT Carbon Dioxide 29 mmol/L (24-31); iSTAT FiO2 40 %; iSTAT Hematocrit 32 % (37-47); iSTAT Hemoglobin 10.9 g/dl (12.0-16.0); iSTAT Site Art Line; iSTAT Sodium 145 mmol/L (135-144)
[2020-11-30 05:27] LABS: Hematocrit (blood only) 34.7 % (37-47); Hemoglobin 11.3 g/dL (12.0-16.0); Mean Corpuscular Hemoglobin 30.1 pg (25-34); Mean Corpuscular Hgb Conc 32.6 g/dL (32-36); Mean Corpuscular Volume 92.3 fL (80-100); Platelet Count 375 K/uL (130-400); RDW Coefficient of Variation 14.6 % (11.5-14.5); RDW Standard Deviation 48.1 fL (36.4-46.3); Red Blood Count 3.76 M/uL (4.2-5.4); White Blood Count 14.43 K/uL (4.8-10.8)
[2020-11-30 05:47] LABS: Albumin Level 2.5 gm/dl (3.4-5.0); BUN Creatinine Ratio 53.3 (10-20); Calcium 8.6 mg/dl (8.5-10.1); Creatinine Clr Calc Pharmacy 99.1 ml/min; Est GFR (African American) 116.8 ml/min; Est GFR (Non-African American) 100.8 ml/min; Magnesium 2.7 mg/dl (1.8-2.4); Potassium 3.1 mmol/L (3.5-5.1)
[2020-11-30 05:54] LABS: Basophils # (auto) 0.01 K/uL (0-0.2); Basophils % (auto) 0.1 %; Eosinophils # (auto) 0.17 K/uL (0-0.5); Eosinophils % (auto) 1.2 %; Immature Granulocytes # (auto) 0.07 K/uL (0.00-0.02); Immature Granulocytes % (auto) 0.5 %; Lymphocytes # (auto) 1.24 K/uL (1.2-3.4); Lymphocytes % (auto) 8.6 %; Monocytes # (auto) 0.72 K/uL (0.11-0.59); Neutrophils # (auto) 12.22 K/uL (1.4-6.5); Neutrophils % (auto) 84.6 %
[2020-11-30 06:04] LABS: Albumin Globulin Ratio 0.7 (0.9-2); Bilirubin,Total 0.4 mg/dl (0.2-1); Globulin 3.8 gm/dl (2.5-4.0); Phosphorus 2.3 mg/dl (2.5-4.9); Total Protein 6.3 gm/dl (6.4-8.2)
[2020-11-30] MEDS: ICU ELECTROLYTE REPLACEMENT PROTOCOL SCH ×2 (06:26→16:59)
[2020-11-30] MEDS: POTASSIUM CHLORIDE / WTR 20 MEQ/100 ML PLCT IV SCH ×6 (06:41→16:00)
[2020-11-30] MEDS: NOREPINEPHRINE/D5W 8 MG/508 ML BAG IV SCH ×3 (07:48→15:25)
[2020-11-30] MEDS: DEXMEDETOMIDINE HCL 400 MCG in 0.9 % SODIUM CHLORIDE 96 ML IV SCH ×5 (07:48→22:55)
[2020-11-30] MEDS: SENNOSIDES 8.8 MG/5 ML UDC PO SCH (07:59)
[2020-11-30] MEDS: POLYETHYLENE (MIRALAX) 17 GM PACK PO SCH (07:59)
[2020-11-30] MEDS: clonazePAM 1 MG TAB PO SCH ×2 (08:06→21:04)
[2020-11-30] MEDS: fentaNYL citrate 100 MCG/2 ML VIAL IV PRN ×2 (08:06→12:15)
[2020-11-30] MEDS: acetaZOLAMIDE 250 MG TAB PO SCH (08:07)
[2020-11-30] MEDS: FLUDROCORTISONE ACETATE 0.1 MG TAB PO SCH (08:07)
[2020-11-30] MEDS: ACETAMINOPHEN 325 MG TAB PO PRN (08:07)
[2020-11-30] MEDS: THIAMINE HCL 100 MG TAB PO SCH (08:07)
[2020-11-30] MEDS: FAMOTIDINE 20 MG TAB PO SCH ×2 (08:08→21:05)
[2020-11-30] MEDS: cefTRIAXone SODIUM 1,000 MG in DEXTROSE 5% 50 ML IV SCH (08:08)
[2020-11-30] MEDS: MULTI VIT W/MINERALS LIQUID 15 ML UDP NG SCH (08:09)
[2020-11-30] MEDS: INSULIN GLARGINE SOLOSTAR 100 UNITS/ML 3 ML PEN SC SCH (08:32)
--- NOTE | 2020-11-30 10:43 | Procedure Note ---
Procedure Note Date of Service November 30, 2020 CENTRAL LINE PROCEDURE NOTE: Procedure: Central Line Placement Provider: Dave Harvey MD Indication: Central Drug Administration, Poor Venous Access, Multiple Lab Draws Necessary, persistent fevers and current line in over 7 days. Anesthesia: 5 mL 1% lidocaine without epinephrine Site: Left subclavian Procedure was emergent. Patient intubated and sedated and unable to provide consent. Family not immediately available A time-out was completed verifying correct patient, procedure, site, positioning, and implants(s) or special equipment if applicable. Patients left infraclavicular fossa was cleansed and draped in the typical sterile fashion using Chloraprep. Anatomic landmarks were identified. The superficial tissue was anesthetized using 5 mL of 1% lidocaine without epinephrine under direct visualization with the ultrasound. After adequate anesthetization was achieved, the left subclavian vein was cannulated using an introducer needle on a syringe. 4-5 passes were required to access the vein. Good venous blood return was maintained prior to removal of syringe from introducer needle. Using Seldinger Technique, a guide wire was advanced through the introducer needle without resistance. The introducer needle was removed. A small incision was made in penetrating fashion at the guide wire insertion site utilizing an 11 blade scalpel. The dilator was advanced to the vessel without resistance. The dilator was exchanged for the triple lumen catheter which was advanced into the vessel without resistance. The guide wire was removed intact from the catheter without issue. Claves were placed on each catheter tip with confirmation of good blood flow from each lumen. Each port was easily flushed with sterile saline. The catheter was placed at at the hub cm and sutured in place. BioPatch was applied to the catheter and a sterile Tegaderm dressing was applied over the catheter with careful attention to sterility. Patient tolerated procedure well. No immediate complications were met. Post procedure x-ray was pending. Once line is confirmed, the previous central line will be removed. Coding CPT Codes Tubes, Drains, and Vasc Access - Tubes, Drains, and Vasc Access: [id number] Place catheter in vein superior or inferior vena cava ([id number]) [facility] [place] Procedure Codes (Charges) Tubes, Drains, and Vasc Access Procedure 1: Tubes, Drains, and Vasc Access: [id number] Place catheter in vein superior or inferior vena cava
--- NOTE | 2020-11-30 10:45 | Procedure Note ---
Procedure Note Date of Service November 30, 2020 ARTERIAL LINE PROCEDURE NOTE: Procedure: Arterial Line Placement Provider: Dave Harvey MD Indication: Monitoring on Pressors. Previous line has been in for 10 days and the patient has persistent fevers Anesthesia: None Patient was unable to provide consent as she is intubated and on the ventilator. No family immediately available. A time-out was completed verifying correct patient, procedure, site, positioning, and implant(s) or special equipment if applicable. Allens test was performed to ensure adequate perfusion. Patients right wrist was prepped and draped in the usual sterile fashion. Ultrasound guidance was used to aid needle placement. A 20g Arrow arterial line was introduced into the right radial artery. Catheter was threaded, and the needle was removed with appropriate blood return. Good waveform was observed. The patient tolerated the procedure well. Blood Loss: Minimal Complications: None Coding CPT Codes Tubes, Drains, and Vasc Access - Tubes, Drains, and Vasc Access: [id number] Insertion Catheter, Artery ([id number]) [facility] [place] Procedure Codes (Charges) Tubes, Drains, and Vasc Access Procedure 1: Tubes, Drains, and Vasc Access: [id number] Insertion Catheter, Artery
--- NOTE | 2020-11-30 10:51 | XRay Report ---
SINGLE VIEW CHEST CLINICAL HISTORY: Respiratory failure. FINDINGS: An AP, portable, upright chest radiograph is compared to study dated 11/29/2020 and correlate d with chest CT dated 11/14/2020. The examination is degraded by portable technique and patient rotati on. A tracheostomy and left internal jugular central venous catheter are unchanged in position. An en teric tube is in place. This has been advanced as compared to previous. The cardiomediastinal silhoue tte is unremarkable noting atherosclerotic calcification of the thoracic aorta. Multifocal airspace c onsolidation is again seen throughout both lungs. No large pleural effusion or pneumothorax is identi fied. The skeletal structures are osteopenic. The bony thorax is grossly intact. There is persistent subcutaneous emphysema in the lower neck. There is likely trace residual pneumomediastinum. IMPRESSION: 1. Lines and tubes as above. The enteric tube has been advanced when compared to yesterday. 2. Multifocal airspace consolidation has not appreciably changed as compared to yesterday. 3. Subcutaneous emphysema is again seen in the lower neck. 4. There is likely trace residual pneumomediastinum. ACT 112: Negative or not required by law. \ Electronically signed by: Vu Chin M.D. 11/30/2020 10:50 AM
--- NOTE | 2020-11-30 10:53 | Critical Care Progress Note ---
Date of Service November 30, 2020 Assessment & Plan (1) Acute hypoxemic respiratory failure: Impression: 70-year-old female presented to the hospital 11/15/2020 with Covid pneumonia. Was transferred to the ICU shortly thereafter. She was intubated 11/20/2020. Her course has been complicated by pneumomediastinum and subcutaneous emphysema. 24-hour events: Status post PDT yesterday without issue. Orogastric tube was replaced to nasogastric Dobbhoff tube. Tube was verified. Tube feeding was reinitiated. Had some issues with sedation overnight and was titrated up on propofol. Pressors were titrated off. She has been persistently febrile. Recommendations: Neuro: Currently on oral oxycodone and clonazepam as well as pushes of fentanyl and Versed. Continue Seroquel at night. Try to wean off of propofol. Will restart Precedex if needed. Resp: Acute hypoxic respiratory failure secondary to Covid pneumonia. Completed full dose of steroids including late-phase ARDS dexamethasone. She is completed trials of proning and neuromuscular blockade. She continues to have significant oxygen requirement. Vent day #11. PTT 11/29/2020. Vent settings have decreased down to FiO2 0.4 and PEEP of 8. Continue to wean as tolerated with plans to transition to pressure support ventilation and then wean to trach collar when feasible. CV: Hypotension now resolved with treatment of relative adrenal insufficiency. Back off pressors. Volume status appears reasonable currently. Fluids/Renal: Holding diuretics today given need for pressors. Completed several days of Diamox. CO2 decreased but numbers are acceptable so continue to follow. ID: Respiratory culture growing 2 species staph. Sensitivity on 1 species shows sensitivity to oxacillin and vancomycin but resistant to erythromycin and clindamycin. Day #4 antibiotics, currently Rocephin. White count improved today however fever curve is worse. Will change out all lines. Repeat blood urine and sputum cultures. Hold on escalation of antibiotics for now. GI/Nutrition: Tube feeds restarted and at goal. Continue bowel regimen. Heme: Mild anemia. Continue to trend. No evidence of acute blood loss. No indication for transfusion currently. Continue DVT prophylaxis. Endocrine: ICU hyperglycemia protocol. Continue hydrocortisone for now she remains hemodynamically stable over the next 24 hours we will initiate weaning of cortisol. Vascular access: Left subclavian CVC, right radial arterial line 11/30/2020 Code Status: Full code Prophylaxis: Lovenox to 40 mg once daily. Pepcid twice daily Disposition: Case management working on referrals to LTAC Total of 45 minutes in critical care time exclusive of procedures was spent evaluation management stabilization this patient including discussion with bedside ICU nurse, respiratory therapist, and multidisciplinary rounds. will be updated at bedside when available (2) Pneumomediastinum: Admission and Anticipated Discharge Date Admission Date: November 14, 2020 Subjective Patient remains trached on the ventilator Review of Systems Review of Systems: All systems reviewed & are unremarkable except as noted in HPI & below Physical Exam 2 Constitutional: + mechanically ventilated Eyes: PERRL, conjunctivae normal, anicteric sclerae ENMT: external ear and nose normal, oropharynx normal Neck: trachea midline, no thyromegaly Tracheostomy site clean dry and intact Respiratory: normal respiratory effort Auscultation: + rales, + rhonchi and + wheezes Cardiovascular: RRR, no murmur, no edema Gastrointestinal (Abdomen): normal bowel sounds, soft, nontender, no hepatosplenomegaly Musculoskeletal: Extremities: extremities normal to inspection Skin: no rashes, warm and dry Lymphatic: no cervical lymphadenopathy Results & Data Results & Data ([facility]) Vital Signs (Past 12 Hours) Vital Signs Temp Pulse Resp BP Pulse Ox 11/30/20 07:57 103 H 35 H 92 11/30/20 07:39 38.1 C H 99 H 142/66 H 90 11/30/20 07:09 38.0 C H 101 H 146/70 H 89 L 11/30/20 06:20 37.9 C H 99 H 93 11/30/20 06:09 37.8 C H 100 H 140/72 93 11/30/20 06:00 37.8 C H 94 H 93 11/30/20 05:40 37.8 C H 103 H 93 11/30/20 05:38 37.8 C H 103 H 161/78 H 93 11/30/20 05:20 37.8 C H 102 H 94 11/30/20 05:09 37.7 C H 103 H 136/75 94 11/30/20 05:00 37.7 C H 103 H 91 11/30/20 04:40 37.7 C H 103 H 91 11/30/20 04:39 37.7 C H 115 H 163/85 H 90 11/30/20 04:20 37.7 C H 102 H 92 11/30/20 04:09 37.6 C H 108 H 155/79 H 93 11/30/20 04:00 37.6 C H 107 H 93 11/30/20 03:45 28 H 11/30/20 03:38 37.5 C 98 H 157/80 H 93 11/30/20 03:20 37.5 C 92 H 94 11/30/20 03:08 37.5 C 82 140/71 94 11/30/20 03:00 37.4 C 67 92 11/30/20 02:39 37.4 C 82 145/74 H 90 11/30/20 02:20 37.4 C 88 90 11/30/20 02:08 37.4 C 92 H 168/78 H 91 11/30/20 02:00 37.5 C 94 H 91 11/30/20 01:38 37.5 C 87 136/73 90 11/30/20 01:20 37.7 C H 89 92 11/30/20 01:08 37.8 C H 91 H 148/74 H 93 11/30/20 01:00 37.9 C H 92 H 91 11/30/20 00:57 37.9 C H 87 129/70 92 11/30/20 00:40 103 H 89 L 11/30/20 00:20 37.8 C H 112 H 92 11/30/20 00:09 37.8 C H 100 H 145/70 H 91 11/30/20 00:00 37.7 C H 108 H 92 11/29/20 23:39 37.7 C H 103 H 139/68 94 11/29/20 23:20 37.7 C H 105 H 93 11/29/20 23:09 37.8 C H 97 H 142/71 H 93 11/29/20 23:00 37.8 C H 95 H 93 11/29/20 22:48 29 H Critical Care Results & Data Vital Signs (Past 12 Hours) Vital Signs Temp Pulse Resp BP Pulse Ox 11/30/20 07:57 103 H 35 H 92 11/30/20 07:39 38.1 C H 99 H 142/66 H 90 11/30/20 07:09 38.0 C H 101 H 146/70 H 89 L 11/30/20 06:20 37.9 C H 99 H 93 11/30/20 06:09 37.8 C H 100 H 140/72 93 11/30/20 06:00 37.8 C H 94 H 93 11/30/20 05:40 37.8 C H 103 H 93 11/30/20 05:38 37.8 C H 103 H 161/78 H 93 11/30/20 05:20 37.8 C H 102 H 94 11/30/20 05:09 37.7 C H 103 H 136/75 94 11/30/20 05:00 37.7 C H 103 H 91 11/30/20 04:40 37.7 C H 103 H 91 11/30/20 04:39 37.7 C H 115 H 163/85 H 90 11/30/20 04:20 37.7 C H 102 H 92 11/30/20 04:09 37.6 C H 108 H 155/79 H 93 11/30/20 04:00 37.6 C H 107 H 93 11/30/20 03:45 28 H 11/30/20 03:38 37.5 C 98 H 157/80 H 93 11/30/20 03:20 37.5 C 92 H 94 11/30/20 03:08 37.5 C 82 140/71 94 11/30/20 03:00 37.4 C 67 92 11/30/20 02:39 37.4 C 82 145/74 H 90 11/30/20 02:20 37.4 C 88 90 11/30/20 02:08 37.4 C 92 H 168/78 H 91 11/30/20 02:00 37.5 C 94 H 91 11/30/20 01:38 37.5 C 87 136/73 90 11/30/20 01:20 37.7 C H 89 92 11/30/20 01:08 37.8 C H 91 H 148/74 H 93 11/30/20 01:00 37.9 C H 92 H 91 11/30/20 00:57 37.9 C H 87 129/70 92 11/30/20 00:40 103 H 89 L 11/30/20 00:20 37.8 C H 112 H 92 11/30/20 00:09 37.8 C H 100 H 145/70 H 91 11/30/20 00:00 37.7 C H 108 H 92 11/29/20 23:39 37.7 C H 103 H 139/68 94 11/29/20 23:20 37.7 C H 105 H 93 11/29/20 23:09 37.8 C H 97 H 142/71 H 93 11/29/20 23:00 37.8 C H 95 H 93 11/29/20 22:48 29 H Lab & Micro Results (Past 24 Hours) RBC 3.76 M/uL (4.2-5.4) L 11/30/20 WBC 14.43 K/uL (4.8-10.8) H 11/30/20 Hgb 11.3 g/dL (12.0-16.0) L 11/30/20 Hct 34.7 % (37-47) L 11/30/20 MCV 92.3 fL (80-100) 11/30/20 MCH 30.1 pg (25-34) 11/30/20 MCHC 32.6 g/dL (32-36) 11/30/20 RDW Standard Deviation 48.1 fL (36.4-46.3) H 11/30/20 RDW Coefficient of Variation 14.6 % (11.5-14.5) H 11/30/20 Plt Count 375 K/uL (130-400) 11/30/20 MPV 10.0 fL (7.4-10.4) 11/30/20 Neutrophils (%) (Auto) 84.6 % 11/30/20 Lymphocytes (%) (Auto) 8.6 % 11/30/20 Monocytes # (Auto) 0.72 K/uL (0.11-0.59) H 11/30/20 Eosinophils # (Auto) 0.17 K/uL (0-0.5) 11/30/20 Immature Granulocyte % (Auto) 0.5 % 11/30/20 Neutrophils # (Auto) 12.22 K/uL (1.4-6.5) H 11/30/20 Lymphocytes # (Auto) 1.24 K/uL (1.2-3.4) 11/30/20 Monocytes # (Auto) 0.72 K/uL (0.11-0.59) H 11/30/20 Eosinophils # (Auto) 0.17 K/uL (0-0.5) 11/30/20 Basophils # (Auto) 0.01 K/uL (0-0.2) 11/30/20 Immature Granulocyte # (Auto) 0.07 K/uL (0.00-0.02) H 11/30/20 Na 144 mmol/L (136-145) 11/30/20 K 3.1 mmol/L (3.5-5.1) L 11/30/20 Cl 112 mmol/L (98-107) H 11/30/20 CO2 29 mmol/L (21-32) 11/30/20 Anion Gap 3.0 (3-11) 11/30/20 BUN 26 mg/dl (7-18) H 11/30/20 Creatinine 0.48 mg/dl (0.6-1.2) L 11/30/20 Estimated GFR ( Amer) 116.8 ml/min 11/30/20 Estimated GFR (Non-Af Amer) 100.8 ml/min 11/30/20 BUN/Creatinine Ratio 53.3 (10-20) H 11/30/20 Glu 137 mg/dl (70-99) H 11/30/20 Ca 8.6 mg/dl (8.5-10.1) 11/30/20 Phosphorus Level 2.3 mg/dl (2.5-4.9) L 11/30/20 Total Bilirubin 0.4 mg/dl (0.2-1) 11/30/20 AST 19 U/L (15-37) 11/30/20 ALT 38 U/L (12-78) 11/30/20 Alkaline Phosphatase 72 U/L (45-117) 11/30/20 TP 6.3 gm/dl (6.4-8.2) L 11/30/20 Albumin 2.5 gm/dl (3.4-5.0) L 11/30/20 Globulin 3.8 gm/dl (2.5-4.0) 11/30/20 Albumin/Globulin Ratio 0.7 (0.9-2) L 11/30/20 Mg 2.7 mg/dl (1.8-2.4) H 11/30/20 05:00 11/30/20 Calcium Level 8.6 mg/dl (8.5-10.1) 11/30/20 05:00 11/30/20 Maco Test NA 11/30/20 04:14 11/30/20 Microbiology 11/24/20 13:04 Aerobic Blood Culture - Final Blood No growth in Aerobic bottle after 5 days. Anaerobic Blood Culture - Final No growth in Anaerobic bottle after 5 days. 11/24/20 12:40 Aerobic Blood Culture - Final Blood No growth in Aerobic bottle after 5 days. Anaerobic Blood Culture - Final No growth in Anaerobic bottle after 5 days. Diagnostic Findings (Past 24 Hours) Chest X-Ray 11/29/20 13:49 XR chest 1V portable HISTORY: S/P trach placement COMPARISON: Chest 11/29/2020. FINDINGS: Interval placement of a tracheostomy tube which appears in good position. Small amount of pneumomediastinum persists. Left jugular central venous catheter terminates in the SVC. A feeding tube terminates in the mid stomach. No pneumothorax. The heart remains mildly enlarged. Bilateral peripheral airspace opacities persist consistent with a viral pneumonia. IMPRESSION: 1. Interval placement of a tracheostomy tube which appears in good position. 2. Feeding tube terminates in the mid stomach. 3. No change in the bilateral airspace opacities consistent with a viral pneumonia. 4. Small amount of pneumomediastinum persists. ACT 112: Negative or not required by law. Electronically signed by: Sha Martinez M.D. 11/29/2020 3:04 PM I & O Totals 24 Hours 11/29/20 11/30/20 12/01/20 06:59 06:59 06:59 Intake Total 1428.184 / 2428.184 3500.879 / 3500.879 484.813 / 484.813 Output Total 3273 / 3273 3126 / 3126 86 / 86 Balance -1844.816 / -844.816 374.879 / 374.879 398.813 / 398.813 Cumulative 11/14/20 11:53 thru 11/30/20 09:51 Intake Total 09362.228 Output Total 14788 Balance -963.772 RT Ventilator Mngmt (Last Documented) Ventilator Ordered Settings Ventilator Support Mode Assist Control 11/30/20 08:00 Respiratory Rate 35 11/30/20 07:57 Ventilator Tidal Volume 324 11/30/20 08:00 Setting Minute Ventilation 9.4 11/30/20 07:57 Positive End Expiratory 8 11/30/20 08:00 Pressure Fraction of Inspired Oxygen 40 11/30/20 08:00 Peak Inspiratory Flow 35 11/30/20 03:45 Machine Comment Set inspiratory time=0.75 seconds 11/28/20 05:22 Ventilator - PT Measurements Respiratory Rate 35 Exhaled Tidal Volume 324 Minute Ventilation 9.4 Peak Inspiratory Airway 24 Pressure Mean Airway Pressure 10 Plateau Pressure 24.4 Respiratory Cycle Inspiratory: 1:2.1 Expiratory Ratio Inspiratory Phase Time 0.75 End-Tidal CO2 28 Static Lung Compliance 19.76 Dynamic Lung Compliance 20.25 Normal Static Lung Compliance 46.00 Patient Measurements Comment PEEP weaned to 10, FiO2 to 70% post ABG per low PEEP/high FiO2 ARDSnet protocol. Coding Level of Care Code Critical Care 1st 30-74 mins Diagnoses Acute hypoxemic respiratory failure J96.01 Pneumomediastinum J98.2 Time Spent (min) 38
[2020-11-30] MEDS: LACTULOSE SYRUP 20 GM/30 ML UDC PO SCH (10:55)
[2020-11-30] MEDS: ENOXAPARIN INJ 40 MG/0.4 ML SYR SQ SCH (10:56)
[2020-11-30] MEDS ORDERED: FUROSEMIDE 20 MG in SYRINGE 0 ML IV ONE (11:00)
--- NOTE | 2020-11-30 11:20 | XRay Report ---
XR chest 1V portable CLINICAL HISTORY: Changed central line COMPARISON STUDY: 11/30/2020 FINDINGS: A tracheostomy tube is again visualized. There is an enteric tube which passes into the sto mach. There is a left internal jugular central venous catheter unchanged in position. There is been i nterval placement of a left subclavian central venous catheter the tip of which projects over the sup erior vena cava at the azygos level. There is been interval development of a left-sided tension pneum othorax. There are multifocal right lung airspace opacities towards the prior study.[ IMPRESSION: 1. Interval placement of a left subclavian central venous catheter with development of a left-sided t ension pneumothorax. The technologist reports that the attending physician was aware of the pneumotho rax. ACT 112: Negative or not required by law. Electronically signed by: Lenard Bolaños M.D. 11/30/2020 11:19 AM
--- NOTE | 2020-11-30 11:42 | Procedure Note ---
Procedure Note Date of Service November 30, 2020 Procedure: 20 Fr Ll chest tube Indication: Tension pneumothorax [employer]: Candice Anesthesia: propofol gtt, 5 ml 1% lidocaine local, 50 mcg fent Consent: emergent. family not present at bedside. Proceure: Patient placed in L side up decubitus position. An area in the anterior axillary line just lateral to the inframammary crease was cleaned and draped using chlorhexidine. A sterile field was established. A 1 cm skin nakita was made with the scalpel. The 18-gauge needle was used to anesthetize the subcutaneous tissues with lidocaine. The needle was passed into the pleural space with aspiration of air. The syringe was withdrawn and a wire was passed through the needle into the pleural space. The needle was removed leaving the wire intact. Serial dilators were used to dilate the tract. A 20 Frisian chest tube was then guided over the wire into the pleural space. The wire and stiffening catheter were removed leaving the chest tube in place. It was attached to the Zuleika drainage system with air bubbles identified. Some serous discharge from the tube was also noted. To silk two-point 0 sutures were placed. Petroleum impregnated gauze was placed around the chest tube site and a sterile dressing applied. Post procedure chest x-ray is pending. Estimated blood loss: 5 mL Patient tolerated the procedure well with improvement in hemodynamics and oxygenation after placement of the chest tube. Coding CPT Codes Pulmonary/Thoracic - Pulmonary and Thoracic: 00321 Tube thoracostomy ([id number]) [facility] Procedure Codes (Charges) Pulmonary/Thoracic Procedure 1: Pulmonary and Thoracic: 98952 Tube thoracostomy
[2020-11-30] MEDS: PEPTAMEN INTENSE VHP 1.0 CAL 1,000 ML BAG OG SCH (12:05)
--- NOTE | 2020-11-30 12:22 | XRay Report ---
XR chest 1V portable CLINICAL HISTORY: S/P chest tube insertion PNEUMOTHORAX COMPARISON STUDY: 11/30/2020 FINDINGS: The study is rotated. There is been interval insertion of a left-sided chest tube the tip of which projects over the pleura l apex. There is been evacuation of the tension pneumothorax with a trace apical residual. A tracheos chito tube is visualized. Left internal jugular and left subclavian central venous catheters are again visualized. There is an enteric tube which passes into the stomach. There are bilateral pulmonary ai rspace opacities left greater than right. There is evidence for subcutaneous emphysema within the nec k. IMPRESSION: 1. Interval placement of a left-sided chest tube with reexpansion of the left lung. Trace residual le ft apical pneumothorax ACT 112: Negative or not required by law. Electronically signed by: Lenard Bolaños M.D. 11/30/2020 12:21 PM
[2020-11-30] MEDS: MIDAZOLAM HCL 1 MG/ML 2ML VIAL IV PRN ×2 (12:45→18:32)
[2020-11-30 12:55] LABS: BUN Creatinine Ratio 60.6 (10-20); Calcium 8.6 mg/dl (8.5-10.1); Creatinine Clr Calc Pharmacy 97.1 ml/min; Est GFR (Non-African American) 100.1 ml/min; Potassium 3.7 mmol/L (3.5-5.1)
[2020-11-30] MEDS: oxyCODONE HCL IR 5 MG TAB (IMMEDIATE RELEASE) PO SCH ×2 (13:24→21:04)
[2020-11-30] MEDS ORDERED: SODIUM PHOSPHATE 3 MMOL/1 ML 5 ML VIAL IV STA (17:22)
[2020-11-30] MEDS ORDERED: SODIUM PHOSPHATE 15 MMOL in SODIUM CHLORIDE 0.9% 250 ML IV ONE (18:00)
--- NOTE | 2020-11-30 19:03 | Hospitalist Progress Note ---
Date of Service November 30, 2020 Assessment & Plan (1) Pneumonia due to COVID-19 virus: Acute respiratory failure with hypoxia COVID-19 pneumonia- multifocal Pneumomediastinum Pneumothorax -CTA:There is no evidence of pulmonary embolus in the main, lobar, or segmental pulmonary arteries. Multifocal groundglass consolidation is seen throughout both lungs and consistent with the reported history of a viral pneumonia. Radiographic follow-up to resolution is recommended. Moderate hiatal hernia. Hepatic steatosis. -Continue bronchodilators PRN Intubated on 11/20/20 Neuromuscular blockade discontinued S/P Tracheostomy on 11/29/20 Continue Vent Support Blood/Urine Cx: No growth Sputum Cx: Staph Appreciate dag sprayer input Diuretics as needed Was on Lovenox for DVT prophylaxis Completed a full dose of steroids IV Vancomycin, Meropenem > transition to Ceftriaxone On tube feeds Restarted on pressors on IV Hydrocortisone for relative adrenal insufficiency Leukocytosis likely due to steroids PEEP of 8, FiO2:35% Central line, arterial line changed on 11/30/20 Chest Tube placed for Pneumothorax Planned for LTAC Prediabetes HbA1c 5.9 Continue insulin therapy as needed for hyperglycemia Monitor BGs . (2) Hyponatremia: Sodium levels:131>129>135>142>143 Monitor BMP Received IV fluids (3) Fatty liver: Elevated Transaminases last US of liver 09/2019 diffuse increased heterogeneous liver and fatty filtration. Avoid hepatotoxic agents as able (4) DVT prophylaxis: Lovenox SQ Code Status FULL CODE Admission and Anticipated Discharge Date Admission Date: November 14, 2020 Subjective Patient is seen and examined at bedside Remains sedated and on Vent Has been febrile since yesterday Arterial, central line changed Chest tube placed for pneumothorax Currently on minimal pressors Review of Systems Review of Systems: Unobtainable due to endotracheal tube Physical Exam Physical Exam: Physical Exam: Vitals signs as noted above General Appearance:Moderately built and nourished, Sedated, On Vent Head: normocephalic, Atraumatic Eyes: normal inspection, EOMI Neck: supple, Trachea midline, +Tracheostomy Respiratory/Chest: Decreased breath sounds, CTA, +Chest Tube Cardiovascular: S1, S2, No murmur Abdomen/GI:Soft, Non tender, Bowel sounds present Extremities/Musculoskeletal:normal inspection, no edema Neurologic/Psych:Sedated and Intubated, Could not perform exam Skin: normal color, warm Results & Data Results & Data ([facility]) Vital Signs (Past 12 Hours) Vital Signs Temp Pulse Resp BP Pulse Ox Pulse Ox 11/30/20 18:38 37.9 C H 74 69/38 L 89 L 11/30/20 18:07 38.0 C H 104 H 118/67 93 11/30/20 17:37 38.1 C H 103 H 130/71 93 11/30/20 17:07 38.1 C H 103 H 123/74 93 11/30/20 16:37 38.1 C H 104 H 119/58 L 92 11/30/20 16:07 38.2 C H 107 H 115/62 90 11/30/20 16:00 106 H 93 11/30/20 15:55 121 H 37 H 92 11/30/20 15:37 38.2 C H 121 H 155/79 H 89 L 11/30/20 15:08 38.1 C H 97 H 126/67 94 11/30/20 14:37 38.1 C H 81 90/49 L 91 11/30/20 14:36 38.1 C H 73 96/54 L 91 11/30/20 14:23 38.1 C H 80 76/43 L 89 L 11/30/20 14:08 38.2 C H 87 85/43 L 90 11/30/20 13:37 38.3 C H 109 H 116/75 89 L 11/30/20 13:07 38.3 C H 116 H 128/73 90 11/30/20 12:37 38.2 C H 113 H 122/66 91 11/30/20 12:27 38.2 C H 103 H 133/58 L 95 11/30/20 12:07 38.2 C H 75 84/44 L 96 11/30/20 11:46 87 29 H 94 11/30/20 11:37 38.3 C H 86 99/52 L 94 11/30/20 11:14 38.4 C H 98 H 69/42 L 89 L 11/30/20 10:18 38.2 C H 108 H 134/86 92 11/30/20 10:09 38.2 C H 95 H 108/60 95 11/30/20 09:09 38.2 C H 108 H 136/85 94 11/30/20 08:39 38.2 C H 112 H 164/87 H 93 11/30/20 08:08 38.1 C H 108 H 128/80 89 L 11/30/20 08:00 97 H 11/30/20 07:57 103 H 35 H 92 11/30/20 07:39 38.1 C H 99 H 142/66 H 90 11/30/20 07:09 38.0 C H 101 H 146/70 H 89 L Laboratory Results Short CBC 11/30/20 Range/Units 05:00 WBC 14.43 H (4.8-10.8) K/uL Hgb 11.3 L (12.0-16.0) g/dL Hct 34.7 L (37-47) % Plt Count 375 (130-400) K/uL BMP 11/30/20 11/30/20 05:00 12:14 Sodium 144 143 Potassium 3.1 L D 3.7 D Chloride 112 H 113 H Carbon Dioxide 29 27 BUN 26 H 30 H Creatinine 0.48 L 0.49 L Glucose 137 H 120 H Calcium 8.6 8.6 Liver Function 11/30/20 Range/Units 05:00 Total Bilirubin 0.4 (0.2-1) mg/dl AST 19 (15-37) U/L ALT 38 (12-78) U/L Alkaline Phosphatase 72 (45-117) U/L Albumin 2.5 L (3.4-5.0) gm/dl
[2020-11-30] MEDS: QUEtiapine FUMARATE 25 MG TABLET PO SCH (21:04)
[2020-12-01] MEDS: INSULIN HUMAN REGULAR SC SCH ×4 (00:12→17:37)
[2020-12-01] MEDS: TUBE FEEDING WATER FLUSH OG SCH ×6 (00:13→19:49)
[2020-12-01] MEDS: PROPOFOL BOLUS FROM BAG IV PRN (01:36)
[2020-12-01] MEDS: propofoL 1,000 MG/100 ML VIAL IV SCH ×5 (02:13→15:41)
[2020-12-01 04:56] LABS: iSTAT Art Bld Gas pCO2 Correct 36 mmHg (35-46); iSTAT Arterial Blood Gas HCO3 26 meg/L (19-24); iSTAT Arterial Blood Gas pCO2 37 mmHg (35-46); iSTAT Arterial Blood Gas pH 7.46 (7.35-7.45); iSTAT Arterial Blood Gas pO2 58 mmHg (80-95); iSTAT Arterial Blood Gas pO2 C 54; iSTAT Carbon Dioxide 27 mmol/L (24-31); iSTAT FiO2 30 %; iSTAT Hematocrit 33 % (37-47); iSTAT Hemoglobin 11.2 g/dl (12.0-16.0); iSTAT Potassium 3.4 mmol/L (3.3-5.0); iSTAT Site Art Line; iSTAT Sodium 147 mmol/L (135-144)
[2020-12-01 05:03] LABS: Basophils # (auto) 0.02 K/uL (0-0.2); Basophils % (auto) 0.1 %; Eosinophils # (auto) 0.12 K/uL (0-0.5); Eosinophils % (auto) 0.9 %; Hematocrit (blood only) 35.7 % (37-47); Hemoglobin 11.6 g/dL (12.0-16.0); Immature Granulocytes % (auto) 0.7 %; Lymphocytes # (auto) 1.75 K/uL (1.2-3.4); Lymphocytes % (auto) 12.6 %; Mean Corpuscular Hemoglobin 30.5 pg (25-34); Mean Corpuscular Hgb Conc 32.5 g/dL (32-36); Mean Corpuscular Volume 93.9 fL (80-100); Mean Platelet Volume 10.1 fL (7.4-10.4); Monocytes # (auto) 0.44 K/uL (0.11-0.59); Monocytes % (auto) 3.2 %; Neutrophils # (auto) 11.47 K/uL (1.4-6.5); Neutrophils % (auto) 82.5 %; Platelet Count 327 K/uL (130-400); RDW Coefficient of Variation 14.7 % (11.5-14.5); RDW Standard Deviation 49.4 fL (36.4-46.3)
[2020-12-01 05:21] LABS: Albumin Level 2.4 gm/dl (3.4-5.0); BUN Creatinine Ratio 78.4 (10-20); Calcium 8.8 mg/dl (8.5-10.1); Est GFR (African American) 128.4 ml/min; Est GFR (Non-African American) 110.8 ml/min; Magnesium 2.6 mg/dl (1.8-2.4); Potassium 3.5 mmol/L (3.5-5.1)
[2020-12-01 05:41] LABS: Albumin Globulin Ratio 0.6 (0.9-2); Bilirubin,Total 0.4 mg/dl (0.2-1); Phosphorus 3.2 mg/dl (2.5-4.9); Total Protein 6.4 gm/dl (6.4-8.2)
[2020-12-01] MEDS: oxyCODONE HCL IR 5 MG TAB (IMMEDIATE RELEASE) PO SCH ×3 (05:42→17:40)
[2020-12-01] MEDS: PEPTAMEN INTENSE VHP 1.0 CAL 1,000 ML BAG OG SCH (05:42)
[2020-12-01] MEDS: POTASSIUM CHLORIDE / WTR 20 MEQ/100 ML PLCT IV SCH ×2 (05:58→07:49)
[2020-12-01] MEDS: ICU ELECTROLYTE REPLACEMENT PROTOCOL SCH ×2 (06:16→17:35)
[2020-12-01] MEDS: HYDROCORTISONE SOD 50 MG in SYRINGE 0 ML IV SCH ×3 (06:20→17:40)
[2020-12-01] MEDS: DEXMEDETOMIDINE HCL 400 MCG in 0.9 % SODIUM CHLORIDE 96 ML IV SCH ×7 (07:11→17:35)
--- NOTE | 2020-12-01 07:59 | Critical Care Progress Note ---
Date of Service December 01, 2020 Assessment & Plan (1) Acute hypoxemic respiratory failure: Impression: 70-year-old female presented to the hospital 11/15/2020 with Covid pneumonia. Was transferred to the ICU shortly thereafter. She was intubated 11/20/2020. Her course has been complicated by pneumomediastinum and subcutaneous emphysema. 24-hour events: Arterial line and central venous catheter were placed yesterday. The subclavian line was complicated by development of a left pneumothorax requiring chest tube placement. The patient has defervesced. Her white count is coming down. She was placed back on Precedex but became bradycardic overnight requiring reinstitution of propofol. She is currently hypertensive and tachycardic but according to nurses, was able to follow some commands when sedation was lightened. Recommendations: Neuro: We will increase oral oxycodone and clonazepam and continue pushes of fentanyl and Versed. Increase Seroquel at night. Try to wean off of propofol and Precedex Resp: Acute hypoxic respiratory failure secondary to Covid pneumonia. Completed full dose of steroids including late-phase ARDS dexamethasone. She is completed trials of proning and neuromuscular blockade. She continues to have significant oxygen requirement. Vent day #11. PTT 11/29/2020. Vent settings have decreased down to FiO2 0.4 and PEEP of 8. Continue to wean as tolerated with plans to transition to pressure support ventilation and then wean to trach collar when feasible. Iatrogenic pneumothorax due to subclavian line placement. I continue chest tube. We will place to waterseal and follow x-rays and clinical response. Return to suction should she have hemodynamic or oxygenation issues. CV: Back on pressors with initiation of sedative agents. I suspect this is related to the propofol and the Precedex. We will continue to follow for now. Continue stress dose steroids. Hold diuresis. Fluids/Renal: Holding diuretics today given need for pressors. Completed several days of Diamox. CO2 decreased but numbers are acceptable so continue to follow. Mildly hyponatremic this morning. Will increase free water. ID: Respiratory culture growing 2 species staph. Sensitivity on 1 species shows sensitivity to oxacillin and vancomycin but resistant to erythromycin and clindamycin. Day #5/10 antibiotics, currently Rocephin. White count and fever better today after changing out the lines. Awaiting cultures. Procalcitonin was negative. GI/Nutrition: Tube feeds running at goal. Continue bowel regimen. Heme: Mild anemia. Continue to trend. No evidence of acute blood loss. No indication for transfusion currently. Continue DVT prophylaxis. Endocrine: ICU hyperglycemia protocol. Continue hydrocortisone for now Vascular access: Left subclavian CVC, right radial arterial line 11/30/2020, left 20 Tamazight chest tube 11/30/2020 Code Status: Full code Prophylaxis: Lovenox to 40 mg once daily. Pepcid twice daily Disposition: Referrals made to LTAC. If she is afebrile and stable, may consider transfer early next week. Total of 35 minutes in critical care time exclusive of procedures was spent evaluation management stabilization this patient including discussion with bedside ICU nurse, respiratory therapist. (2) Pneumomediastinum: Admission and Anticipated Discharge Date Admission Date: November 14, 2020 Subjective intubated and sedated Review of Systems Review of Systems: Unobtainable due to endotracheal tube Physical Exam Constitutional: + mechanically ventilated Eyes: PERRL, conjunctivae normal, anicteric sclerae ENMT: external ear and nose normal, oropharynx normal Neck: trachea midline, no thyromegaly Respiratory: normal respiratory effort Auscultation: + rales, + rhonchi and + wheezes Cardiovascular: RRR, no murmur, no edema Gastrointestinal (Abdomen): normal bowel sounds, soft, nontender, no hepatosplenomegaly Musculoskeletal: Extremities: extremities normal to inspection Skin: no rashes, warm and dry Lymphatic: no cervical lymphadenopathy Results & Data Results & Data ([facility]) Vital Signs (Past 12 Hours) Vital Signs Temp Pulse Resp BP Pulse Ox 12/01/20 06:47 36.3 C L 81 147/76 H 96 12/01/20 05:48 36.6 C 61 136/65 97 12/01/20 05:16 36.5 C 70 99/48 L 92 12/01/20 04:32 36.0 C L 75 120/62 88 L 12/01/20 04:27 36.0 C L 70 129/70 87 L 12/01/20 04:03 36.0 C L 66 171/78 H 89 L 12/01/20 04:00 66 171/78 H 12/01/20 03:27 36.2 C L 61 165/76 H 90 12/01/20 03:08 36.2 C L 74 175/108 H 89 L 12/01/20 03:04 36.3 C L 80 174/90 H 90 12/01/20 02:35 28 H 12/01/20 02:28 36.4 C L 74 165/106 H 90 12/01/20 02:02 36.5 C 83 164/92 H 89 L 12/01/20 01:42 36.6 C 92 H 155/88 H 90 12/01/20 01:33 36.6 C 95 H 169/97 H 91 12/01/20 00:59 36.6 C 55 L 153/81 H 93 12/01/20 00:37 36.6 C 49 L 128/59 L 93 12/01/20 00:08 36.7 C 52 L 114/50 L 91 12/01/20 00:00 59 L 11/30/20 23:38 36.6 C 58 L 115/53 L 90 11/30/20 23:08 36.6 C 59 L 125/53 L 94 11/30/20 22:38 36.7 C 62 136/62 95 11/30/20 22:15 27 H 11/30/20 22:07 36.8 C 58 L 108/54 L 96 11/30/20 21:38 36.8 C 54 L 86/45 L 92 11/30/20 21:07 37.0 C 59 L 129/65 95 11/30/20 20:38 37.1 C 59 L 109/54 L 91 11/30/20 20:07 37.1 C 57 L 116/54 L 94 11/30/20 20:00 60 149/59 H Critical Care Results & Data Vital Signs (Past 12 Hours) Vital Signs Temp Pulse Resp BP Pulse Ox 12/01/20 06:47 36.3 C L 81 147/76 H 96 12/01/20 05:48 36.6 C 61 136/65 97 12/01/20 05:16 36.5 C 70 99/48 L 92 12/01/20 04:32 36.0 C L 75 120/62 88 L 12/01/20 04:27 36.0 C L 70 129/70 87 L 12/01/20 04:03 36.0 C L 66 171/78 H 89 L 12/01/20 04:00 66 171/78 H 12/01/20 03:27 36.2 C L 61 165/76 H 90 12/01/20 03:08 36.2 C L 74 175/108 H 89 L 12/01/20 03:04 36.3 C L 80 174/90 H 90 12/01/20 02:35 28 H 12/01/20 02:28 36.4 C L 74 165/106 H 90 12/01/20 02:02 36.5 C 83 164/92 H 89 L 12/01/20 01:42 36.6 C 92 H 155/88 H 90 12/01/20 01:33 36.6 C 95 H 169/97 H 91 12/01/20 00:59 36.6 C 55 L 153/81 H 93 12/01/20 00:37 36.6 C 49 L 128/59 L 93 12/01/20 00:08 36.7 C 52 L 114/50 L 91 12/01/20 00:00 59 L 11/30/20 23:38 36.6 C 58 L 115/53 L 90 11/30/20 23:08 36.6 C 59 L 125/53 L 94 11/30/20 22:38 36.7 C 62 136/62 95 11/30/20 22:15 27 H 11/30/20 22:07 36.8 C 58 L 108/54 L 96 11/30/20 21:38 36.8 C 54 L 86/45 L 92 11/30/20 21:07 37.0 C 59 L 129/65 95 11/30/20 20:38 37.1 C 59 L 109/54 L 91 11/30/20 20:07 37.1 C 57 L 116/54 L 94 11/30/20 20:00 60 149/59 H Lab & Micro Results (Past 24 Hours) RBC 3.80 M/uL (4.2-5.4) L 12/01/20 WBC 13.90 K/uL (4.8-10.8) H 12/01/20 Hgb 11.6 g/dL (12.0-16.0) L 12/01/20 Hct 35.7 % (37-47) L 12/01/20 MCV 93.9 fL (80-100) 12/01/20 MCH 30.5 pg (25-34) 12/01/20 MCHC 32.5 g/dL (32-36) 12/01/20 RDW Standard Deviation 49.4 fL (36.4-46.3) H 12/01/20 RDW Coefficient of Variation 14.7 % (11.5-14.5) H 12/01/20 Plt Count 327 K/uL (130-400) 12/01/20 MPV 10.1 fL (7.4-10.4) 12/01/20 Neutrophils (%) (Auto) 82.5 % 12/01/20 Lymphocytes (%) (Auto) 12.6 % 12/01/20 Monocytes # (Auto) 0.44 K/uL (0.11-0.59) 12/01/20 Eosinophils # (Auto) 0.12 K/uL (0-0.5) 12/01/20 Immature Granulocyte % (Auto) 0.7 % 12/01/20 Neutrophils # (Auto) 11.47 K/uL (1.4-6.5) H 12/01/20 Lymphocytes # (Auto) 1.75 K/uL (1.2-3.4) 12/01/20 Monocytes # (Auto) 0.44 K/uL (0.11-0.59) 12/01/20 Eosinophils # (Auto) 0.12 K/uL (0-0.5) 12/01/20 Basophils # (Auto) 0.02 K/uL (0-0.2) 12/01/20 Immature Granulocyte # (Auto) 0.10 K/uL (0.00-0.02) H 12/01/20 Na 148 mmol/L (136-145) H 12/01/20 K 3.5 mmol/L (3.5-5.1) 12/01/20 Cl 116 mmol/L (98-107) H 12/01/20 CO2 31 mmol/L (21-32) 12/01/20 Anion Gap 1.0 (3-11) L 12/01/20 BUN 28 mg/dl (7-18) H 12/01/20 Creatinine 0.36 mg/dl (0.6-1.2) L 12/01/20 Estimated GFR ( Amer) 128.4 ml/min 12/01/20 Estimated GFR (Non-Af Amer) 110.8 ml/min 12/01/20 BUN/Creatinine Ratio 78.4 (10-20) H 12/01/20 Glu 161 mg/dl (70-99) H 12/01/20 Ca 8.8 mg/dl (8.5-10.1) 12/01/20 Phosphorus Level 3.2 mg/dl (2.5-4.9) 12/01/20 Total Bilirubin 0.4 mg/dl (0.2-1) 12/01/20 AST 12 U/L (15-37) L 12/01/20 ALT 42 U/L (12-78) 12/01/20 Alkaline Phosphatase 78 U/L (45-117) 12/01/20 TP 6.4 gm/dl (6.4-8.2) 12/01/20 Albumin 2.4 gm/dl (3.4-5.0) L 12/01/20 Globulin 4.0 gm/dl (2.5-4.0) 12/01/20 Albumin/Globulin Ratio 0.6 (0.9-2) L 12/01/20 Mg 2.6 mg/dl (1.8-2.4) H 12/01/20 04:36 12/01/20 Calcium Level 8.8 mg/dl (8.5-10.1) 12/01/20 04:36 12/01/20 Maco Test NA 12/01/20 04:44 12/01/20 Microbiology 11/30/20 12:31 Gram Stain - Final Sputum,Vent Suction Diagnostic Findings (Past 24 Hours) Chest X-Ray 11/30/20 07:00 SINGLE VIEW CHEST CLINICAL HISTORY: Respiratory failure. FINDINGS: An AP, portable, upright chest radiograph is compared to study dated 11/29/2020 and correlated with chest CT dated 11/14/2020. The examination is degraded by portable technique and patient rotation. A tracheostomy and left internal jugular central venous catheter are unchanged in position. An enteric tube is in place. This has been advanced as compared to previous. The cardiomediastinal silhouette is unremarkable noting atherosclerotic calcification of the thoracic aorta. Multifocal airspace consolidation is again seen throughout both lungs. No large pleural effusion or pneumothorax is identified. The skeletal structures are osteopenic. The bony thorax is grossly intact. There is persistent subcutaneous emphysema in the lower neck. There is likely trace residual pneumomediastinum. IMPRESSION: 1. Lines and tubes as above. The enteric tube has been advanced when compared to yesterday. 2. Multifocal airspace consolidation has not appreciably changed as compared to yesterday. 3. Subcutaneous emphysema is again seen in the lower neck. 4. There is likely trace residual pneumomediastinum. ACT 112: Negative or not required by law. \ Electronically signed by: Vu Chin M.D. 11/30/2020 10:50 AM Chest X-Ray 11/30/20 10:23 XR chest 1V portable CLINICAL HISTORY: Changed central line COMPARISON STUDY: 11/30/2020 FINDINGS: A tracheostomy tube is again visualized. There is an enteric tube which passes into the stomach. There is a left internal jugular central venous catheter unchanged in position. There is been interval placement of a left subclavian central venous catheter the tip of which projects over the superior vena cava at the azygos level. There is been interval development of a left- sided tension pneumothorax. There are multifocal right lung airspace opacities towards the prior study.[ IMPRESSION: 1. Interval placement of a left subclavian central venous catheter with development of a left-sided tension pneumothorax. The technologist reports that the attending physician was aware of the pneumothorax. ACT 112: Negative or not required by law. Electronically signed by: Lenard Bolaños M.D. 11/30/2020 11:19 AM Chest X-Ray 11/30/20 11:32 XR chest 1V portable CLINICAL HISTORY: S/P chest tube insertion PNEUMOTHORAX COMPARISON STUDY: 11/30/2020 FINDINGS: The study is rotated. There is been interval insertion of a left-sided chest tube the tip of which projects over the pleural apex. There is been evacuation of the tension pneumothorax with a trace apical residual. A tracheostomy tube is visualized. Left internal jugular and left subclavian central venous catheters are again visualized. There is an enteric tube which passes into the stomach. There are bilateral pulmonary airspace opacities left greater than right. There is evidence for subcutaneous emphysema within the neck. IMPRESSION: 1. Interval placement of a left-sided chest tube with reexpansion of the left lung. Trace residual left apical pneumothorax ACT 112: Negative or not required by law. Electronically signed by: Lenard Bolaños M.D. 11/30/2020 12:21 PM I & O Totals 24 Hours 11/30/20 12/01/20 12/02/20 06:59 06:59 06:59 Intake Total 3500.879 / 3500.879 3380.561 / 3380.561 122.215 / 122.215 Output Total 3126 / 3126 3018 / 3018 Balance 374.879 / 374.879 362.561 / 362.561 122.215 / 122.215 Cumulative 11/14/20 11:53 thru 12/01/20 07:49 Intake Total 66990.191 Output Total 50367 Balance -877.809 RT Ventilator Mngmt (Last Documented) Ventilator Ordered Settings Ventilator Support Mode Assist Control 12/01/20 02:35 Respiratory Rate 28 12/01/20 02:35 Ventilator Tidal Volume 325 12/01/20 02:35 Setting Minute Ventilation 7.7 12/01/20 02:35 Positive End Expiratory 8 12/01/20 02:35 Pressure Fraction of Inspired Oxygen 40 12/01/20 06:47 Peak Inspiratory Flow 35 12/01/20 02:35 Machine Comment increased fio2 due to PaO2 on ABG 12/01/20 04:43 54 Ventilator - PT Measurements Respiratory Rate 28 Exhaled Tidal Volume 327 Minute Ventilation 7.7 Peak Inspiratory Airway 18 Pressure Mean Airway Pressure 10 Plateau Pressure 21 Respiratory Cycle Inspiratory: 1:2 Expiratory Ratio Inspiratory Phase Time 0.75 End-Tidal CO2 31 Static Lung Compliance 25.38 Dynamic Lung Compliance 32.70 Normal Static Lung Compliance 47.00 Patient Measurements Comment patient breath stacking due to lowered sedation and bucking vent. Coding Level of Care Code Critical Care 1st 30-74 mins Diagnoses Acute hypoxemic respiratory failure J96.01 Pneumomediastinum J98.2 Time Spent (min) 38
[2020-12-01] MEDS: clonazePAM 1 MG TAB PO SCH ×2 (08:09→20:12)
[2020-12-01] MEDS: cefTRIAXone SODIUM 1,000 MG in DEXTROSE 5% 50 ML IV SCH (08:09)
[2020-12-01] MEDS: FAMOTIDINE 20 MG TAB PO SCH ×2 (08:09→20:14)
[2020-12-01] MEDS: ENOXAPARIN INJ 40 MG/0.4 ML SYR SQ SCH (08:09)
[2020-12-01] MEDS: THIAMINE HCL 100 MG TAB PO SCH (08:10)
[2020-12-01] MEDS: POLYETHYLENE (MIRALAX) 17 GM PACK PO SCH (08:10)
[2020-12-01] MEDS: FLUDROCORTISONE ACETATE 0.1 MG TAB PO SCH (08:10)
[2020-12-01] MEDS: MULTI VIT W/MINERALS LIQUID 15 ML UDP NG SCH (08:10)
[2020-12-01] MEDS: INSULIN GLARGINE SOLOSTAR 100 UNITS/ML 3 ML PEN SC SCH (08:11)
[2020-12-01] MEDS ORDERED: clonazePAM 1 MG TAB PO ONE (08:30)
[2020-12-01] MEDS: SENNOSIDES 8.8 MG/5 ML UDC PO SCH (08:32)
--- NOTE | 2020-12-01 09:00 | XRay Report ---
SINGLE VIEW CHEST CLINICAL HISTORY: Respiratory failure. Chest tube. FINDINGS: An AP, portable, upright chest radiograph is compared to studies dated 11/30/2020 and correla rodrick with chest CT dated 11/14/2020. The examination is degraded by portable technique and patient rota tion. A tracheostomy, left subclavian central venous catheter, and enteric tube are unchanged in posi tion. A chest tube is again seen at the left apex. This has been advanced as compared to previous. Th e cardiomediastinal silhouette is unremarkable noting atherosclerotic calcification of the thoracic a td. Multifocal airspace consolidation is again seen throughout both lungs. Small pleural effusions are suspected. No definite pneumothorax is seen. The skeletal structures are osteopenic. The bony tho rax is grossly intact. There is subcutaneous emphysema in the lower neck. IMPRESSION: 1. Stable lines and tubes as compared to yesterday. 2. No definite residual left apical pneumothorax is identified. 3. Multifocal airspace consolidation has not appreciably changed. 4. Subcutaneous emphysema is again seen in the lower neck. ACT 112: Negative or not required by law. Electronically signed by: Vu Chin M.D. 12/01/2020 8:59 AM
[2020-12-01] MEDS: QUEtiapine FUMARATE 25 MG TABLET PO SCH ×2 (09:01→20:14)
[2020-12-01] MEDS: NOREPINEPHRINE/D5W 8 MG/508 ML BAG IV SCH (10:54)
[2020-12-01] MEDS: MIDAZOLAM HCL 1 MG/ML 2ML VIAL IV PRN (14:12)
[2020-12-01] MEDS: fentaNYL citrate 100 MCG/2 ML VIAL IV PRN (15:50)
--- NOTE | 2020-12-01 16:39 | Hospitalist Progress Note ---
Date of Service December 01, 2020 Assessment & Plan (1) Pneumonia due to COVID-19 virus: Acute respiratory failure with hypoxia COVID-19 pneumonia- multifocal Pneumomediastinum Left Pneumothorax -CTA:There is no evidence of pulmonary embolus in the main, lobar, or segmental pulmonary arteries. Multifocal groundglass consolidation is seen throughout both lungs and consistent with the reported history of a viral pneumonia. Radiographic follow-up to resolution is recommended. Moderate hiatal hernia. Hepatic steatosis. Subclavian vein placement complicated by development of left pneumothorax -Continue bronchodilators PRN Intubated on 11/20/20 Neuromuscular blockade discontinued S/P Tracheostomy on 11/29/20 Continue Vent Support Blood/Urine Cx: No growth Sputum Cx: Staph Appreciate stable manager input Diuretics as needed Completed a full dose of steroids IV Vancomycin, Meropenem > transition to Ceftriaxone Wean off of pressors as able on IV Hydrocortisone for relative adrenal insufficiency Central line, arterial line changed on 11/30/20 Planned for LTAC placement as able Repeat chest x-ray today showed no residual pneumothorax Continue tube feeds On Lovenox for DVT prophylaxis Leukocytosis trending down Prediabetes HbA1c 5.9 Continue insulin therapy as needed for hyperglycemia Monitor BGs . (2) Hyponatremia: Sodium levels:131>129>135>142>143>147 Monitor BMP Received IV fluids Hypokalemia Hypophosphatemia Replace electrolytes as needed (3) Fatty liver: Elevated Transaminases last US of liver 09/2019 diffuse increased heterogeneous liver and fatty filtration. Avoid hepatotoxic agents as able (4) DVT prophylaxis: Lovenox SQ Code Status FULL CODE Admission and Anticipated Discharge Date Admission Date: November 14, 2020 Subjective Patient is seen and examined at bedside Still requiring vent support On minimal pressor support Afebrile this morning Discussed with patient's son today Chest x-ray today showed no definitive residual left apical pneumothorax Review of Systems Review of Systems: Unobtainable due to endotracheal tube Physical Exam Physical Exam: Physical Exam: Vitals signs as noted above General Appearance:Moderately built and nourished, Sedated, On Vent Head: normocephalic, Atraumatic Eyes: normal inspection, EOMI Neck: supple, Trachea midline, +Tracheostomy Respiratory/Chest: Decreased breath sounds, CTA Cardiovascular: S1, S2, No murmur Abdomen/GI:Soft, Non tender, Bowel sounds present Extremities/Musculoskeletal:normal inspection, no edema Neurologic/Psych:Sedated and Intubated, Could not perform exam Skin: normal color, warm Results & Data Results & Data ([facility]) Vital Signs (Past 12 Hours) Vital Signs Temp Pulse Resp BP Pulse Ox Pulse Ox 12/01/20 16:00 104 H 91 12/01/20 15:56 37.6 C H 96 H 131/66 90 12/01/20 15:25 104 H 36 H 92 12/01/20 15:24 37.5 C 106 H 120/72 92 12/01/20 14:55 37.4 C 98 H 120/74 93 12/01/20 14:25 37.2 C 85 101/66 93 12/01/20 13:55 37.1 C 77 112/63 94 12/01/20 13:24 37.2 C 84 100/77 96 12/01/20 12:55 37.0 C 66 92/55 L 95 12/01/20 12:24 36.9 C 85 113/59 L 95 12/01/20 11:54 36.9 C 99 H 99/63 L 94 12/01/20 11:30 89 25 H 94 12/01/20 10:54 36.8 C 88 116/68 96 12/01/20 10:47 36.8 C 86 99/72 L 96 12/01/20 09:54 36.7 C 91 H 112/69 95 12/01/20 09:27 36.7 C 101 H 106/67 94 12/01/20 08:54 36.7 C 88 117/77 94 12/01/20 08:24 36.7 C 97 H 137/87 91 12/01/20 08:00 76 12/01/20 07:47 36.3 C L 89 140/76 95 12/01/20 07:45 78 29 H 95 12/01/20 06:47 36.3 C L 81 147/76 H 96 12/01/20 05:48 36.6 C 61 136/65 97 12/01/20 05:16 36.5 C 70 99/48 L 92 Laboratory Results Short CBC 12/01/20 Range/Units 04:36 WBC 13.90 H (4.8-10.8) K/uL Hgb 11.6 L (12.0-16.0) g/dL Hct 35.7 L (37-47) % Plt Count 327 (130-400) K/uL BMP 12/01/20 04:36 Sodium 148 H Potassium 3.5 Chloride 116 H Carbon Dioxide 31 BUN 28 H Creatinine 0.36 L Glucose 161 H Calcium 8.8 Liver Function 12/01/20 Range/Units 04:36 Total Bilirubin 0.4 (0.2-1) mg/dl AST 12 L (15-37) U/L ALT 42 (12-78) U/L Alkaline Phosphatase 78 (45-117) U/L Albumin 2.4 L (3.4-5.0) gm/dl
[2020-12-02] MEDS: INSULIN HUMAN REGULAR SC SCH ×4 (00:08→18:21)
[2020-12-02] MEDS: HYDROCORTISONE SOD 50 MG in SYRINGE 0 ML IV SCH ×4 (00:09→21:35)
[2020-12-02] MEDS: oxyCODONE HCL IR 5 MG TAB (IMMEDIATE RELEASE) PO SCH ×4 (00:11→18:20)
[2020-12-02] MEDS: TUBE FEEDING WATER FLUSH OG SCH ×6 (00:11→21:30)
[2020-12-02] MEDS ORDERED: STAT IV Infusion **Titration per Protocol STA (01:54)
[2020-12-02] MEDS: DEXMEDETOMIDINE HCL 400 MCG in 0.9 % SODIUM CHLORIDE 96 ML IV SCH ×4 (02:34→15:01)
[2020-12-02] MEDS: propofoL 1,000 MG/100 ML VIAL IV SCH ×2 (02:34→09:25)
[2020-12-02 05:24] LABS: Basophils # (auto) 0.02 K/uL (0-0.2); Basophils % (auto) 0.2 %; Eosinophils % (auto) 1.7 %; Hematocrit (blood only) 32.3 % (37-47); Hemoglobin 10.4 g/dL (12.0-16.0); Immature Granulocytes # (auto) 0.08 K/uL (0.00-0.02); Immature Granulocytes % (auto) 0.7 %; Lymphocytes # (auto) 1.38 K/uL (1.2-3.4); Lymphocytes % (auto) 11.9 %; Mean Corpuscular Hgb Conc 32.2 g/dL (32-36); Mean Corpuscular Volume 93.1 fL (80-100); Mean Platelet Volume 9.9 fL (7.4-10.4); Monocytes # (auto) 0.39 K/uL (0.11-0.59); Monocytes % (auto) 3.4 %; Neutrophils # (auto) 9.48 K/uL (1.4-6.5); Neutrophils % (auto) 82.1 %; Platelet Count 253 K/uL (130-400); Red Blood Count 3.47 M/uL (4.2-5.4); White Blood Count 11.55 K/uL (4.8-10.8)
[2020-12-02 05:47] LABS: BUN Creatinine Ratio 91.1 (10-20); Calcium 8.4 mg/dl (8.5-10.1); Creatinine Clr Calc Pharmacy 138.6 ml/min; Est GFR (African American) 130.9 ml/min; Est GFR (Non-African American) 112.9 ml/min; Magnesium 2.3 mg/dl (1.8-2.4); Potassium 3.6 mmol/L (3.5-5.1)
[2020-12-02 05:49] LABS: iSTAT Arterial Blood Gas HCO3 30 meg/L (19-24); iSTAT Arterial Blood Gas pCO2 36 mmHg (35-46); iSTAT Arterial Blood Gas pH 7.53 (7.35-7.45); iSTAT Arterial Blood Gas pO2 73 mmHg (80-95); iSTAT Carbon Dioxide 31 mmol/L (24-31); iSTAT FiO2 35 %; iSTAT Site Art Line
[2020-12-02] MEDS: ICU ELECTROLYTE REPLACEMENT PROTOCOL SCH ×2 (06:20→18:21)
[2020-12-02] MEDS: POTASSIUM CHLORIDE / WTR 20 MEQ/100 ML PLCT IV SCH ×2 (06:29→08:16)
--- NOTE | 2020-12-02 07:40 | XRay Report ---
XR chest 1V portable HISTORY: Respiratory failure. COMPARISON: Chest 12/01/2020. FINDINGS: Multifocal bilateral airspace opacities are again noted. This has slightly progressed withi n the right lung base. The heart remains mildly enlarged. Lines and tubes remain unchanged in positio n. No definite pneumothorax. Trace bilateral pleural effusions. Subcutaneous emphysema within the low er neck and trace pneumomediastinum are again noted. IMPRESSION: 1. Stable lines and tubes compared to the prior study. 2. No definite left pneumothorax. 3. Multifocal airspace opacities which have slightly progressed at the right lung base. 4. Trace pneumomediastinum, unchanged. ACT 112: Negative or not required by law. Electronically signed by: Sha Martinez M.D. 12/02/2020 7:39 AM
[2020-12-02] MEDS: POLYETHYLENE (MIRALAX) 17 GM PACK PO SCH (08:07)
[2020-12-02] MEDS: SENNOSIDES 8.8 MG/5 ML UDC PO SCH (08:07)
[2020-12-02] MEDS: MULTI VIT W/MINERALS LIQUID 15 ML UDP NG SCH (08:07)
[2020-12-02] MEDS: INSULIN GLARGINE SOLOSTAR 100 UNITS/ML 3 ML PEN SC SCH (08:08)
[2020-12-02] MEDS: clonazePAM 1 MG TAB PO SCH (08:08)
[2020-12-02] MEDS: cefTRIAXone SODIUM 1,000 MG in DEXTROSE 5% 50 ML IV SCH (08:08)
[2020-12-02] MEDS: ENOXAPARIN INJ 40 MG/0.4 ML SYR SQ SCH (08:08)
[2020-12-02] MEDS: THIAMINE HCL 100 MG TAB PO SCH (08:09)
[2020-12-02] MEDS: QUEtiapine FUMARATE 25 MG TABLET PO SCH (08:09)
[2020-12-02] MEDS: FLUDROCORTISONE ACETATE 0.1 MG TAB PO SCH ×2 (08:09→08:33)
--- NOTE | 2020-12-02 08:12 | Critical Care Progress Note ---
Date of Service December 02, 2020 Assessment & Plan (1) Acute hypoxemic respiratory failure: Impression: 70-year-old female presented to the hospital 11/15/2020 with Covid pneumonia. Was transferred to the ICU shortly thereafter. She was intubated 11/20/2020. Her course has been complicated by pneumomediastinum and subcutaneous emphysema. 24-hour events: Patient is much improved over the last 24 hours. We have now found a good level of sedation and she is maintained on Seroquel, oral Klonopin, oral oxycodone, and Precedex. She is awake alert and following commands. She has been afebrile. We have been able to transition her to pressure support ve ntilation she is currently on 10/5 and FiO2 of 0.4. She appears comfortable. Her chest tube was placed to waterseal yesterday with no evidence of pneumothorax. Recommendations: Neuro: We will increase oral oxycodone and clonazepam and continue pushes of fentanyl and Versed. Continue Seroquel twice daily. Wean Precedex as tolerated Resp: Acute hypoxic respiratory failure secondary to Covid pneumonia. Completed full dose of steroids including late-phase ARDS dexamethasone. She is completed trials of proning and neuromuscular blockade. She continues to have significant oxygen requirement. Vent day #12. PTT 11/29/2020. She is now tolerating pressure support ventilation at 10/5 with an FiO2 of 0.4. Continue as tolerated. Return her to rate this evening to assist with work of breathing. We will proceed to trach collar trials as tolerated. Iatrogenic pneumothorax due to subclavian line placement. We will clamp chest tube for 24 hours to ensure the lung stays up. If her x-ray looks good tomorrow, chest tube may be able to be discontinued. Return to suction should she have hemodynamic or oxygenation issues. CV: Off pressors now. Will initiate steroid wean for relative adrenal insufficiency. Hold diuretics today Fluids/Renal: Respiratory alkalosis: Continue to follow as we have transitioned her to pressure support ventilation. Hypernatremia corrected with free water yesterday. Continue to follow. May need to touch with Lasix in the next 24 hours. ID: Respiratory culture growing 2 species staph. Sensitivity on 1 species shows sensitivity to oxacillin and vancomycin but resistant to erythromycin and clindamycin. Day #6/ antibiotics, currently Rocephin. White count and fever better today after changing out the lines. Follow up cultures negative to date. Procalcitonin was negative. GI/Nutrition: Tube feeds running at goal. Continue bowel regimen. Heme: Mild anemia. Continue to trend. No evidence of acute blood loss. No indication for transfusion currently. Continue DVT prophylaxis. Leukocytosis improving Endocrine: ICU hyperglycemia protocol. Initiate wean of hydrocortisone Florinef-decrease hydrocortisone to 50 every 8 and decrease Florinef to 0.05 daily. Vascular access: Left subclavian CVC, right radial arterial line 11/30/2020, left 20 Czech chest tube 11/30/2020 Code Status: Full code Prophylaxis: Lovenox to 40 mg once daily. Pepcid twice daily Disposition: Referrals made to LTAC. If she is afebrile and stable, may consider transfer early next week. We will reinitiate PT and OT consults. Discussed with ICU nurse getting her out of bed to chair as tolerated 40 minutes coordinating care and managing complex medical patient including discussion with respiratory therapy, ICU bedside nurse, and patient at bedside. Family will be updated when available (2) Pneumomediastinum: Admission and Anticipated Discharge Date Admission Date: November 14, 2020 Subjective intubated and sedated Review of Systems Review of Systems: Unobtainable due to endotracheal tube Physical Exam Constitutional: + mechanically ventilated Eyes: PERRL, conjunctivae normal, anicteric sclerae ENMT: external ear and nose normal, oropharynx normal Neck: trachea midline, no thyromegaly Respiratory: normal respiratory effort Auscultation: + rales, + rhonchi and + wheezes Cardiovascular: RRR, no murmur, no edema Gastrointestinal (Abdomen): normal bowel sounds, soft, nontender, no hepatosplenomegaly Musculoskeletal: Extremities: extremities normal to inspection Skin: no rashes, warm and dry Lymphatic: no cervical lymphadenopathy Results & Data Results & Data ([facility]) Vital Signs (Past 12 Hours) Vital Signs Temp Pulse Resp BP Pulse Ox 12/02/20 07:44 75 26 H 94 12/02/20 06:24 36.9 C 55 L 98/53 L 94 12/02/20 05:54 36.9 C 55 L 92/48 L 92 12/02/20 05:25 37.1 C 57 L 108/58 L 92 12/02/20 04:25 37.0 C 70 142/74 H 94 12/02/20 04:00 74 155/72 H 12/02/20 03:55 37.1 C 73 148/77 H 94 12/02/20 03:26 68 22 94 12/02/20 03:24 37.1 C 69 170/75 H 95 12/02/20 02:55 37.1 C 64 148/68 H 94 12/02/20 02:25 37.1 C 57 L 117/69 94 12/02/20 01:55 37.1 C 58 L 133/62 95 12/02/20 01:25 37.1 C 60 130/67 96 12/02/20 00:55 37.2 C 55 L 127/61 96 12/02/20 00:24 37.3 C 63 126/68 96 12/02/20 00:00 58 L 139/72 12/01/20 23:54 37.5 C 58 L 115/64 96 12/01/20 23:24 37.6 C H 59 L 110/62 96 12/01/20 22:55 37.7 C H 62 110/57 L 95 12/01/20 22:48 83 30 H 94 12/01/20 22:24 37.7 C H 73 138/75 94 12/01/20 21:54 37.8 C H 74 117/66 95 12/01/20 21:24 37.8 C H 70 109/60 94 12/01/20 20:54 37.8 C H 80 123/68 94 12/01/20 20:24 37.8 C H 82 137/78 95 Critical Care Results & Data Vital Signs (Past 12 Hours) Vital Signs Temp Pulse Resp BP Pulse Ox 12/02/20 07:44 75 26 H 94 12/02/20 06:24 36.9 C 55 L 98/53 L 94 12/02/20 05:54 36.9 C 55 L 92/48 L 92 12/02/20 05:25 37.1 C 57 L 108/58 L 92 12/02/20 04:25 37.0 C 70 142/74 H 94 12/02/20 04:00 74 155/72 H 12/02/20 03:55 37.1 C 73 148/77 H 94 12/02/20 03:26 68 22 94 12/02/20 03:24 37.1 C 69 170/75 H 95 12/02/20 02:55 37.1 C 64 148/68 H 94 12/02/20 02:25 37.1 C 57 L 117/69 94 12/02/20 01:55 37.1 C 58 L 133/62 95 12/02/20 01:25 37.1 C 60 130/67 96 12/02/20 00:55 37.2 C 55 L 127/61 96 12/02/20 00:24 37.3 C 63 126/68 96 12/02/20 00:00 58 L 139/72 12/01/20 23:54 37.5 C 58 L 115/64 96 12/01/20 23:24 37.6 C H 59 L 110/62 96 12/01/20 22:55 37.7 C H 62 110/57 L 95 12/01/20 22:48 83 30 H 94 12/01/20 22:24 37.7 C H 73 138/75 94 12/01/20 21:54 37.8 C H 74 117/66 95 12/01/20 21:24 37.8 C H 70 109/60 94 12/01/20 20:54 37.8 C H 80 123/68 94 12/01/20 20:24 37.8 C H 82 137/78 95 Lab & Micro Results (Past 24 Hours) RBC 3.47 M/uL (4.2-5.4) L 12/02/20 WBC 11.55 K/uL (4.8-10.8) H 12/02/20 Hgb 10.4 g/dL (12.0-16.0) L 12/02/20 Hct 32.3 % (37-47) L 12/02/20 MCV 93.1 fL (80-100) 12/02/20 MCH 30.0 pg (25-34) 12/02/20 MCHC 32.2 g/dL (32-36) 12/02/20 RDW Standard Deviation 50.0 fL (36.4-46.3) H 12/02/20 RDW Coefficient of Variation 15.0 % (11.5-14.5) H 12/02/20 Plt Count 253 K/uL (130-400) 12/02/20 MPV 9.9 fL (7.4-10.4) 12/02/20 Neutrophils (%) (Auto) 82.1 % 12/02/20 Lymphocytes (%) (Auto) 11.9 % 12/02/20 Monocytes # (Auto) 0.39 K/uL (0.11-0.59) 12/02/20 Eosinophils # (Auto) 0.20 K/uL (0-0.5) 12/02/20 Immature Granulocyte % (Auto) 0.7 % 12/02/20 Neutrophils # (Auto) 9.48 K/uL (1.4-6.5) H 12/02/20 Lymphocytes # (Auto) 1.38 K/uL (1.2-3.4) 12/02/20 Monocytes # (Auto) 0.39 K/uL (0.11-0.59) 12/02/20 Eosinophils # (Auto) 0.20 K/uL (0-0.5) 12/02/20 Basophils # (Auto) 0.02 K/uL (0-0.2) 12/02/20 Immature Granulocyte # (Auto) 0.08 K/uL (0.00-0.02) H 12/02/20 Na 143 mmol/L (136-145) 12/02/20 K 3.6 mmol/L (3.5-5.1) 12/02/20 Cl 112 mmol/L (98-107) H 12/02/20 CO2 28 mmol/L (21-32) 12/02/20 Anion Gap 3.0 (3-11) 12/02/20 BUN 31 mg/dl (7-18) H 12/02/20 Creatinine 0.34 mg/dl (0.6-1.2) L 12/02/20 Estimated GFR ( Amer) 130.9 ml/min 12/02/20 Estimated GFR (Non-Af Amer) 112.9 ml/min 12/02/20 BUN/Creatinine Ratio 91.1 (10-20) H 12/02/20 Glu 157 mg/dl (70-99) H 12/02/20 Ca 8.4 mg/dl (8.5-10.1) L 12/02/20 Mg 2.3 mg/dl (1.8-2.4) 12/02/20 05:11 12/02/20 Calcium Level 8.4 mg/dl (8.5-10.1) L 12/02/20 05:11 12/02/20 Maco Test NA 12/02/20 05:36 12/02/20 Microbiology 11/30/20 12:14 Aerobic Blood Culture - Preliminary Blood No growth in Aerobic bottle after 24 hours. Anaerobic Blood Culture - Preliminary No growth in Anaerobic bottle after 24 hours. 11/30/20 12:14 Aerobic Blood Culture - Preliminary Blood No growth in Aerobic bottle after 24 hours. Anaerobic Blood Culture - Preliminary No growth in Anaerobic bottle after 24 hours. 11/30/20 12:00 Urine Culture - Preliminary Urine,Indwelling Cath No growth - Less than 1,000 colonies/mL, Final report to follow. 11/30/20 12:31 Gram Stain - Final Sputum,Vent Suction Sputum Culture - Preliminary Scant normal ludivina present; Final report to follow. Diagnostic Findings (Past 24 Hours) Chest X-Ray 12/01/20 07:00 SINGLE VIEW CHEST CLINICAL HISTORY: Respiratory failure. Chest tube. FINDINGS: An AP, portable, upright chest radiograph is compared to studies dated 11/30/2020 and correlated with chest CT dated 11/14/2020. The examination is degraded by portable technique and patient rotation. A tracheostomy, left subclavian central venous catheter, and enteric tube are unchanged in position. A chest tube is again seen at the left apex. This has been advanced as compared to previous. The cardiomediastinal silhouette is unremarkable noting atherosclerotic calcification of the thoracic aorta. Multifocal airspace consolidation is again seen throughout both lungs. Small pleural effusions are suspected. No definite pneumothorax is seen. The skeletal structures are osteopenic. The bony thorax is grossly intact. There is subcutaneous emphysema in the lower neck. IMPRESSION: 1. Stable lines and tubes as compared to yesterday. 2. No definite residual left apical pneumothorax is identified. 3. Multifocal airspace consolidation has not appreciably changed. 4. Subcutaneous emphysema is again seen in the lower neck. ACT 112: Negative or not required by law. Electronically signed by: Vu Chin M.D. 12/01/2020 8:59 AM Chest X-Ray 12/02/20 07:00 XR chest 1V portable HISTORY: Respiratory failure. COMPARISON: Chest 12/01/2020. FINDINGS: Multifocal bilateral airspace opacities are again noted. This has slightly progressed within the right lung base. The heart remains mildly enlarged. Lines and tubes remain unchanged in position. No definite pneumothorax. Trace bilateral pleural effusions. Subcutaneous emphysema within the lower neck and trace pneumomediastinum are again noted. IMPRESSION: 1. Stable lines and tubes compared to the prior study. 2. No definite left pneumothorax. 3. Multifocal airspace opacities which have slightly progressed at the right lung base. 4. Trace pneumomediastinum, unchanged. ACT 112: Negative or not required by law. Electronically signed by: Sha Martinez M.D. 12/02/2020 7:39 AM I & O Totals 24 Hours 12/01/20 12/02/20 12/03/20 06:59 06:59 06:59 Intake Total 3380.561 / 3440.561 3761.112 / 3761.112 4.677 / 4.677 Output Total 3018 / 3018 1726 / 1726 Balance 362.561 / 922.560 1795.112 / 2035.112 4.677 / 4.677 Cumulative 11/14/20 11:53 thru 12/02/20 07:37 Intake Total 68023.765 Output Total 34862 Balance 1039.765 RT Ventilator Mngmt (Last Documented) Ventilator Ordered Settings Ventilator Support Mode Assist Control 12/02/20 07:44 Respiratory Rate 26 12/02/20 07:44 Ventilator Tidal Volume 325 12/02/20 07:44 Setting Minute Ventilation 8 12/02/20 07:44 Positive End Expiratory 8 12/02/20 07:44 Pressure Fraction of Inspired Oxygen 35 12/02/20 07:44 Peak Inspiratory Flow 35 12/01/20 02:35 Machine Comment weaned to 35% 12/01/20 15:25 Ventilator - PT Measurements Respiratory Rate 26 Exhaled Tidal Volume 320 Minute Ventilation 8 Peak Inspiratory Airway 22 Pressure Mean Airway Pressure 11 Plateau Pressure 19 Respiratory Cycle Inspiratory: 1:2.3 Expiratory Ratio Inspiratory Phase Time 0.75 End-Tidal CO2 33 Static Lung Compliance 29.09 Dynamic Lung Compliance 22.86 Normal Static Lung Compliance 46.00 Patient Measurements Comment Patient sedation weaned to precedex only, patient son in room with patient and noted to be moving around in bed responding to voice. RN as well as RT in room with patient. RN titrated sedation to decrease WOB and aggitation Coding Level of Care Code 16604 Subseq [facility] 3 Diagnoses Acute hypoxemic respiratory failure J96.01 Pneumomediastinum J98.2
[2020-12-02] MEDS: FAMOTIDINE 20 MG TAB PO SCH ×2 (09:28→21:33)
--- NOTE | 2020-12-02 09:55 | Pharmacy Report ---
Pharmacy Glycemic Short Note 2 - Date of Service December 02, 2020 - Glycemic Short BSG Results (Last 24 hours): 12/01/20 12/01/20 12/02/20 11:34 17:34 00:05 Glucose POC Glucose 138 H 138 H 138 H 12/02/20 12/02/20 05:11 05:54 Glucose 157 H POC Glucose 128 H OUTPATIENT ANTIDIABETIC REGIMEN: * N/A * HbA1c = 5.9% on 11/16/20 indicating "pre-diabetes" ASSESSMENT: 12/02: * Rossi received a total of 21 units of insulin yesterday * 8 units basal + 13 units bolus * BSGs yesterday were acceptable: [phone] mg/dL * Fasting BSG was controlled at 128 mg/dL this AM * No changes necessary to insulin regimen at this time * Of note, patient remains on Peptamen at 60 mL/hr and steroids were decreased today to Hydrocortisone 50 mg IV every 8 hours and Fludrocortisone 0.05 mg PO every morning. PLAN FOR INPATIENT GLYCEMIC CONTROL: * Basal insulin * Lantus 8 units SC AM * Bolus insulin * Regular insulin SC q6h * Goal Range: Low 120 mg/dL - High 150 mg/dL * Correction Factor: 35 mg/dL/unit * Nutritional / Prandial insulin per carb ratio of 1 unit per 10 grams CHO consumed PLAN FOR DISCHARGE: * HbA1c of 5.7-6.4% indicates "pre-diabetes" --> ADA recommendation is to institute diabetes and atherosclerosis prevention * Support Patient Self-Management * Healthy Lifestyle (diet, exercise, and smoking cessation) * Disease self-management (SMBG) * Prevention of complications (BP, Lipid goals, Immunizations) * Consider outpatient Diabetes Self-Management Education & Support
[2020-12-02] MEDS: MIDAZOLAM HCL 1 MG/ML 2ML VIAL IV PRN ×2 (13:25→19:13)
[2020-12-02] MEDS: fentaNYL citrate 100 MCG/2 ML VIAL IV PRN ×3 (14:31→19:13)
--- NOTE | 2020-12-02 15:17 | Hospitalist Progress Note ---
Date of Service December 02, 2020 Assessment & Plan (1) Pneumonia due to COVID-19 virus: Acute respiratory failure with hypoxia COVID-19 pneumonia- multifocal Pneumomediastinum Left Pneumothorax -CTA:There is no evidence of pulmonary embolus in the main, lobar, or segmental pulmonary arteries. Multifocal groundglass consolidation is seen throughout both lungs and consistent with the reported history of a viral pneumonia. Radiographic follow-up to resolution is recommended. Moderate hiatal hernia. Hepatic steatosis. 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 (2) Hyponatremia: Sodium levels:131>129>135>142>143 Monitor BMP Received IV fluids Hypokalemia Hypophosphatemia Replace electrolytes as needed (3) Fatty liver: Elevated Transaminases last US of liver 09/2019 diffuse increased heterogeneous liver and fatty filtration. Avoid hepatotoxic agents as able (4) DVT prophylaxis: Lovenox SQ Code Status FULL CODE Admission and Anticipated Discharge Date Admission Date: November 14, 2020 Subjective Patient is seen and examined at bedside Less sedated today Follow simple commands Chest tube clamped No distress on exam on 40% FiO2 Denies any pain, dyspnea (Nods Yes or No) Review of Systems Review of Systems: Unobtainable due to endotracheal tube Physical Exam Physical Exam: Physical Exam: Vitals signs as noted above General Appearance:Moderately built and nourished, Sedated, On Vent Head: normocephalic, Atraumatic Eyes: normal inspection, EOMI Neck: supple, Trachea midline, +Tracheostomy Respiratory/Chest: Decreased breath sounds, CTA Cardiovascular: S1, S2, No murmur Abdomen/GI:Soft, Non tender, Bowel sounds present Extremities/Musculoskeletal:normal inspection, no edema Neurologic/Psych:Sedated and Intubated, Could not perform exam Skin: normal color, warm Results & Data Results & Data ([facility]) Vital Signs (Past 12 Hours) Vital Signs Temp Pulse Resp BP Pulse Ox 12/02/20 12:30 37.3 C 107 H 86 L 12/02/20 12:25 37.3 C 108 H 128/89 88 L 12/02/20 12:00 37.3 C 108 H 90 12/02/20 11:30 37.4 C 97 H 91 12/02/20 11:25 37.4 C 94 H 138/69 92 12/02/20 11:21 105 H 28 H 94 12/02/20 11:00 37.5 C 85 93 12/02/20 10:30 37.4 C 63 95 12/02/20 10:25 37.4 C 69 96/55 L 95 12/02/20 10:00 37.3 C 69 94 12/02/20 09:30 37.2 C 76 95 12/02/20 09:25 37.2 C 71 97/53 L 93 12/02/20 09:00 37.1 C 77 92 12/02/20 08:30 37.2 C 92 H 93 12/02/20 08:25 37.2 C 87 133/77 91 12/02/20 08:00 37.1 C 63 90 12/02/20 07:44 75 26 H 94 12/02/20 07:30 36.8 C 72 94 12/02/20 07:25 36.8 C 63 105/65 93 12/02/20 07:00 36.8 C 55 L 95 12/02/20 06:54 36.8 C 55 L 102/60 95 12/02/20 06:30 36.9 C 56 L 94 12/02/20 06:24 36.9 C 55 L 98/53 L 94 12/02/20 05:54 36.9 C 55 L 92/48 L 92 12/02/20 05:25 37.1 C 57 L 108/58 L 92 12/02/20 04:25 37.0 C 70 142/74 H 94 12/02/20 04:00 74 155/72 H 12/02/20 03:55 37.1 C 73 148/77 H 94 12/02/20 03:26 68 22 94 12/02/20 03:24 37.1 C 69 170/75 H 95 Laboratory Results Short CBC 12/02/20 Range/Units 05:11 WBC 11.55 H (4.8-10.8) K/uL Hgb 10.4 L (12.0-16.0) g/dL Hct 32.3 L (37-47) % Plt Count 253 (130-400) K/uL BMP 12/02/20 05:11 Sodium 143 Potassium 3.6 Chloride 112 H Carbon Dioxide 28 BUN 31 H Creatinine 0.34 L Glucose 157 H Calcium 8.4 L
[2020-12-02] MEDS: ACETAMINOPHEN 325 MG TAB PO PRN (16:45)
[2020-12-02] MEDS ORDERED: MIDAZOLAM HCL 1 MG/ML 2ML VIAL IV STA (20:48)
[2020-12-03] MEDS: QUEtiapine FUMARATE 25 MG TABLET PO SCH ×3 (00:02→20:14)
[2020-12-03] MEDS: clonazePAM 1 MG TAB PO SCH ×3 (00:02→20:23)
[2020-12-03] MEDS: oxyCODONE HCL IR 5 MG TAB (IMMEDIATE RELEASE) PO SCH ×4 (00:02→18:32)
[2020-12-03] MEDS: INSULIN HUMAN REGULAR SC SCH ×4 (00:27→18:19)
[2020-12-03] MEDS: TUBE FEEDING WATER FLUSH OG SCH ×6 (00:28→20:13)
[2020-12-03] MEDS: DEXMEDETOMIDINE HCL 400 MCG in 0.9 % SODIUM CHLORIDE 96 ML IV SCH ×3 (00:28→08:55)
[2020-12-03] MEDS: fentaNYL citrate 100 MCG/2 ML VIAL IV PRN ×3 (00:58→22:41)
[2020-12-03] MEDS: MIDAZOLAM HCL 1 MG/ML 2ML VIAL IV PRN ×4 (00:58→22:13)
[2020-12-03] MEDS: NOREPINEPHRINE/D5W 8 MG/508 ML BAG IV SCH ×3 (02:18→11:39)
[2020-12-03 04:29] LABS: iSTAT Art Bld Gas pCO2 Correct 42 mmHg (35-46); iSTAT Art Bld Gas pH Corrected 7.504 (7.35-7.45); iSTAT Arterial Blood Gas HCO3 33 meg/L (19-24); iSTAT Arterial Blood Gas pCO2 42 mmHg (35-46); iSTAT Arterial Blood Gas pH 7.51 (7.35-7.45); iSTAT Arterial Blood Gas pO2 72 mmHg (80-95); iSTAT Arterial Blood Gas pO2 C 73; iSTAT Carbon Dioxide 34 mmol/L (24-31); iSTAT FiO2 35 %; iSTAT Hematocrit 31 % (37-47); iSTAT Hemoglobin 10.5 g/dl (12.0-16.0); iSTAT Potassium 3.1 mmol/L (3.3-5.0); iSTAT Site Art Line; iSTAT Sodium 140 mmol/L (135-144)
[2020-12-03 05:04] LABS: Basophils # (auto) 0.02 K/uL (0-0.2); Basophils % (auto) 0.1 %; Eosinophils # (auto) 0.31 K/uL (0-0.5); Hematocrit (blood only) 33.8 % (37-47); Hemoglobin 10.9 g/dL (12.0-16.0); Immature Granulocytes # (auto) 0.15 K/uL (0.00-0.02); Lymphocytes # (auto) 2.21 K/uL (1.2-3.4); Lymphocytes % (auto) 14.2 %; Mean Corpuscular Hemoglobin 29.8 pg (25-34); Mean Corpuscular Hgb Conc 32.2 g/dL (32-36); Mean Corpuscular Volume 92.3 fL (80-100); Mean Platelet Volume 9.9 fL (7.4-10.4); Monocytes # (auto) 0.47 K/uL (0.11-0.59); Neutrophils # (auto) 12.42 K/uL (1.4-6.5); Neutrophils % (auto) 79.7 %; Platelet Count 302 K/uL (130-400); RDW Standard Deviation 49.5 fL (36.4-46.3); Red Blood Count 3.66 M/uL (4.2-5.4); White Blood Count 15.58 K/uL (4.8-10.8)
[2020-12-03 05:27] LABS: BUN Creatinine Ratio 102.9 (10-20); Calcium 8.4 mg/dl (8.5-10.1); Creatinine Clr Calc Pharmacy 162.5 ml/min; Est GFR (African American) 137.9 ml/min; Magnesium 2.5 mg/dl (1.8-2.4); Potassium 3.2 mmol/L (3.5-5.1)
[2020-12-03 05:28] LABS: Phosphorus 3.6 mg/dl (2.5-4.9)
[2020-12-03] MEDS: HYDROCORTISONE SOD 50 MG in SYRINGE 0 ML IV SCH ×3 (06:17→22:06)
[2020-12-03] MEDS: ICU ELECTROLYTE REPLACEMENT PROTOCOL SCH ×2 (06:29→18:26)
[2020-12-03] MEDS: POTASSIUM CHLORIDE 20 MEQ/15 ML UDC NG SCH ×2 (08:03→11:29)
[2020-12-03] MEDS: cefTRIAXone SODIUM 1,000 MG in DEXTROSE 5% 50 ML IV SCH (08:03)
[2020-12-03] MEDS: ENOXAPARIN INJ 40 MG/0.4 ML SYR SQ SCH (08:05)
[2020-12-03] MEDS: MULTI VIT W/MINERALS LIQUID 15 ML UDP NG SCH (08:06)
[2020-12-03] MEDS: FAMOTIDINE 20 MG TAB PO SCH ×2 (08:06→20:15)
[2020-12-03] MEDS: FLUDROCORTISONE ACETATE 0.1 MG TAB PO SCH (08:06)
[2020-12-03] MEDS: SENNOSIDES 8.8 MG/5 ML UDC PO SCH (08:07)
[2020-12-03] MEDS: POLYETHYLENE (MIRALAX) 17 GM PACK PO SCH (08:07)
[2020-12-03] MEDS: THIAMINE HCL 100 MG TAB PO SCH (08:07)
[2020-12-03] MEDS ORDERED: INSULIN GLARGINE SOLOSTAR 100 UNITS/ML 3 ML PEN SC SCH (09:00)
[2020-12-03] MEDS ORDERED: STAT IV Infusion **Titration per Protocol STA (10:29)
[2020-12-03] MEDS ORDERED: ADENOSINE IV SOLN 3 MG/ML 2 ML VIAL IV STA (10:30)
[2020-12-03] MEDS ORDERED: PHENYLEPHRINE HCL 20 MG in DEXTROSE 5% 500 ML IV SCH (10:30)
--- NOTE | 2020-12-03 10:40 | Critical Care Progress Note ---
Date of Service December 03, 2020 Assessment & Plan (1) Acute hypoxemic respiratory failure: Impression: 70-year-old female presented to the hospital 11/15/2020 with Covid pneumonia. Was transferred to the ICU shortly thereafter. She was intubated 11/20/2020. Her course has been complicated by pneumomediastinum and subcutaneous emphysema. 24-hour events: Patient tolerating pressure support ventilation briefly currently on 10/5 and FiO2 of 0.4. Her chest tube was placed to waterseal yesterday with no evidence of pneumothorax. Recommendations: Neuro: On oral oxycodone and clonazepam, continue pushes of fentanyl and Versed. Continue Seroquel twice daily. Wean Precedex off if possible Resp: -- TDRF sec Acute hypoxic respiratory failure secondary to Covid pneumonia. Completed full dose of steroids including late-phase ARDS dexamethasone. S/p proning and neuromuscular blockade. She continues to have significant oxygen requirement. Vent day #13. S/p trach 11/29/2020. Tolerating intermittent pressure support ventilation at 10/5. Continue as tolerated. --Iatrogenic pneumothorax due to subclavian line placement Chest tube clamped today CV: Patient still needs intermittent vasopressor support. Levophed changed to phenylephrine because of SVT appreciated on 12/03/2020 Prolonged QTC 520 on EKG 12/03/2020. Patient is on Seroquel as well. Fluids/Renal: Respiratory alkalosis: Continue to follow as we have transitioned her to pressure support ventilation. Hypernatremia corrected with free water yesterday. Continue to follow. May need to touch with Lasix in the next 24 hours. ID: Respiratory culture growing 2 species staph. Sensitivity on 1 species shows sensitivity to oxacillin and vancomycin but resistant to erythromycin and clindamycin. Continue with Rocephin for total of 7 days Follow up blood and urine cultures 11/30/20 negative to date. Procalcitonin was negative. GI/Nutrition: Tube feeds running at goal. Continue bowel regimen. Heme: Monitor H&H Does have leukocytosis likely reactive Keep an eye on it. Endocrine: Continue with ICU hyperglycemia protocol. Patient currently on hydrocortisone 50 every 8 and fludrocortisone 0.5 Try to wean them off gradually Code Status: Full code --Prophylaxis VTE: Lovenox GI: Pepcid Lines: Left subclavian CVC, right radial arterial line 11/30/2020, left 20 Thai chest tube 11/30/2020, size 8 trach 11/29/2020 Diet: Tube feeds Plan: In/out: +946, urine output 3596 Chest x-ray from today shows no sign of pneumothorax. I am going to clamp the chest tube today If the chest x-ray shows no pneumothorax tomorrow I will discontinue the left- sided chest tube Patient is still spiking low-grade fever. SVT, likely from Levophed. I will change Levophed to phenylephrine instead. Try to wean vasopressors off We will change the Ortega catheter if it was not changed before. Try to wean Precedex off. Complete the course of Rocephin for total of 7 days for MSSA Hypokalemia being replaced. Disposition: LTAC when bed is available. I have personally spent 43 minutes of critical care time in the direct ma nagement of this patient. This is a life/limb threatening event. This includes time spent evaluating patient, direct bedside care, chart review, placing orders, interpretation of diagnostic studies, discussion with consultants, patient, and family members, as well as other required patient management activities. This time is exclusive of all separately billable procedures, and teaching time and separate from and in addition to any other critical care service time. Please note the above document was generated using voice recognition software. It may contain grammatical, syntax or spelling errors. (2) Pneumomediastinum: Admission and Anticipated Discharge Date Admission Date: November 14, 2020 Subjective Patient seen and examined at bedside. No acute distress. Patient was on 0.30 Precedex, 0.5 phenylephrine at the time of examination Patient is following simple commands. Denies any headache, no chest pain. Denies any belly pain. Was on went with respiratory being in high 20s to low 30s T-max 38.1 in the last 24 hours Review of Systems Review of Systems: All systems reviewed & are unremarkable except as noted in Subjective Physical Exam Physical Exam: Constitutional: No acute distress HEENT: EOMI, PERRLA, positive trach Respiratory system: Decreased air entry bilaterally, no wheeze, normal, positive crackles bilaterally CVS: S1-S2 positive, no murmurs or gallops, tachycardia Abdomen: Soft, nontender, nondistended, positive bowel sounds x4 Extremities: +2 pulses bilaterally radialis/ dorsalis pedis, no cyanosis, no edema Neuro: Awake alert, answering simple questions, moving all extremities Psych: Has bouts of restlessness G/U: Positive Ortega Skin: no rashes, warm and dry Lymphatic: no cervical or axillary lymphadenopathy Results & Data Results & Data ([facility]) Vital Signs (Past 12 Hours) Vital Signs Temp Pulse Resp BP Pulse Ox 12/03/20 08:25 37.0 C 94 H 113/65 93 12/03/20 08:00 37.1 C 101 H 95/68 L 93 12/03/20 07:37 95 H 29 H 93 12/03/20 07:30 80 20 96 12/03/20 07:26 37.1 C 85 81/52 L 96 12/03/20 07:02 37.0 C 58 L 60/32 L 92 12/03/20 06:25 36.7 C 102 H 106/68 91 12/03/20 05:25 36.7 C 75 105/72 93 12/03/20 04:49 36.9 C 75 102/65 94 12/03/20 04:23 36.9 C 80 85/49 L 95 12/03/20 04:05 37.0 C 101 H 118/66 95 12/03/20 04:00 75 83/60 L 12/03/20 03:31 37.2 C 80 85/52 L 97 12/03/20 03:30 75 20 97 12/03/20 02:39 37.5 C 78 75/48 L 98 12/03/20 01:27 37.9 C H 69 86/52 L 97 12/03/20 00:25 37.9 C H 87 147/91 H 93 12/03/20 00:00 96 H 12/02/20 23:25 37.8 C H 100 H 187/90 H 92 12/02/20 22:47 107 H 34 H 94 12/03/20 04:39 12/03/20 04:39 Coding Level of Care Code Critical Care 1st 30-74 mins Diagnoses Acute hypoxemic respiratory failure J96.01 Pneumomediastinum J98.2 Time Spent (min) 43
--- NOTE | 2020-12-03 10:50 | XRay Report ---
XR chest 1V portable CLINICAL HISTORY: resp failure COMPARISON STUDY: December 02, 2020 FINDINGS: No pneumothorax. No pleural effusion. Redemonstration of patchy airspace opacities throughout bilateral lungs, not significantly changed si nce recent prior and likely representing multifocal pneumonia. Cardiomediastinal silhouette is within upper limits of normal. Pulmonary vasculature is obscured.. Osseous structures: unremarkable Stable position of the tracheostomy tube, left chest tube and left subclavian central venous cathete r. Distal aspect of the feeding tube is seen within the anatomical region of stomach. IMPRESSION: 1. Stable multifocal airspace opacities throughout bilateral lungs likely representing pneumonia. 2. Support apparatus as above. ACT 112: Negative or not required by law. The above report was generated using voice recognition software. It may contain grammatical, syntax o r spelling errors. Electronically signed by: Nadia Kirk DO 12/03/2020 10:49 AM
--- NOTE | 2020-12-03 15:49 | Hospitalist Progress Note ---
Date of Service December 03, 2020 Assessment & Plan (1) Pneumonia due to COVID-19 virus: Acute respiratory failure with hypoxia COVID-19 pneumonia- multifocal Pneumomediastinum Left Pneumothorax -CTA:There is no evidence of pulmonary embolus in the main, lobar, or segmental pulmonary arteries. Multifocal groundglass consolidation is seen throughout both lungs and consistent with the reported history of a viral pneumonia. Radiographic follow-up to resolution is recommended. Moderate hiatal hernia. Hepatic steatosis. Subclavian vein placement complicated by development of left pneumothorax -Continue bronchodilators PRN Intubated on 11/20/20 Neuromuscular blockade discontinued S/P Tracheostomy on 11/29/20 Continue Vent Support Blood/Urine Cx: No growth Sputum Cx: Staph Appreciate welfare worker input Diuretics as needed Completed a full dose of steroids IV Vancomycin, Meropenem > transition to Ceftriaxone on IV Hydrocortisone for relative adrenal insufficiency Central line, arterial line changed on 11/30/20 Planned for LTAC placement as able Continue tube feeds On Lovenox for DVT prophylaxis Sputum culture growing normal ludivina Febrile today SVT likely due to Levophed Levophed changed to phenylephrine Wean off of pressors as able Chest tube clamped Plan to repeat chest x-ray tomorrow and discontinue chest tube if no pneumothorax Persistent leukocytosis Prediabetes HbA1c 5.9 Continue insulin therapy as needed for hyperglycemia Monitor BGs . (2) Hyponatremia: Sodium levels:131>129>135>142 Monitor BMP IV fluids as needed Hypokalemia Hypophosphatemia Replace electrolytes as needed (3) Fatty liver: Elevated Transaminases last US of liver 09/2019 diffuse increased heterogeneous liver and fatty filtration. Avoid hepatotoxic agents as able (4) DVT prophylaxis: Lovenox SQ Code Status FULL CODE Disposition LTAC when arranged Admission and Anticipated Discharge Date Admission Date: November 14, 2020 Subjective Patient is seen and examined at bedside Follows simple commands Discussed with ICU team Chest Tube clamped Patient denies any chest pain, Dyspnea Febrile today Still on pressors Had SVT while on Levophed Review of Systems Review of Systems: All systems reviewed & are unremarkable except as noted in HPI & below Physical Exam Physical Exam: Physical Exam: Vitals signs as noted above General Appearance:Moderately built and nourished, Sedated, On Vent Head: normocephalic, Atraumatic Eyes: normal inspection, EOMI Neck: supple, Trachea midline, +Tracheostomy Respiratory/Chest: Decreased breath sounds, Scattered crackles Cardiovascular: S1, S2, No murmur Abdomen/GI:Soft, Non tender, Bowel sounds present Extremities/Musculoskeletal:normal inspection, no edema Neurologic/Psych:Sedated and Intubated, Could not perform exam Skin: normal color, warm Results & Data Results & Data ([facility]) Vital Signs (Past 12 Hours) Vital Signs Temp Pulse Resp BP Pulse Ox 12/03/20 14:00 37.7 C H 106 H 96 12/03/20 13:25 37.6 C H 113 H 123/74 94 12/03/20 12:25 37.4 C 100 H 96/61 L 95 12/03/20 12:00 37.3 C 100 H 109/66 92 12/03/20 11:40 37.3 C 113 H 92 12/03/20 11:20 37.3 C 110 H 94 12/03/20 10:50 108 H 23 95 12/03/20 10:16 37.2 C 132 H 112/81 95 12/03/20 09:25 37.1 C 98 H 94/61 L 94 12/03/20 08:25 37.0 C 94 H 113/65 93 12/03/20 08:00 37.1 C 101 H 95/68 L 93 12/03/20 07:37 95 H 29 H 93 12/03/20 07:30 80 20 96 12/03/20 07:26 37.1 C 85 81/52 L 96 12/03/20 07:02 37.0 C 58 L 60/32 L 92 12/03/20 06:25 36.7 C 102 H 106/68 91 12/03/20 05:25 36.7 C 75 105/72 93 12/03/20 04:49 36.9 C 75 102/65 94 12/03/20 04:23 36.9 C 80 85/49 L 95 12/03/20 04:05 37.0 C 101 H 118/66 95 12/03/20 04:00 75 83/60 L Laboratory Results Short CBC 12/03/20 Range/Units 04:39 WBC 15.58 H (4.8-10.8) K/uL Hgb 10.9 L (12.0-16.0) g/dL Hct 33.8 L (37-47) % Plt Count 302 (130-400) K/uL BMP 12/03/20 04:39 Sodium 142 Potassium 3.2 L Chloride 107 Carbon Dioxide 31 BUN 29 H Creatinine 0.29 L Glucose 117 H Calcium 8.4 L
[2020-12-03 17:12] LABS: BUN Creatinine Ratio 93.4 (10-20); Calcium 8.8 mg/dl (8.5-10.1); Est GFR (African American) 133.5 ml/min; Est GFR (Non-African American) 115.2 ml/min; Potassium 3.7 mmol/L (3.5-5.1)
[2020-12-03] MEDS: PEPTAMEN INTENSE VHP 1.0 CAL 1,000 ML BAG OG SCH (17:13)
[2020-12-03] MEDS ORDERED: POTASSIUM CHLORIDE 20 MEQ/15 ML UDC NG ONE (19:00)
[2020-12-04] MEDS: TUBE FEEDING WATER FLUSH OG SCH ×7 (00:25→23:57)
[2020-12-04] MEDS: oxyCODONE HCL IR 5 MG TAB (IMMEDIATE RELEASE) PO SCH ×5 (00:26→23:57)
[2020-12-04] MEDS: INSULIN HUMAN REGULAR SC SCH ×3 (00:33→12:07)
[2020-12-04] MEDS: fentaNYL citrate 100 MCG/2 ML VIAL IV PRN ×7 (01:24→23:57)
[2020-12-04] MEDS: MIDAZOLAM HCL 1 MG/ML 2ML VIAL IV PRN ×5 (02:30→23:57)
[2020-12-04] MEDS: DEXMEDETOMIDINE HCL 400 MCG in 0.9 % SODIUM CHLORIDE 96 ML IV SCH ×2 (03:56→09:11)
[2020-12-04 04:06] LABS: iSTAT Art Bld Gas pCO2 Correct 44 mmHg (35-46); iSTAT Art Bld Gas pH Corrected 7.479 (7.35-7.45); iSTAT Arterial Blood Gas HCO3 33 meg/L (19-24); iSTAT Arterial Blood Gas pCO2 43 mmHg (35-46); iSTAT Arterial Blood Gas pH 7.49 (7.35-7.45); iSTAT Arterial Blood Gas pO2 80 mmHg (80-95); iSTAT Arterial Blood Gas pO2 C 83; iSTAT Carbon Dioxide 34 mmol/L (24-31); iSTAT FiO2 35 %; iSTAT Hematocrit 32 % (37-47); iSTAT Hemoglobin 10.9 g/dl (12.0-16.0); iSTAT Potassium 3.9 mmol/L (3.3-5.0); iSTAT Site Art Line; iSTAT Sodium 139 mmol/L (135-144)
[2020-12-04 05:04] LABS: Hematocrit (blood only) 34.3 % (37-47); Mean Corpuscular Hgb Conc 32.1 g/dL (32-36); Mean Corpuscular Volume 93.5 fL (80-100); Mean Platelet Volume 9.5 fL (7.4-10.4); Platelet Count 310 K/uL (130-400); RDW Coefficient of Variation 15.4 % (11.5-14.5); RDW Standard Deviation 51.1 fL (36.4-46.3); Red Blood Count 3.67 M/uL (4.2-5.4); White Blood Count 14.73 K/uL (4.8-10.8)
[2020-12-04 05:32] LABS: BUN Creatinine Ratio 77.3 (10-20); Calcium 8.4 mg/dl (8.5-10.1); Creatinine Clr Calc Pharmacy 112.9 ml/min; Est GFR (African American) 128.4 ml/min; Est GFR (Non-African American) 110.8 ml/min; Potassium 3.7 mmol/L (3.5-5.1)
[2020-12-04] MEDS: HYDROCORTISONE SOD 50 MG in SYRINGE 0 ML IV SCH (05:37)
[2020-12-04] MEDS: ICU ELECTROLYTE REPLACEMENT PROTOCOL SCH (05:52)
--- NOTE | 2020-12-04 05:56 | Electrocardiogram Report ---
Test Reason : Blood Pressure : / mmHG Vent. Rate : 133 BPM Atrial Rate : 138 BPM P-R Int : 000 ms QRS Dur : 076 ms QT Int : 350 ms P-R-T Axes : 000 -15 072 degrees QTc Int : 520 ms Supraventricular tachycardia Anteroseptal infarct (cited on or before 03-DEC-2020) Abnormal ECG When compared with ECG of 15-NOV-2020 16:40, Questionable change in initial forces of Anterior leads Supraventricular tachycardia has replaced Sinus rhythm Confirmed by Wesley Mead ([id number]) on 12/04/2020 5:56:33 AM Referred By: REFERRED SELF Confirmed By:Wesley Mead
[2020-12-04] MEDS: POTASSIUM CHLORIDE 20 MEQ/15 ML UDC PO SCH ×2 (07:28→12:03)
--- NOTE | 2020-12-04 08:06 | XRay Report ---
XR chest 1V portable HISTORY: Respiratory failure. Pneumonia. COMPARISON: Chest 12/03/2020. FINDINGS: Lines and tubes remain unchanged in position. This includes the left-sided chest tube is te rminates in the left lung apex. Suspect a tiny left pneumothorax. The heart remains mildly enlarged. Bilateral airspace opacities persist. These are similar to the prior study. No pleural effusions. Sub cutaneous emphysema/pneumomediastinum at the neck base is also stable. IMPRESSION: 1. Satisfactory support line placement. 2. Probable tiny left lateral pneumothorax. 3. No change in the multifocal bilateral airspace opacities consistent with a pneumonia. ACT 112: Negative or not required by law. Electronically signed by: Sha Martinez M.D. 12/04/2020 8:04 AM
[2020-12-04] MEDS: cefTRIAXone SODIUM 1,000 MG in DEXTROSE 5% 50 ML IV SCH (08:09)
[2020-12-04] MEDS: clonazePAM 1 MG TAB PO SCH ×2 (08:09→20:41)
[2020-12-04] MEDS: FAMOTIDINE 20 MG TAB PO SCH ×2 (08:10→20:39)
[2020-12-04] MEDS: ENOXAPARIN INJ 40 MG/0.4 ML SYR SQ SCH (08:10)
[2020-12-04] MEDS: MULTI VIT W/MINERALS LIQUID 15 ML UDP NG SCH (08:11)
[2020-12-04] MEDS: POLYETHYLENE (MIRALAX) 17 GM PACK PO SCH (08:12)
[2020-12-04] MEDS: QUEtiapine FUMARATE 25 MG TABLET PO SCH ×2 (08:12→20:40)
[2020-12-04] MEDS: THIAMINE HCL 100 MG TAB PO SCH (08:13)
[2020-12-04] MEDS: INSULIN GLARGINE SOLOSTAR 100 UNITS/ML 3 ML PEN SC SCH (08:27)
[2020-12-04] MEDS: ACETAMINOPHEN 325 MG TAB PO PRN (09:55)
[2020-12-04] MEDS ORDERED: QUEtiapine FUMARATE 25 MG TABLET PO STA (09:58)
[2020-12-04] MEDS ORDERED: POLYETHYLENE (MIRALAX) 17 GM PACK PO PRN (10:01)
[2020-12-04] MEDS ORDERED: SENNOSIDES 8.8 MG/5 ML UDC PO PRN (10:02)
[2020-12-04] MEDS: SENNOSIDES 8.8 MG/5 ML UDC PO SCH (10:14)
--- NOTE | 2020-12-04 11:16 | Critical Care Progress Note ---
Date of Service December 04, 2020 Assessment & Plan (1) Acute hypoxemic respiratory failure: Impression: 70-year-old female presented to the hospital 11/15/2020 with Covid pneumonia. Was transferred to the ICU shortly thereafter. She was intubated 11/20/2020. Her course has been complicated by pneumomediastinum and subcutaneous emphysema. 24-hour events: Off Precedex and vasopressor support for more than 12 hours. Recommendations: Neuro: On oral oxycodone and clonazepam, continue pushes of fentanyl and Versed. Continue Seroquel twice daily. Resp: -- TDRF sec Acute hypoxic respiratory failure secondary to Covid pneumonia. Completed full dose of steroids including late-phase ARDS dexamethasone. S/p proning and neuromuscular blockade. She continues to have significant oxygen requirement. Vent day #14. S/p trach 11/29/2020. Tolerating intermittent pressure support ventilation at 10/5. Continue as tolerated. --Iatrogenic pneumothorax due to subclavian line placement Chest tube clamped today CV: Off vasopressor support as of 12/03/2020. SVT appreciated on 12/03/2020 --> no more episodes of SVTs Prolonged QTC 520 on EKG 12/03/2020. Repeat QTC 442 on 12/04/2020 Patient is on Seroquel as well. Fluids/Renal: Respiratory alkalosis: Continue to follow as we have transitioned her to pressure support ventilation. ID: Respiratory culture growing 2 species staph. Sensitivity on 1 species shows sensitivity to oxacillin and vancomycin but resistant to erythromycin and clindamycin. Continue with Rocephin for total of 7 days Follow up blood and urine cultures 11/30/20 negative to date. Procalcitonin was negative. GI/Nutrition: Tube feeds running at goal. Continue bowel regimen. Heme: Monitor H&H Does have leukocytosis likely reactive Keep an eye on it. Endocrine: Continue with ICU hyperglycemia protocol. Patient currently on hydrocortisone 50 every 8 and fludrocortisone 0.5 Try to wean them off gradually Code Status: Full code --Prophylaxis VTE: Lovenox GI: Pepcid Lines: Left subclavian CVC, right radial arterial line 11/30/2020, left 20 [place]ic chest tube 11/30/2020, size 8 trach 11/29/2020, Ortega catheter changed 12/03/2020 Diet: Tube feeds Plan: In/out: +31, urine output 2.2 L T-max 38.1 Chest tube has been clamped since yesterday. Chest x-ray today shows small left lateral normal. I will continue with clamp chest tube and repeat chest x-ray tomorrow. Patient is off Precedex as well as phenylephrine. DC A-line QTC today 442, increase the Seroquel to 75 mg every 12 given the underlying anxiety. DC fludrocortisone, decrease hydrocortisone to 50 every 12 and then start tapering off over the next 5 days. Disposition: LTAC when bed is available. I have personally spent 38 minutes of critical care time in the direct management of this patient. This is a life/limb threatening event. This includes time spent evaluating patient, direct bedside care, chart review, placing orders, interpretation of diagnostic studies, discussion with consultants, patient, and family members, as well as other required patient management activities. This time is exclusive of all separately billable procedures, and teaching time and separate from and in addition to any other critical care service time. Please note the above document was generated using voice recognition software. It may contain grammatical, syntax or spelling errors. (2) Pneumomediastinum: Admission and Anticipated Discharge Date Admission Date: November 14, 2020 Subjective Patient seen and examined at bedside. No acute distress. Off Precedex and vasopressor. Following simple commands. Denies any headache, no chest pain. Patient is tolerating CPAP only couple of hours a day. Urinating well. Review of Systems Review of Systems: All systems reviewed & are unremarkable except as noted in Subjective and Unobtainable due to mental health condition Physical Exam Physical Exam: Constitutional: No acute distress HEENT: EOMI, PERRLA, positive trach Respiratory system: Decreased air entry bilaterally, no wheeze, normal, positive crackles bilaterally CVS: S1-S2 positive, no murmurs or gallops Abdomen: Soft, nontender, nondistended, positive bowel sounds x4 Extremities: +2 pulses bilaterally radialis/ dorsalis pedis, no cyanosis, no edema Neuro: Awake alert, answering simple questions, moving all extremities Psych: Has bouts of restlessness G/U: Positive Ortega Skin: no rashes, warm and dry Lymphatic: no cervical or axillary lymphadenopathy Results & Data Results & Data ([facility]) Vital Signs (Past 12 Hours) Vital Signs Temp Pulse Resp BP Pulse Ox 12/04/20 10:50 85 21 96 12/04/20 09:36 128 H 32 H 91 12/04/20 09:24 38.0 C H 128 H 178/84 H 91 12/04/20 08:24 37.9 C H 115 H 173/92 H 94 12/04/20 08:00 89 173/92 H 12/04/20 07:36 117 H 23 93 12/04/20 07:24 37.9 C H 121 H 160/81 H 92 12/04/20 07:20 109 H 29 H 94 12/04/20 06:24 37.6 C H 113 H 179/80 H 96 12/04/20 06:00 37.6 C H 94 H 96 12/04/20 05:43 37.7 C H 98 H 148/83 H 96 12/04/20 05:25 37.8 C H 129 H 173/87 H 97 12/04/20 05:20 37.8 C H 122 H 190/96 H 95 12/04/20 05:00 37.9 C H 119 H 97 12/04/20 04:39 37.9 C H 113 H 146/84 H 97 12/04/20 04:00 37.6 C H 115 H 94 12/04/20 03:50 30 H 12/04/20 03:24 37.7 C H 121 H 174/86 H 97 12/04/20 03:00 37.7 C H 106 H 97 12/04/20 02:25 37.7 C H 115 H 159/78 H 95 12/04/20 02:00 37.8 C H 91 H 95 12/04/20 01:44 37.9 C H 99 H 94 12/04/20 01:42 37.9 C H 105 H 94 12/04/20 01:40 37.9 C H 119 H 94 12/04/20 01:24 38.1 C H 119 H 161/90 H 94 12/04/20 01:00 38.0 C H 119 H 96 12/04/20 00:24 37.9 C H 115 H 155/78 H 93 12/04/20 00:00 37.9 C H 110 H 92 12/03/20 23:24 37.9 C H 113 H 147/74 H 92 07/05/21 23:15 37.9 C H 116 H 157/82 H 91 12/04/20 04:47 12/04/20 04:47 Coding Level of Care Code Critical Care 1st 30-74 mins Diagnoses Acute hypoxemic respiratory failure J96.01 Pneumomediastinum J98.2 Time Spent (min) 38
--- NOTE | 2020-12-04 12:58 | Hospitalist Progress Note ---
Date of Service December 04, 2020 Assessment & Plan (1) Pneumonia due to COVID-19 virus: Acute respiratory failure with hypoxia COVID-19 pneumonia- multifocal Pneumomediastinum Left Pneumothorax -CTA:There is no evidence of pulmonary embolus in the main, lobar, or segmental pulmonary arteries. Multifocal groundglass consolidation is seen throughout both lungs and consistent with the reported history of a viral pneumonia. Radiographic follow-up to resolution is recommended. Moderate hiatal hernia. Hepatic steatosis. Subclavian vein placement complicated by development of left pneumothorax -Continue bronchodilators PRN Intubated on 11/20/20 Neuromuscular blockade discontinued S/P Tracheostomy on 11/29/20 Continue Vent Support Blood/Urine Cx: No growth Sputum Cx: Staph Appreciate staffing executive input Diuretics as needed Completed a full dose of steroids IV Vancomycin, Meropenem > transition to Ceftriaxone on IV Hydrocortisone for relative adrenal insufficiency--Being tapered down Central line, arterial line changed on 11/30/20 Continue tube feeds On Lovenox for DVT prophylaxis Sputum culture growing normal ludivina Febrile today Off pressors Chest tube clamped yesterday Chest x-ray today showed small left lateral pneumothorax Plan to repeat chest x-ray tomorrow Consider discontinuing chest tube tomorrow if pneumothorax resolved Planned for LTAC placement as able Prediabetes HbA1c 5.9 Continue insulin therapy as needed for hyperglycemia Monitor BGs . (2) Hyponatremia: Sodium levels:131>129>135>140 Monitor BMP IV fluids as needed Hypokalemia Hypophosphatemia Replace electrolytes as needed (3) Fatty liver: Elevated Transaminases last US of liver 09/2019 diffuse increased heterogeneous liver and fatty filtration. Avoid hepatotoxic agents as able (4) DVT prophylaxis: Lovenox SQ Code Status FULL CODE Disposition LTAC when arranged Admission and Anticipated Discharge Date Admission Date: November 14, 2020 Subjective Patient is seen and examined at bedside Febrile today Sinus Tachycardia on Monitor Off pressors A line planned to be discontinued Chest tube is clamped Small left lateral pneumothorax noted on today's x-ray Patient denies any chest pain, Dyspnea Review of Systems Review of Systems: All systems reviewed & are unremarkable except as noted in HPI & below Physical Exam Physical Exam: Physical Exam: Vitals signs as noted above General Appearance:Moderately built and nourished, Sedated, On Vent Head: normocephalic, Atraumatic Eyes: normal inspection, EOMI Neck: supple, Trachea midline, +Tracheostomy Respiratory/Chest: Decreased breath sounds, Scattered crackles Cardiovascular: S1, S2, No murmur, Tachycardia Abdomen/GI:Soft, Non tender, Bowel sounds present Extremities/Musculoskeletal:normal inspection, no edema Neurologic/Psych:Sedated and Intubated, Could not perform exam Skin: normal color, warm Results & Data Results & Data ([facility]) Vital Signs (Past 12 Hours) Vital Signs Temp Pulse Resp BP Pulse Ox 12/04/20 10:50 85 21 96 12/04/20 09:36 128 H 32 H 91 12/04/20 09:24 38.0 C H 128 H 178/84 H 91 12/04/20 08:24 37.9 C H 115 H 173/92 H 94 12/04/20 08:00 89 173/92 H 12/04/20 07:36 117 H 23 93 12/04/20 07:24 37.9 C H 121 H 160/81 H 92 12/04/20 07:20 109 H 29 H 94 12/04/20 06:24 37.6 C H 113 H 179/80 H 96 12/04/20 06:00 37.6 C H 94 H 96 12/04/20 05:43 37.7 C H 98 H 148/83 H 96 12/04/20 05:25 37.8 C H 129 H 173/87 H 97 12/04/20 05:20 37.8 C H 122 H 190/96 H 95 12/04/20 05:00 37.9 C H 119 H 97 12/04/20 04:39 37.9 C H 113 H 146/84 H 97 12/04/20 04:00 37.6 C H 115 H 94 12/04/20 03:50 30 H 12/04/20 03:24 37.7 C H 121 H 174/86 H 97 12/04/20 03:00 37.7 C H 106 H 97 12/04/20 02:25 37.7 C H 115 H 159/78 H 95 12/04/20 02:00 37.8 C H 91 H 95 12/04/20 01:44 37.9 C H 99 H 94 12/04/20 01:42 37.9 C H 105 H 94 12/04/20 01:40 37.9 C H 119 H 94 12/04/20 01:24 38.1 C H 119 H 161/90 H 94 12/04/20 01:00 38.0 C H 119 H 96 Laboratory Results Short CBC 12/04/20 Range/Units 04:47 WBC 14.73 H (4.8-10.8) K/uL Hgb 11.0 L (12.0-16.0) g/dL Hct 34.3 L (37-47) % Plt Count 310 (130-400) K/uL BMP 12/03/20 12/04/20 16:09 04:47 Sodium 143 140 Potassium 3.7 D 3.7 Chloride 109 H 106 Carbon Dioxide 30 32 BUN 29 H 28 H Creatinine 0.32 L 0.36 L Glucose 97 112 H Calcium 8.8 8.4 L
[2020-12-04] MEDS: PEPTAMEN INTENSE VHP 1.0 CAL 1,000 ML BAG OG SCH (13:46)
[2020-12-04] MEDS ORDERED: HYDROCORTISONE SOD 50 MG in SYRINGE 0 ML IV SCH (18:00)
[2020-12-05] MEDS: INSULIN HUMAN REGULAR SC SCH ×4 (00:17→18:27)
[2020-12-05] MEDS ORDERED: fentaNYL citrate 100 MCG/2 ML VIAL IV STA (01:22)
[2020-12-05] MEDS ORDERED: fentaNYL citrate 100 MCG/2 ML VIAL ONE (01:35)
[2020-12-05] MEDS: fentaNYL citrate 100 MCG/2 ML VIAL IV PRN ×4 (03:46→22:20)
[2020-12-05] MEDS: TUBE FEEDING WATER FLUSH OG SCH ×5 (03:46→20:10)
[2020-12-05 04:50] LABS: Hematocrit (blood only) 31.3 % (37-47); Hemoglobin 9.8 g/dL (12.0-16.0); Mean Corpuscular Hemoglobin 30.5 pg (25-34); Mean Corpuscular Hgb Conc 31.3 g/dL (32-36); Mean Corpuscular Volume 97.5 fL (80-100); Mean Platelet Volume 9.6 fL (7.4-10.4); Platelet Count 281 K/uL (130-400); RDW Coefficient of Variation 15.8 % (11.5-14.5); RDW Standard Deviation 54.5 fL (36.4-46.3); Red Blood Count 3.21 M/uL (4.2-5.4); White Blood Count 12.51 K/uL (4.8-10.8)
[2020-12-05 05:07] LABS: BUN Creatinine Ratio 94.2 (10-20); Calcium 8.9 mg/dl (8.5-10.1); Creatinine Clr Calc Pharmacy 123.1 ml/min; Est GFR (African American) 132.1 ml/min; Magnesium 2.5 mg/dl (1.8-2.4); Potassium 3.4 mmol/L (3.5-5.1)
[2020-12-05] MEDS: oxyCODONE HCL IR 5 MG TAB (IMMEDIATE RELEASE) PO SCH ×3 (05:52→18:19)
--- NOTE | 2020-12-05 06:00 | Electrocardiogram Report ---
Test Reason : Blood Pressure : / mmHG Vent. Rate : 115 BPM Atrial Rate : 115 BPM P-R Int : 134 ms QRS Dur : 076 ms QT Int : 320 ms P-R-T Axes : 043 -11 101 degrees QTc Int : 442 ms Sinus tachycardia Nonspecific T wave abnormality Abnormal ECG When compared with ECG of 03-DEC-2020 10:12, Criteria for Anteroseptal infarct are no longer Present Confirmed by Wesley Mead ([id number]) on 12/05/2020 6:00:07 AM Referred By: REFERRED SELF Confirmed By:Wesley Mead
[2020-12-05] MEDS: ICU ELECTROLYTE REPLACEMENT PROTOCOL SCH ×2 (06:40→18:51)
[2020-12-05] MEDS: POTASSIUM CHLORIDE 20 MEQ/15 ML UDC NG SCH ×2 (06:44→10:40)
[2020-12-05] MEDS: PEPTAMEN INTENSE VHP 1.0 CAL 1,000 ML BAG OG SCH (07:52)
[2020-12-05] MEDS: MIDAZOLAM HCL 1 MG/ML 2ML VIAL IV PRN (07:52)
[2020-12-05] MEDS: ENOXAPARIN INJ 40 MG/0.4 ML SYR SQ SCH (08:06)
[2020-12-05] MEDS: MULTI VIT W/MINERALS LIQUID 15 ML UDP NG SCH (08:07)
[2020-12-05] MEDS: THIAMINE HCL 100 MG TAB PO SCH (08:08)
[2020-12-05] MEDS: QUEtiapine FUMARATE 25 MG TABLET PO SCH ×2 (08:08→20:29)
[2020-12-05] MEDS: clonazePAM 1 MG TAB PO SCH ×2 (08:10→20:29)
[2020-12-05] MEDS: FAMOTIDINE 20 MG TAB PO SCH ×2 (08:11→20:29)
[2020-12-05] MEDS ORDERED: HYDROCORTISONE SOD 50 MG in SYRINGE 0 ML IV SCH (09:00)
[2020-12-05] MEDS: INSULIN GLARGINE SOLOSTAR 100 UNITS/ML 3 ML PEN SC SCH (09:25)
--- NOTE | 2020-12-05 09:57 | XRay Report ---
XR chest 1V portable CLINICAL HISTORY: resp failure COMPARISON STUDY: December 04, 2020 FINDINGS: No pneumothorax. No pleural effusion. Redemonstration of patchy mixed reticular and airspace opacities within bilateral lungs, not signific antly changed since prior. Cardiomediastinal silhouette is within normal limits in size. Pulmonary vasculature is obscured by surrounding opacities.. Osseous structures: unremarkable Stable position of tracheostomy tube, feeding tube, left chest tube and left subclavian central venou s catheter. IMPRESSION: 1. No evidence of pneumothorax. Stable position of the left chest tube. 2. Unchanged patchy opacities throughout bilateral lungs representing multifocal pneumonia. 3. The rest of support apparatus as detailed above. ACT 112: Negative or not required by law. The above report was generated using voice recognition software. It may contain grammatical, syntax o r spelling errors. Electronically signed by: Nadia Kirk DO 12/05/2020 9:56 AM
--- NOTE | 2020-12-05 10:28 | Critical Care Progress Note ---
Date of Service December 05, 2020 Assessment & Plan (1) Acute hypoxemic respiratory failure: Impression: 70-year-old female presented to the hospital 11/15/2020 with Covid pneumonia. Was transferred to the ICU shortly thereafter. She was intubated 11/20/2020. Her course has been complicated by pneumomediastinum and subcutaneous emphysema. 24-hour events: Off Precedex and vasopressor support for more than 12 hours. Recommendations: Neuro: On oral oxycodone and clonazepam, continue pushes of fentanyl and Versed. Continue Seroquel twice daily. Resp: -- TDRF sec Acute hypoxic respiratory failure secondary to Covid pneumonia. Completed full dose of steroids including late-phase ARDS dexamethasone. S/p proning and neuromuscular blockade. She continues to have significant oxygen requirement. Vent day #14. S/p trach 11/29/2020. Tolerating intermittent pressure support ventilation at 10/5. Continue as tolerated. --Iatrogenic pneumothorax due to subclavian line placement Chest tube clamped today CV: Off vasopressor support as of 12/03/2020. SVT appreciated on 12/03/2020 --> no more episodes of SVTs Prolonged QTC 520 on EKG 12/03/2020. Repeat QTC 442 on 12/04/2020 Patient is on Seroquel as well. Fluids/Renal: Respiratory alkalosis: Continue to follow as we have transitioned her to pressure support ventilation. ID: Respiratory culture growing 2 species staph. Sensitivity on 1 species shows sensitivity to oxacillin and vancomycin but resistant to erythromycin and clindamycin. S/p 7 days of Rocephin Follow up blood and urine cultures 11/30/20 negative to date. Procalcitonin was negative. GI/Nutrition: Tube feeds running at goal. Continue bowel regimen. Heme: Monitor H&H Does have leukocytosis likely reactive Keep an eye on it. Endocrine: Continue with ICU hyperglycemia protocol. Patient currently on hydrocortisone 50 every 8 and fludrocortisone 0.5 Try to wean them off gradually Code Status: Full code --Prophylaxis VTE: Lovenox GI: Pepcid Lines: Left subclavian CVC, left 20 [place]i chest tube 11/30/2020, size 8 trach 11/29/2020, Ortega catheter changed 12/03/2020 Diet: Tube feeds Plan: In/out: -1.4 L T-max 38 Chest tube has been clamped since 48 hours. No pneumothorax appreciated today Plan to remove the chest tube today Patient does have some episodes of hypotension especially after giving medication for anxiety. Because patient still tries to grab the trach and disconnected. I will put mittens on top of the soft restraint that the patient has. Hypokalemia being replaced We will DC Ortega catheter tomorrow Disposition: LTAC when bed is available. I have personally spent 36 minutes of critical care time in the direct management of this patient. This is a life/limb threatening event. This includes time spent evaluating patient, direct bedside care, chart review, placing orders, interpretation of diagnostic studies, discussion with consultants, patient, and family members, as well as other required patient management activities. This time is exclusive of all separately billable procedures, and teaching time and separate from and in addition to any other critical care service time. Please note the above document was generated using voice recognition software. It may contain grammatical, syntax or spelling errors. (2) Pneumomediastinum: Admission and Anticipated Discharge Date Admission Date: November 14, 2020 Subjective Patient seen and examined at bedside. No acute distress, no adverse events overnight. Patient's was in the room at the time of examination. Denies any headache, no chest pain, no belly pain. Patient is urinating well. Following commands appropriately. Does get hypotensive episodes when she gets this sedating medication. Review of Systems Review of Systems: All systems reviewed & are unremarkable except as noted in Subjective Physical Exam Physical Exam: Constitutional: No acute distress HEENT: EOMI, PERRLA, positive trach Respiratory system: Decreased air entry bilaterally, no wheeze, normal, positive crackles bilaterally CVS: S1-S2 positive, no murmurs or gallops Abdomen: Soft, nontender, nondistended, positive bowel sounds x4 Extremities: +2 pulses bilaterally radialis/ dorsalis pedis, no cyanosis, no edema Neuro: Awake alert, answering simple questions, moving all extremities Psych: Has bouts of restlessness G/U: Positive Ortega Skin: no rashes, warm and dry Lymphatic: no cervical or axillary lymphadenopathy Results & Data Results & Data ([facility]) Vital Signs (Past 12 Hours) Vital Signs Temp Pulse Resp BP Pulse Ox 12/05/20 09:27 37.9 C H 12/05/20 08:56 93 H 75/46 L 95 12/05/20 08:52 88 71/33 L 92 12/05/20 08:50 92 H 67/39 L 93 12/05/20 08:00 105 H 12/05/20 07:49 121 H 125/68 92 12/05/20 07:08 83 16 96 12/05/20 06:50 77 90/52 L 98 12/05/20 06:00 98 H 13 142/67 H 98 12/05/20 05:50 115 H 142/67 H 94 12/05/20 05:00 78 95 12/05/20 04:00 37.0 C 102 H 18 119/66 96 12/05/20 03:49 97 H 119/66 96 12/05/20 03:00 75 15 85/49 L 95 12/05/20 02:00 73 14 109/45 L 95 12/05/20 01:00 123 H 19 120/69 96 12/05/20 00:00 107 H 26 H 124/74 95 12/04/20 23:00 82 90/46 L 95 12/04/20 22:30 24 12/05/20 04:34 12/05/20 04:34 Coding Level of Care Code Critical Care 1st 30-74 mins Diagnoses Acute hypoxemic respiratory failure J96.01 Pneumomediastinum J98.2 Time Spent (min) 36
[2020-12-05 12:11] LABS: Basophils # (auto) 0.01 K/uL (0-0.2); Basophils % (auto) 0.1 %; Eosinophils # (auto) 0.31 K/uL (0-0.5); Eosinophils % (auto) 2.5 %; Hematocrit (blood only) 32.4 % (37-47); Hemoglobin 10.1 g/dL (12.0-16.0); Immature Granulocytes # (auto) 0.05 K/uL (0.00-0.02); Immature Granulocytes % (auto) 0.4 %; Lymphocytes # (auto) 0.99 K/uL (1.2-3.4); Lymphocytes % (auto) 7.9 %; Mean Corpuscular Hemoglobin 30.5 pg (25-34); Mean Corpuscular Hgb Conc 31.2 g/dL (32-36); Mean Corpuscular Volume 97.9 fL (80-100); Mean Platelet Volume 9.7 fL (7.4-10.4); Monocytes % (auto) 2.4 %; Neutrophils # (auto) 10.86 K/uL (1.4-6.5); Neutrophils % (auto) 86.7 %; Platelet Count 299 K/uL (130-400); RDW Coefficient of Variation 15.7 % (11.5-14.5); RDW Standard Deviation 54.1 fL (36.4-46.3); Red Blood Count 3.31 M/uL (4.2-5.4); White Blood Count 12.52 K/uL (4.8-10.8)
--- NOTE | 2020-12-05 16:56 | Hospitalist Progress Note ---
Date of Service December 05, 2020 Assessment & Plan (1) Pneumonia due to COVID-19 virus: Acute respiratory failure with hypoxia COVID-19 pneumonia- multifocal Developed pneumomediastinum Later left Pneumothorax chest tube placed, which is discontinued -CTA:There is no evidence of pulmonary embolus in the main, lobar, or segmental pulmonary arteries. Multifocal groundglass consolidation is seen throughout both lungs and consistent with the reported history of a viral pneumonia. Radiographic follow-up to resolution is recommended. Moderate hiatal hernia. Hepatic steatosis. Subclavian vein placement complicated by development of left pneumothorax chest tube was placed, was discontinued -Continue bronchodilators PRN Intubated on 11/20/20 Patient is now status post tracheostomy, Requires vent support. Unable to tolerate CPAP trial Currently on no sedation, patient is awake, able to communicate with nodding head . (2) Hyponatremia: Resolved (3) Fatty liver: last US of liver 09/2019 diffuse increased heterogeneous liver and fatty filtration. (4) DVT prophylaxis: Lovenox SQ Code Status FULL CODE Disposition Waiting for LTAC placement Admission and Anticipated Discharge Date Admission Date: November 14, 2020 Subjective Patient is awake, nods head, able to answer simple questions On vent via tracheostomy tube. Vitals been stable, Review of Systems Review of Systems: Unobtainable due to endotracheal tube Physical Exam Constitutional: WD/WN, vitals as above Awake, able to nod head to answer simple questions Eyes: + anicteric sclerae ENMT: Status post tracheostomy, has vent tube attached Neck: + tracheostomy present Respiratory: + cough Auscultation: + crackles and + wheezes Gastrointestinal (Abdomen): Percussion/Palpation: abdomen soft; abdomen nontender Neurologic: awake Results & Data Results & Data ([facility]) Vital Signs (Past 12 Hours) Vital Signs Temp Pulse Resp BP Pulse Ox 12/05/20 16:00 110 H 12/05/20 15:07 110 H 24 96 12/05/20 14:53 104 H 125/66 97 12/05/20 13:53 118 H 122/67 97 12/05/20 12:30 115 H 130/71 99 12/05/20 11:53 115 H 116/61 97 12/05/20 10:55 107 H 22 99 12/05/20 10:22 112 H 116/73 90 07/07/21 09:27 37.9 C H 07/07/21 08:56 93 H 75/46 L 95 12/05/20 08:52 88 71/33 L 92 12/05/20 08:50 92 H 67/39 L 93 12/05/20 08:00 105 H 12/05/20 07:49 121 H 125/68 92 12/05/20 07:08 83 16 96 12/05/20 06:50 77 90/52 L 98 12/05/20 06:00 98 H 13 142/67 H 98 12/05/20 05:50 115 H 142/67 H 94 12/05/20 05:00 78 95
[2020-12-05 17:24] LABS: BUN Creatinine Ratio 111.4 (10-20); Calcium 8.9 mg/dl (8.5-10.1); Creatinine Clr Calc Pharmacy 162.5 ml/min; Est GFR (African American) 144.8 ml/min; Est GFR (Non-African American) 124.9 ml/min; Potassium 4.1 mmol/L (3.5-5.1)
--- NOTE | 2020-12-05 17:34 | Procedure Note ---
Procedure Note Date of Service December 05, 2020 Procedure: Chest tube removal Chief Medical Director: Dr. Wagner Jones Indication: Removal of chest tube. Consent: Verbal consent obtained from patient as well as Anesthesia: 1% lidocaine without epinephrine local Procedure: Under sterile condition all dressing of the chest tube from the left side was removed. Sutures were removed. Chest tube was removed on exhalation. Vaseline gauze was applied followed by 4 x 4 gauze and appropriately dressed. Patient tolerated the procedure well. Complications: None Blood loss: None Coding CPT Codes Pulmonary/Thoracic - Pulmonary and Thoracic: 88399 Remove lung catheter ([id number]) [facility] [place] Procedure Codes (Charges) Pulmonary/Thoracic Procedure 1: Pulmonary and Thoracic: 51437 Remove lung catheter
[2020-12-06] MEDS: TUBE FEEDING WATER FLUSH OG SCH ×4 (00:03→12:00)
[2020-12-06] MEDS: oxyCODONE HCL IR 5 MG TAB (IMMEDIATE RELEASE) PO SCH ×3 (00:08→11:56)
[2020-12-06] MEDS: fentaNYL citrate 100 MCG/2 ML VIAL IV PRN ×3 (00:08→05:49)
[2020-12-06] MEDS: INSULIN HUMAN REGULAR SC SCH ×3 (00:20→13:22)
[2020-12-06] MEDS: PEPTAMEN INTENSE VHP 1.0 CAL 1,000 ML BAG OG SCH (03:00)
[2020-12-06] MEDS: MIDAZOLAM HCL 1 MG/ML 2ML VIAL IV PRN ×2 (04:39→09:11)
[2020-12-06 05:21] LABS: Creatinine Clr Calc Pharmacy 119.5 ml/min; Est GFR (African American) 130.9 ml/min; Est GFR (Non-African American) 112.9 ml/min
[2020-12-06 06:06] LABS: BUN Creatinine Ratio 90.6 (10-20); Est GFR (African American) 133.5 ml/min; Est GFR (Non-African American) 115.2 ml/min; Magnesium 2.4 mg/dl (1.8-2.4); Potassium 3.8 mmol/L (3.5-5.1)
[2020-12-06 06:07] LABS: Phosphorus 3.1 mg/dl (2.5-4.9)
[2020-12-06 06:10] LABS: Basophils # (auto) 0.02 K/uL (0-0.2); Basophils % (auto) 0.2 %; Eosinophils # (auto) 1.13 K/uL (0-0.5); Eosinophils % (auto) 9.8 %; Hematocrit (blood only) 33.2 % (37-47); Hemoglobin 10.2 g/dL (12.0-16.0); Immature Granulocytes # (auto) 0.04 K/uL (0.00-0.02); Immature Granulocytes % (auto) 0.3 %; Lymphocytes # (auto) 2.18 K/uL (1.2-3.4); Lymphocytes % (auto) 18.8 %; Mean Corpuscular Hemoglobin 30.1 pg (25-34); Mean Corpuscular Hgb Conc 30.7 g/dL (32-36); Mean Corpuscular Volume 97.9 fL (80-100); Mean Platelet Volume 9.9 fL (7.4-10.4); Monocytes # (auto) 0.58 K/uL (0.11-0.59); Neutrophils # (auto) 7.63 K/uL (1.4-6.5); Neutrophils % (auto) 65.9 %; Platelet Count 347 K/uL (130-400); RDW Coefficient of Variation 15.8 % (11.5-14.5); RDW Standard Deviation 55.2 fL (36.4-46.3); Red Blood Count 3.39 M/uL (4.2-5.4); White Blood Count 11.58 K/uL (4.8-10.8)
[2020-12-06] MEDS: ICU ELECTROLYTE REPLACEMENT PROTOCOL SCH (06:52)
--- NOTE | 2020-12-06 07:08 | XRay Report ---
XR chest 1V portable HISTORY: 70 years-old Female Resp failure acute respiratory failure COMPARISON: 12/05/2020 TECHNIQUE: Portable AP view of the chest FINDINGS: Tracheostomy cannula overlies the midline at the level the clavicular heads. Left subclavian central venous catheter is unchanged. An enteric tube courses into the stomach outside the [id number]. Int erval removal of the left-sided chest tube. Cardiomegaly with persistent bilateral mixed interstitial and alveolar opacities, stable to mildly improved. Mild right hemidiaphragmatic elevation. Probable trace pleural effusions. No pneumothorax. IMPRESSION: 1. Lines and tubes as above. 2. Stable to mild improvement of the bilateral multifocal pulmonary opacities. 3. Interval removal of the left-sided chest tube. No pneumothorax identified. ACT 112: Negative or not required by law. The above report was generated using voice recognition software. It may contain grammatical, syntax o r spelling errors. Electronically signed by: Joe Herndon M.D. 12/06/2020 7:07 AM
[2020-12-06] MEDS: POTASSIUM CHLORIDE 20 MEQ/15 ML UDC NG SCH ×2 (08:15→11:56)
[2020-12-06] MEDS ORDERED: HYDROCORTISONE SOD 25 MG in SYRINGE 0 ML IV SCH (09:00)
[2020-12-06] MEDS: ENOXAPARIN INJ 40 MG/0.4 ML SYR SQ SCH (09:06)
[2020-12-06] MEDS: THIAMINE HCL 100 MG TAB PO SCH (09:07)
[2020-12-06] MEDS: FAMOTIDINE 20 MG TAB PO SCH (09:07)
[2020-12-06] MEDS: MULTI VIT W/MINERALS LIQUID 15 ML UDP NG SCH (09:08)
[2020-12-06] MEDS: QUEtiapine FUMARATE 25 MG TABLET PO SCH (09:08)
[2020-12-06] MEDS: clonazePAM 1 MG TAB PO SCH (09:11)
--- NOTE | 2020-12-06 12:57 | Critical Care Progress Note ---
Date of Service December 06, 2020 Assessment & Plan (1) Acute hypoxemic respiratory failure: Impression: 70-year-old female presented to the hospital 11/15/2020 with Covid pneumonia. Was transferred to the ICU shortly thereafter. She was intubated 11/20/2020. Her course has been complicated by pneumomediastinum and subcutaneous emphysema. Recommendations: Neuro: On oral oxycodone and clonazepam, continue pushes of fentanyl and Versed. Continue Seroquel twice daily. Resp: -- TDRF sec Acute hypoxic respiratory failure secondary to Covid pneumonia. Completed full dose of steroids including late-phase ARDS dexamethasone. S/p proning and neuromuscular blockade. She continues to have significant oxygen requirement. Vent day #15. S/p trach 11/29/2020. Tolerating intermittent pressure support ventilation at 10/5. Continue as tolerated. --Iatrogenic pneumothorax due to subclavian line placement S/p chest tube removal 12/05/2020 CV: Off vasopressor support as of 12/03/2020. SVT appreciated on 12/03/2020 --> no more episodes of SVTs Prolonged QTC 520 on EKG 12/03/2020. Repeat QTC 442 on 12/04/2020 Patient is on Seroquel as well. Fluids/Renal: Respiratory alkalosis: Continue to follow as we have transitioned her to pressure support ventilation. ID: Respiratory culture growing 2 species staph. Sensitivity on 1 species shows sensitivity to oxacillin and vancomycin but resistant to erythromycin and clindamycin. S/p 7 days of Rocephin Follow up blood and urine cultures 11/30/20 negative to date. Procalcitonin was negative. GI/Nutrition: Tube feeds running at goal. Continue bowel regimen. Heme: Monitor H&H Endocrine: Continue with ICU hyperglycemia protocol. Patient currently on hydrocortisone 50 every 8 and fludrocortisone 0.5 Try to wean them off gradually Code Status: Full code --Prophylaxis VTE: Lovenox GI: Pepcid Lines: Left subclavian CVC, left 20 [place] chest tube 11/30/2020, size 8 trach 11/29/2020, Ortega catheter changed 12/03/2020 Diet: Tube feeds Plan: In/out: In/out: -507 mL, urine output 2.8 L T-max 37.9 Chest tube removed 12/05/2020. No pneumothorax appreciated on today's x-ray. DC Ortega catheter Disposition: LTAC when bed is available. I have personally spent 35 minutes of critical care time in the direct management of this patient. This is a life/limb threatening event. This includes time spent evaluating patient, direct bedside care, chart review, placing orders, interpretation of diagnostic studies, discussion with consultants, patient, and family members, as well as other required patient management activities. This time is exclusive of all separately billable procedures, and teaching time and separate from and in addition to any other critical care service time. Please note the above document was generated using voice recognition software. It may contain grammatical, syntax or spelling errors. (2) Pneumomediastinum: Admission and Anticipated Discharge Date Admission Date: November 14, 2020 Subjective Patient seen and examined at bedside. No acute distress, no adverse events overnight. Patient was on trach collar at the time of examination. Denied any chest pain, no shortness of breath, no headache. Following simple commands. Patient is bringing copious phlegm from the trach. Patient's was old so in the room during examination. Review of Systems Review of Systems: All systems reviewed & are unremarkable except as noted in Subjective Physical Exam Physical Exam: Constitutional: No acute distress HEENT: EOMI, PERRLA, positive trach Respiratory system: Decreased air entry bilaterally, no wheeze, normal, positive crackles bilaterally CVS: S1-S2 positive, no murmurs or gallops Abdomen: Soft, nontender, nondistended, positive bowel sounds x4 Extremities: +2 pulses bilaterally radialis/ dorsalis pedis, no cyanosis, no edema Neuro: Awake alert, answering simple questions, moving all extremities Psych: Has bouts of restlessness G/U: Positive Ortega Skin: no rashes, warm and dry Lymphatic: no cervical or axillary lymphadenopathy Results & Data Results & Data ([facility]) Vital Signs (Past 12 Hours) Vital Signs Temp Pulse Pulse Resp BP Pulse Ox 12/06/20 11:53 121 H 28 H 117/73 89 L 12/06/20 11:01 138 H 24 96 12/06/20 11:00 37 C 12/06/20 10:53 127 H 23 112/64 94 12/06/20 09:53 138 H 32 H 99/54 L 96 12/06/20 08:53 122 H 26 H 120/73 94 12/06/20 07:55 119 H 24 94 12/06/20 07:53 123 H 135/75 88 L 12/06/20 07:35 95 H 14 95 12/06/20 07:00 37 C 12/06/20 06:53 88 119/77 96 12/06/20 05:53 83 136/70 93 12/06/20 04:53 110 H 140/77 97 12/06/20 03:53 106 H 134/77 96 12/06/20 03:19 91 H 13 94 12/06/20 02:53 101 H 134/73 93 12/06/20 01:53 87 97/58 L 98 12/06/20 04:36 12/06/20 04:36 Coding Level of Care Code Critical Care 1st 30-74 mins Diagnoses Acute hypoxemic respiratory failure J96.01 Pneumomediastinum J98.2 Time Spent (min) 35
--- NOTE | 2020-12-06 16:56 | Discharge Summary ---
Date of Service December 06, 2020 Admission HPI Per Admitting Provider This is a 70 yr old F who has significant PMH of HLD, fatty liver who presents to ED 2/2 to worsening SOB x 5-7 days. Pt tested + for covid-19 on 11/05/2020. She became symptomatic ~ 6 days prior to testing positive. Currently she complains of SOB at rest and with exertion, off and on fever for which she has been alternating tylenol and apap, chills, body aches, nausea, thick productive cough and diarrhea. She recently traveled for [place]. Overall decreased PO intake, ~ 3 8oz glasses of water a day. She has had worsening SOB over last few days so opted to seek ED. She has been taking OTC meds w/o relief. She denies dizziness, lightheaded, chest pain, emesis, dysuria, increased urg/freq with urination, hematuria, hematochezia or melena. In ED pt was hypoxic requiring O2. CXR concerning for viral pneumonia. She has a mild hyponatremia 129 and hypochloremia at 92. HER AST/ALT are elevated, previously had been normal. She has documented fatty liver disease. Her AST is 151 and ALT 92 respectively. In ED she received 10mg IV decadron. Principal Diagnosis Acute hypoxemic respiratory failure due to COVID 9 pneumonia Discharge Exam Constitutional WD/WN, vitals as above + mechanically ventilated Eyes + anicteric sclerae Neck + tracheostomy present Respiratory + cough Auscultation: + crackles, + rales and + wheezes Gastrointestinal (Abdomen) Percussion/Palpation: abdomen soft; abdomen nontender Neurologic awake and + obtunded Discharge Data Allergies Allergy/AdvReac Type Severity Reaction Status Date / Time lactose AdvReac Intermediate Gastrointestinal Verified 11/20/20 10:15 Upset egg AdvReac Unknown Unknown Verified 11/26/20 15:11 Consultations 11/14/20 13:51 ED Decision to Admit Stat 11/15/20 08:04 Consult Pulmonology Routine 11/15/20 16:47 Consult Public Speaker Routine Ordered Studies 11/14/20 14:24 CT angio chest PE protocol Stat 11/15/20 16:30 US venous doppler LE LT Urgent 11/20/20 05:58 US point of care ultrasound Routine 11/25/20 00:00 US venous doppler LE BI Urgent Hospital Course (1) Pneumonia due to COVID-19 virus: Subclavian vein placement complicated by development of left pneumothorax chest tube was placed, was discontinued -Continue bronchodilators PRN Intubated on 11/20/20 Patient is now status post tracheostomy, Requires vent support. Unable to tolerate CPAP trial Currently on no sedation, patient is awake, able to communicate with nodding head (1) Acute hypoxemic respiratory failure: Acute respiratory failure with hypoxia COVID-19 pneumonia- multifocal Impression: 70-year-old female presented to the hospital 11/15/2020 with Covid pneumonia. Was transferred to the ICU shortly thereafter. She was intubated 11/20/2020. Her course has been complicated by pneumomediastinum and subcutaneous emphysema. CTA on admission :There is no evidence of pulmonary embolus in the main, lobar, or segmental pulmonary arteries. Multifocal groundglass consolidation is seen throughout both lungs and consistent with the reported history of a viral pneumonia. Radiographic follow-up to resolution is recommended. Moderate hiatal hernia. Hepatic steatosis. Completed full dose of steroids including late-phase ARDS dexamethasone. S/p proning and neuromuscular blockade. will be discharged on taper dose of hydrocortisone 20 mg daily for 2 more days pt continues to have significant oxygen requirement. Vent day #15. S/p trach 11/29/2020. tolerating trach collar during day time on Vent at night developed --Iatrogenic pneumothorax due to subclavian line placement S/p chest tube removal 12/05/2020 Off vasopressor support as of 12/03/2020. SVT appreciated on 12/03/2020 --> no more episodes of SVTs Prolonged QTC 520 on EKG 12/03/2020. Repeat QTC 442 on 12/04/2020 anxiety disorder : started on Kolonopin on seroquel Fever : Respiratory culture growing 2 species staph. Sensitivity on 1 species shows sensitivity to oxacillin and vancomycin but resistant to erythromycin and clindamycin. S/p 7 days of Rocephin Follow up blood and urine cultures 11/30/20 negative to date. Procalcitonin was negative. GI/Nutrition: via Corsafe tube Tube feeding Peptamine @ 60 ml/hr . (2) Hyponatremia: Resolved (3) Fatty liver: last US of liver 09/2019 diffuse increased heterogeneous liver and fatty filtration. (4) DVT prophylaxis: Lovenox SQ Code Status FULL CODE Disposition transferred to [facility] at [place] today Physician to physician sign out given to attending at [facility] Total Time Total Time Spent Total Time Spent (In Minutes): 35 mins Total Time Includes: Examination of the Patient, Discharge Planning, Medication Reconciliation and Communication With Other Providers Discharge Plan Discharge Items Patient Disposition: Trans Resident Long-Term Care Reason For Visit: COVID PNA Discharge Diagnosis: Acute hypoxemic respiratory failure due to COVID 19 pneumonia Pneumomediastinum Condition on Discharge: Good Activity: As commented below Activity Comment: as per rehab protocol Non-emergency contact: Primary Care Provider Call non-emergency contact if: you have any medication questions Follow-up/Referrals: Audra Christian MD [Primary Care Provider] - Diet: Nothing by Mouth Diet Comment: Tube feeding through Corsafe Addtl Attending Provider Instructions: Patient is transferred to [facility] Trach collar : suction as needed continue trach collar during day time , on vent at night time current vent setting : AC /rate 14/Fi02 40%/TV 325/PEEP 8 Nutrition : Tube feeding through Corsafe : Peptamen intense 60 ml/hr water flush 150 ml Q4 hrs Pending Studies at Discharge: No Stand-Alone [facility] Skilled Items Patient informed of condition?: Yes DNR: No Discharge Level of Care: Other Communicable Disease: No Discharge Prognosis: Stable Lines: None Urinary Catheter: No Medications and DC Order Prescriptions: New quetiapine 25 mg Tablet 75 mg PO BID Qty: 0 RF: 0 acetaminophen 325 mg Tablet 650 mg PO Q4H PRN (Reason: fever or pain) Qty: 0 RF: 0 polyethylene glycol 3350 [Miralax] 17 gram Powder In Packet 17 g PO DAILY PRNQty: 0 RF: 0 clonazepam 1 mg Tablet 2 mg PO BID Qty: 0 RF: 0 thiamine HCl (vitamin B1) [Vitamin B-1] 100 mg Tablet 100 mg PO QAM Qty: 0 RF: 0 famotidine 20 mg Tablet 20 mg PO BID Qty: 0 RF: 0 albuterol sulfate [Ventolin HFA] 90 mcg/actuation Hfa Aerosol Inhaler 2 puff inhalation Q4R PRN (Reason: wheeze) Qty: 0 RF: 0 oxycodone 5 mg Tablet 5 mg PO Q6 PRN (Reason: pain) Qty: 0 RF: 0 enoxaparin 40 mg/0.4 mL Syringe 40 mg subcut DAILY Qty: 0 RF: 0 Artificial Tears (jenelle/min) 83-15 % Ointment 1 applic ophthalmic (eye) Q4 PRN (Reason: dry eye) Qty: 0 RF: 0 ngmnsvus-qrr-luhjxeh gluconate [Centrum] 9 mg iron/15 mL Liquid 15 ml NG QAM Qty: 0 RF: 0 Tube Feeding Water Flush 150 ml OG Q4 Qty: 0 RF: 0 Peptamen Intense VHP 0.09 gram- 1 kcal/mL Liquid 1,000 ml OG UD Qty: 0 RF: 0 hydrocortisone 20 mg tablet 20 mg PO DAILY 2 Days Qty: 2 RF: 0 Discharge Orders: Discharge Order (Routine); Ordered 12/06/20 Ordered By: Idalia Harvey Admission Data Admit Date/Time: 11/14/20 14:04 Attending Provider: Idalia Harvey Admit Provider: Mateus Austin Primary Care Provider: Audra Christian Other Providers: Juventino Zapata ; Mateus Austin ; Martin Novoa ; [facility] [place] Other Interventions: Discharge Summary Assessment (RN) Last Done: 12/06/20 16:42
[2020-12-08] MEDS ORDERED: HYDROCORTISONE 10 MG TAB PO SCH (09:00)
--- NOTE | 2020-12-10 13:39 | Pharmacy Report ---
Pharmacy Vanc AUC Short Note - Date of Service November 27, 2020 - Assessment & Plan Assessment 70 year old F receiving vancomycin/meropenem for treatment of VAP. Pertinent microbiologic data includes: sputum culture growing staph species. Day # 2 of antimicrobial therapy. Plan Vancomycin * AUC/PERLITA is the preferred PK/PD target for vancomycin * AUC guided dosing is effective and associated with decreased risk of nephrotoxicity compared to traditional trough targets * Predicted trough level of 12.5 mcg/mL is predicted to achieve target AUC/PERLITA of 400-600 mg/L.hr and may be associated with a 8 % risk of nephrotoxicity * Loading dose of 1750 mg IV X 1 @ 1100 then 1250 mg IV every 12 hours starting at 2300 * Trough or random level ordered for: will order pending continuation past tomorrow Pharmacy will continue to follow and will adjust dose/frequency as necessary. Thank you.
== END 2020-12-06 17:48 | DRG 4 ==
LOC: ED 11:53 → 2E 14:04 → SUATTDRO 14:04 → 2E 14:54 → 1E 11-15 16:46

== ENCOUNTER 2021-07-15 09:36 | Inpatient (IN) ==
[2021-07-15 10:24] LABS: Hemoglobin 13.4 g/dL (12.0-16.0); Mean Corpuscular Hemoglobin 30.8 pg (25-34); Mean Corpuscular Hgb Conc 33.5 g/dL (32-36); Mean Platelet Volume 10.4 fL (7.4-10.4); Platelet Count 293 K/uL (130-400); RDW Coefficient of Variation 13.7 % (11.5-14.5); RDW Standard Deviation 46.2 fL (36.4-46.3); Red Blood Count 4.35 M/uL (4.2-5.4); White Blood Count 25.61 K/uL (4.8-10.8)
[2021-07-15 10:56] LABS: Anion Gap 7 (3-11); BUN Creatinine Ratio 19.2 (10-20); Blood Urea Nitrogen 15 mg/dl (6-23); Calcium 9.8 mg/dl (8.5-10.1); Carbon Dioxide 27 mmol/L (21-32); Chloride 100 mmol/L (98-107); Est GFR (African American) 89.9 ml/min; Est GFR (Non-African American) 77.6 ml/min; Glucose 125 mg/dl (70-99(Fasting)); Sodium 134 mmol/L (136-145)
[2021-07-15] MEDS ORDERED: SODIUM CHLORIDE 0.9% 500 ML IV STA (11:19)
[2021-07-15] MEDS ORDERED: SODIUM CHLORIDE 0.9% 1000ML 1,000 ML IV ONE ×2 (11:43→15:28)
[2021-07-15] MEDS ORDERED: HYDROmorphone INJ 1 MG/ML SYRINGE IV STA (11:43)
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
[2021-07-15 12:39] LABS: Appearance Urine Clear (Clear); Bacteria Urine Automated Negative (Negative); Bilirubin Urine Negative (Negative); Blood Urine Negative (Negative); Color Urine Orange; Epithelial Cell Urine Auto >30 /lpf (0-5); Glucose Urine UA Negative (Negative); Ketones Urine 1+ (Negative); Leukocyte Esterase Urine Trace (Negative); Nitrite Urine Negative (Negative); Protein Urine 1+ (Negative); RBC Urine Automated 0-4 /hpf (0-4); Specific Gravity Urine 1.022 (1.000-1.030); Urobilinogen Urine Negative (Negative); pH Urine 6.5 (4.5-7.5)
[2021-07-15] MEDS ORDERED: PIPERACILLIN/TAZOBACTAM 4.5 GM/120 ML BAG IV ONE (13:19)
[2021-07-15] MEDS ORDERED: PIPERACILL/TAZOBAC CONSULT ACTIVE PRN ×2 (13:19→17:35)
[2021-07-15] MEDS ORDERED: OPTIRAY 320 100ml IV ONE (14:06)
[2021-07-15] MEDS ORDERED: HYDROmorphone INJ 0.5 MG/0.5 ML SYR IV STA (15:01)
[2021-07-15] MEDS ORDERED: ONDANSETRON INJ 2 MG/ML 2 ML VIAL IV STA (15:01)
--- NOTE | 2021-07-15 15:25 | CT Scan Report ---
CT abd pelvis IV con only CLINICAL HISTORY: diffuse abdominal pain, elevated wbc TECHNIQUE: Helical axial images of the abdomen and pelvis were obtained and displayed. Automated dose lowering techniques and/or adjustment according to patient size were utilized for this exam. This e xam was performed with intravenous contrast. COMPARISON: None available at the time of this dictation. FINDINGS: Lower chest: Bibasilar atelectasis versus scarring is seen. Liver: Unremarkable. No focal lesions are seen. Gallbladder and biliary tree: No calcified gallstones. Normal caliber wall. No intra- or extrahepatic biliary ductal dilation. Pancreas: There is prominence of the pancreatic duct measuring up to 4 mm in diameter. Spleen: Unremarkable. Adrenals: Unremarkable. Kidneys and ureters: Unremarkable. Bladder: Unremarkable. Reproductive organs: Unremarkable. Bowel: Numerous diverticula are seen. There is wall thickening and fat stranding about the sigmoid co lisette. The appendix measures approximately 7 mm, minimally prominent. There is inflammation of a few lo wer abdominal loops of small bowel with prominent vascularity. There is a hiatal hernia. A surgical c lip is seen in the stomach, of note, the patient had a gastrostomy tube during a prior hospitalizatio n. Lymph nodes Retroperitoneal: Unremarkable. Mesenteric: Subcentimeter nodes are seen in the left lower quadrant. Pelvic: Unremarkable. Peritoneum: Diffuse fat stranding is seen in the lower abdomen. There is a focus of pneumoperitoneum. There is a 1 cm x 3 cm fat and fluid collection in the anterior pelvis which may represent a develop ing abscess. Vessels: Atherosclerotic calcifications are seen. Abdominal wall: Unremarkable. Bones: Degenerative changes in the visualized spine. IMPRESSION: Pneumoperitoneum and fat stranding in the lower abdomen with a developing abscess in the anterior pel vis. This is favored to represent perforated diverticulitis. There are also inflammatory changes in t he appendix and small bowel, although these may be secondary to adjacent inflammation. A call was placed with the patient's provider at the time of dictation. ACT 112: Negative or not required by law. Electronically signed by: Federico Nunez M.D. 07/15/2021 3:23 PM
[2021-07-15] MEDS ORDERED: SODIUM CHLORIDE 0.9% 1000ML 1,000 ML IV SCH (16:15)
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
[2021-07-15] MEDS ORDERED: HYDROmorphone INJ 0.5 MG/0.5 ML SYR IV PRN ×2 (17:35)
[2021-07-15] MEDS ORDERED: ONDANSETRON INJ 2 MG/ML 2 ML VIAL IV PRN (17:35)
[2021-07-15] MEDS: LACTATED RINGER'S 1,000 ML IV SCH (18:43)
[2021-07-15] MEDS: PIPERACILLIN/TAZOBACTAM 3.375 GM in DEXTROSE 5% 100 ML IV SCH (19:29)
[2021-07-15] MEDS ORDERED: ACETAMINOPHEN 325 MG TAB PO STA (22:18)
[2021-07-16] MEDS: LACTATED RINGER'S 1,000 ML IV SCH ×2 (02:47→11:17)
[2021-07-16] MEDS: PIPERACILLIN/TAZOBACTAM 3.375 GM in DEXTROSE 5% 100 ML IV SCH ×3 (03:57→19:41)
[2021-07-16 07:23] LABS: Basophils # (auto) 0.02 K/uL (0-0.2); Basophils % (auto) 0.1 %; Eosinophils # (auto) 0.03 K/uL (0-0.5); Eosinophils % (auto) 0.1 %; Hemoglobin 11.1 g/dL (12.0-16.0); Immature Granulocytes # (auto) 0.09 K/uL (0.00-0.02); Immature Granulocytes % (auto) 0.4 %; Lymphocytes # (auto) 3.01 K/uL (1.2-3.4); Lymphocytes % (auto) 13.6 %; Mean Corpuscular Hemoglobin 30.3 pg (25-34); Mean Corpuscular Hgb Conc 32.6 g/dL (32-36); Mean Corpuscular Volume 92.9 fL (80-100); Mean Platelet Volume 10.4 fL (7.4-10.4); Monocytes # (auto) 0.71 K/uL (0.11-0.59); Monocytes % (auto) 3.2 %; Neutrophils % (auto) 82.6 %; Platelet Count 223 K/uL (130-400); RDW Coefficient of Variation 13.7 % (11.5-14.5); RDW Standard Deviation 46.8 fL (36.4-46.3); Red Blood Count 3.66 M/uL (4.2-5.4); White Blood Count 22.06 K/uL (4.8-10.8)
[2021-07-16 07:47] LABS: BUN Creatinine Ratio 15.7 (10-20); Calcium 8.8 mg/dl (8.5-10.1); Creatinine Clr Calc Pharmacy 66.8 ml/min; Est GFR (African American) 102.5 ml/min; Est GFR (Non-African American) 88.4 ml/min; Potassium 3.9 mmol/L (3.5-5.1)
[2021-07-16] MEDS: ACETAMINOPHEN 325 MG TAB PO PRN ×2 (10:02→15:35)
--- NOTE | 2021-07-16 11:47 | Surgery Progress Note ---
Date of Service July 16, 2021 Assessment & Plan (1) Diverticulitis of large intestine with complication: (2) Abdominal pain: Plan: 71 year-old female with one day history of abdominal pain and associated nausea. CT scan showing sigmiod diverticulitis with significant stranding in left lower abdomen with foci of pneumoperitoneum and 1 x 3 cm fat and fluid filled collection in anterior low pelvis which may be developing abscess. 07/16/2021: Afebrile, VSS Mild improvement of leukocytosis 22K (25K prior) abdominal pain improving abdomen soft, tender, no peritonitis Plan: Continue conservative measures Keep NPO for bowel rest, can have ice chips/sips Continue IV zosyn Continue pain management and antiemetics as needed SCDs ambulate repeat am labs to trend WBC Will need colonoscopy as outpatient in 6-8 weeks as she has never had one prior Patient seen in collaboration with Dr. Myers during rounds who agrees with above. Admission and Anticipated Discharge Date Admission Date: July 15, 2021 Subjective feeling better today nausea resolved abdominal pain only when getting up and moving around, no pain at rest passing gas no bowel movement yet per nurse patient only requested Tylenol for headache, no pain management for abdominal pain no fevers or chills Physical Exam Constitutional: well developed and well nourished; no acute distress and not ill appearing Neck: normal visual inspection and trachea midline Respiratory: normal respiratory effort; no respiratory distress Gastrointestinal (Abdomen): Inspection/Auscultation: abdomen normal to inspection; abdomen not distended Percussion/Palpation: + abdomen tender (lower abdomen bilaterally , improving, no peritonitis) and abdomen soft; no guarding and abdomen not rigid Skin: no rashes, warm and dry Psychiatric: Orientation: alert and oriented x 3 Results & Data ([facility]) Vital Signs (Past 12 Hours) Vital Signs Temp Pulse Pulse Resp BP BP Pulse Ox 07/16/21 08:00 36.7 C 84 20 103/52 L 96 07/16/21 04:05 84 16 112/53 L 99 07/16/21 00:03 78 17 106/59 L 97 Laboratory Results 07/16/21 07/16/21 07/15/21 Range/Units 06:49 06:49 Unknown WBC 22.06 H (4.8-10.8) K/uL RBC 3.66 L (4.2-5.4) M/uL Hgb 11.1 L (12.0-16.0) g/dL Hct 34.0 L (37-47) % MCV 92.9 (80-100) fL MCH 30.3 (25-34) pg MCHC 32.6 (32-36) g/dL RDW Std Deviation 46.8 H (36.4-46.3) fL RDW Coeff of Claudia 13.7 (11.5-14.5) % Plt Count 223 (130-400) K/uL MPV 10.4 (7.4-10.4) fL Immature Gran % (Auto) 0.4 % Neut % (Auto) 82.6 % Lymph % (Auto) 13.6 % [place] % (Auto) 3.2 % Eos % (Auto) 0.1 % Baso % (Auto) 0.1 % Neut # (Auto) 18.20 H (1.4-6.5) K/uL Lymph # (Auto) 3.01 (1.2-3.4) K/uL [place] # (Auto) 0.71 H (0.11-0.59) K/uL Eos # (Auto) 0.03 (0-0.5) K/uL Baso # (Auto) 0.02 (0-0.2) K/uL Immature Gran # (Auto) 0.09 H (0.00-0.02) K/uL Sodium 135 L (136-145) mmol/L Potassium 3.9 (3.5-5.1) mmol/L Chloride 105 (98-107) mmol/L Carbon Dioxide 25 (21-32) mmol/L Anion Gap 5 (3-11) BUN 11 (6-23) mg/dl Creatinine 0.70 (0.6-1.2) mg/dl Est Cr Clr Drug Dosing 66.8 ml/min Est GFR ( Amer) 102.5 ml/min Est GFR (Non-Af Amer) 88.4 ml/min BUN/Creatinine Ratio 15.7 (10-20) Glucose 112 H (70-99(Fasting)) mg/dl Lactate (0.4-2.0) mmol/L Calcium 8.8 (8.5-10.1) mg/dl Procalcitonin (0-0.5) ng/ml Urine Color [place] Urine Appearance Clear (Clear) Urine pH 6.5 (4.5-7.5) Ur Specific [place] 1.022 (1.000-1.030) Urine Protein 1+ H (Negative) Urine Glucose (UA) Negative (Negative) Urine Ketones 1+ H (Negative) Urine Blood Negative (Negative) Urine Nitrite Negative (Negative) Urine Bilirubin Negative (Negative) Urine Urobilinogen Negative (Negative) Ur Leukocyte Esterase Trace H (Negative) Urine WBC (Auto) 5-10 H (0-5) /hpf Urine RBC (Auto) 0-4 (0-4) /hpf U Hyaline Cast (Auto) 5-10 H (0-5) /lpf U Epithel Cells (Auto) >30 H (0-5) /lpf Urine Bacteria (Auto) Negative (Negative) Ur Renal Epithelial Cell Not Reportable SARS-CoV-2, RNA, NAAT (NEGATIVE) 07/15/21 07/15/21 07/15/21 Range/Units 16:05 12:38 12:13 WBC (4.8-10.8) K/uL RBC (4.2-5.4) M/uL Hgb (12.0-16.0) g/dL Hct (37-47) % MCV (80-100) fL MCH (25-34) pg MCHC (32-36) g/dL RDW Std Deviation (36.4-46.3) fL RDW Coeff of Claudia (11.5-14.5) % Plt Count (130-400) K/uL MPV (7.4-10.4) fL Immature Gran % (Auto) % Neut % (Auto) % Lymph % (Auto) % [place] % (Auto) % Eos % (Auto) % Baso % (Auto) % Neut # (Auto) (1.4-6.5) K/uL Lymph # (Auto) (1.2-3.4) K/uL [place] # (Auto) (0.11-0.59) K/uL Eos # (Auto) (0-0.5) K/uL Baso # (Auto) (0-0.2) K/uL Immature Gran # (Auto) (0.00-0.02) K/uL Sodium (136-145) mmol/L Potassium (3.5-5.1) mmol/L Chloride (98-107) mmol/L Carbon Dioxide (21-32) mmol/L Anion Gap (3-11) BUN (6-23) mg/dl Creatinine (0.6-1.2) mg/dl Est Cr Clr Drug Dosing ml/min Est GFR ( Amer) ml/min Est GFR (Non-Af Amer) ml/min BUN/Creatinine Ratio (10-20) Glucose (70-99(Fasting)) mg/dl Lactate 1.4 (0.4-2.0) mmol/L Calcium (8.5-10.1) mg/dl Procalcitonin 0.50 (0-0.5) ng/ml Urine Color Urine Appearance (Clear) Urine pH (4.5-7.5) Ur Specific [place] (1.000-1.030) Urine Protein (Negative) Urine Glucose (UA) (Negative) Urine Ketones (Negative) Urine Blood (Negative) Urine Nitrite (Negative) Urine Bilirubin (Negative) Urine Urobilinogen (Negative) Ur Leukocyte Esterase (Negative) Urine WBC (Auto) (0-5) /hpf Urine RBC (Auto) (0-4) /hpf U Hyaline Cast (Auto) (0-5) /lpf U Epithel Cells (Auto) (0-5) /lpf Urine Bacteria (Auto) (Negative) Ur Renal Epithelial Cell SARS-CoV-2, RNA, NAAT NEGATIVE (NEGATIVE)
[2021-07-16] MEDS: D5W AND 1/2NSS 1,000 ML IV SCH ×2 (11:49→15:24)
[2021-07-17] MEDS: D5W AND 1/2NSS 1,000 ML IV SCH ×3 (01:40→21:08)
[2021-07-17] MEDS: ACETAMINOPHEN 325 MG TAB PO PRN ×2 (01:47→21:08)
[2021-07-17] MEDS: PIPERACILLIN/TAZOBACTAM 3.375 GM in DEXTROSE 5% 100 ML IV SCH ×3 (04:46→21:02)
[2021-07-17 06:15] LABS: Basophils # (auto) 0.02 K/uL (0-0.2); Basophils % (auto) 0.1 %; Eosinophils # (auto) 0.09 K/uL (0-0.5); Eosinophils % (auto) 0.6 %; Hemoglobin 11.1 g/dL (12.0-16.0); Immature Granulocytes # (auto) 0.02 K/uL (0.00-0.02); Immature Granulocytes % (auto) 0.1 %; Mean Corpuscular Hemoglobin 30.6 pg (25-34); Mean Corpuscular Hgb Conc 32.6 g/dL (32-36); Mean Corpuscular Volume 93.7 fL (80-100); Mean Platelet Volume 10.5 fL (7.4-10.4); Monocytes # (auto) 0.76 K/uL (0.11-0.59); Monocytes % (auto) 4.9 %; Neutrophils # (auto) 11.17 K/uL (1.4-6.5); Neutrophils % (auto) 72.3 %; Platelet Count 241 K/uL (130-400); RDW Coefficient of Variation 13.7 % (11.5-14.5); RDW Standard Deviation 47.7 fL (36.4-46.3); Red Blood Count 3.63 M/uL (4.2-5.4); White Blood Count 15.46 K/uL (4.8-10.8)
[2021-07-17 06:38] LABS: BUN Creatinine Ratio 12.5 (10-20); Calcium 8.7 mg/dl (8.5-10.1); Creatinine Clr Calc Pharmacy 71.7 ml/min; Est GFR (African American) 105.5 ml/min; Potassium 3.3 mmol/L (3.5-5.1)
--- NOTE | 2021-07-17 10:22 | Surgery Progress Note ---
Date of Service July 17, 2021 Assessment & Plan (1) Diverticulitis of large intestine with complication: (2) Abdominal pain: Plan: 71 year-old female presented to ED with one day history of abdominal pain and associated nausea. CT scan showing sigmoid diverticulitis with significant stranding in left lower abdomen with foci of pneumoperitoneum and 1 x 3 cm fat and fluid filled collection in anterior low pelvis which may be developing abscess. 07/17/2021: Afebrile, VSS improvement of leukocytosis to 15K (22K prior) abdominal pain improving abdomen soft, tender in lower abdomen bilaterally, no peritonitis Plan: Continue conservative measures Clear liquid diet today, advised to go slow Continue IV zosyn Continue pain management and antiemetics as needed SCDs ambulate repeat am labs to trend WBC Will need colonoscopy as outpatient in 6-8 weeks as she has never had one prior Patient seen in collaboration with Dr. Myers during rounds who agrees with above. Admission and Anticipated Discharge Date Admission Date: July 15, 2021 Subjective feeling better today no nausea or vomiting abdominal pain is better today, able to move around better without pain passing gas no bowel movement urinating without difficulty Physical Exam Constitutional: well developed and well nourished; no acute distress and not ill appearing Neck: normal visual inspection and trachea midline Tracheostomy scar pres ent Respiratory: normal respiratory effort; no respiratory distress Gastrointestinal (Abdomen): Inspection/Auscultation: abdomen normal to inspection and normal bowel sounds; abdomen not distended Percussion/Palpation: + abdomen tender (lower abdomen bilaterally) and abdomen soft; no guarding and abdomen not rigid Skin: no rashes, warm and dry Psychiatric: A+Ox3, euthymic affect Results & Data ([facility]) Vital Signs (Past 12 Hours) Vital Signs Temp Pulse Pulse Resp BP Pulse Ox 07/17/21 07:51 36.6 C 85 14 101/59 L 95 07/17/21 07:08 83 07/17/21 07:00 37.0 C 83 16 113/73 94 07/17/21 04:07 91 H 07/17/21 03:17 37.1 C 94 H 16 90/52 L 92 07/16/21 23:00 36.8 C 93 H 18 115/65 93 Laboratory Results 07/17/21 07/17/21 Range/Units 05:29 05:29 WBC 15.46 H (4.8-10.8) K/uL RBC 3.63 L (4.2-5.4) M/uL Hgb 11.1 L (12.0-16.0) g/dL Hct 34.0 L (37-47) % MCV 93.7 (80-100) fL MCH 30.6 (25-34) pg MCHC 32.6 (32-36) g/dL RDW Std Deviation 47.7 H (36.4-46.3) fL RDW Coeff of Claudia 13.7 (11.5-14.5) % Plt Count 241 (130-400) K/uL MPV 10.5 H (7.4-10.4) fL Immature Gran % (Auto) 0.1 % Neut % (Auto) 72.3 % Lymph % (Auto) 22.0 % [place] % (Auto) 4.9 % Eos % (Auto) 0.6 % Baso % (Auto) 0.1 % Neut # (Auto) 11.17 H (1.4-6.5) K/uL Lymph # (Auto) 3.40 (1.2-3.4) K/uL [place] # (Auto) 0.76 H (0.11-0.59) K/uL Eos # (Auto) 0.09 (0-0.5) K/uL Baso # (Auto) 0.02 (0-0.2) K/uL Immature Gran # (Auto) 0.02 (0.00-0.02) K/uL Sodium 137 (136-145) mmol/L Potassium 3.3 L (3.5-5.1) mmol/L Chloride 105 (98-107) mmol/L Carbon Dioxide 27 (21-32) mmol/L Anion Gap 5 (3-11) BUN 8 (6-23) mg/dl Creatinine 0.64 (0.6-1.2) mg/dl Est Cr Clr Drug Dosing 71.7 ml/min Est GFR ( Amer) 105.5 ml/min Est GFR (Non-Af Amer) 91.0 ml/min BUN/Creatinine Ratio 12.5 (10-20) Glucose 123 H (70-99(Fasting)) mg/dl Calcium 8.7 (8.5-10.1) mg/dl Microbiology 07/15/21 12:13 Aerobic Blood Culture - Preliminary Blood No growth in Aerobic bottle after 24 hours. Anaerobic Blood Culture - Preliminary No growth in Anaerobic bottle after 24 hours. 07/15/21 12:13 Aerobic Blood Culture - Preliminary Blood No growth in Aerobic bottle after 24 hours. Anaerobic Blood Culture - Preliminary No growth in Anaerobic bottle after 24 hours.
[2021-07-18] MEDS: PIPERACILLIN/TAZOBACTAM 3.375 GM in DEXTROSE 5% 100 ML IV SCH ×3 (04:50→20:41)
[2021-07-18 06:14] LABS: Basophils # (auto) 0.02 K/uL (0-0.2); Basophils % (auto) 0.2 %; Eosinophils # (auto) 0.19 K/uL (0-0.5); Eosinophils % (auto) 1.8 %; Hematocrit (blood only) 33.2 % (37-47); Hemoglobin 10.7 g/dL (12.0-16.0); Immature Granulocytes # (auto) 0.02 K/uL (0.00-0.02); Immature Granulocytes % (auto) 0.2 %; Lymphocytes # (auto) 2.97 K/uL (1.2-3.4); Lymphocytes % (auto) 28.9 %; Mean Corpuscular Hemoglobin 29.9 pg (25-34); Mean Corpuscular Hgb Conc 32.2 g/dL (32-36); Mean Corpuscular Volume 92.7 fL (80-100); Mean Platelet Volume 10.4 fL (7.4-10.4); Monocytes # (auto) 0.68 K/uL (0.11-0.59); Monocytes % (auto) 6.6 %; Neutrophils % (auto) 62.3 %; Platelet Count 287 K/uL (130-400); RDW Coefficient of Variation 13.4 % (11.5-14.5); RDW Standard Deviation 45.8 fL (36.4-46.3); Red Blood Count 3.58 M/uL (4.2-5.4); White Blood Count 10.28 K/uL (4.8-10.8)
[2021-07-18] MEDS: D5W AND 1/2NSS 1,000 ML IV SCH ×2 (06:25→15:41)
[2021-07-18 06:35] LABS: BUN Creatinine Ratio 6.8 (10-20); Calcium 8.6 mg/dl (8.5-10.1); Creatinine Clr Calc Pharmacy 63.7 ml/min; Est GFR (African American) 97.4 ml/min; Potassium 3.4 mmol/L (3.5-5.1)
[2021-07-18] MEDS: ACETAMINOPHEN 325 MG TAB PO PRN (09:28)
--- NOTE | 2021-07-18 09:29 | Surgery Progress Note ---
Date of Service July 18, 2021 Assessment & Plan (1) Diverticulitis of large intestine with complication: (2) Abdominal pain: Plan: 71 year-old female presented to ED with one day history of abdominal pain and associated nausea. CT scan showing sigmoid diverticulitis with significant stranding in left lower abdomen with foci of pneumoperitoneum and 1 x 3 cm fat and fluid filled collection in anterior low pelvis which may be developing abscess. 07/18/2021: Tmax of 38.2 last evening, Afebrile since VSS improvement of leukocytosis to 10K (15K prior) abdominal pain improving slowly abdomen soft, tender in lower abdomen bilaterally, no peritonitis Plan: Continue conservative measures Full liquid diet today, advised to go slow Continue IV zosyn Continue pain management and antiemetics as needed SCDs ambulate repeat am labs to trend WBC Will need colonoscopy as outpatient in 6-8 weeks as she has never had one prior Patient seen in collaboration with Dr. Myers during rounds who agrees with above. Admission and Anticipated Discharge Date Admission Date: July 15, 2021 Subjective feeling better again today abdominal pain is less but still pain with movement, not taking anything for pain would like to avoid narcotics no nausea/vomiting tolerating clear liquids + bowel movement yesterday afternoon Physical Exam Constitutional: WD/WN, vitals as above no acute distress and not ill appearing Neck: normal visual inspection and trachea midline tracheostomy scar present Respiratory: normal respiratory effort; no respiratory distress Gastrointestinal (Abdomen): Inspection/Auscultation: abdomen normal to inspection, + abdomen distended (mild) and + hypoactive bowel sounds Percussion/Palpation: + abdomen tender (bilateral lower abdomen, more on right), + guarding (voluntary guarding in R lower abdomen) and abdomen soft; abdomen not rigid Skin: no rashes, warm and dry Psychiatric: A+Ox3, euthymic affect Results & Data ([facility]) Vital Signs (Past 12 Hours) Vital Signs Temp Pulse Pulse Resp BP Pulse Ox 07/18/21 07:42 71 07/18/21 07:00 36.8 C 76 18 111/66 97 07/18/21 03:15 37.1 C 81 18 120/72 96 07/18/21 02:37 87 07/17/21 22:00 37.1 C 85 20 125/74 96 Laboratory Results 07/18/21 07/18/21 Range/Units 05:41 05:41 WBC 10.28 (4.8-10.8) K/uL RBC 3.58 L (4.2-5.4) M/uL Hgb 10.7 L (12.0-16.0) g/dL Hct 33.2 L (37-47) % MCV 92.7 (80-100) fL MCH 29.9 (25-34) pg MCHC 32.2 (32-36) g/dL RDW Std Deviation 45.8 (36.4-46.3) fL RDW Coeff of Claudia 13.4 (11.5-14.5) % Plt Count 287 (130-400) K/uL MPV 10.4 (7.4-10.4) fL Immature Gran % (Auto) 0.2 % Neut % (Auto) 62.3 % Lymph % (Auto) 28.9 % [place] % (Auto) 6.6 % Eos % (Auto) 1.8 % Baso % (Auto) 0.2 % Neut # (Auto) 6.40 (1.4-6.5) K/uL Lymph # (Auto) 2.97 (1.2-3.4) K/uL [place] # (Auto) 0.68 H (0.11-0.59) K/uL Eos # (Auto) 0.19 (0-0.5) K/uL Baso # (Auto) 0.02 (0-0.2) K/uL Immature Gran # (Auto) 0.02 (0.00-0.02) K/uL Sodium 139 (136-145) mmol/L Potassium 3.4 L (3.5-5.1) mmol/L Chloride 107 (98-107) mmol/L Carbon Dioxide 28 (21-32) mmol/L Anion Gap 4 (3-11) BUN 5 L (6-23) mg/dl Creatinine 0.73 (0.6-1.2) mg/dl Est Cr Clr Drug Dosing 63.7 ml/min Est GFR ( Amer) 97.4 ml/min Est GFR (Non-Af Amer) 84.0 ml/min BUN/Creatinine Ratio 6.8 L (10-20) Glucose 114 H (70-99(Fasting)) mg/dl Calcium 8.6 (8.5-10.1) mg/dl Microbiology 07/15/21 12:13 Aerobic Blood Culture - Preliminary Blood No growth in Aerobic bottle after 48 hours. Anaerobic Blood Culture - Preliminary No growth in Anaerobic bottle after 48 hours. 07/15/21 12:13 Aerobic Blood Culture - Preliminary Blood No growth in Aerobic bottle after 48 hours. Anaerobic Blood Culture - Preliminary No growth in Anaerobic bottle after 48 hours.
[2021-07-19] MEDS: D5W AND 1/2NSS 1,000 ML IV SCH (02:04)
[2021-07-19] MEDS: PIPERACILLIN/TAZOBACTAM 3.375 GM in DEXTROSE 5% 100 ML IV SCH (03:40)
[2021-07-19 05:55] LABS: Basophils # (auto) 0.02 K/uL (0-0.2); Basophils % (auto) 0.2 %; Eosinophils # (auto) 0.17 K/uL (0-0.5); Eosinophils % (auto) 1.4 %; Hematocrit (blood only) 36.1 % (37-47); Hemoglobin 11.9 g/dL (12.0-16.0); Immature Granulocytes # (auto) 0.04 K/uL (0.00-0.02); Immature Granulocytes % (auto) 0.3 %; Lymphocytes # (auto) 3.47 K/uL (1.2-3.4); Lymphocytes % (auto) 28.9 %; Mean Corpuscular Hemoglobin 30.2 pg (25-34); Mean Corpuscular Volume 91.6 fL (80-100); Monocytes # (auto) 0.91 K/uL (0.11-0.59); Monocytes % (auto) 7.6 %; Neutrophils # (auto) 7.39 K/uL (1.4-6.5); Neutrophils % (auto) 61.6 %; Platelet Count 355 K/uL (130-400); RDW Coefficient of Variation 13.2 % (11.5-14.5); RDW Standard Deviation 45.1 fL (36.4-46.3); Red Blood Count 3.94 M/uL (4.2-5.4)
[2021-07-19 06:22] LABS: BUN Creatinine Ratio 6.7 (10-20); Calcium 8.6 mg/dl (8.5-10.1); Creatinine Clr Calc Pharmacy 77.6 ml/min; Est GFR (African American) 107.8 ml/min; Potassium 2.9 mmol/L (3.5-5.1)
[2021-07-19] MEDS ORDERED: POTASSIUM CHLORIDE CRTAB 20 MEQ TABCR PO STA ×2 (09:39→11:01)
[2021-07-19] MEDS: ACETAMINOPHEN 325 MG TAB PO PRN (11:52)
--- NOTE | 2021-07-19 13:40 | Discharge Summary ---
Date of Service July 19, 2021 Admission HPI Per Admitting Provider Rossi is a 71 year-old female with history of COVID pneumonia in October of 2020 who required intubation, tracheostomy and PEG tube placement who presented to emergency room today with complaint of abdominal pain that began yesterday. Was in normal state of health prior to onset of abdominal pain. States pain was located in the left lower abdomen and now more to the right. Associated nausea but unable to vomit. Low grade temperature of 99.6 no fever today. No chills. No chest pain or shortness of breath. Scheduled for outpatient ECHO by PCP on Thursday given some longer term palpitations since her COVID infection. Never had diverticulitis before. Never had a colonoscopy. Principal Diagnosis acute sigmoid diverticulitis with microperforation and abdominal abscess Discharge Exam Constitutional WD/WN, vitals as above well developed and well nourished; no acute distress and not ill appearing Neck normal visual inspection and trachea midline Respiratory normal respiratory effort; no respiratory distress, no labored breathing and no retractions Gastrointestinal (Abdomen) Inspection/Auscultation: abdomen normal to inspection Percussion/Palpation: + abdomen tender (bilateral lower abdomen, more on right) and abdomen soft; abdomen not rigid Skin no rashes, warm and dry Psychiatric A+Ox3, euthymic affect Discharge Data Allergies Allergy/AdvReac Type Severity Reaction Status Date / Time lactose AdvReac Intermediate Gastrointestinal Verified 07/15/21 11:32 Upset egg AdvReac Unknown Unknown Verified 07/15/21 11:32 Consultations 07/15/21 16:03 ED Decision to Admit Stat Ordered Studies 07/15/21 11:43 CT abd pelvis IV con only Stat Hospital Course (1) Diverticulitis of large intestine with complication: (2) Abdominal pain: Patient was admitted to hospital from emergency department for conservative management for the complicated sigmoid diverticulitis with NPO for bowel rest, IV fluids, IV antibiotics, pain management and antiemetics as needed. He diet was slowly advanced to a full liquid diet on hospital day #4. She tolerated advancement of diet. Abdominal pain continued to improve throughout her stay. She did not require any narcotic pain medications for pain management only Tylenol. She had a bowel movement on HD #3. Her leukocytosis resolved from 25K to 10K on HD # 3 however slightly increased to 12k on HD #4. Her blood cultures were negative after 48 hours. She did have a fever in evening of HD # 2 however this resolved. As she clinically improved on oral antibiotics she was discharged home on HD # 4 on full liquids diet with 10 day course of oral cipro and flagyl. She was advised to adhere to low fat diet for 4 weeks. She will need colonoscopy in 6-8 weeks as she has never had one prior. Follow-up in surgery office in 2 weeks. Total Time Total Time Spent Total Time Spent (In Minutes): 30 minutes Total Time Includes: Examination of the Patient, Discharge Planning and Medication Reconciliation Discharge Plan Discharge Items Patient Disposition: Home - Self-Care Reason For Visit: ACUTE DIVERTICULITIS, MICROPERFORATION Discharge Diagnosis: Acute diverticulitis with microperforation Intra-abdominal abscess Activity: Per Instructions section Non-emergency contact: Primary Care Provider and Surgeon Call non-emergency contact if: you have any medication questions, your pain is not controlled, your pain is worsening, your pain is concerning for you and you have a fever Follow-up/Referrals: Philomena Myers MD [Physician] - Ana Ferris MD [Primary Care Provider] - Diet: Low Fiber Addtl Attending Provider Instructions: Recommend nonstrenuous activity/exercise for two weeks Recommend low fiber diet while in the acute/inflammation stage for 4 weeks Recommend diet high in fiber after your colonoscopy Recommend colonoscopy in 6-8 weeks to evaluate the colon to rule out any underlying colon masses/lesions as cause of the diverticulitis. What are low-fiber foods? If your doctor tells you to follow a low-fiber diet, here arelow-fiber foods you can eat and higher-fiber foods you should avoid. Remember to always choose foods that you would normally eat. Do not try any foods that caused you discomfort or allergic reactions in the past. If you are on a low-residue diet, your food choices are even more restricted than those listed below. Talk with your cancer care team or dietitian if you have questions about certain foods or amounts. Meat, fish, poultry, and protein Eat * Tender cuts of meat * Ground meat * Tofu * Fish and shellfish * Smooth peanut butter * Eggs Bake, broil, or poach meats, and use mild seasonings. Try preparing meats as stews, roasts, meatloaves, casseroles, sandwiches, and soups using ingredients on the approved lists. Scramble, poach, or boil eggs; or make omelets, souffls, custard, puddings, and casseroles, using ingredients noted below. You might want to ask your doctor, nurse, or dietitian about other foods may be OK for you to eat, and find out when you can go back to your normal diet. Avoid * All beans, nuts, peas, lentils, and legumes * Processed meats, hot dogs, sausage, and cold cuts * Tough meats with gristle Dairy: Milk and cheese Eat Only in small to medium amounts and only if they dont cause problems for you * Milk, chocolate milk, buttermilk, and milk drinks * Yogurt without seeds or granola * Sour cream * Cheese * Cottage cheese * Custard or pudding * Ice cream or frozen desserts (without nuts) * Cream sauces, soups, and casseroles You can use these items in desserts, snacks, or breads. Bread, cereals, and grains Eat * White breads, waffles, Turkish toast, plain white rolls, or white bread toast * Pretzels * Plain pasta or noodles * White rice * Crackers, zwieback, fernie, and matzoh (no cracked wheat or whole grains) * Cereals without whole grains, added fiber, seeds, raisins, or other dried fruit Use white flour for baking and making sauces. Grains, such as white rice, Cream of Wheat, or grits, should be well-cooked. Include the above grains in casseroles, dumplings, souffls, cheese strata, kugels, and pudding. Avoid any food that contains * Brown or wild rice * Whole grains, cracked grains, or whole wheat products * Kasha (buckwheat) * Cornbread or cornmeal * Memo crackers * Bran * Wheat germ * Nuts * Granola * Coconut * Dried fruit * Seeds Vegetables and potatoes Eat * Tender, well-cooked fresh or canned vegetables without seeds, stems, or skins * Cooked sweet or white potatoes without skins * Strained vegetable juices without pulp or spices You can also eat these with cream sauces, or in soups, souffls, kugels, and casseroles. Avoid * All raw or steamed vegetables * All types of beans * Potatoes with skin * Peas * [place] * Cabbage, broccoli, cauliflower, [place] sprouts, and greens * Sauerkraut * Onions Fruits and desserts Eat * Soft canned or cooked fruit without seeds or skins (small amounts) * Small amounts of well-ripened banana * Strained or clear juices * Small amounts of soft cantaloupe or honeydew melon * Cookies and other desserts without whole grains, dried fruit, berries, nuts, or coconut * Sherbet and popsicles Serving suggestions include gelatins, milk shakes, frozen desserts, puddings, tapioca, cakes, and sauces. Avoid * All raw or dried fruits * Berries * Prune juice, prunes, and raisins Other foods Eat * Mayonnaise and mild salad dressings * Margarine, butter, cream, and oils in small amounts * Plain gravies * Plain bouillon and broth * Ketchup and mild mustard * Spices, cooked herbs, and salt * Sugar, honey, and syrup * Clear jellies * Hard candy and marshmallows * Plain chocolate Avoid * Marmalade * Pickles, olives, relish, and horseradish * Popcorn * Potato chips Liquids Keep in mind that low-fiber foods cause fewer bowel movements and smaller stools. You may need to drink extra fluids to help prevent constipation while you are on a low-fiber diet. Drink plenty of water unless your doctor tells you otherwise, and use juices and milk as noted above. Pending Studies at Discharge: No Stand-Alone Forms: [facility], Sm[facility] Cess[facility] Medications and DC Order Prescriptions: New ciprofloxacin HCl [Cipro] 500 mg tablet 500 mg PO BID Qty: 20 RF: 0 metronidazole 500 mg tablet 500 mg PO TID Qty: 30 RF: 0 Continued multivitamin Tablet 1 tab PO QAM RF: 0 vitamin H03-kikgi acid 0.5-1 mg Tablet 1 tab PO QAM RF: 0 cholecalciferol (vitamin D3) [Vitamin D3] 25 mcg (1,000 unit) Tablet 25 mcg PO QAM RF: 0 biotin 5 mg Tablet 5 mg PO QAM RF: 0 Probiotic 10 billion cell Capsule 10,000 mmu cells PO DAILY RF: 0 vitamin K2 40 mcg Tablet 40 mcg PO QAM RF: 0 Discharge Orders: Discharge Order (Routine); Ordered 07/19/21 Ordered By: Niurka Louie/Other Patient Handouts: Diverticulosis and Diverticulitis, Diverticulitis Dc Admission Data Admit Date/Time: 07/15/21 16:03 Attending Provider: Philomena Myers Admit Provider: Philomena Myers Primary Care Provider: Ana Ferris Other Providers: Philomena Myers Other Interventions: Discharge Summary Assessment (RN) Last Done: 07/19/21 11:11
[2021-07-19] MEDS ORDERED: POTASSIUM CHLORIDE 10 MEQ TABCR PO SCH (21:00)
== END 2021-07-19 12:40 | disposition home or self-care (01) | DRG 392 ==
LOC: ED 09:36 → EDINP 16:03 → 2N 17:37
DX: Z86.16 Personal history of COVID-19; Z91.018 Allergy to other foods; K57.20 Diverticulitis of large intestine with perforation and abscess without bleeding